=== PATIENT | male | born 1935 | race Caucasian/White ===

== ENCOUNTER 2016-06-02 14:50 | Inpatient (IN) | payer OTHER, MEDICARE ==
[~2016-06-02] VITALS: Ht 170.2 cm; Wt 94.2 kg
[~2016-06-02 14:50] MED LIST: FLM4 PO; LEVO125T4 PO; LPT/20 PO; LSN25 PO; LSX20 PO; SPIR25TA PO; WARF-246 PO
[2016-06-02] MEDS ORDERED: OPTIRAY 320 IV PRN (15:30)
[2016-06-02] MEDS ORDERED: TPRSR/25 PO (16:05)
[2016-06-02] MEDS ORDERED: LEVE500T PO (16:05)
[2016-06-02] MEDS ORDERED: TRAZ1TAB5 PO (16:05)
[2016-06-02] MEDS ORDERED: CLX/20 PO (16:05)
[2016-06-02] MEDS ORDERED: CHOL1000 PO (16:05)
[2016-06-02] MEDS ORDERED: NRN100 PO (16:05)
[2016-06-02 16:20] LABS: BUN/CREATININE RATIO 27.8 (10-20); CREATININE 1.1 mg/dl (0.60-1.40); POTASSIUM 4.3 mmol/L (3.5-5.1)
[2016-06-02 16:27] LABS: INR 2.4 (0.9-1.1); PARTIAL THROMBOPLASTIN RATIO 1.2; PROTHROMBIN TIME (PATIENT) 26.5 SECONDS (9.0-12.0)
[2016-06-02 16:41] LABS: BASO % 0.5 %; BASO ABS # 0.03 K/uL (0-0.2); COMPLETE YES; EOS % 2.1 %; HEMATOCRIT 45.6 % (42-52); IG% 0.2 %; LYMPH % 23.2 %; LYMPH ABS # 1.41 K/uL (1.2-3.4); MEAN CELL VOLUME 89.9 fL (80-100); MEAN CORPUSCULAR HEMOGLOBIN 29.6 pg (25-34); MEAN CORPUSCULAR HGB CONC 32.9 g/dl (32-36); MONO % 8.6 %; NEUT % 65.4 %; PLATELET COUNT 97 K/uL (130-400); PLT ESTIMATE DECREASED; RED BLOOD COUNT 5.07 M/uL (4.7-6.1); WHITE BLOOD COUNT 6.08 K/uL (4.8-10.8)
[2016-06-02 16:46] LABS: THYROID STIMULATING HORMONE 0.421 uIu/ml (0.300-4.500)
--- NOTE | 2016-06-02 17:17 | DIAGNOSTIC IMAGING REPORT ---
CT ANGIOGRAM OF THE CHEST CLINICAL HISTORY: Shortness of breath, dyspnea on exertion. COMPARISON STUDY: No previous studies for comparison. TECHNIQUE: Following the IV administration of 118 mL of Optiray-320, CT angiogram of the thorax was performed from the thoracic inlet to the lung bases utilizing the pulmonary embolus protocol. Images are reviewed in the axial, sagittal, and coronal planes. IV contrast was administered without complication. MIP imaging was performed. CT DOSE: 539.21 mGy.cm FINDINGS: No pathologically enlarged axillary mediastinal or hilar lymph nodes were visualized. There is mild dilatation of the ascending thoracic aorta which measures 44 mm. No intimal flap is visualized The heart is markedly enlarged. There is evidence of elevated right heart pressures with reflux of contrast into the IVC and hepatic veins. 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 There is a left subclavian dual-chamber central venous pacemaker present. The study is limited secondary to respiratory motion artifact. No central emboli are visualized. Serial lower extremity venous Doppler should be considered in follow-up. No pleural effusions are visualized. Limited evaluation due to respiratory motion artifact. No evidence of focal pulmonary consolidation. IMPRESSION: 1. Somewhat limited evaluation of the pulmonary arteries secondary to motion artifact. No central emboli identified. Serial leg ultrasonography should be considered in follow-up. 2. Mild dilatation of the ascending thoracic aorta which measures 44 mm. No dissection identified 3. Extensive chest wall collaterals, finding which suggests stenosis or obstruction left brachiocephalic vein 4. Marked cardiomegaly with evidence of elevated right heart pressures Electronically signed by: Javi Wang M.D. 06/02/2016 5:16 PM Dictated Date/Time: 06/02/2016 5:09 PM
[2016-06-02] MEDS ORDERED: ASPIRIN 324 MG CHEW PO STA (17:50)
--- NOTE | 2016-06-02 18:30 | EMERGENCY ROOM VISIT NOTE ---
History Report prepared by Lexy: Gabbi Lobo Under the Supervision of: Dr. Clarke Ribeiro M.D. First contact with patient: 15:02 Chief Complaint: SHORTNESS OF BREATH Stated Complaint: SHORTNESS OF BREATH Nursing Triage Summary: Pt has been SOB for 1 week. Today patient was shopping and became very SOB. Pt was sent to [facility] for evaluation and then here. Pt reports he gets SOB when he talks and walks. Pt reports history of Afib and pacemaker. History of Present Illness The patient is a 81 year old male who presents to the Emergency Room via EMS with complaints of persistent shortness of breath over the past week. Today, his shortness of breath worsened while he was shopping for a new iPhone. He notes that he feels an increase in his shortness of breath after walking 5-10 steps. He felt much better once he was put on oxygen in the ambulance. Denies chest pain or other complaints. He notes that he followed up with his control board operator within the last 2 weeks for a check up. He has a history of a-fib. Source of History: patient Onset: 1 week ago Position: other (global) Timing: other (persistent) Modifying Factors (Worsening): exertion Modifying Factors (Relieving): oxygen Associated Symptoms: No chest pain Review of Systems See HPI for pertinent positives & negatives. A total of 10 systems reviewed and were otherwise negative. Past Medical & Surgical Medical Problems: (1) Atrial fibrillation (2) Heart disease (3) Hypertension (4) Leaky heart valve Surgical Problems: (1) History of appendectomy (2) History of cholecystectomy Family History Cancer Diabetes mellitus Gallbladder disease Heart disease Hypertension Lung disease Social History Smoking Status: Never Smoker Alcohol Use: occasionally Housing Status: lives with family Occupation Status: retired Current/Historical Medications Scheduled Atorvastatin (Atorvastatin Calcium), 20 MG PO DAILY Cholecalciferol (Vitamin D3), 1 TAB PO DAILY Citalopram (Citalopram Hydrobromide), 20 MG PO DAILY Gabapentin (Gabapentin), 100 MG PO TID Levetiractam (Levetiracetam), 500 MG PO Q12 Levothyroxine Sodium (Levothyroxine Sodium), 125 MCG PO DAILY Metoprolol Succinate (Metoprolol Succinate ER), 12.5 MG PO DAILY Trazodone Hcl (Desyrel), 50 MG PO HS Warfarin Sodium (Warfarin Sodium), 5 MG PO UD Allergies Coded Allergies: No Known Allergies (Unverified , 06/02/16) Physical Exam Vital Signs Date Time Temp Pulse Resp B/P Pulse Ox O2 Delivery O2 Flow Rate FiO2 06/02/16 18:14 88 22 94/81 99 Nasal Cannula 2.0 06/02/16 16:36 92 20 117/72 93 Nasal Cannula 2.0 06/02/16 16:13 98 97/71 97 99/67 110 83/66 06/02/16 15:37 88 Room Air 06/02/16 15:09 97 06/02/16 14:56 95 Nasal Cannula 06/02/16 14:56 95 Nasal Cannula 2.0 06/02/16 14:56 36.3 91 20 100/74 88 Room Air Physical Exam CONSTITUTIONAL: Mild distress, on oxygen, normal pulse ox. HEENT: No icterus, moist mucous membranes NECK: No meningismus, trachea is midline. CARDIOVASCULAR: Regular rate, normal perfusion RESPIRATORY: Unlabored breathing. Clear to auscultation. GASTROINTESTINAL: Non-tender GENITOURINARY: No flank tenderness MUSCULOSKELETAL: Full range of motion NEUROLOGIC: No acute gross focal deficits. PSYCHIATRIC: Normal affect SKIN: Normal for ethnicity. Medical Decision & Procedures ER Provider Diagnostic Interpretation: Radiology results as stated below per my review and radiologist interpretation. CT ANGIOGRAM OF THE CHEST CLINICAL HISTORY: Shortness of breath, dyspnea on exertion. COMPARISON STUDY: No previous studies for comparison. TECHNIQUE: Following the IV administration of 118 mL of Optiray-320, CT angiogram of the thorax was performed from the thoracic inlet to the lung bases utilizing the pulmonary embolus protocol. Images are reviewed in the axial, sagittal, and coronal planes. IV contrast was administered without complication. MIP imaging was performed. CT DOSE: 539.21 mGy.cm FINDINGS: No pathologically enlarged axillary mediastinal or hilar lymph nodes were visualized. There is mild dilatation of the ascending thoracic aorta which measures 44 mm. No intimal flap is visualized The heart is markedly enlarged. There is evidence of elevated right heart pressures with reflux of contrast into the IVC and hepatic veins. 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 There is a left subclavian dual-chamber central venous pacemaker present. The study is limited secondary to respiratory motion artifact. No central emboli are visualized. Serial lower extremity venous Doppler should be considered in follow-up. No pleural effusions are visualized. Limited evaluation due to respiratory motion artifact. No evidence of focal pulmonary consolidation. IMPRESSION: 1. Somewhat limited evaluation of the pulmonary arteries secondary to motion artifact. No central emboli identified. Serial leg ultrasonography should be considered in follow-up. 2. Mild dilatation of the ascending thoracic aorta which measures 44 mm. No dissection identified 3. Extensive chest wall collaterals, finding which suggests stenosis or obstruction left brachiocephalic vein 4. Marked cardiomegaly with evidence of elevated right heart pressures Electronically signed by: Javi Wang M.D. 06/02/2016 5:16 PM Dictated Date/Time: 06/02/2016 5:09 PM Laboratory Results 06/02/16 14:30 Red Blood Count 5.07, Mean Corpuscular Volume 89.9, Mean Corpuscular Hemoglobin 29.6, Mean Corpuscular Hemoglobin Concent 32.9, Neutrophils (%) (Auto) 65.4, Lymphocytes (%) (Auto) 23.2, Monocytes (%) (Auto) 8.6, Eosinophils (%) (Auto) 2.1, Basophils (%) (Auto) 0.5, Neutrophils # (Auto) 3.98, Lymphocytes # (Auto) 1.41, Monocytes # (Auto) 0.52, Eosinophils # (Auto) 0.13, Basophils # (Auto) 0.03 06/02/16 14:30 Test 06/02/16 14:30 06/02/16 16:05 06/02/16 17:50 06/02/16 18:08 White Blood Count 6.08 K/uL (4.8-10.8) Red Blood Count 5.07 M/uL (4.7-6.1) Hemoglobin 15.0 g/dL (14.0-18.0) Hematocrit 45.6 % (42-52) Mean Corpuscular Volume 89.9 fL (80-100) Mean Corpuscular Hemoglobin 29.6 pg (25-34) Mean Corpuscular Hemoglobin Concent 32.9 g/dl (32-36) Platelet Count 97 K/uL (130-400) Neutrophils (%) (Auto) 65.4 % Lymphocytes (%) (Auto) 23.2 % Monocytes (%) (Auto) 8.6 % Eosinophils (%) (Auto) 2.1 % Basophils (%) (Auto) 0.5 % Neutrophils # (Auto) 3.98 K/uL (1.4-6.5) Lymphocytes # (Auto) 1.41 K/uL (1.2-3.4) Monocytes # (Auto) 0.52 K/uL (0.11-0.59) Eosinophils # (Auto) 0.13 K/uL (0-0.5) Basophils # (Auto) 0.03 K/uL (0-0.2) RDW Standard Deviation 50.1 fL (36.4-46.3) RDW Coefficient of Variation 15.3 % (11.5-14.5) Immature Granulocyte % (Auto) 0.2 % Immature Granulocyte # (Auto) 0.01 K/uL (0.00-0.02) Platelet Estimate DECREASED Red Blood Cell Morphology Unremarkable Anion Gap 9.0 mmol/L (3-11) Est Creatinine Clear Calc Drug Dose 59.7 ml/min Estimated GFR () 73.1 Estimated GFR (Non- 63.1 BUN/Creatinine Ratio 27.8 (10-20) Calcium Level 9.0 mg/dl (8.5-10.1) Pro-B-Type Natriuretic Peptide 8318 pg/ml (0-1800) Thyroid Stimulating Hormone (TSH) 0.421 uIu/ml (0.300-4.500) Chemistry Specimen Hemolysis Prothrombin Time 26.5 SECONDS (9.0-12.0) Prothromb Time International Ratio 2.4 (0.9-1.1) Activated Partial Thromboplast Time 31.9 SECONDS (21.0-31.0) Partial Thromboplastin Ratio 1.2 Labs reviewed by ED physician. Medications Administered Medications (Trade) Dose Ordered Sig/Linda Route Start Time Stop Time Status Last Admin Dose Admin Aspirin (Aspirin Chew) 324 mg NOW STAT PO 06/02/16 17:50 06/02/16 17:55 DC 06/02/16 18:13 324 MG ECG Indication: SOB/dyspnea Rate (beats per minute): 102 Rhythm: other (ventricularly paced) Findings: nonspecific-ST abn ED Course 151: Past medical records reviewed. The patient was evaluated in room C9. A complete history and physical examination was performed. 1750: Ordered Aspirin 324 mg PO. 1810: Upon reexamination the patient is resting comfortably. I discussed results and treatment plan with the patient. He verbalizes agreement and understanding. I spoke with RAMON Unger Hospitalist Service. The patient will be evaluated for further management. Medical Decision Differential includes but is not limited to Differential includes but is not limited to coronary artery disease, PE, congestive heart failure. 81-year-old presents into the emergency Department from home for exertional dyspnea better with nasal cannula oxygen provided by EMS services. He reports being in his otherwise normal state of health and is presently without complaint on my examination. Nurse reports she was unable to ambulate on her evaluation and was hypoxic 88% on room air. His pulse ox is normal on 2 L nasal cannula. He is noted to have a paced rhythm at a history of atrial fibrillation on Coumadin with therapeutic INR. CTA chest negative for PE and troponin noted to be abnormal. Patient admitted. He remained hemodynamically stable throughout emergency Department course. Consults Time Called: 1800 Consulting Physician: RAMON Unger Hospitalist Service Returned Call: [phone] The patient will be evaluated for further management. Impression Primary Impression: Cardiac chest pain Additional Impressions: Elevated troponin Hypoxia Scribe Attestation The scribe's documentation has been prepared under my direction and personally reviewed by me in its entirety. I confirm that the note above accurately reflects all work, treatment, procedures, and medical decision making performed by me. Departure Information Dispostion Being Evaluated By Hospitalist Referrals Julia Angeles M.D. (PCP) Patient Instructions My [facility] Problem Qualifiers
[2016-06-02] MEDS ORDERED: NITROGLYCERIN 0.4 MG SL PER TAB CHARGE SL PRN (19:00)
[2016-06-02] MEDS ORDERED: ACETAMINOPHEN 325 MG TAB PO PRN (19:00)
[2016-06-02] MEDS ORDERED: ONDANSETRON INJ 2 MG/ML 2 ML VIAL IV PRN (19:00)
--- NOTE | 2016-06-02 19:31 | History and Physical ---
History & Physical Date & Time of Service: Jun 02, 2016 at 19:09 Chief Complaint: Shortness Of Breath Primary Care Physician: Julia Angeles M.D. History of Present Illness Source: patient, family, clinic records, hospital records Patient seen and examined. 81 year old male with PMHx of Afib on coumadin, Severe CHF with EF less than 20% s/p ICD, H/O AVR, H/O MVR, hypothyroidism, h/o subdural hematoma with seizures, and other problems listed below presents to the ED complaining of SOB prior to arrival. Patient reports he has been low energy and dyspnea for over a month. Today he was getting a new iPhone when at the store he walked about 5 steps and became SOB. Bystanders were nervous and called 911. Patient reports he has been getting SOB with this minimal exertion for about a month. He states prior to that he had been active and going to the gym. He reports he has been seeing Dr. Barajas for and that his pacemaker hasn't been working the way it should. He has a followup scheduled for 06/04. He denies fevers, chills, URI symptoms, chest pain, nausea, vomiting, diarrhea, dysuria, calf pain and edema. He denies orthopnea, change in diet/salt intake. He was in [facility] this summer following a fall resulting in a Subdural Hematoma. At that time he had the ICD placed. He also had Aortic Valve and Mitral Valve replacements. 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 When EMS arrived patient was hypoxic on RA. He was placed on 2L NC and now feels much better. In the ED BPs were soft which is chronic in nature. He was saturating well on 2L, INR was 2.4 CTA was negative for PE, CHF, and consolidation. Troponin was 0.302. He received ASA and is resting comfortably. He will be admitted for further workup and treatment . Past Medical/Surgical History Medical Problems: (1) Atrial fibrillation Status: Chronic (2) Biventricular ICD (implantable cardioverter-defibrillator) in place Status: Chronic (3) BPH (benign prostatic hyperplasia) Status: Chronic (4) Colon cancer Status: Chronic (5) Current use of shelter anticoagulation Status: Chronic (6) Depression Status: Chronic (7) Hypothyroidism Status: Chronic (8) Seizure Status: Chronic (9) Subdural hematoma Status: Chronic (10) Systolic CHF Status: Chronic (11) Thrombocytopenia Status: Chronic Surgical Problems: (1) H/O colonoscopy Status: Chronic (2) History of appendectomy Status: Chronic (3) History of partial colectomy Status: Chronic (4) Hx of cholecystectomy Status: Chronic (5) Hx of total knee arthroplasty Status: Chronic (6) S/P AVR (aortic valve replacement) Status: Chronic (7) S/P MVR (mitral valve replacement) Status: Chronic Family History Cancer Diabetes mellitus Gallbladder disease Heart disease Hypertension Lung disease Social History Smoking Status: Former Smoker Alcohol Use: none Marital Status: Housing status: lives with family Occupational Status: retired Allergies Coded Allergies: No Known Allergies (Unverified , 06/02/16) Home Medications Scheduled Atorvastatin (Atorvastatin Calcium), 20 MG PO DAILY Cholecalciferol (Vitamin D3), 1 TAB PO DAILY Citalopram (Citalopram Hydrobromide), 20 MG PO DAILY Gabapentin (Gabapentin), 100 MG PO TID Levetiractam (Levetiracetam), 500 MG PO Q12 Levothyroxine Sodium (Levothyroxine Sodium), 125 MCG PO DAILY Metoprolol Succinate (Metoprolol Succinate ER), 12.5 MG PO DAILY Trazodone Hcl (Desyrel), 50 MG PO HS Warfarin Sod (Jantoven), 2.5 MG PO UD Warfarin Sodium (Warfarin Sodium), 5 MG PO UD Review of Systems See above for pertinent positives & negatives. A total of 10 systems reviewed and were otherwise negative. Physical Exam Vital Signs Date Time Temp Pulse Resp B/P Pulse Ox O2 Delivery O2 Flow Rate FiO2 06/02/16 18:14 88 22 94/81 99 Nasal Cannula 2.0 06/02/16 16:36 92 20 117/72 93 Nasal Cannula 2.0 06/02/16 16:13 98 97/71 97 99/67 110 83/66 06/02/16 15:37 88 Room Air 06/02/16 15:09 97 06/02/16 14:56 95 Nasal Cannula 06/02/16 14:56 95 Nasal Cannula 2.0 06/02/16 14:56 36.3 91 20 100/74 88 Room Air General Appearance: + pertinent finding (Pleasant WD/WN 81 year old male lying in bed in NAD with brother at bedside ) Head: normocephalic, atraumatic Eyes: PERRL, EOMI, sclerae normal ENT: hearing grossly normal, pharynx normal Neck: supple, no JVD Respiratory/Chest: chest non-tender, lungs clear, normal breath sounds, no respiratory distress, no accessory muscle use Cardiovascular: regular rate, rhythm, no edema, no gallop, no JVD, normal peripheral pulses, + systolic murmur Abdomen/GI: normal bowel sounds, non tender, soft Back: normal inspection, no muscle spasm Extremities/Musculoskelatal: no calf tenderness, normal capillary refill, no pedal edema Neurologic/Psych: alert, oriented x 3, + pertinent finding (no motor or sensory deficits noted on gross exam ) Skin: normal color, warm/dry, no rash Lymphatic: no adenopathy Diagnostics Laboratory Results Results Past 24 Hours Test 06/02/16 14:30 06/02/16 16:05 06/02/16 17:50 Range/Units White Blood Count 6.08 4.8-10.8 K/uL Red Blood Count 5.07 4.7-6.1 M/uL Hemoglobin 15.0 14.0-18.0 g/dL Hematocrit 45.6 42-52 % Mean Corpuscular Volume 89.9 80-100 fL Mean Corpuscular Hemoglobin 29.6 25-34 pg Mean Corpuscular Hemoglobin Concent 32.9 32-36 g/dl Platelet Count 97 130-400 K/uL Neutrophils (%) (Auto) 65.4 % Lymphocytes (%) (Auto) 23.2 % Monocytes (%) (Auto) 8.6 % Eosinophils (%) (Auto) 2.1 % Basophils (%) (Auto) 0.5 % Neutrophils # (Auto) 3.98 1.4-6.5 K/uL Lymphocytes # (Auto) 1.41 1.2-3.4 K/uL Monocytes # (Auto) 0.52 0.11-0.59 K/uL Eosinophils # (Auto) 0.13 0-0.5 K/uL Basophils # (Auto) 0.03 0-0.2 K/uL RDW Standard Deviation 50.1 36.4-46.3 fL RDW Coefficient of Variation 15.3 11.5-14.5 % Immature Granulocyte % (Auto) 0.2 % Immature Granulocyte # (Auto) 0.01 0.00-0.02 K/uL Platelet Estimate DECREASED Red Blood Cell Morphology Unremarkable Sodium Level 144 136-145 mmol/L Potassium Level 4.3 3.5-5.1 mmol/L Chloride Level 110 98-107 mmol/L Carbon Dioxide Level 25 21-32 mmol/L Anion Gap 9.0 3-11 mmol/L Blood Urea Nitrogen 31 7-18 mg/dl Creatinine 1.10 0.60-1.40 mg/dl Est Creatinine Clear Calc Drug Dose 59.7 ml/min Estimated GFR () 73.1 Estimated GFR (Non- 63.1 BUN/Creatinine Ratio 27.8 10-20 Random Glucose 75 70-99 mg/dl Calcium Level 9.0 8.5-10.1 mg/dl Troponin I 0.302 0-0.045 ng/ml Pro-B-Type Natriuretic Peptide 8318 0-1800 pg/ml Thyroid Stimulating Hormone (TSH) 0.421 0.300-4.500 uIu/ml Chemistry Specimen Hemolysis Prothrombin Time 26.5 9.0-12.0 SECONDS Prothromb Time International Ratio 2.4 0.9-1.1 Activated Partial Thromboplast Time 31.9 21.0-31.0 SECONDS Partial Thromboplastin Ratio 1.2 Diagnostic Radiology CTA CHEST Per radiologist read: IMPRESSION: 1. Somewhat limited evaluation of the pulmonary arteries secondary to motion artifact. No central emboli identified. Serial leg ultrasonography should be considered in follow-up. 2. Mild dilatation of the ascending thoracic aorta which measures 44 mm. No dissection identified 3. Extensive chest wall collaterals, finding which suggests stenosis or obstruction left brachiocephalic vein 4. Marked cardiomegaly with evidence of elevated right heart pressures EKG Ventricular PAced 102 BPM, QTc 609 Impression Assessment and Plan 81 year old male presents to the ED with SOB. He has had decreased energy, and SOB for the past month. Today was SOB in public place and bystanders called [phone] ACUTE HYPOXIA -Admit to tele -? cause, CTA without effusion, consolidation, PE. Denies history of Asthma, COPD. Lung exam benign, appears euvolemic -Saturating well on 2L NC -Continue oxygen supplementation prn -continue Pulse ox -R/O ACS as below -CBC, PRP, Mg in AM -cardiology consult placed for further recommendations -may need 2 step prior to discharge ELEVATED TROPONIN -? cause, denies chest pain -Troponin 0.302 -serial Erickson, EKGs -cardiology consult placed for further input -defer repeat echo to cardiology -Continue BB, Statin -Received Aspirin in the ED, continue daily for now SEVERE SYSTOLIC CHF -EF< 20% on Echo in 04/2016 -BNP 8K -appears euvolemic -is not on diuretics as outpatient -continue BB -Repeat BNP in AM -low sodium AHA diet -I&Os H/O BIVENTRICULAR PACEMAKER DEFIBRILLATOR -Interrogation ordered CHRONIC ATRIAL FIBRILLATION -INR 2.4 -continue Coumadin, continue BB -monitor in tele SEIZURES -continue Keppra HYPOTHYROIDISM -TSH normal -continue Synthroid HLD -continue Statin DEPRESSION -continue Celexa Trazodone CHRONIC THROMBOCYTOPENIA -98 today -monitor daily H/O AVR H/O MVR H/O SUBDURAL HEMATOMA H/O COLON CA -s/p partial colectomy DVT PROPHYLAXIS: Coumadin CODE STATUS: LEVEL 5 DNR per my discussion with the patient and his brother DISPO:In my clinical judgment this beneficiary meets acute admission criteria, established by [facility], that includes being hospitalized through two midnights. Patient seen in collaboration with Dr. Quintero ATTENDING ADDENDUM Record reviewed. Patient interviewed and examined. Care coordinated with Lakshmi Curtis PA-C. Please refer to her documentation for patient's history. I agree with the assessment and plan as stated with the following exceptions. Mr. Russell has recently seen Cardiology two weeks ago and was started on toprol XL 12.5 daily. The patient feels his fatigue and SOB have gotten worse since starting this medication. He denies fluid retention, weight gain, palpitations, orthopnea, PND or any swelling. He also denies any chest pain. He states that his baseline functional status 1-2 months ago included going to the gym, however, in the last two weeks he reports not even being able to walk 5 steps without being out of breath. During the last visit with Dr. Barajas an echocardiogram was performed to evaluate weakness, demonstrating worsening LV systolic function with an EF <20%. There was a question of progressive cardiomyoapthy in response to chronic atrial arrythmias at that point. As he has seemed to get worse on the Toprol, will hold that until Cardiology team can re-evaluate. ICD interrogation ordered and is pending. He is hemodynamically stable and afebrile on exam, oxygenating well on 2L oxygen via NC (not on this at home). Exam is unremarkable including normal heart and lung exam and no edema. Abdomen is protuberant from chronic hernias. The patient is clinically euvolemic. Cont plan as above including telemetry monitoring and hold Toprol pending Cardiology eval. Yolis Quintero, DO (Hospitalist) VTE Prophylaxis VTE Risk Assessment Done? Y/N: Yes Risk Level: Moderate
[2016-06-02 19:39] LABS: MAGNESIUM 2.4 mg/dl (1.8-2.4)
[2016-06-02] MEDS ORDERED: WARF2.5T8 PO (19:54)
[2016-06-02 20:00] VITALS: BP 107/84; PULSE 95; TEMP 36.6; O2SAT 98; Ht 170.2 cm; Wt 94.2 kg
[2016-06-02] MEDS ORDERED: WARFARIN SOD 5 MG TAB PO SCH (21:00)
[2016-06-02] MEDS: GABAPENTIN 100 MG CAP PO SCH (21:46)
[2016-06-02] MEDS: TRAZODONE HCL 50 MG TAB PO SCH (21:46)
[2016-06-02] MEDS: LEVETIRACETAM 500 MG TAB PO SCH (21:46)
[2016-06-02 23:37] VITALS: BP 84/68; PULSE 93; TEMP 36.3; O2SAT 95
[2016-06-03] VITALS (13 sets, daily range): BP systolic 86–122; BP diastolic 66–89; PULSE 73–120; TEMP 36.4–36.7; O2SAT 83–100
[2016-06-03 00:46] LABS: CKMB/CK RATIO 2.1 (0-3.0)
[2016-06-03] MEDS: LEVOTHYROXINE 125 MCG TAB PO SCH (06:10)
[2016-06-03 06:14] LABS: INR 2.6 (0.9-1.1); MEAN CORPUSCULAR HGB CONC 31.8 g/dl (32-36); PROTHROMBIN TIME (PATIENT) 28.8 SECONDS (9.0-12.0)
[2016-06-03 06:40] LABS: CALCIUM 8.1 mg/dl (8.5-10.1); CREATININE 0.92 mg/dl (0.60-1.40); MAGNESIUM 2.4 mg/dl (1.8-2.4); POTASSIUM 3.9 mmol/L (3.5-5.1)
[2016-06-03 06:44] LABS: HEMATOCRIT 44.6 % (42-52); WHITE BLOOD COUNT 6.08 K/uL (4.8-10.8)
[2016-06-03 06:48] LABS: CHOLESTEROL/HDL RATIO 3.1
[2016-06-03 06:51] LABS: PLATELET COUNT 86 K/uL (130-400); PLT ESTIMATE DECREASED
[2016-06-03] MEDS: CITALOPRAM 20 MG TAB PO SCH (08:35)
[2016-06-03] MEDS: LEVETIRACETAM 500 MG TAB PO SCH ×2 (08:36→20:33)
[2016-06-03] MEDS: ATORVASTATIN 20 MG TAB PO SCH (08:36)
[2016-06-03] MEDS: WARFARIN SOD 5 MG TAB PO SCH (08:36)
[2016-06-03] MEDS: ASPIRIN 81 MG ECTAB PO SCH (08:36)
[2016-06-03] MEDS: GABAPENTIN 100 MG CAP PO SCH ×3 (08:37→20:33)
[2016-06-03] MEDS: CHOLECALCIFEROL 1000 INTER.UNIT TAB PO SCH (08:37)
[2016-06-03] MEDS ORDERED: METOPROLOL SUCC 25MG EXT REL TAB PO SCH (09:00)
[2016-06-03] MEDS ORDERED: AMIODARONE IV BOLUS / DRIP IV STA (11:59)
--- NOTE | 2016-06-03 11:59 | Cardiology Consultation ---
Cardiology Consultation Date of Consultation: Jun 03, 2016 Requesting Physician: Kirsten Attending Community Development Planner: Tutu (Alberto Miller PA-C) History of Present Illness Patient is a 81 year old male who is being seen in cardiology consultation secondary to an elevated troponin and hypoxemia. Patient presents to the [facility] ER with a chief complaint of acute on chronic dyspnea. He is only comfortable at rest. Additional problems include generalized malaise, fatigue. No angina though notes left lower chest/left upper abdominal rhythmic discomfort post device implantation. No overt palpitations. No ICD discharges. Denies abdominal bloating, scrotal edema, orthopnea, PND, or lower extremity peripheral edema. No fevers or chills. CT negative for PE on presentation. The heart is noted to be markedly enlarged with a biventricular pacemaker defibrillator in place. Device interrogation today demonstrates persistent atrial flutter since September 2015, frequent PVC's in a pattern of bigeminy, biventricular pacing only 74% of the time. No ventricular events noted. Estimated remaining longevity is 8 years. INR's therapeutic over the last 5 months. (Alberto Miller PA-C) History Past Medical/Surgical History: severe aortic and mitral insufficiency in the setting of LV systolic dysfunction , status post March 2014 valvular intervention including AVR with a [address] [employer] Epic bioprosthesis and mitral valve replacement with a [address] [employer] Epic bioprosthesis Status post left atrial appendage ligation. Chronic atrial fibrillation with intrinsic conduction system disease. Large caliber coronary arteries without obstructive disease by cardiac catheterization in 2013. Severe LV dysfunction. Hospitalization in [place] in November 2015 following a syncope episode, resultant subdural hematoma. Status post biventricular pacer defibrillator implantation in November 2015 with a [employer] Inogen XR CRTD device. 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 Reformed smokeless tobacco use, quit in 1979. No significant alcohol use. No illegal drug use. . Three children. Resides with mother in [place]. Retired. Family History: Mother s/p AVR. Father with CAD s/p CABG. Daughter with pancreatic cancer. (Albreto Miller PA-C) Review Of Systems General: No fever or chills. HEENT: No current headache Cardiovascular: NYHA Class IV dyspnea. Pulmonary: No hemoptysis. Gastrointestinal: No abdominal pain. Skin: + Diaphoresis. No rash. Musculoskeletal: Arthritis. Neurological: Decreased memory. Complete review of systems is as stated above, negative, or noncontributory. (Alberto Miller PA-C) Allergies Coded Allergies: No Known Allergies (Unverified , 06/02/16) Medications Reported Home Medications Medications Dose Route/Sig Max Daily Dose Days Date Category Dose Instructions Jantoven (Warfarin Sodium) 2.5 Mg Tab 2.5 Mg PO UD 06/02/16 Reported 2x/week on Mon & Sat Vitamin D3 (Cholecalciferol) 1,000 Unit Tab 1 Tab PO DAILY 06/02/16 Reported Levetiracetam (Levetiractam) 500 Mg Tab 500 Mg PO Q12 06/02/16 Reported Gabapentin 100 Mg Cap 100 Mg PO TID 06/02/16 Reported Citalopram Hydrobromide (Citalopram) 20 Mg Tab 20 Mg PO DAILY 06/02/16 Reported Desyrel (Trazodone Hcl) 50 Mg Tab 50 Mg PO HS 06/02/16 Reported Metoprolol Succinate ER (Metoprolol Succinate) 25 Mg Tabcr 12.5 Mg PO DAILY 06/02/16 Reported Warfarin Sodium 5 Mg Tab 5 Mg PO UD 03/12/14 Reported 5 days/week on Tue, Tue, Tue, , Tue Atorvastatin Calcium (Atorvastatin) 20 Mg Tab 20 Mg PO DAILY 03/12/14 Reported Levothyroxine Sodium 125 Mcg Tab 125 Mcg PO DAILY 03/12/14 Reported (Alberto Miller PA-C) Physical Exam Vital Signs (Last 8hrs): Last 8 Hrs Date Time Temp Pulse Resp B/P Pulse Ox O2 Delivery O2 Flow Rate FiO2 06/03/16 08:59 109 90/69 89 103/73 06/03/16 08:00 Nasal Cannula 2.0 06/03/16 07:16 36.5 112 20 95/70 97 Nasal Cannula 2.0 104/76 06/03/16 04:02 Room Air 2.0 06/03/16 03:33 36.5 112 18 99/71 97 Nasal Cannula 2.0 General Appearance: Alert and Oriented x3. Acute ill. Chronically ill. Dyspneic and tachypneic with position changes in bed. SPO2 dropped to 83% with position change. Head: Normocephalic Atraumatic. Eyes: PER, EOMI, Conjunctiva and sclera clear Neck: Supple. Right carotid bruit. No JVD. + HJD. Respiratory: Diminished but clear. No abnormal breath sounds appreciated. Cardiovascular: Irregular ~120 bpm. Soft systolic ejection murmur. No diastolic murmur. PMI is displaced laterally. Abdomen: Diaphragmatic stimulation noted. +BS. Soft. Nontender. Extremities: No edema. No clubbing. No cyanosis. Distal pulses 1/4 bilaterally. Neuro: No focal deficits. Psychiatric: Flat affect. (Alberto Miller, RAMON) Data Last 24 Hours Test 06/02/16 14:30 06/02/16 16:05 06/02/16 19:07 06/02/16 23:54 White Blood Count 6.08 K/uL Red Blood Count 5.07 M/uL Hemoglobin 15.0 g/dL Hematocrit 45.6 % Mean Corpuscular Volume 89.9 fL Mean Corpuscular Hemoglobin 29.6 pg Mean Corpuscular Hemoglobin Concent 32.9 g/dl Platelet Count 97 K/uL Neutrophils (%) (Auto) 65.4 % Lymphocytes (%) (Auto) 23.2 % Monocytes (%) (Auto) 8.6 % Eosinophils (%) (Auto) 2.1 % Basophils (%) (Auto) 0.5 % Neutrophils # (Auto) 3.98 K/uL Lymphocytes # (Auto) 1.41 K/uL Monocytes # (Auto) 0.52 K/uL Eosinophils # (Auto) 0.13 K/uL Basophils # (Auto) 0.03 K/uL RDW Standard Deviation 50.1 fL RDW Coefficient of Variation 15.3 % Immature Granulocyte % (Auto) 0.2 % Immature Granulocyte # (Auto) 0.01 K/uL Platelet Estimate DECREASED Red Blood Cell Morphology Unremarkable Sodium Level 144 mmol/L Potassium Level 4.3 mmol/L Chloride Level 110 mmol/L Carbon Dioxide Level 25 mmol/L Anion Gap 9.0 mmol/L Blood Urea Nitrogen 31 mg/dl Creatinine 1.10 mg/dl Est Creatinine Clear Calc Drug Dose 59.7 ml/min Estimated GFR () 73.1 Estimated GFR (Non- 63.1 BUN/Creatinine Ratio 27.8 Random Glucose 75 mg/dl Calcium Level 9.0 mg/dl Troponin I 0.302 ng/ml 0.287 ng/ml 0.314 ng/ml Pro-B-Type Natriuretic Peptide 8318 pg/ml Thyroid Stimulating Hormone (TSH) 0.421 uIu/ml Chemistry Specimen Hemolysis Prothrombin Time 26.5 SECONDS Prothromb Time International Ratio 2.4 Activated Partial Thromboplast Time 31.9 SECONDS Partial Thromboplastin Ratio 1.2 Magnesium Level 2.4 mg/dl Total Creatine Kinase 61 U/L Creatine Kinase MB 1.3 ng/ml Creatine Kinase MB Ratio 2.1 Test 06/03/16 05:53 White Blood Count 6.08 K/uL Red Blood Count 4.90 M/uL Hemoglobin 14.2 g/dL Hematocrit 44.6 % Mean Corpuscular Volume 91.0 fL Mean Corpuscular Hemoglobin 29.0 pg Mean Corpuscular Hemoglobin Concent 31.8 g/dl RDW Standard Deviation 51.1 fL RDW Coefficient of Variation 15.4 % Platelet Count 86 K/uL Platelet Estimate DECREASED Prothrombin Time 28.8 SECONDS Prothromb Time International Ratio 2.6 Sodium Level 145 mmol/L Potassium Level 3.9 mmol/L Chloride Level 111 mmol/L Carbon Dioxide Level 26 mmol/L Anion Gap 8.0 mmol/L Blood Urea Nitrogen 28 mg/dl Creatinine 0.92 mg/dl Est Creatinine Clear Calc Drug Dose 69.9 ml/min Estimated GFR () 90.7 Estimated GFR (Non- 78.3 BUN/Creatinine Ratio 30.0 Random Glucose 99 mg/dl Calcium Level 8.1 mg/dl Magnesium Level 2.4 mg/dl Total Creatine Kinase 55 U/L Creatine Kinase MB 1.1 ng/ml Creatine Kinase MB Ratio 2.0 Troponin I 0.289 ng/ml Pro-B-Type Natriuretic Peptide 6004 pg/ml Triglycerides Level 132 mg/dl Cholesterol Level 87 mg/dl HDL Cholesterol 28 mg/dl LDL Cholesterol, Calculated 33 mg/dl VLDL Cholesterol, Calculated 26 mg/dl Cholesterol/HDL Ratio 3.1 May 19, 2016 TTE Interpretation Summary (Dr. Whit Montero): The septal motion is abnormal consistent with the postoperative state. The remaining left ventricular wall segments are severely hypokinetic. The left atrium is severely enlarged (>39 ml/m^2, area length). There is an aortic valve bioprosthetic present. The aortic valve prosthesis systolic gradients are normal for this type prosthesis. There is a mitral valve bioprosthesis present. The mitral valve prosthesis systolic gradients are normal for this type prosthesis. Mild tricuspid regurgitation is present. There is no evidence of pulmonary hypertension. The proximal ascending thoracic aorta is mildly enlarged. The qualitative LV ejection fraction is <20% (severely reduced). Chest CT and EKG's reviewed. Telemetry reviewed: Atrial fibrillation/flutter 90-130 bpm. Ventricular paced. ? Fusion beats. (Alberto Miller PA-C) Assessment & Plan Complex 81 year old male admitted with acute on chronic dyspnea. Patient with severely reduced systolic function, qualitative LV ejection fraction <20% [place] [employer] Association Functional Class is IV. No improvement in LV systolic function post valvular intervention. Catheterization in 2013 without obstructive coronary artery disease. Device interrogation today reveals atrial flutter and frequent PVC's in a pattern of bigeminy INR's have been therapeutic for at least the last 5 months. LFT's and TFT's were OK on 05/21/2016. He appears "cold and dry." Hypotension (down to 83/66) has limited use of appropriate therapies for the advanced heart failure thus far. RECOMMENDATIONS/PLAN: Add IV amiodarone Keep INR therapeutic for future cardioversion. Maintain electrolytes Pending response to the above, may need additional device reprogramming ([employer]) given diaphragmatic stimulation Attempt to add evidence based heart failure medications if/when able. Further recommendations pending the above, evaluation by Dr. Cam, and his ongoing hospitalization. (Alberto Miller PA-C) Pt seen and examined, resting comfortably in bed eating lunch, agree with findings and assessment as per Alberto Miller PA-C. Pt states that he's been feeling sob ever since pacer placed. Device interrogated by rep today, pt has been in aflutter since pacer placed. Frequent ventricular which is reducing BiV pacing. Did not tolerate low dose beta viviana started by Dr. Barajas. INR has been therapeutic for several months. Will add amiodarone bolus and load now for PVC suppression to increasing pacing frequency, lower heart rate and possible cardioversion (again therapeutic INR's, no need to [facility]). Cont coumadin. Will follow. (Denver Cam, Melissa.O.)
--- NOTE | 2016-06-03 12:25 | Progress Note ---
Internal Med Progress Note Date of Service: Jun 03, 2016. Provider Documentation: SUBJECTIVE: Patient denies any complaint But tele/Pacemaker interrogation shows A flutter with RVR/PVCs Currently HR in 100-120s No chest pain, cough, leg swelling, fever, chills, nausea, vomiting. OBJECTIVE: Vital Signs-as noted below Exam: General Appearance: Alert and Oriented x3. Acute ill. Chronically ill. Neck: Supple. No JVD. Respiratory: Diminished but clear. No abnormal breath sounds appreciated. Cardiovascular: Irregular ~120 bpm. systolic murmur. No diastolic murmur. Abdomen: Diaphragmatic stimulation noted. +BS. Soft. Nontender. Extremities: No edema. Lab data as noted below. Diagnostic Radiology CTA CHEST Per radiologist read: IMPRESSION: 1. Somewhat limited evaluation of the pulmonary arteries secondary to motion artifact. No central emboli identified. Serial leg ultrasonography should be considered in follow-up. 2. Mild dilatation of the ascending thoracic aorta which measures 44 mm. No dissection identified 3. Extensive chest wall collaterals, finding which suggests stenosis or obstruction left brachiocephalic vein 4. Marked cardiomegaly with evidence of elevated right heart pressures EKG Ventricular PAced 102 BPM, QTc 609 ASSESSMENT & PLAN: Assessment and Plan : 81 year old male presents to the ED with SOB. He has had decreased energy, and SOB for the past month. Was SOB in public place and bystanders called 911 ATRIAL FLUTTER WITH RVR Pacemaker interrogation/Tele monitor reveals A flutter with RVR, PVCs with bigeminy pattern -Amiodarone bolus followed by drip per cardiology. Toprol XL on hold as BP is low. -Anticoagulation: INR therapeutic on coumadin -Cardiology on board HYPOXIA -Possibly multifactorial: A flutter with RVR in setting of chronic conditions- CHF with severe systolic dysfunction, Hx of Aortic/Mitral Valve replacement, ICD -No acute respiratory issues noted -CT scan- No PE, Effusion, consolidation noted, no prior hx of asthma, copd. -Will need re evaluation prior to discharge, probably 2 step ELEVATED TROPONIN -Troponin 0.289. 0.314 -Likely secondary Atrial Flutter with RVR -Continue with ASA, Atorvastatin -Monitor trend -Cardiology on board. CHRONIC SEVERE SYSTOLIC CHF -EF< 20% on Echo in 04/2016 -BNP 8K --> 6K -Clinically appears euvolemic -Not on diuretics as outpatient likely secondary to low BP and not able to tolerate it. -Metoprolol on hold. Eventually would want to start him on it if BP allows -Cardiology on board. H/O BIVENTRICULAR PACEMAKER DEFIBRILLATOR -Interrogation ordered - A flutter with PVCs as above SEIZURES -continue Keppra HYPOTHYROIDISM -TSH normal -continue Synthroid HLD -continue Statin DEPRESSION -continue Celexa Trazodone CHRONIC THROMBOCYTOPENIA- Stable -monitor daily while on coumadin H/O AVR H/O MVR H/O SUBDURAL HEMATOMA H/O COLON CA -s/p partial colectomy DVT PROPHYLAXIS: Coumadin CODE STATUS: LEVEL 5 DNR per admitting physician discussion with the patient and his brother DISPOSITION To be determined Discussed with library clerk talking books, Dr Cam Vital Signs: Date Time Temp Pulse Resp B/P Pulse Ox O2 Delivery O2 Flow Rate FiO2 06/03/16 11:42 83 Nasal Cannula 2.0 06/03/16 11:30 120 98 06/03/16 08:59 109 90/69 89 103/73 06/03/16 08:00 Nasal Cannula 2.0 06/03/16 07:16 36.5 112 20 95/70 97 Nasal Cannula 2.0 104/76 06/03/16 04:02 Room Air 2.0 06/03/16 03:33 36.5 112 18 99/71 97 Nasal Cannula 2.0 06/03/16 00:02 Room Air 2.0 06/02/16 23:37 36.3 93 20 84/68 95 Nasal Cannula 2.0 06/02/16 20:04 Room Air 2.0 06/02/16 20:00 36.6 95 20 107/84 98 Room Air 2.0 06/02/16 19:50 95 16 112/76 97 Nasal Cannula 2.0 06/02/16 19:09 96 06/02/16 18:14 88 22 94/81 99 Nasal Cannula 2.0 06/02/16 16:36 92 20 117/72 93 Nasal Cannula 2.0 06/02/16 16:13 98 97/71 97 99/67 110 83/66 06/02/16 15:37 88 Room Air 06/02/16 15:09 97 06/02/16 14:56 95 Nasal Cannula 06/02/16 14:56 95 Nasal Cannula 2.0 06/02/16 14:56 36.3 91 20 100/74 88 Room Air Lab Results: Results Past 24 Hours Test 06/02/16 14:30 06/02/16 16:05 06/02/16 19:07 06/02/16 23:54 Range/Units White Blood Count 6.08 4.8-10.8 K/uL Red Blood Count 5.07 4.7-6.1 M/uL Hemoglobin 15.0 14.0-18.0 g/dL Hematocrit 45.6 42-52 % Mean Corpuscular Volume 89.9 80-100 fL Mean Corpuscular Hemoglobin 29.6 25-34 pg Mean Corpuscular Hemoglobin Concent 32.9 32-36 g/dl Platelet Count 97 130-400 K/uL Neutrophils (%) (Auto) 65.4 % Lymphocytes (%) (Auto) 23.2 % Monocytes (%) (Auto) 8.6 % Eosinophils (%) (Auto) 2.1 % Basophils (%) (Auto) 0.5 % Neutrophils # (Auto) 3.98 1.4-6.5 K/uL Lymphocytes # (Auto) 1.41 1.2-3.4 K/uL Monocytes # (Auto) 0.52 0.11-0.59 K/uL Eosinophils # (Auto) 0.13 0-0.5 K/uL Basophils # (Auto) 0.03 0-0.2 K/uL RDW Standard Deviation 50.1 36.4-46.3 fL RDW Coefficient of Variation 15.3 11.5-14.5 % Immature Granulocyte % (Auto) 0.2 % Immature Granulocyte # (Auto) 0.01 0.00-0.02 K/uL Platelet Estimate DECREASED Red Blood Cell Morphology Unremarkable Sodium Level 144 136-145 mmol/L Potassium Level 4.3 3.5-5.1 mmol/L Chloride Level 110 98-107 mmol/L Carbon Dioxide Level 25 21-32 mmol/L Anion Gap 9.0 3-11 mmol/L Blood Urea Nitrogen 31 7-18 mg/dl Creatinine 1.10 0.60-1.40 mg/dl Est Creatinine Clear Calc Drug Dose 59.7 ml/min Estimated GFR () 73.1 Estimated GFR (Non- 63.1 BUN/Creatinine Ratio 27.8 10-20 Random Glucose 75 70-99 mg/dl Calcium Level 9.0 8.5-10.1 mg/dl Troponin I 0.302 0.287 0.314 0-0.045 ng/ml Pro-B-Type Natriuretic Peptide 8318 0-1800 pg/ml Thyroid Stimulating Hormone (TSH) 0.421 0.300-4.500 uIu/ml Chemistry Specimen Hemolysis Prothrombin Time 26.5 9.0-12.0 SECONDS Prothromb Time International Ratio 2.4 0.9-1.1 Activated Partial Thromboplast Time 31.9 21.0-31.0 SECONDS Partial Thromboplastin Ratio 1.2 Magnesium Level 2.4 1.8-2.4 mg/dl Total Creatine Kinase 61 39-308 U/L Creatine Kinase MB 1.3 0.5-3.6 ng/ml Creatine Kinase MB Ratio 2.1 0-3.0 Test 06/03/16 05:53 Range/Units White Blood Count 6.08 4.8-10.8 K/uL Red Blood Count 4.90 4.7-6.1 M/uL Hemoglobin 14.2 14.0-18.0 g/dL Hematocrit 44.6 42-52 % Mean Corpuscular Volume 91.0 80-100 fL Mean Corpuscular Hemoglobin 29.0 25-34 pg Mean Corpuscular Hemoglobin Concent 31.8 32-36 g/dl RDW Standard Deviation 51.1 36.4-46.3 fL RDW Coefficient of Variation 15.4 11.5-14.5 % Platelet Count 86 130-400 K/uL Platelet Estimate DECREASED Prothrombin Time 28.8 9.0-12.0 SECONDS Prothromb Time International Ratio 2.6 0.9-1.1 Sodium Level 145 136-145 mmol/L Potassium Level 3.9 3.5-5.1 mmol/L Chloride Level 111 98-107 mmol/L Carbon Dioxide Level 26 21-32 mmol/L Anion Gap 8.0 3-11 mmol/L Blood Urea Nitrogen 28 7-18 mg/dl Creatinine 0.92 0.60-1.40 mg/dl Est Creatinine Clear Calc Drug Dose 69.9 ml/min Estimated GFR () 90.7 Estimated GFR (Non- 78.3 BUN/Creatinine Ratio 30.0 10-20 Random Glucose 99 70-99 mg/dl Calcium Level 8.1 8.5-10.1 mg/dl Magnesium Level 2.4 1.8-2.4 mg/dl Total Creatine Kinase 55 39-308 U/L Creatine Kinase MB 1.1 0.5-3.6 ng/ml Creatine Kinase MB Ratio 2.0 0-3.0 Troponin I 0.289 0-0.045 ng/ml Pro-B-Type Natriuretic Peptide 6004 0-1800 pg/ml Triglycerides Level 132 0-150 mg/dl Cholesterol Level 87 0-200 mg/dl HDL Cholesterol 28 mg/dl LDL Cholesterol, Calculated 33 mg/dl VLDL Cholesterol, Calculated 26 mg/dl Cholesterol/HDL Ratio 3.1
[2016-06-03] MEDS ORDERED: AMIODARONE / D5W 200 ML IV ONE (12:30)
[2016-06-03] MEDS ORDERED: AMIODARONE / D5W 100 ML IV ONE (12:30)
--- NOTE | 2016-06-03 15:48 | DIAGNOSTIC IMAGING REPORT ---
CT SCAN OF THE ABDOMEN AND PELVIS WITHOUT CONTRAST CLINICAL HISTORY: Abdominal pain. Possible abdominal aortic aneurysm. COMPARISON STUDY: No previous studies for comparison. TECHNIQUE: CT scan of the abdomen and pelvis was performed from the lung bases to the proximal femurs. Images are reviewed in the axial, sagittal, and coronal planes. IV contrast was not administered for this examination. CT DOSE: 1286.55 mGycm FINDINGS: Lower chest: The heart is enlarged. There is mild basilar interstitial thickening. There are postsurgical changes of midline sternotomy. Liver: There is a 15 mm left lobe hepatic cyst. Gallbladder: Not visualized and presumed surgically absent Spleen: Normal in size and attenuation. Pancreas: Unremarkable. Adrenal glands: Unremarkable. Kidneys: There is contrast within the renal collecting systems, likely secondary to a CT scan performed the previous evening. There are bilateral renal hypodensities measuring up to 12 mm in diameter. These likely represent cysts. Bowel: There is a lower abdominal wall ventral hernia containing multiple loops of small bowel as well as a portion of the sigmoid colon. There are several fat-containing ventral hernias. There is a right-sided spegelian hernia containing a knuckle of bowel. There is no current evidence of bowel obstruction. Peritoneum: There is no intraperitoneal free air or abdominal ascites. Vasculature: The abdominal aorta is normal in course and caliber. Adenopathy: None. Pelvic viscera: The prostate is enlarged. There is mild bladder wall thickening. Skeletal structures: There is partial ankylosis of the SI joints. There is a 15 mm lytic focus within the L4 vertebra, possibly representing a hemangioma. There is discogenic endplate irregularity the L3-4 level. IMPRESSION: 1. No evidence of abdominal aortic aneurysm 2. Multiple abdominal wall hernias including a [place] lower ventral hernia containing both small bowel and sigmoid colon. In addition there is a narrow neck right-sided spegelian hernia containing a single knuckle of small bowel. There is no current evidence of obstruction 3. No evidence of free intraperitoneal air 4. Prostamegaly. Mild bladder wall thickening. 5. Cardiomegaly Electronically signed by: Javi Wang M.D. 06/03/2016 3:47 PM Dictated Date/Time: 06/03/2016 3:40 PM
[2016-06-03] MEDS: AMIODARONE / D5W 200 ML IV SCH (18:24)
[2016-06-03] MEDS: TRAZODONE HCL 50 MG TAB PO SCH (20:33)
[2016-06-04] VITALS (7 sets, daily range): BP systolic 94–113; BP diastolic 65–84; PULSE 70–80; TEMP 36.4–36.8; O2SAT 91–97
[2016-06-04] MEDS: LEVOTHYROXINE 125 MCG TAB PO SCH (05:50)
[2016-06-04] MEDS: AMIODARONE / D5W 200 ML IV SCH (05:54)
[2016-06-04] MEDS: ASPIRIN 81 MG ECTAB PO SCH (07:27)
[2016-06-04] MEDS: GABAPENTIN 100 MG CAP PO SCH ×3 (07:27→20:51)
[2016-06-04] MEDS: CITALOPRAM 20 MG TAB PO SCH (07:27)
[2016-06-04] MEDS: ATORVASTATIN 20 MG TAB PO SCH (07:27)
[2016-06-04] MEDS: LEVETIRACETAM 500 MG TAB PO SCH ×2 (07:27→20:50)
[2016-06-04] MEDS: CHOLECALCIFEROL 1000 INTER.UNIT TAB PO SCH (07:27)
[2016-06-04] MEDS: WARFARIN SOD 5 MG TAB PO SCH (07:34)
[2016-06-04 08:09] LABS: HEMATOCRIT 46.3 % (42-52); MEAN CORPUSCULAR HEMOGLOBIN 28.8 pg (25-34); MEAN CORPUSCULAR HGB CONC 32.4 g/dl (32-36); WHITE BLOOD COUNT 8.27 K/uL (4.8-10.8)
[2016-06-04 08:20] LABS: CALCIUM 8.3 mg/dl (8.5-10.1); POTASSIUM 4.1 mmol/L (3.5-5.1)
[2016-06-04 08:51] LABS: PLATELET COUNT 82 K/uL (130-400); PLT ESTIMATE DECREASED
--- NOTE | 2016-06-04 09:50 | Cardiology Follow-Up ---
Subjective General Date of Service: Jun 04, 2016. Chief Complaint: Dyspnea Pt evaluation today including: conversation w/ patient, physical exam, chart review, lab review, review of studies, review of inpatient medication list History of Present Illness Patient seen and examined. Dyspneic with any movement. + Mild orthopnea without PND. Diaphragmatic stimulation resolved post device reprogramming Heart rates under much better control, currently atrial flutter - ventricular paced at 70 bpm. PVC's are now occasional, down significantly (bigeminy yesterday). Vague abdominal discomfort. Last BM was normal yesterday afternoon. CT yesterday with multiple abdominal wall hernias without evidence of obstruction or free air. Allergies Coded Allergies: No Known Allergies (Unverified , 06/02/16) Social History Smoking Status: Never Smoker Hx Tobacco Use In Past Year?: No Hx Alcohol Use - Type And Amou: Yes (OCCASSIONAL) Hx Substance Use - Type And Am: No Problem List Medical Problems: (1) Elevated troponin Status: Acute (2) Hypoxia Status: Acute Physical Exam Vital Signs Last Vital Signs Documentation Date Time Temp Pulse Resp B/P Pulse Ox O2 Delivery O2 Flow Rate FiO2 06/04/16 08:00 Room Air 06/04/16 07:20 36.6 80 24 106/77 97 2.0 Physical Exam Constitutional: Level of Distress: mild distress, acutely ill, chronically ill Psychiatric: Mental Status: abnormal affect, lethargic Orientation: to place, to person Memory: recent memory normal, remote memory normal Head: normocephalic, atraumatic Eyes: Pupils: PERRLA Neck: pertinent finding (3-5 cm of JVD. + HJR) Lungs: Auscultation: no wheezing, no rhonchi, deminished air movement, decreased breath sounds, rales/crackles on the right Cardiovascular: Heart Auscultation: no rubs, II/ DANIEL, irregular rate rhythm Abdomen: Bowel Sounds: normal Inspection & Palpation: soft, no tenderness, guarding & rebound Extremities: no cyanosis, no edema, no clubbing Neurologic: Cranial Nerves: grossly intact Assessment and Plan Assessment and Plan Complex 81 year old male admitted with acute on chronic dyspnea. Patient with severely reduced systolic function, qualitative LV ejection fraction <20% [place] Heart Association Functional Class IV. No improvement in LV systolic function post valvular intervention. Catheterization in 2013 without obstructive coronary artery disease. Device interrogation on 06/03/2016 demonstrated atrial flutter and frequent PVC's in a pattern of bigeminy Device reprogrammed x 2 on 06/03/2016 initially decreasing the lower rate to 70 bpm and then reprogramming to cease the significant diaphragmatic stimulation. INR's have been therapeutic for at least the last 5 months. LFT's and TFT's were OK on 05/21/2016. Examination this morning reveals mild hypervolemia. Blood pressures improved, previously limiting appropriate therapies for the advanced heart failure RECOMMENDATIONS/PLAN: Discontinue IV amiodarone Add oral amiodarone 400 mg by mouth three times per day Retry Toprol XL 12.5 mg/day If unable to tolerate Toprol XL would consider low dose digoxin. Keep INR therapeutic for possible future cardioversion. Add low dose spironolactone Monitor and maintain electrolytes Maintain telemetry. Cardiology attending: Pt seen and examined, agree with findings and assessment as per Alberto Hopper. Symptoms improved but still with sob. Will change amio to oral. Restart toprol. Add spironolactone. Strict I/O's. Laboratory Results Last 24 Hours Test 06/04/16 07:21 White Blood Count 8.27 K/uL Red Blood Count 5.20 M/uL Hemoglobin 15.0 g/dL Hematocrit 46.3 % Mean Corpuscular Volume 89.0 fL Mean Corpuscular Hemoglobin 28.8 pg Mean Corpuscular Hemoglobin Concent 32.4 g/dl RDW Standard Deviation 49.2 fL RDW Coefficient of Variation 15.2 % Platelet Count 82 K/uL Platelet Estimate DECREASED Sodium Level 141 mmol/L Potassium Level 4.1 mmol/L Chloride Level 108 mmol/L Carbon Dioxide Level 24 mmol/L Anion Gap 9.0 mmol/L Blood Urea Nitrogen 30 mg/dl Creatinine 1.00 mg/dl Est Creatinine Clear Calc Drug Dose 64.4 ml/min Estimated GFR () 82.0 Estimated GFR (Non- 70.8 BUN/Creatinine Ratio 30.0 Random Glucose 101 mg/dl Calcium Level 8.3 mg/dl
--- NOTE | 2016-06-04 10:28 | Progress Note ---
Internal Med Progress Note Date of Service: Jun 04, 2016. Provider Documentation: SUBJECTIVE: Patient denies any complaint But tele/Pacemaker interrogation shows A flutter with RVR/PVCs Currently HR in 100-120s No chest pain, cough, leg swelling, fever, chills, nausea, vomiting. OBJECTIVE: Vital Signs-as noted below Exam: General Appearance: Alert and Oriented x3. Acute ill. Chronically ill. Neck: Supple. No JVD. Respiratory: Diminished but clear. No abnormal breath sounds appreciated. Cardiovascular: Irregular ~120 bpm. systolic murmur. No diastolic murmur. Abdomen: Diaphragmatic stimulation noted. +BS. Soft. Nontender. Extremities: No edema. Lab data as noted below. Diagnostic Radiology CTA CHEST Per radiologist read: IMPRESSION: 1. Somewhat limited evaluation of the pulmonary arteries secondary to motion artifact. No central emboli identified. Serial leg ultrasonography should be considered in follow-up. 2. Mild dilatation of the ascending thoracic aorta which measures 44 mm. No dissection identified 3. Extensive chest wall collaterals, finding which suggests stenosis or obstruction left brachiocephalic vein 4. Marked cardiomegaly with evidence of elevated right heart pressures EKG Ventricular PAced 102 BPM, QTc 609 ASSESSMENT & PLAN: Assessment and Plan : 81 year old male presents to the ED with SOB. He has had decreased energy, and SOB for the past month. Was SOB in public place and bystanders called 911 ATRIAL FLUTTER WITH RVR Pacemaker interrogation/Tele monitor revealed A flutter with RVR, PVCs with bigeminy pattern on 06/03/16 -S/P Amiodarone bolus/drip ---> Change to PO amiodarone per cardiology -Anticoagulation: INR therapeutic on coumadin -Cardiology on board. Discussed with them- may cardiovert him. Appreciate inputs HYPOXIA -Possibly multifactorial: A flutter with RVR in setting of chronic conditions- CHF with severe systolic dysfunction, Hx of Aortic/Mitral Valve replacement, ICD -No acute respiratory issues noted -CT scan- No PE, Effusion, consolidation noted, no prior hx of asthma, copd. -Will need re evaluation prior to discharge, probably 2 step ELEVATED TROPONIN -Troponin 0.289. 0.314- trending down -Likely secondary Atrial Flutter with RVR -Continue with ASA, Atorvastatin -Cardiology on board. 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 -Not on diuretics as outpatient likely secondary to low BP and not able to tolerate it. -Restarted on Toprol XL 12.5 mg today, Spironolactone per cardiology. Due to Low BP may not be able to tolerate lasix. Will have to monitor BP closely while on these meds. -Cardiology on board. H/O BIVENTRICULAR PACEMAKER DEFIBRILLATOR -Interrogation done on 06/03/16 - A flutter with PVCs as above -Device reprogrammed x 2 on 06/03/2016 initially decreasing the lower rate to 70 bpm and then reprogramming to cease the significant diaphragmatic stimulation. No more diaphragmatic stimulation since reprogramming the device. SEIZURES -continue Keppra HYPOTHYROIDISM -TSH normal -continue Synthroid HLD -continue Statin DEPRESSION -continue Celexa Trazodone CHRONIC THROMBOCYTOPENIA- Stable -monitor while on coumadin H/O AVR H/O MVR H/O SUBDURAL HEMATOMA H/O COLON CA -s/p partial colectomy DVT PROPHYLAXIS: Coumadin CODE STATUS: LEVEL 5 DNR per admitting physician discussion with the patient and his brother DISPOSITION To be determined Discussed with draw operator, Dr Cam Vital Signs: Date Time Temp Pulse Resp B/P Pulse Ox O2 Delivery O2 Flow Rate FiO2 06/04/16 08:00 Room Air 06/04/16 07:20 36.6 80 24 106/77 97 Nasal Cannula 2.0 06/04/16 04:02 Room Air 2.0 06/04/16 03:30 36.5 78 20 105/71 94 Nasal Cannula 2.0 06/04/16 00:02 Room Air 2.0 06/03/16 23:35 36.7 73 21 119/89 95 Nasal Cannula 2.0 06/03/16 20:04 Room Air 2.0 06/03/16 19:22 36.6 84 16 122/80 98 Room Air 06/03/16 17:30 94 101/72 06/03/16 16:00 Nasal Cannula 2.0 06/03/16 15:18 86/71 06/03/16 14:31 101 22 100 Nasal Cannula 2.0 06/03/16 13:48 36.4 117 20 98/73 98 2.0 06/03/16 13:00 90 24 96/66 98 Nasal Cannula 2.0 06/03/16 12:46 Nasal Cannula 2.0 06/03/16 12:39 93 95/69 06/03/16 11:42 83 Nasal Cannula 2.0 06/03/16 11:30 120 98 Lab Results: Results Past 24 Hours Test 06/04/16 07:21 Range/Units White Blood Count 8.27 4.8-10.8 K/uL Red Blood Count 5.20 4.7-6.1 M/uL Hemoglobin 15.0 14.0-18.0 g/dL Hematocrit 46.3 42-52 % Mean Corpuscular Volume 89.0 80-100 fL Mean Corpuscular Hemoglobin 28.8 25-34 pg Mean Corpuscular Hemoglobin Concent 32.4 32-36 g/dl RDW Standard Deviation 49.2 36.4-46.3 fL RDW Coefficient of Variation 15.2 11.5-14.5 % Platelet Count 82 130-400 K/uL Platelet Estimate DECREASED Sodium Level 141 136-145 mmol/L Potassium Level 4.1 3.5-5.1 mmol/L Chloride Level 108 98-107 mmol/L Carbon Dioxide Level 24 21-32 mmol/L Anion Gap 9.0 3-11 mmol/L Blood Urea Nitrogen 30 7-18 mg/dl Creatinine 1.00 0.60-1.40 mg/dl Est Creatinine Clear Calc Drug Dose 64.4 ml/min Estimated GFR () 82.0 Estimated GFR (Non- 70.8 BUN/Creatinine Ratio 30.0 10-20 Random Glucose 101 70-99 mg/dl Calcium Level 8.3 8.5-10.1 mg/dl
[2016-06-04] MEDS: SPIRONOLACTONE 25 MG TAB PO SCH (10:30)
[2016-06-04] MEDS: AMIODARONE 200 MG TAB PO SCH ×3 (10:31→20:50)
[2016-06-04] MEDS: TRAZODONE HCL 50 MG TAB PO SCH (20:50)
[2016-06-04] MEDS: METOPROLOL SUCC 25MG EXT REL TAB PO SCH (20:51)
[2016-06-05 03:29] VITALS: BP 86/52; PULSE 71; TEMP 36.4; O2SAT 92
[2016-06-05] MEDS: LEVOTHYROXINE 125 MCG TAB PO SCH (05:41)
[2016-06-05 07:14] LABS: HEMATOCRIT 45.1 % (42-52); MEAN CELL VOLUME 88.3 fL (80-100); MEAN CORPUSCULAR HEMOGLOBIN 29.2 pg (25-34); RED BLOOD COUNT 5.11 M/uL (4.7-6.1); WHITE BLOOD COUNT 9.23 K/uL (4.8-10.8)
[2016-06-05 07:41] LABS: PLATELET COUNT 79 K/uL (130-400)
[2016-06-05 07:42] LABS: PLT ESTIMATE DECREASED
[2016-06-05 07:43] LABS: BUN/CREATININE RATIO 24.6 (10-20); CALCIUM 8.7 mg/dl (8.5-10.1); CREATININE 1.1 mg/dl (0.60-1.40); POTASSIUM 4.4 mmol/L (3.5-5.1)
[2016-06-05 07:56] VITALS: BP 114/82; PULSE 70; TEMP 36.4; O2SAT 96
[2016-06-05] MEDS: GABAPENTIN 100 MG CAP PO SCH ×3 (08:29→20:46)
[2016-06-05] MEDS: ASPIRIN 81 MG ECTAB PO SCH (08:29)
[2016-06-05] MEDS: LEVETIRACETAM 500 MG TAB PO SCH ×2 (08:29→20:46)
[2016-06-05] MEDS: CITALOPRAM 20 MG TAB PO SCH (08:29)
[2016-06-05] MEDS: CHOLECALCIFEROL 1000 INTER.UNIT TAB PO SCH (08:30)
[2016-06-05] MEDS: AMIODARONE 200 MG TAB PO SCH ×3 (08:31→20:46)
[2016-06-05] MEDS: SPIRONOLACTONE 25 MG TAB PO SCH (08:32)
[2016-06-05] MEDS: ATORVASTATIN 20 MG TAB PO SCH (08:32)
[2016-06-05] MEDS ORDERED: WARFARIN SOD 2.5 MG TAB PO SCH ×2 (09:00→16:00)
--- NOTE | 2016-06-05 11:28 | Progress Note ---
Internal Med Progress Note Date of Service: Jun 05, 2016. Provider Documentation: SUBJECTIVE: Patient says he feels a bit better, but continues to have discomfort with position changes- pacemaker -> diaphragmatic stimulation causing increased abdominal muscle activity with some SOB. No chest pain, cough, leg swelling, fever, chills, nausea, vomiting. Not hypoxic, on RA OBJECTIVE: Vital Signs-as noted below Exam: General Appearance: Alert and Oriented x3. AChronically ill. Neck: Supple. No JVD. Respiratory: Diminished but clear. No abnormal breath sounds appreciated. Cardiovascular: Regular. systolic murmur. No diastolic murmur. Abdomen: Diaphragmatic stimulation noted with change in positions. +BS. Soft. Nontender. Extremities: No edema. Lab data as noted below. Diagnostic Radiology CTA CHEST Per radiologist read: IMPRESSION: 1. Somewhat limited evaluation of the pulmonary arteries secondary to motion artifact. No central emboli identified. Serial leg ultrasonography should be considered in follow-up. 2. Mild dilatation of the ascending thoracic aorta which measures 44 mm. No dissection identified 3. Extensive chest wall collaterals, finding which suggests stenosis or obstruction left brachiocephalic vein 4. Marked cardiomegaly with evidence of elevated right heart pressures EKG Ventricular PAced 102 BPM, QTc 609 ASSESSMENT & PLAN: Assessment and Plan : 81 year old male presents to the ED with SOB. He has had decreased energy, and SOB for the past month. Was SOB in public place and bystanders called 911 ATRIAL FLUTTER WITH RVR - Now NSR Pacemaker interrogation/Tele monitor on admission revealed Atrial flutter with RVR, PVCs with bigeminy pattern on 06/03/16 -S/P Amiodarone bolus/drip ---> Changed to PO amiodarone (400 mg PO TID) on 06/04 per cardiology -Anticoagulation: INR therapeutic on Coumadin -Cardiology on board. May need cardioversion. Appreciate inputs ACUTE ON CHRONIC SEVERE SYSTOLIC CHF (NYHA IV) -EF< 20% on Echo in 04/2016 -BNP 8K --> 6K -Not on diuretics as outpatient likely secondary to low BP and not able to tolerate it. -Restarted on Toprol XL 12.5 mg 06/04/16, Spironolactone on 06/04/16 per cardiology. Due to Low BP may not be able to tolerate lasix. Will have to monitor BP closely while on these meds. -Cardiology on board. HYPOXIA- Resolved. -Possibly multifactorial: A flutter with RVR in setting of chronic conditions- CHF with severe systolic dysfunction, Hx of Aortic/Mitral Valve replacement, ICD -No acute respiratory issues noted -CT scan- No PE, Effusion, consolidation noted, no prior hx of asthma, copd. ELEVATED TROPONIN -Troponin 0.289. 0.314- trending down -Likely secondary Atrial Flutter with RVR -Continue with ASA, Atorvastatin -Cardiology on board. H/O BIVENTRICULAR PACEMAKER DEFIBRILLATOR -Interrogation done on 06/03/16 - A flutter with PVCs as above -Device reprogrammed x 2 on 06/03/2016 initially decreasing the lower rate to 70 bpm and then reprogramming to cease the significant diaphragmatic stimulation. No more diaphragmatic stimulation since reprogramming the device. -Continues to have some diaphragmatic stimulation with change in positions--> may need evaluation by EP on tuesday per discussion with cardiology SEIZURES -continue Keppra q 12 hours HYPOTHYROIDISM -TSH normal -continue Synthroid HLD -continue Statin DEPRESSION -continue Celexa Trazodone CHRONIC THROMBOCYTOPENIA- Stable -monitor while on coumadin H/O AVR H/O MVR H/O SUBDURAL HEMATOMA H/O COLON CA -s/p partial colectomy DVT PROPHYLAXIS: Coumadin CODE STATUS: LEVEL 5 DNR per admitting physician discussion with the patient and his brother DISPOSITION To be determined INR to be followed up today Discussed with pharmacy specialist, Dr Sherman Vital Signs: Date Time Temp Pulse Resp B/P Pulse Ox O2 Delivery O2 Flow Rate FiO2 06/05/16 08:00 Room Air 06/05/16 07:56 36.4 70 18 114/82 96 Room Air 06/05/16 04:02 Room Air 06/05/16 03:29 36.4 71 22 86/52 92 Room Air 06/05/16 00:02 Room Air 06/04/16 23:04 36.7 70 22 94/65 97 Room Air 06/04/16 20:45 77 113/71 06/04/16 20:04 Room Air 06/04/16 19:30 36.8 79 18 110/78 92 Room Air 06/04/16 16:00 Room Air 06/04/16 15:24 36.6 79 20 113/84 91 Room Air 06/04/16 12:00 Room Air 06/04/16 11:57 36.4 71 16 109/78 97 Room Air Lab Results: Results Past 24 Hours Test 06/05/16 06:45 Range/Units White Blood Count 9.23 4.8-10.8 K/uL Red Blood Count 5.11 4.7-6.1 M/uL Hemoglobin 14.9 14.0-18.0 g/dL Hematocrit 45.1 42-52 % Mean Corpuscular Volume 88.3 80-100 fL Mean Corpuscular Hemoglobin 29.2 25-34 pg Mean Corpuscular Hemoglobin Concent 33.0 32-36 g/dl RDW Standard Deviation 48.7 36.4-46.3 fL RDW Coefficient of Variation 15.3 11.5-14.5 % Platelet Count 79 130-400 K/uL Platelet Estimate DECREASED Sodium Level 140 136-145 mmol/L Potassium Level 4.4 3.5-5.1 mmol/L Chloride Level 108 98-107 mmol/L Carbon Dioxide Level 23 21-32 mmol/L Anion Gap 9.0 3-11 mmol/L Blood Urea Nitrogen 27 7-18 mg/dl Creatinine 1.10 0.60-1.40 mg/dl Est Creatinine Clear Calc Drug Dose 58.6 ml/min Estimated GFR () 73.1 Estimated GFR (Non- 63.1 BUN/Creatinine Ratio 24.6 10-20 Random Glucose 105 70-99 mg/dl Calcium Level 8.7 8.5-10.1 mg/dl
[2016-06-05 11:44] VITALS: BP 133/91; PULSE 74; TEMP 36.4; O2SAT 95
--- NOTE | 2016-06-05 11:45 | PROGRESS NOTE ---
DATE: 06/05/2016 FOLLOWUP VISIT SUBJECTIVE: The patient is an 81-year-old male patient with a complex past cardiac history which has been described previously. He was admitted with progressive dyspnea and is most likely [place] Heart Association class 4. He has severe LV dysfunction with an estimated left ventricular ejection fraction below 20%. He also is status post aortic and mitral valve replacement and most recently had a biventricular pacemaker implanted in [place] after he sustained a fall with a subdural hematoma. Earlier this admission that device was causing a great deal of diaphragmatic pacing and it was adjusted late last week by the [employer] rep. The patient still remains in at least class 3-4 heart failure despite those maneuvers. He speaks of a brother who comes to visit him but they do not believe he has much family contact. They also believe that he is unaware of the severity of his illness. He continues to talk about his abdominal hernias which are related to previous cancer surgery. He is short of breath just moving around in the room. OBJECTIVE: VITAL SIGNS: Blood pressure is 114/82, pulse is regular at 70. GENERAL: He is afebrile. HEENT: He is normocephalic. Pupils are equal and reactive to light. Extraocular muscles are intact bilaterally. Mucous membranes are moist. NECK: The neck veins are distended. Carotids have good upstrokes bilaterally without bruits. Thyroid is nonpalpable. RESPIRATORY: Breath sounds are equal bilaterally and clear to auscultation. CARDIOVASCULAR: Heart has a regular rhythm. There are no cardiac rubs or murmurs. GASTROINTESTINAL: The patient has a midline abdominal scar with what I can palpate or ventral or incisional hernias. EXTREMITIES: Free of edema. NEUROLOGIC: Grossly intact. SKIN: Warm to touch. LYMPH NODES: Negative to palpation. LABORATORY DATA: Hemoglobin is 14.9, potassium is 4.4, creatinine is 1.1. IMPRESSION: 1. Heart failure. 2. [place] Heart Association class 3-4. 3. Nonischemic cardiomyopathy. 4. Status post aortic valve replacement and mitral valve replacement. 5. Biventricular pacemaker. 6. Severe left ventricular dysfunction with an estimated left ventricular ejection fraction of less than 20%. 7. History of subdural hematoma. 8. Previous history of colon cancer. RECOMMENDATIONS: The patient is going to require a great deal of medical management, both in the hospital and after discharge. This should be kept in mind while doing his discharge planning as he may not be able to care for himself at home. I also feel that we should have the EP physicians evaluate his device with the [employer] rep to be sure that we have good synchronization of the biventricular pacemaker prior to discharge. I think that this is something that will have to wait until Tuesday before we can proceed.
[2016-06-05 12:43] LABS: PROTHROMBIN TIME (PATIENT) 42.2 SECONDS (9.0-12.0)
[2016-06-05 12:50] LABS: INR 3.7 (0.9-1.1)
[2016-06-05 15:24] VITALS: BP 113/83; PULSE 78; TEMP 36.9; O2SAT 98
[2016-06-05 19:43] VITALS: BP 105/73; PULSE 70; TEMP 36.8; O2SAT 95
[2016-06-05] MEDS: METOPROLOL SUCC 25MG EXT REL TAB PO SCH (20:45)
[2016-06-05] MEDS: TRAZODONE HCL 50 MG TAB PO SCH (20:46)
[2016-06-06] VITALS (7 sets, daily range): BP systolic 101–134; BP diastolic 68–81; PULSE 70–73; TEMP 36.6–37; O2SAT 90–99
[2016-06-06] MEDS: LEVOTHYROXINE 125 MCG TAB PO SCH (05:36)
[2016-06-06 07:19] LABS: PROTHROMBIN TIME (PATIENT) 50.3 SECONDS (9.0-12.0)
[2016-06-06 08:20] LABS: INR 4.4 (0.9-1.1)
[2016-06-06] MEDS: CITALOPRAM 20 MG TAB PO SCH (09:28)
[2016-06-06] MEDS: ATORVASTATIN 20 MG TAB PO SCH (09:28)
[2016-06-06] MEDS: GABAPENTIN 100 MG CAP PO SCH ×3 (09:28→21:49)
[2016-06-06] MEDS: ASPIRIN 81 MG ECTAB PO SCH (09:28)
[2016-06-06] MEDS: CHOLECALCIFEROL 1000 INTER.UNIT TAB PO SCH (09:29)
[2016-06-06] MEDS: SPIRONOLACTONE 25 MG TAB PO SCH (09:29)
[2016-06-06] MEDS: LEVETIRACETAM 500 MG TAB PO SCH ×2 (09:29→21:48)
[2016-06-06] MEDS: AMIODARONE 200 MG TAB PO SCH ×3 (09:30→21:48)
--- NOTE | 2016-06-06 11:00 | Progress Note ---
Internal Med Progress Note Date of Service: Jun 06, 2016. Provider Documentation: SUBJECTIVE: Patient says he feels a bit better, but continues to have discomfort with position changes- pacemaker -> diaphragmatic stimulation causing increased abdominal muscle activity with some SOB. No chest pain, cough, leg swelling, fever, chills, nausea, vomiting. Not hypoxic, on RA Tele- Atrial Flutter, rate controlled OBJECTIVE: Vital Signs-as noted below Exam: General Appearance: Alert and Oriented x3. AChronically ill. Neck: Supple. No JVD. Respiratory: Diminished but clear. No abnormal breath sounds appreciated. Cardiovascular: Regular. systolic murmur. No diastolic murmur. Abdomen: Diaphragmatic stimulation noted with change in positions. +BS. Soft. Nontender. Extremities: No edema. Lab data as noted below. Diagnostic Radiology CTA CHEST Per radiologist read: IMPRESSION: 1. Somewhat limited evaluation of the pulmonary arteries secondary to motion artifact. No central emboli identified. Serial leg ultrasonography should be considered in follow-up. 2. Mild dilatation of the ascending thoracic aorta which measures 44 mm. No dissection identified 3. Extensive chest wall collaterals, finding which suggests stenosis or obstruction left brachiocephalic vein 4. Marked cardiomegaly with evidence of elevated right heart pressures EKG Ventricular PAced 102 BPM, QTc 609 ASSESSMENT & PLAN: Assessment and Plan : 81 year old male presents to the ED with SOB. He has had decreased energy, and SOB for the past month. Was SOB in public place and bystanders called 911 ATRIAL FLUTTER WITH RVR - Pacemaker interrogation/Tele monitor on admission revealed Atrial flutter with RVR, PVCs with bigeminy pattern on 06/03/16 -S/P Amiodarone bolus/drip ---> Changed to PO amiodarone (400 mg PO TID) on 06/04 per cardiology -Anticoagulation: INR 4.4- Continue to hold off Coumadin -Cardiology on board. May need cardioversion. Appreciate inputs ACUTE ON CHRONIC SEVERE SYSTOLIC CHF (NYHA IV) -EF< 20% on Echo in 04/2016 -BNP 8K --> 6K -Not on diuretics as outpatient likely secondary to low BP and not able to tolerate it. -Restarted on Toprol XL 12.5 mg on 06/04/16, Spironolactone 12.5 on 06/04/16 per cardiology. Due to Low BP may not be able to tolerate lasix. BP has been stable while on these medications. -Cardiology on board. HYPOXIA - Resolved. -Possibly multifactorial: A flutter with RVR in setting of chronic conditions- CHF with severe systolic dysfunction, Hx of Aortic/Mitral Valve replacement, ICD -No acute respiratory issues noted -CT scan - No PE, Effusion, consolidation noted, no prior hx of Asthma, COPD. ELEVATED TROPONIN -Troponin 0.289. 0.314 - Trending down. -Likely secondary Atrial Flutter with RVR -Continue with ASA, Atorvastatin -Cardiology on board. H/O BIVENTRICULAR PACEMAKER DEFIBRILLATOR -Interrogation done on 06/03/16 - A flutter with PVCs as above -Device reprogrammed x 2 on 06/03/2016 initially decreasing the lower rate to 70 bpm and then reprogramming to cease the significant diaphragmatic stimulation. No more diaphragmatic stimulation since reprogramming the device. -Continues to have some diaphragmatic stimulation with change in positions--> may need evaluation by EP on tuesday per discussion with cardiology SEIZURES -continue Keppra q 12 hours HYPOTHYROIDISM -TSH normal -continue Synthroid HLD -continue Statin DEPRESSION -continue Celexa Trazodone CHRONIC THROMBOCYTOPENIA- Stable -monitor while on coumadin H/O AVR H/O MVR H/O SUBDURAL HEMATOMA H/O COLON CA -s/p partial colectomy DVT PROPHYLAXIS: Coumadin CODE STATUS: LEVEL 5 DNR per admitting physician discussion with the patient and his brother DISPOSITION To be determined Discussed with gas pipe layer, Dr Sherman Vital Signs: Date Time Temp Pulse Resp B/P Pulse Ox O2 Delivery O2 Flow Rate FiO2 06/06/16 08:00 Room Air 06/06/16 07:14 36.9 72 18 111/78 94 Room Air 06/06/16 04:00 36.7 72 20 110/79 97 Room Air 06/06/16 04:00 Room Air 06/06/16 00:02 Room Air 06/06/16 00:02 36.8 70 22 134/78 97 Room Air 06/05/16 20:00 Room Air 06/05/16 19:43 36.8 70 20 105/73 95 Room Air 06/05/16 16:00 Room Air 06/05/16 15:24 36.9 78 22 113/83 98 Room Air 06/05/16 12:14 Room Air 06/05/16 11:44 36.4 74 16 133/91 95 Room Air Lab Results: Results Past 24 Hours Test 06/05/16 12:20 06/06/16 06:46 Range/Units Prothrombin Time 42.2 50.3 9.0-12.0 SECONDS Prothromb Time International Ratio 3.7 4.4 0.9-1.1
--- NOTE | 2016-06-06 11:58 | PROGRESS NOTE ---
DATE: 06/06/2016 FOLLOWUP VISIT SUBJECTIVE: The patient is an 81-year-old male patient with a complex past cardiac history. He presented with increased dyspnea due to heart failure. He is currently in [place] Heart Association Class 3-4. He was noted earlier on interrogation of his biventricular pacemaker that he is in atrial flutter. This may have caused him to have worsening of his symptoms. He was also diaphragmatic pacing with this device. The plan is to continue to load him with amiodarone. Tomorrow we will have the EP physicians see him for an evaluation regarding atrial flutter and appropriate functioning of his biventricular pacemaker. OBJECTIVE: VITAL SIGNS: Blood pressure is 110/70, pulse is regular at 70 beats per minute. He is afebrile. HEENT: He is normocephalic. Pupils are equal and reactive to light. Extraocular muscles are intact bilaterally. NECK: The neck veins are flat. Carotids have good upstrokes bilaterally without bruits. Thyroid is nonpalpable. RESPIRATORY: Breath sounds equal bilaterally and clear to auscultation. There are no rales or rhonchi. CARDIOVASCULAR: Heart has a regular rhythm. Normal S1, S2. No S3, S4. No cardiac rubs or murmurs. GASTROINTESTINAL: Abdomen is soft, nontender without organomegaly. EXTREMITIES: Free of edema, digit clubbing, or cyanosis. NEUROLOGIC: Grossly intact. SKIN: Warm to touch. LYMPH NODES: Negative to palpation. LABORATORY DATA: INR is 4.4 and his warfarin has been held. Creatinine is 1.1, potassium is 4.4, hemoglobin is 14.9. IMPRESSION: 1. Acute on chronic systolic heart failure. 2. [place] [employer] Class 3-4. 3. Nonischemic cardiomyopathy. 4. Status post aortic valve replacement and mitral valve replacement. 5. Biventricular pacemaker. 6. Atrial flutter. 7. An estimated left ventricular ejection fraction of 20%. 8. History of subdural hematoma after a fall. 9. History of colon cancer. RECOMMENDATIONS: As outlined above, we will continue with the amiodarone load. His warfarin is currently on hold due to an elevated INR. We will have the EP doctors evaluate him tomorrow.
[2016-06-06] MEDS: METOPROLOL SUCC 25MG EXT REL TAB PO SCH (21:48)
[2016-06-06] MEDS: TRAZODONE HCL 50 MG TAB PO SCH (21:48)
[2016-06-07] VITALS (8 sets, daily range): BP systolic 95–124; BP diastolic 66–82; PULSE 70–73; TEMP 36.4–37; O2SAT 91–100
[2016-06-07] MEDS: LEVOTHYROXINE 125 MCG TAB PO SCH (06:16)
[2016-06-07 07:00] LABS: HEMATOCRIT 44.6 % (42-52); PROTHROMBIN TIME (PATIENT) 52.9 SECONDS (9.0-12.0); RED BLOOD COUNT 5.07 M/uL (4.7-6.1)
[2016-06-07 07:14] LABS: CALCIUM 8.7 mg/dl (8.5-10.1); CREATININE 1.2 mg/dl (0.60-1.40); POTASSIUM 4.5 mmol/L (3.5-5.1)
[2016-06-07 07:20] LABS: PLATELET COUNT 96 K/uL (130-400)
[2016-06-07 08:03] LABS: INR 4.6 (0.9-1.1)
[2016-06-07] MEDS: ATORVASTATIN 20 MG TAB PO SCH (08:49)
[2016-06-07] MEDS: CITALOPRAM 20 MG TAB PO SCH (08:49)
[2016-06-07] MEDS: ASPIRIN 81 MG ECTAB PO SCH (08:49)
[2016-06-07] MEDS: SPIRONOLACTONE 25 MG TAB PO SCH (08:50)
[2016-06-07] MEDS: GABAPENTIN 100 MG CAP PO SCH ×3 (08:50→20:31)
[2016-06-07] MEDS: CHOLECALCIFEROL 1000 INTER.UNIT TAB PO SCH (08:51)
[2016-06-07] MEDS: AMIODARONE 200 MG TAB PO SCH ×2 (08:51→16:21)
[2016-06-07] MEDS: LEVETIRACETAM 500 MG TAB PO SCH ×2 (08:51→20:30)
--- NOTE | 2016-06-07 09:48 | PROGRESS NOTE ---
DATE: 06/07/2016 FOLLOWUP VISIT SUBJECTIVE: The patient is an 81-year-old complex patient. He remains dyspneic with minimal activity. The plan today will be to have EP service to see and evaluate him for his biventricular device as well as atrial flutter. His status is unchanged from yesterday. OBJECTIVE: VITAL SIGNS: Blood pressure is 114/80, pulse is regular at 73 beats per minute. He is afebrile. I\T\O is even. GENERAL: He is alert and oriented. HEENT: Normocephalic. Pupils are equal and reactive to light. Extraocular muscles are intact bilaterally. NECK: The neck veins are not distended. Carotids have good upstrokes bilaterally without bruits. Thyroid is nonpalpable. RESPIRATORY: Breath sounds equal bilaterally and clear to auscultation. CARDIOVASCULAR: Heart has regular rhythm. There are no cardiac rubs or murmurs. GASTROINTESTINAL: There are incisional hernias in the mid and lower part of the abdomen. EXTREMITIES: Free of edema. NEUROLOGIC: Grossly intact. SKIN: Warm to touch. LYMPH NODES: Negative to palpation. LABORATORY DATA: Hemoglobin is 14.7. Potassium is 4.5, creatinine is 1.2. IMPRESSION: 1. Acute on chronic systolic heart failure. 2. [place] [employer] Association class 3-4. 3. Nonischemic cardiomyopathy. 4. Status post aortic valve replacement and mitral valve replacement. 5. Biventricular pacemaker. 6. Atrial flutter. 7. Estimated left ventricular ejection fraction of 20%. 8. History of subdural hematoma after a fall. 9. History of colon cancer. RECOMMENDATIONS: I have outlined above the EP service will evaluate him today. I plan on decreasing his amiodarone as he has been on t.i.d. dosing for several days. MTDD
--- NOTE | 2016-06-07 10:20 | Cardiology Consultation ---
Cardiology Consultation Date of Consultation: Jun 07, 2016. Requesting Physician: Dr. Sherman Reason for Consultation: Biventricular ICD, atrial fibrillation Pt evaluation today including: conversation w/ patient, physical exam, lab review, review of studies, conversation w/ safety consultant, review of inpatient medication list History of Present Illness This is a very pleasant 81-year-old gentleman who is not from this area and he is not a very good historian, perhaps in part from having a subdural hematoma following a fall. He has a history of atrial fibrillation, possibly permanent although that is not clear, as well as a history of coronary artery disease which I understand was nonocclusive in 2013. In 2013 he had an aortic valve replacement with a bioprosthetic valve as well as a mitral valve, also valve prosthetic. He has had severe left ventricular dysfunction, he seems to have an underlying left bundle branch block pattern based on intrinsic conduction on his electrocardiogram with a QRS duration of about 120 ms. He had a biventricular ICD implanted on 10/20/2015 ([employer]) which included an atrial lead. He presented here 06/02/2016 with shortness of breath. Evaluation here included ICD evaluation for what sounded like diaphragmatic pacing and the device was reprogrammed, he was also observed to have atrial fibrillation which may or may not be a chronic or permanent condition. He has been anticoagulated with warfarin, his INR on arrival was 2.5 and has been elevated since. He does not have evidence of myocardial infarction but does have severe left ventricular dysfunction with ejection fraction in the 20% range. Past Medical/Surgical History Medical Problems: (1) Atrial fibrillation Status: Chronic (2) Biventricular ICD (implantable cardioverter-defibrillator) in place Status: Chronic (3) BPH (benign prostatic hyperplasia) Status: Chronic (4) Colon cancer Status: Chronic (5) Current use of fpc anticoagulation Status: Chronic (6) Depression Status: Chronic (7) Hypothyroidism Status: Chronic (8) Seizure Status: Chronic (9) Subdural hematoma Status: Chronic (10) Systolic CHF Status: Chronic (11) Thrombocytopenia Status: Chronic Surgical Problems: (1) H/O colonoscopy Status: Chronic (2) History of appendectomy Status: Chronic (3) History of partial colectomy Status: Chronic (4) Hx of cholecystectomy Status: Chronic (5) Hx of total knee arthroplasty Status: Chronic (6) S/P AVR (aortic valve replacement) Status: Chronic (7) S/P MVR (mitral valve replacement) Status: Chronic Family History Cancer Diabetes mellitus Gallbladder disease Heart disease Hypertension Lung disease Social History Smoking Status: Never Smoker History of Alcohol Use: Yes (OCCASSIONAL) Review of Systems Constitutional: No fever, No weakness, No weight loss Respiratory: + see HPI, + shortness of breath, No cough, No dyspnea on exertion , No wheezing Cardiac: No PND, No chest pain, No edema, No orthopnea, No palpitations Abdomen: No GI bleeding, No diarrhea, No nausea, No pain, No vomiting Male : No nocturia more than once/night, No sexual dysfunction, No slowing stream, No urinary frequency Neurologic: No balance problems, No numbness/tingling, No paralysis, No weakness Heme: No abnormal bleeding/bruising, No clotting problems Endo: No fatigue Skin: No problem reported All Other Systems: Reviewed and Negative Allergies Coded Allergies: No Known Allergies (Unverified , 06/02/16) Medications Current Inpatient Medications Medications (Trade) Dose Ordered Sig/Linda Route Start Time Stop Time Status Last Admin Dose Admin Acetaminophen (Tylenol Tab) 650 mg Q4H PRN PO 06/02/16 19:00 07/02/16 18:59 Ondansetron HCl (Zofran Inj) 4 mg Q6H PRN IV 06/02/16 19:00 07/02/16 18:59 Nitroglycerin (Nitrostat Tab) 0.4 mg UD PRN SL 06/02/16 19:00 07/02/16 18:59 Atorvastatin Calcium (Lipitor Tab) 20 mg DAILY PO 06/03/16 09:00 07/03/16 08:59 06/07/16 08:49 20 MG Cholecalciferol (Vitamin D Tab) 1,000 inter.unit DAILY PO 06/03/16 09:00 07/03/16 08:59 06/07/16 08:51 1,000 INTER.UNIT Citalopram Hydrobromide (celeXA TAB) 20 mg DAILY PO 06/03/16 09:00 07/03/16 08:59 06/07/16 08:49 20 MG Gabapentin (Neurontin Cap) 100 mg TID PO 06/02/16 21:00 07/02/16 20:59 06/07/16 08:50 100 MG Levetiracetam (Keppra Tab) 500 mg Q12 PO 06/02/16 21:00 07/02/16 20:59 06/07/16 08:51 500 MG Levothyroxine Sodium (Synthroid Tab) 125 mcg DAILYBB PO 06/03/16 06:00 07/03/16 06:59 06/07/16 06:16 125 MCG Trazodone HCl (Desyrel Tab) 50 mg HS PO 06/02/16 21:00 07/02/16 20:59 06/06/16 21:48 50 MG Aspirin (Ecotrin Tab) 81 mg QAM PO 06/03/16 09:00 07/03/16 08:59 06/07/16 08:49 81 MG Warfarin Sodium (Coumadin Tab) 5 mg SuTuWeThFr@0900 PO 06/03/16 09:00 07/03/16 08:59 Future Hold 06/04/16 07:34 5 MG Warfarin Sodium (Coumadin Tab) 2.5 mg MoSa@0900 PO 06/05/16 09:00 07/05/16 08:59 Future Hold 06/05/16 08:30 2.5 MG Spironolactone (Aldactone Tab) 12.5 mg QAM PO 06/04/16 10:00 07/04/16 09:59 06/07/16 08:50 12.5 MG Metoprolol Succinate (Toprol Xl Tab) 12.5 mg QPM PO 06/04/16 21:00 07/04/16 20:59 06/06/16 21:48 12.5 MG Amiodarone HCl (Cordarone Tab) 400 mg BIDM PO 06/07/16 16:45 07/07/16 16:44 Physical Exam Vital Signs Past 12 Hours Date Time Temp Pulse Resp B/P Pulse Ox O2 Delivery O2 Flow Rate FiO2 06/07/16 07:53 36.6 73 16 114/80 100 Nasal Cannula 4.0 06/07/16 04:17 Nasal Cannula 3.0 06/07/16 03:41 37.0 73 20 115/82 98 Nasal Cannula 4.0 06/07/16 00:02 Nasal Cannula 4.0 06/06/16 23:59 37.0 72 20 101/68 96 Nasal Cannula 4.0 Constitutional: General Apperance: heathly-appearing Level of Distress: mild distress, acutely ill, chronically ill Psychiatric: Mental Status: active & alert Orientation: to place, to person Memory: recent memory normal, remote memory normal Head: normocephalic Eyes: Pupils: PERRLA EOM: EOMI ENMT: normal ENT inspection, hearing grossly normal Neck: supple, no masses Lungs: Respiratory effort: no dyspnea, good air movement Auscultation: no wheezing, no rhonchi, deminished air movement, decreased breath sounds, rales/crackles on the right Cardiovascular: Heart Auscultation: no rubs, II/ DANIEL, irregular rate rhythm, pertinent finding (good bioprosthetic valve sounds) Peripheral Pulses: Bruits: none appreciated Abdomen: Bowel Sounds: normal Inspection & Palpation: soft, no tenderness, guarding & rebound Musculoskeletal: normal strength (5/5 throughout) Extremities: no cyanosis, no edema, no clubbing Neurologic: Cranial Nerves: grossly intact Sensation: grossly intact Data Laboratory Results: Last 24 Hours Test 06/07/16 06:32 White Blood Count 9.70 K/uL Red Blood Count 5.07 M/uL Hemoglobin 14.7 g/dL Hematocrit 44.6 % Mean Corpuscular Volume 88.0 fL Mean Corpuscular Hemoglobin 29.0 pg Mean Corpuscular Hemoglobin Concent 33.0 g/dl RDW Standard Deviation 49.7 fL RDW Coefficient of Variation 15.6 % Platelet Count 96 K/uL Prothrombin Time 52.9 SECONDS Prothromb Time International Ratio 4.6 Sodium Level 144 mmol/L Potassium Level 4.5 mmol/L Chloride Level 108 mmol/L Carbon Dioxide Level 24 mmol/L Anion Gap 12.0 mmol/L Blood Urea Nitrogen 36 mg/dl Creatinine 1.20 mg/dl Est Creatinine Clear Calc Drug Dose 53.6 ml/min Estimated GFR () 65.8 Estimated GFR (Non- 56.8 BUN/Creatinine Ratio 30.0 Random Glucose 87 mg/dl Calcium Level 8.7 mg/dl Imaging: He does not appear to have had a formal PA and lateral chest x-ray, from his CAT scan I can see that his left ventricular lead appears to be in good position in the high posterior lateral left ventricle. EKG: Several electrocardiograms show atrial fibrillation with a somewhat rapid heart rate resulting in intrinsic conduction, fusion and some biventricular pacing. Biventricular paced complexes appear to be appropriate when they're truly biventricular paced. Telemetry reviewed: Atrial fibrillation with a somewhat rapid heart rate, periods of biventricular pacing, intrinsic conduction and fusion. ICD evaluation: His ICD was evaluated on 06/03/2016. Interrogation at that time showed that he has been in atrial fibrillation since implant on 10/20/2015. The device was reprogrammed to eliminate diaphragmatic pacing. His overall heart rate is somewhat elevated resulting in limited biventricular pacing, only 74% true biventricular pacing since last reset 02/04/2016. Battery voltage remains excellent. Pacing and sensing characteristics in both ventricular leads are acceptable. No tachyarrhythmias were identified other than atrial fibrillation. Assessment & Plan #1. Biventricular ICD: The device is functioning well, given that his atrial fibrillation has been present since implant and the AV conduction is somewhat rapid. The device was reprogrammed to avoid diaphragmatic pacing, the lead location looks good at this pacing configuration anatomically is good. The electrical complex also looks appropriately biventricular paced although does little hard to tell due to the frequent fusion an intrinsic conduction. Battery voltage is excellent. The device therefore appears to be functioning well at this time. #2. Atrial fibrillation with rapid ventricular response: He is probably not getting full benefit from his biventricular device due to the atrial fibrillation. His atrial fibrillation is causing irregular rhythm which is hemodynamically not well-tolerated with a cardiomyopathy, additionally it is interfering with true biventricular pacing. I don't know if he is in permanent atrial fibrillation, the device was implanted with an atrial lead suggesting that he either was not always in atrial fibrillation or plans were to convert the rhythm although that seemingly was not done. He has been anticoagulated with warfarin. I think we should try to convert his rhythm. We can generally do that with his device, but I would be prepared to deliver an external shock. I discussed the indications, procedure, risks and alternatives with him and he understands and agrees to proceed. Consent obtained. We will plan on doing this tomorrow morning with anesthesia. If we cannot maintain sinus rhythm (he has been on amiodarone since admission and that may help) then in the long run we may have to consider AV theron ablation. #3. Nonischemic cardiomyopathy: He appears to have a nonischemic cardiomyopathy based on his history, he has a left bundle branch block pattern on intrinsically conducted complex which may be in part the edilma of his cardiomyopathy. His ejection fraction is only about 20% and he has heart failure symptoms. I would like to give him the best option of improving his ventricular function by allowing appropriate biventricular pacing. We could try to increase his AV theron blocking medications (beta-blockade or addition of digoxin) however his blood pressure is borderline and we may not be able to get good control. Over the long run it would be beneficial if his medications can be gradually increased. #4. Valvular heart disease: Part of his cardiomyopathy may be too to his valvular heart disease, currently his valves are functioning well. Thank you for allowing me to participate in his care.
--- NOTE | 2016-06-07 11:48 | Progress Note ---
Internal Med Progress Note Date of Service: Jun 07, 2016. Provider Documentation: SUBJECTIVE: Patient is feeling better today. SOB at baseline. No chest pain, cough, leg swelling, fever, chills, nausea, vomiting. No more diaphragmatic stimulation from pacer Mental status: Slow since brain surgery in past OBJECTIVE: Vital Signs-as noted below Exam: General Appearance: Alert and Oriented x 3. Chronically ill. Neck: Supple. No JVD. Respiratory: Diminished but clear. No abnormal breath sounds appreciated. Cardiovascular: Regular. systolic murmur. No diastolic murmur. Abdomen: No more Diaphragmatic stimulation noted with change in positions. +BS. Soft. Nontender. Extremities: No edema. Lab data as noted below. Diagnostic Radiology CTA CHEST Per radiologist read: IMPRESSION: 1. Somewhat limited evaluation of the pulmonary arteries secondary to motion artifact. No central emboli identified. Serial leg ultrasonography should be considered in follow-up. 2. Mild dilatation of the ascending thoracic aorta which measures 44 mm. No dissection identified 3. Extensive chest wall collaterals, finding which suggests stenosis or obstruction left brachiocephalic vein 4. Marked cardiomegaly with evidence of elevated right heart pressures EKG Ventricular PAced 102 BPM, QTc 609 ASSESSMENT & PLAN: Assessment and Plan : 81 year old male presents to the ED with SOB. He has had decreased energy, and SOB for the past month. Was SOB in public place and bystanders called 911 ATRIAL FLUTTER WITH RVR - Pacemaker Interrogation / Tele monitor on admission revealed Atrial flutter with RVR, PVCs with bigeminy pattern on 06/03/16 -S/P Amiodarone bolus/drip ---> Changed to PO amiodarone (400 mg PO TID) on 02/08 --> 400 mg PO BID today per cardiology -Anticoagulation: INR 4.6 - Continue to hold off Coumadin. Has been therapeutic x 5 months per cardio note. -Cardiology on board. -Discussed with EP, Dr Alcantara- Plan is for Cardioversion in AM and can be discharged post procedure. Per him, pacer device is functioning well, but as has Atrial Flutter with RVR, not able to get full benefit of Biventricular pacing device. Plan will be eventually to increase beta viviana- Metoprolol or add digoxin in future if BP tolerates it. ACUTE ON CHRONIC SEVERE SYSTOLIC CHF (NYHA IV) - Stable now -EF< 20% on Echo in 04/2016 -BNP 8K --> 6K -Not on diuretics as outpatient likely secondary to low BP and not able to tolerate it. -Restarted on Toprol XL 12.5 mg on 06/04/16, Spironolactone 12.5 on 06/04/16 per cardiology. Due to Low BP may not be able to tolerate lasix. BP has been stable while on these medications. Eventually would want to increase metoprolol or add digoxin as mentioned above -Cardiology on board. HYPOXIA - -Possibly multifactorial: A flutter with RVR in setting of chronic conditions- CHF with severe systolic dysfunction, Hx of Aortic/Mitral Valve replacement, ICD -No acute respiratory issues noted -CT scan - No PE, Effusion, consolidation noted, no prior hx of Asthma, COPD. -Need to re evaluate prior to discharge as on and off has been on it. ELEVATED TROPONIN -Troponin 0.289. 0.314 - Trending down. -Likely secondary Atrial Flutter with RVR -Continue with ASA, Atorvastatin -Cardiology on board. H/O BIVENTRICULAR PACEMAKER DEFIBRILLATOR -Interrogation done on 06/03/16 - A flutter with PVCs as above -Device reprogrammed x 2 on 06/03/2016 initially decreasing the lower rate to 70 bpm and then reprogramming to cease the significant diaphragmatic stimulation. No more diaphragmatic stimulation since reprogramming the device. -No more diaphragmatic stimulation noted SEIZURES -Continue Keppra q 12 hours HYPOTHYROIDISM -TSH normal -Continue Synthroid HLD -Continue Statin DEPRESSION -Continue Celexa Trazodone CHRONIC THROMBOCYTOPENIA- Stable -Monitor while on coumadin H/O AVR H/O MVR H/O SUBDURAL HEMATOMA H/O COLON CA -S/P partial colectomy DVT PROPHYLAXIS: Coumadin CODE STATUS: LEVEL 5 DNR per admitting physician discussion with the patient and his brother DISPOSITION PT/OT recommends = Home with home health Okay to discharge home with [facility] after cardioversion in AM per Dr Alcantara. POA- Daughter, Dr Alcantara plans to update her about the plan. Vital Signs: Date Time Temp Pulse Resp B/P Pulse Ox O2 Delivery O2 Flow Rate FiO2 06/07/16 08:00 95 Nasal Cannula 2.0 06/07/16 07:53 36.6 73 16 114/80 100 Nasal Cannula 4.0 06/07/16 04:17 Nasal Cannula 3.0 06/07/16 03:41 37.0 73 20 115/82 98 Nasal Cannula 4.0 06/07/16 00:02 Nasal Cannula 4.0 06/06/16 23:59 37.0 72 20 101/68 96 Nasal Cannula 4.0 06/06/16 20:00 Nasal Cannula 4.0 06/06/16 19:18 36.8 71 20 103/73 99 Nasal Cannula 4.0 06/06/16 16:00 Nasal Cannula 4.0 06/06/16 15:22 36.6 73 20 109/72 98 Nasal Cannula 4.0 06/06/16 12:00 Room Air Lab Results: Results Past 24 Hours Test 06/07/16 06:32 Range/Units White Blood Count 9.70 4.8-10.8 K/uL Red Blood Count 5.07 4.7-6.1 M/uL Hemoglobin 14.7 14.0-18.0 g/dL Hematocrit 44.6 42-52 % Mean Corpuscular Volume 88.0 80-100 fL Mean Corpuscular Hemoglobin 29.0 25-34 pg Mean Corpuscular Hemoglobin Concent 33.0 32-36 g/dl RDW Standard Deviation 49.7 36.4-46.3 fL RDW Coefficient of Variation 15.6 11.5-14.5 % Platelet Count 96 130-400 K/uL Prothrombin Time 52.9 9.0-12.0 SECONDS Prothromb Time International Ratio 4.6 0.9-1.1 Sodium Level 144 136-145 mmol/L Potassium Level 4.5 3.5-5.1 mmol/L Chloride Level 108 98-107 mmol/L Carbon Dioxide Level 24 21-32 mmol/L Anion Gap 12.0 3-11 mmol/L Blood Urea Nitrogen 36 7-18 mg/dl Creatinine 1.20 0.60-1.40 mg/dl Est Creatinine Clear Calc Drug Dose 53.6 ml/min Estimated GFR () 65.8 Estimated GFR (Non- 56.8 BUN/Creatinine Ratio 30.0 10-20 Random Glucose 87 70-99 mg/dl Calcium Level 8.7 8.5-10.1 mg/dl
--- NOTE | 2016-06-07 12:00 | Anesthesiology Progress Note ---
Anesthesia Progress Note Date of Service Jun 07, 2016. Progress Notes This is an 81 y/o w male w/ afib/aflutter for cardioversion by Dr Alcantara. PMHx is sig for Cardiomyopathy(EF<20%),NYHA ClassIV,Focal and partial seizures,s /p fall w/SDH,s/p evacuation at [place], minimal CAD,HTN,Hyperlipidemia ,CHF,s/p BiV AICD,s/p AVR,MVR and GUNNAR ligation,hypothyroidism,and s/p colon resection for colon cancer.Discussed anesthesia w/ pt risks vs benefits,all questions answered.Informed consent obtained.
[2016-06-07] MEDS: METOPROLOL SUCC 25MG EXT REL TAB PO SCH (20:30)
[2016-06-07] MEDS: TRAZODONE HCL 50 MG TAB PO SCH (20:31)
[2016-06-08] VITALS (13 sets, daily range): BP systolic 94–119; BP diastolic 63–79; PULSE 58–77; TEMP 36.4–37; O2SAT 93–98
[2016-06-08] MEDS ORDERED: LIDOCAINE HCL 2% 2 ML VIAL (20MG/ML) ONE (07:12)
[2016-06-08] MEDS ORDERED: PROPOFOL IV EMULSION 10 MG/ML 20 ML VIAL IV ONE (07:12)
[2016-06-08 07:20] LABS: PROTHROMBIN TIME (PATIENT) 43.2 SECONDS (9.0-12.0)
[2016-06-08 07:23] LABS: INR 3.8 (0.9-1.1)
[2016-06-08 07:34] LABS: CALCIUM 8.5 mg/dl (8.5-10.1); POTASSIUM 4.3 mmol/L (3.5-5.1)
[2016-06-08 07:40] LABS: HEMATOCRIT 44.2 % (42-52); MEAN CELL VOLUME 90.8 fL (80-100); MEAN CORPUSCULAR HEMOGLOBIN 29.8 pg (25-34); MEAN CORPUSCULAR HGB CONC 32.8 g/dl (32-36); PLATELET COUNT 96 K/uL (130-400); PLT ESTIMATE DECREASED; RED BLOOD COUNT 4.87 M/uL (4.7-6.1); WHITE BLOOD COUNT 6.39 K/uL (4.8-10.8)
[2016-06-08 07:45] LABS: BUN/CREATININE RATIO 32.6 (10-20); CREATININE 1.2 mg/dl (0.60-1.40)
--- NOTE | 2016-06-08 08:36 | Cardiology Follow-Up ---
Subjective Date of Service: Jun 08, 2016. Pt evaluation today including: conversation w/ patient, physical exam, lab review, review of studies, review of inpatient medication list History of Present Illness This is a very pleasant 81-year-old gentleman who is not from this area and he is not a very good historian, perhaps in part from having a subdural hematoma following a fall. He has a history of atrial fibrillation, possibly permanent although that is not clear, as well as a history of coronary artery disease which I understand was nonocclusive in 2013. In 2013 he had an aortic valve replacement with a bioprosthetic valve as well as a mitral valve, also valve prosthetic. He has had severe left ventricular dysfunction, he seems to have an underlying left bundle branch block pattern based on intrinsic conduction on his electrocardiogram with a QRS duration of about 120 ms. He had a biventricular ICD implanted on 10/20/2015 ([employer]) which included an atrial lead. He presented here 06/02/2016 with shortness of breath. Evaluation here included ICD evaluation for what sounded like diaphragmatic pacing and the device was reprogrammed, he was also observed to have atrial fibrillation which may or may not be a chronic or permanent condition. He has been anticoagulated with warfarin, his INR on arrival was 2.5 and has been elevated since. He does not have evidence of myocardial infarction but does have severe left ventricular dysfunction with ejection fraction in the 20% range. He was started on oral amiodarone has been on that for a number of days. He remained in atrial fibrillation/flutter so we arrange cardioversion for this morning. His rhythm appears to be atrial flutter. Social History Smoking Status: Never Smoker History of Alcohol Use: Yes (OCCASSIONAL) Review of Systems Respiratory: + see HPI, + shortness of breath, No cough, No dyspnea on exertion , No wheezing Cardiac: No PND, No chest pain, No edema, No orthopnea, No palpitations Medications Cardiovascular: Item Value Date Time Amiodarone HCl 400 mg 06/07/16 1645 (Cordarone Tab) BIDM/PO 06/07/16 1621 Metoprolol 12.5 mg 06/04/16 2100 Succinate QPM/PO 06/07/16 2030 (Toprol Xl Tab) Spironolactone 12.5 mg 06/04/16 1000 (Aldactone Tab) QAM/PO 06/07/16 0850 Atorvastatin 20 mg 06/03/16 0900 Calcium DAILY/PO 06/07/16 0849 (Lipitor Tab) Aspirin 81 mg 06/03/16 0900 (Ecotrin Tab) QAM/PO 06/07/16 0849 Objective Vital Signs Past 12 Hours Date Time Temp Pulse Resp B/P Pulse Ox O2 Delivery O2 Flow Rate FiO2 06/08/16 07:41 37.0 71 20 94/68 98 Nasal Cannula 2.0 06/08/16 04:00 97 Nasal Cannula 2.0 06/08/16 04:00 36.5 71 18 95/63 97 Nasal Cannula 2.0 06/08/16 01:58 2.0 06/08/16 00:00 36.5 73 24 104/73 98 Nasal Cannula 2.0 06/08/16 00:00 Nasal Cannula 2.0 Last Recorded Weight-Kilograms: 94.100 Intake & Output 8-Hour Column 06/07/16 06/08/16 06/08/16 16:00 00:00 08:00 Intake Total 890 ml 300 ml Output Total 0 ml Balance 890 ml 300 ml 24-Hour Column 06/08/16 08:00 Intake Total 1190 ml Output Total 0 ml Balance 1190 ml Physical Exam Constitutional: General Apperance: heathly-appearing Level of Distress: mild distress, acutely ill, chronically ill Lungs: Respiratory effort: no dyspnea, good air movement Auscultation: no wheezing, no rhonchi, deminished air movement, decreased breath sounds, rales/crackles on the right Cardiovascular: Heart Auscultation: RRR, no rubs, II/ DANIEL, pertinent finding (good bioprosthetic valve sounds) Peripheral Pulses: Bruits: none appreciated Extremities: no cyanosis, no clubbing Data Laboratory Results: Last 24 Hours Test 06/08/16 06:49 White Blood Count 6.39 K/uL Red Blood Count 4.87 M/uL Hemoglobin 14.5 g/dL Hematocrit 44.2 % Mean Corpuscular Volume 90.8 fL Mean Corpuscular Hemoglobin 29.8 pg Mean Corpuscular Hemoglobin Concent 32.8 g/dl RDW Standard Deviation 50.9 fL RDW Coefficient of Variation 15.5 % Platelet Count 96 K/uL Mean Platelet Volume 13.0 fL Platelet Estimate DECREASED Prothrombin Time 43.2 SECONDS Prothromb Time International Ratio 3.8 Sodium Level 143 mmol/L Potassium Level 4.3 mmol/L Chloride Level 107 mmol/L Carbon Dioxide Level 27 mmol/L Anion Gap 9.0 mmol/L Blood Urea Nitrogen 39 mg/dl Creatinine 1.20 mg/dl Est Creatinine Clear Calc Drug Dose 53.7 ml/min Estimated GFR () 65.8 Estimated GFR (Non- 56.8 BUN/Creatinine Ratio 32.6 Random Glucose 72 mg/dl Calcium Level 8.5 mg/dl EKG: Postconversion he is AV sequentially pacing with proper biventricular pacing Telemetry reviewed: Atrial fibrillation or flutter with ventricular pacing and fusion appropriately prior to cardioversion Pacemaker evaluation: On pacemaker evaluation this morning he appears to be in a stable atrial flutter therefore antitachycardia pacing was attempted. This was successful in converting his rhythm to an atrial paced rhythm. Atrial threshold testing was performed and the atrial threshold is excellent. Oddly he did have what appeared to be diaphragmatic pacing with atrial pacing. Assessment and Plan #1. Biventricular ICD: The device is functioning well, given that his atrial fibrillation has been present since implant and the AV conduction has been somewhat rapid. The device was reprogrammed to avoid diaphragmatic pacing shortly after admission this time, the lead location looks good at this pacing configuration anatomically is good. Oddly he appeared to have diaphragmatic pacing when I paced terminated his atrial arrhythmia today. We may need to investigate this. The electrical complex also looks appropriately biventricular paced. Battery voltage is excellent. The device therefore appears to be functioning well at this time. #2. Atrial fibrillation with rapid ventricular response: He is probably was not getting full benefit from his biventricular device due to the atrial fibrillation. His atrial fibrillation was causing irregular rhythm which is probably hemodynamically not well-tolerated with a cardiomyopathy, additionally it was interfering with true biventricular pacing. I don't know how long he has been in atrial fibrillation, the device was implanted with an atrial lead suggesting that he either was not always in atrial fibrillation or plans were to convert the rhythm although that seemingly was not done. He has been anticoagulated with warfarin. I was able to fairly easily convert his now organized atrial arrhythmia to sinus bradycardia using atrial burst pacing, this device has that available as an automatic algorithm which I will make sure is programmed on. I believe it was but perhaps without amiodarone the device was unable to convert the rhythm but may be able to in the future automatically. #3. Nonischemic cardiomyopathy: He appears to have a nonischemic cardiomyopathy based on his history, he has a left bundle branch block pattern on intrinsically conducted complex which may be in part the edilma of his cardiomyopathy. His ejection fraction is only about 20% and he has heart failure symptoms. I would like to give him the best option of improving his ventricular function by allowing appropriate biventricular pacing. Now out of atrial fibrillation and flutter he is appropriately biventricular pacing. Over the long run it would be beneficial if his medications can be gradually increased. #4. Valvular heart disease: Part of his cardiomyopathy may be too to his valvular heart disease, currently his valves are functioning well. Thank you for allowing me to participate in his care.
--- NOTE | 2016-06-08 10:01 | Cardiology Follow-Up ---
Subjective General Date of Service: Jun 08, 2016. Chief Complaint: Dyspnea Pt evaluation today including: conversation w/ patient, physical exam, chart review, lab review, review of studies, review of inpatient medication list History of Present Illness Patient feeling better this AM. SOB at baseline. Has not been out of bed much to determine dyspnea. No chest pain. No dizziness, syncope or near syncope. Successfully converted with atrial burst pacing and now appropriately AV pacing on monitor. No orthopnea, PND or edema. Allergies Coded Allergies: No Known Allergies (Unverified , 06/02/16) Social History Smoking Status: Never Smoker Hx Tobacco Use In Past Year?: No Hx Alcohol Use - Type And Amou: Yes (OCCASSIONAL) Hx Substance Use - Type And Am: No Problem List Medical Problems: (1) Elevated troponin Status: Acute (2) Hypoxia Status: Acute Review of Systems Respiratory: No cough, No dyspnea at rest, No dyspnea on exertion, No hemoptysis, No shortness of breath, No sputum, No wheezing Cardiac: No PND, No chest pain, No edema, No orthopnea, No palpitations Physical Exam Vital Signs Last Vital Signs Documentation Date Time Temp Pulse Resp B/P Pulse Ox O2 Delivery O2 Flow Rate FiO2 06/08/16 09:31 61 20 106/74 95 Room Air 06/08/16 08:45 2.0 06/08/16 07:41 37.0 Physical Exam Constitutional: General Apperance: heathly-appearing Level of Distress: chronically ill Psychiatric: Mental Status: active & alert Orientation: to time, to place, to person Head: normocephalic Eyes: Pupils: PERRLA Neck: supple, no masses Lungs: Respiratory effort: no dyspnea Auscultation: deminished air movement, decreased breath sounds Cardiovascular: Heart Auscultation: RRR, no rubs, II/ DANIEL Peripheral Pulses: Bruits: none appreciated Abdomen: Bowel Sounds: normal Inspection & Palpation: soft, no tenderness, guarding & rebound Musculoskeletal: normal strength (5/5 throughout) Extremities: no cyanosis, no edema, no clubbing Neurologic: Cranial Nerves: grossly intact Sensation: grossly intact Assessment and Plan Assessment and Plan IMPRESSION: 1. Acute on chronic systolic heart failure. 2. [place] Heart Association class 3-4. 3. Nonischemic cardiomyopathy. 4. Status post aortic valve replacement and mitral valve replacement. 5. Biventricular pacemaker. 6. Atrial flutter, now appropriately AV pacing 7. Estimated left ventricular ejection fraction of 20%. 8. History of subdural hematoma after a fall. 9. History of colon cancer. RECOMMENDATIONS: Recommend continuing amiodarone 400 mg BID for 1-2 weeks, then likely will reduce to 400 mg daily as outpatient. Continue toprol 12.5 mg daily and spironolactone on discharge. Will schedule approx 1-2 week hospital f/u at [facility]. Case to be discussed with Dr. Sherman. Will follow. CARDIOLOGY ATTENDING ADDENDUM: The patient was seen and personally examined. Agree with Criselda Nicholas PA-C's findings and plans as documented above. I think we have to be careful with this patient post D/C. We need to consider his home situation and he will need close/early follow-up. Laboratory Results Last 24 Hours Test 06/08/16 06:49 White Blood Count 6.39 K/uL Red Blood Count 4.87 M/uL Hemoglobin 14.5 g/dL Hematocrit 44.2 % Mean Corpuscular Volume 90.8 fL Mean Corpuscular Hemoglobin 29.8 pg Mean Corpuscular Hemoglobin Concent 32.8 g/dl RDW Standard Deviation 50.9 fL RDW Coefficient of Variation 15.5 % Platelet Count 96 K/uL Mean Platelet Volume 13.0 fL Platelet Estimate DECREASED Prothrombin Time 43.2 SECONDS Prothromb Time International Ratio 3.8 Sodium Level 143 mmol/L Potassium Level 4.3 mmol/L Chloride Level 107 mmol/L Carbon Dioxide Level 27 mmol/L Anion Gap 9.0 mmol/L Blood Urea Nitrogen 39 mg/dl Creatinine 1.20 mg/dl Est Creatinine Clear Calc Drug Dose 53.7 ml/min Estimated GFR () 65.8 Estimated GFR (Non- 56.8 BUN/Creatinine Ratio 32.6 Random Glucose 72 mg/dl Calcium Level 8.5 mg/dl
--- NOTE | 2016-06-08 10:12 | Progress Note ---
Internal Med Progress Note Date of Service: Jun 08, 2016. Provider Documentation: SUBJECTIVE: Patient is seen and examined at bedside. Had cardioversion this morning. Reports feeling very tired today. Denies any chest pain, SOB, dizziness. Slow to respond-his baseline OBJECTIVE: Vital Signs-as noted below Physical Exam: General Appearance:Moderately built and nourished, no apparent distress, Chronically ill appearing Head: normocephalic, Atraumatic Eyes: normal inspection, EOMI, PERRLA Neck: supple, no JVD, Trachea midline Respiratory/Chest: Decreased breath sounds, minimal creps at bases, No accessory muscle use Cardiovascular: S1, S2, + Systolic murmur Abdomen/GI:Soft, Non tender, Bowel sounds present Extremities/Musculoskelatal:normal inspection, no edema Neurologic/Psych:AAOX3, grossly no focal neurological deficits Skin: normal color, warm Lab data as noted below. ASSESSMENT & PLAN: Patient is an 81 yr old male who presented to ED with SOB, decreased energy since past month. ATRIAL FLUTTER WITH RVR: S/P Cardioversion on 06/08/16 Pacemaker Interrogation: on admission revealed Atrial flutter with RVR, PVCs with bigeminy pattern on 06/03/16 S/P Amiodarone bolus >>>> Changed to PO amiodarone 400 mg BID Anticoagulation on warfarin at home: INR 3.8 today. Continue to hold Coumadin Cardiology following Pacer device functioning well (Not getting full benefit of pacer secondary to atrial fibrillation/flutter) Plan will be eventually to increase beta viviana- Metoprolol or add digoxin in future if BP tolerates it ACUTE ON CHRONIC SEVERE SYSTOLIC CHF (NYHA IV) - Stable now EF< 20% on Echo in Apr 2016 BNP 8K >>>> 6K Not on diuretics likely secondary to low BP and inability to tolerate it Restarted on Toprol XL 12.5 mg and Spironolactone 12.5 on 06/04/16 per cardiology Eventually plan to increase metoprolol or add digoxin Cardiology on board. HYPOXIA: Likely secondary to A flutter with RVR, CHF with severe systolic dysfunction and Hx of Aortic/Mitral Valve replacement Currently saturating 95% on RA Taper off oxygen as able No acute respiratory issues noted CT scan: No PE, Effusion, consolidation noted No history of COPD, Asthma May need 2 step prior to DC ELEVATED TROPONIN Troponin 0.289. 0.314 Likely secondary Atrial Flutter with RVR Continue with ASA, Atorvastatin Cardiology on following H/O BIVENTRICULAR PACEMAKER DEFIBRILLATOR Interrogation done on 06/03/16 - A flutter with PVCs Device reprogrammed x 2 on 06/03/2016 initially decreasing the lower rate to 70 bpm and then reprogramming to cease the significant diaphragmatic stimulation. SEIZURES Continue Keppra BID HYPOTHYROIDISM TSH normal Continue Synthroid HLD Continue Statin DEPRESSION Continue Celexa, Trazodone CHRONIC THROMBOCYTOPENIA Stable Continue to monitor Patient also on coumadin H/O AVR and MVR Stable H/O SUBDURAL HEMATOMA Stable H/O COLON CA S/P partial colectomy DVT PROPHYLAXIS: Coumadin CODE STATUS: LEVEL 5 DNR per admitting physician discussion with the patient and his brother DISPOSITION PT/OT recommends = Rehab. Family discussing about it. May benefit from Home with home health and home PT if patient refuses rehab placement Plan to DC tomorrow if stable Needs FU with PCP and Cardiology Vital Signs: Date Time Temp Pulse Resp B/P Pulse Ox O2 Delivery O2 Flow Rate FiO2 06/08/16 09:31 61 20 106/74 95 Room Air 06/08/16 09:15 Room Air 06/08/16 09:01 64 98/71 97 Room Air 06/08/16 08:45 59 20 101/71 93 Nasal Cannula 2.0 06/08/16 07:41 37.0 71 20 94/68 98 Nasal Cannula 2.0 06/08/16 04:00 97 Nasal Cannula 2.0 06/08/16 04:00 36.5 71 18 95/63 97 Nasal Cannula 2.0 06/08/16 01:58 2.0 06/08/16 00:00 36.5 73 24 104/73 98 Nasal Cannula 2.0 06/08/16 00:00 Nasal Cannula 2.0 06/07/16 20:00 Nasal Cannula 2.0 06/07/16 19:37 36.4 70 20 112/81 99 Nasal Cannula 2.0 06/07/16 16:00 95 Nasal Cannula 2.0 06/07/16 15:33 36.7 72 22 95/66 91 Nasal Cannula 4.0 06/07/16 12:11 36.6 72 16 124/79 99 Nasal Cannula 4.0 06/07/16 12:00 96 Nasal Cannula 2.0 Lab Results: Results Past 24 Hours Test 06/08/16 06:49 Range/Units White Blood Count 6.39 4.8-10.8 K/uL Red Blood Count 4.87 4.7-6.1 M/uL Hemoglobin 14.5 14.0-18.0 g/dL Hematocrit 44.2 42-52 % Mean Corpuscular Volume 90.8 80-100 fL Mean Corpuscular Hemoglobin 29.8 25-34 pg Mean Corpuscular Hemoglobin Concent 32.8 32-36 g/dl RDW Standard Deviation 50.9 36.4-46.3 fL RDW Coefficient of Variation 15.5 11.5-14.5 % Platelet Count 96 130-400 K/uL Mean Platelet Volume 13.0 7.4-10.4 fL Platelet Estimate DECREASED Prothrombin Time 43.2 9.0-12.0 SECONDS Prothromb Time International Ratio 3.8 0.9-1.1 Sodium Level 143 136-145 mmol/L Potassium Level 4.3 3.5-5.1 mmol/L Chloride Level 107 98-107 mmol/L Carbon Dioxide Level 27 21-32 mmol/L Anion Gap 9.0 3-11 mmol/L Blood Urea Nitrogen 39 7-18 mg/dl Creatinine 1.20 0.60-1.40 mg/dl Est Creatinine Clear Calc Drug Dose 53.7 ml/min Estimated GFR () 65.8 Estimated GFR (Non- 56.8 BUN/Creatinine Ratio 32.6 10-20 Random Glucose 72 70-99 mg/dl Calcium Level 8.5 8.5-10.1 mg/dl
[2016-06-08] MEDS: LEVOTHYROXINE 125 MCG TAB PO SCH (10:22)
[2016-06-08] MEDS: ASPIRIN 81 MG ECTAB PO SCH (10:22)
[2016-06-08] MEDS: ATORVASTATIN 20 MG TAB PO SCH (10:22)
[2016-06-08] MEDS: CITALOPRAM 20 MG TAB PO SCH (10:23)
[2016-06-08] MEDS: SPIRONOLACTONE 25 MG TAB PO SCH (10:23)
[2016-06-08] MEDS: GABAPENTIN 100 MG CAP PO SCH ×3 (10:24→20:25)
[2016-06-08] MEDS: CHOLECALCIFEROL 1000 INTER.UNIT TAB PO SCH (10:25)
[2016-06-08] MEDS: LEVETIRACETAM 500 MG TAB PO SCH ×2 (10:26→20:25)
[2016-06-08] MEDS: AMIODARONE 200 MG TAB PO SCH ×2 (10:27→16:41)
[2016-06-08] MEDS ORDERED: LORAZEPAM 0.5 MG TAB PO ONE (16:00)
[2016-06-08] MEDS ORDERED: LORAZEPAM 0.5 MG TAB ONE (16:35)
[2016-06-08] MEDS: METOPROLOL SUCC 25MG EXT REL TAB PO SCH (20:24)
[2016-06-08] MEDS: TRAZODONE HCL 50 MG TAB PO SCH (20:25)
[2016-06-08] MEDS ORDERED: ALBUT/IPRATROP 3MG/0.5MG NEB 3 ML VIAL INH STA (22:41)
--- NOTE | 2016-06-08 22:52 | DIAGNOSTIC IMAGING REPORT ---
CHEST ONE VIEW PORTABLE HISTORY: wheeze COMPARISON: Chest 03/16/2014. FINDINGS: Left-sided pacemaker/defibrillator. There are poststernotomy changes. The heart remains enlarged. No pneumothorax. No evidence for pulmonary edema. No pleural effusions. No focal lung consolidations to suggest pneumonia. IMPRESSION: Stable cardiomegaly. Electronically signed by: Drew Owens M.D. 06/08/2016 10:51 PM Dictated Date/Time: 06/08/2016 10:49 PM
[2016-06-09] VITALS (11 sets, daily range): BP systolic 81–107; BP diastolic 55–73; PULSE 60–92; TEMP 36.5–36.9; O2SAT 91–99
[2016-06-09] MEDS: LEVOTHYROXINE 125 MCG TAB PO SCH (05:45)
[2016-06-09] MEDS: ASPIRIN 81 MG ECTAB PO SCH (07:38)
[2016-06-09] MEDS: ATORVASTATIN 20 MG TAB PO SCH (07:38)
[2016-06-09] MEDS: CITALOPRAM 20 MG TAB PO SCH (07:39)
[2016-06-09] MEDS: CHOLECALCIFEROL 1000 INTER.UNIT TAB PO SCH (07:39)
[2016-06-09] MEDS: SPIRONOLACTONE 25 MG TAB PO SCH (07:40)
[2016-06-09] MEDS: LEVETIRACETAM 500 MG TAB PO SCH ×2 (07:40→21:37)
[2016-06-09] MEDS: GABAPENTIN 100 MG CAP PO SCH ×3 (07:40→21:37)
[2016-06-09] MEDS: AMIODARONE 200 MG TAB PO SCH ×2 (07:40→16:59)
[2016-06-09 07:59] LABS: HEMATOCRIT 42.1 % (42-52); MEAN CELL VOLUME 90.5 fL (80-100); MEAN CORPUSCULAR HEMOGLOBIN 30.3 pg (25-34); MEAN CORPUSCULAR HGB CONC 33.5 g/dl (32-36); RED BLOOD COUNT 4.65 M/uL (4.7-6.1); WHITE BLOOD COUNT 5.73 K/uL (4.8-10.8)
[2016-06-09 08:12] LABS: BASO % 0.5 %; BASO ABS # 0.03 K/uL (0-0.2); BUN/CREATININE RATIO 30.8 (10-20); CALCIUM 8.3 mg/dl (8.5-10.1); COMPLETE YES; CREATININE 1.4 mg/dl (0.60-1.40); EOS % 0.2 %; IG% 0.2 %; LARGE PLATELETS 1+; LYMPH % 16.4 %; LYMPH ABS # 0.94 K/uL (1.2-3.4); MEAN PLATELET VOLUME 13.4 fL (7.4-10.4); MONO % 13.3 %; NEUT % 69.4 %; PLATELET COUNT 110 K/uL (130-400); PLT ESTIMATE DECREASED; POTASSIUM 4.7 mmol/L (3.5-5.1)
[2016-06-09 09:50] LABS: PROTHROMBIN TIME (PATIENT) 40.4 SECONDS (9.0-12.0)
[2016-06-09 10:02] LABS: INR 3.6 (0.9-1.1)
--- NOTE | 2016-06-09 10:13 | Progress Note ---
Internal Med Progress Note Date of Service: Jun 09, 2016. Provider Documentation: SUBJECTIVE: Patient is seen and examined at bedside. States tiredness is slowly improving. Denies any chest pain, SOB, dizziness. Slow to respond-his baseline OBJECTIVE: Vital Signs-as noted below Physical Exam: General Appearance:Moderately built and nourished, no apparent distress, Chronically ill appearing Head: normocephalic, Atraumatic Eyes: normal inspection, EOMI, PERRLA Neck: supple, no JVD, Trachea midline Respiratory/Chest: Decreased breath sounds, minimal creps at bases, No accessory muscle use Cardiovascular: S1, S2, + Systolic murmur Abdomen/GI:Soft, Non tender, Bowel sounds present Extremities/Musculoskelatal:normal inspection, no edema Neurologic/Psych:AAOX3, grossly no focal neurological deficits Skin: normal color, warm Lab data as noted below. ASSESSMENT & PLAN: Patient is an 81 yr old male who presented to ED with SOB, decreased energy since past month. ATRIAL FLUTTER WITH RVR: S/P Cardioversion on 06/08/16 Pacemaker Interrogation: on admission revealed Atrial flutter with RVR, PVCs with bigeminy pattern on 06/03/16 S/P Amiodarone bolus >>>> Changed to PO amiodarone 400 mg BID (continue amiodarone 400 mg BID for 2 weeks, then likely reduce to 400 mg daily as outpatient) Anticoagulation on warfarin at home: INR 3.6 today. Continue to hold Coumadin Cardiology following Pacer device functioning well (Not getting full benefit of pacer secondary to atrial fibrillation/flutter) Plan will be eventually to increase beta viviana- Metoprolol or add digoxin in future if BP tolerates it ACUTE ON CHRONIC SEVERE SYSTOLIC CHF (NYHA IV) - Stable now EF< 20% on Echo in Apr 2016 BNP 8K >>>> 6K Not on diuretics likely secondary to low BP and inability to tolerate it Restarted on Toprol XL 12.5 mg and Spironolactone 12.5 on 06/04/16 per cardiology Eventually plan to increase metoprolol or add digoxin Cardiology on board. SUPRA THERAPEUTIC INR: Likely secondary to amiodarone INR:3.6 today Continue to hold Coumadin for now May need decreased dose when resumed Needs INR checked at rehab HYPOXIA: Likely secondary to A flutter with RVR, CHF with severe systolic dysfunction and Hx of Aortic/Mitral Valve replacement Currently saturating 99% on 2l NC Taper off oxygen as able No acute respiratory issues noted CT scan: No PE, Effusion, consolidation noted No history of COPD, Asthma May need 2 step prior to DC if can not wean off oxygen ELEVATED TROPONIN Troponin 0.289. 0.314 Likely secondary Atrial Flutter with RVR Continue with ASA, Atorvastatin Cardiology on following H/O BIVENTRICULAR PACEMAKER DEFIBRILLATOR Interrogation done on 06/03/16 - A flutter with PVCs Device reprogrammed x 2 on 06/03/2016 initially decreasing the lower rate to 70 bpm and then reprogramming to cease the significant diaphragmatic stimulation. SEIZURES Continue Keppra BID HYPOTHYROIDISM TSH normal Continue Synthroid HLD Continue Statin DEPRESSION Continue Celexa, Trazodone CHRONIC THROMBOCYTOPENIA Stable Continue to monitor Patient also on coumadin H/O AVR and MVR Stable H/O SUBDURAL HEMATOMA Stable H/O COLON CA S/P partial colectomy DVT PROPHYLAXIS: Coumadin CODE STATUS: LEVEL 5 DNR per admitting physician discussion with the patient and his brother DISPOSITION PT/OT recommends = Rehab. Plan to DC to Rehab once bed available Needs FU with PCP on Jun 14 2016 at 10:10AM and Cardiology: Vital Signs: Date Time Temp Pulse Resp B/P Pulse Ox O2 Delivery O2 Flow Rate FiO2 06/09/16 08:00 Nasal Cannula 2.0 06/09/16 07:20 36.7 60 20 107/72 99 Nasal Cannula 2.5 06/09/16 04:00 97 Room Air 06/09/16 03:53 36.5 60 16 100/71 97 Nasal Cannula 2.0 06/09/16 00:01 97 Room Air 06/08/16 22:50 36.8 61 20 111/73 97 Room Air 06/08/16 21:39 60 16 104/73 95 3.0 06/08/16 20:00 Nasal Cannula 2.0 06/08/16 19:29 36.6 77 16 119/76 95 Room Air 06/08/16 16:00 Nasal Cannula 2.0 06/08/16 15:50 98 Nasal Cannula 2.0 06/08/16 15:30 36.5 62 18 105/73 98 Nasal Cannula 2.0 Lab Results: Results Past 24 Hours Test 06/09/16 07:10 06/09/16 09:28 Range/Units White Blood Count 5.73 4.8-10.8 K/uL Red Blood Count 4.65 4.7-6.1 M/uL Hemoglobin 14.1 14.0-18.0 g/dL Hematocrit 42.1 42-52 % Mean Corpuscular Volume 90.5 80-100 fL Mean Corpuscular Hemoglobin 30.3 25-34 pg Mean Corpuscular Hemoglobin Concent 33.5 32-36 g/dl Platelet Count 110 130-400 K/uL Mean Platelet Volume 13.4 7.4-10.4 fL Neutrophils (%) (Auto) 69.4 % Lymphocytes (%) (Auto) 16.4 % Monocytes (%) (Auto) 13.3 % Eosinophils (%) (Auto) 0.2 % Basophils (%) (Auto) 0.5 % Neutrophils # (Auto) 3.98 1.4-6.5 K/uL Lymphocytes # (Auto) 0.94 1.2-3.4 K/uL Monocytes # (Auto) 0.76 0.11-0.59 K/uL Eosinophils # (Auto) 0.01 0-0.5 K/uL Basophils # (Auto) 0.03 0-0.2 K/uL RDW Standard Deviation 51.3 36.4-46.3 fL RDW Coefficient of Variation 15.7 11.5-14.5 % Immature Granulocyte % (Auto) 0.2 % Immature Granulocyte # (Auto) 0.01 0.00-0.02 K/uL Nucleated RBC Absolute Count (auto) 0.03 0-0 K/uL Nucleated Red Blood Cells % 0.5 % Platelet Estimate DECREASED Large Platelets 1+ Sodium Level 142 136-145 mmol/L Potassium Level 4.7 3.5-5.1 mmol/L Chloride Level 106 98-107 mmol/L Carbon Dioxide Level 26 21-32 mmol/L Anion Gap 10.0 3-11 mmol/L Blood Urea Nitrogen 43 7-18 mg/dl Creatinine 1.40 0.60-1.40 mg/dl Est Creatinine Clear Calc Drug Dose 46.0 ml/min Estimated GFR () 54.6 Estimated GFR (Non- 47.1 BUN/Creatinine Ratio 30.8 10-20 Random Glucose 80 70-99 mg/dl Calcium Level 8.3 8.5-10.1 mg/dl Prothrombin Time 40.4 9.0-12.0 SECONDS Prothromb Time International Ratio 3.6 0.9-1.1
--- NOTE | 2016-06-09 12:18 | Cardiology Follow-Up ---
Subjective General Date of Service: Jun 09, 2016. Chief Complaint: Dyspnea Pt evaluation today including: conversation w/ patient, physical exam, chart review, lab review, review of studies, review of inpatient medication list History of Present Illness Patient states he is feeling ok. Notes tiredness and weakness. SOB at baseline. Denies chest pain. No orthopnea, PND or LE edema AV pacing on telemetry. Allergies Coded Allergies: No Known Allergies (Unverified , 06/02/16) Social History Smoking Status: Never Smoker Hx Tobacco Use In Past Year?: No Hx Alcohol Use - Type And Amou: Yes (OCCASSIONAL) Hx Substance Use - Type And Am: No Problem List Medical Problems: (1) Elevated troponin Status: Acute (2) Hypoxia Status: Acute Review of Systems Respiratory: No cough, No dyspnea at rest, No hemoptysis, No shortness of breath, No sputum, No wheezing Cardiac: No PND, No chest pain, No edema, No orthopnea, No palpitations Physical Exam Vital Signs Last Vital Signs Documentation Date Time Temp Pulse Resp B/P Pulse Ox O2 Delivery O2 Flow Rate FiO2 06/09/16 08:00 Nasal Cannula 2.0 06/09/16 07:20 36.7 60 20 107/72 99 Physical Exam Constitutional: General Apperance: heathly-appearing Level of Distress: chronically ill Psychiatric: Mental Status: active & alert Orientation: to time, to place, to person Head: normocephalic Eyes: Pupils: PERRLA Neck: supple, no masses Lungs: Respiratory effort: no dyspnea Auscultation: deminished air movement, decreased breath sounds Cardiovascular: Heart Auscultation: RRR, no rubs, II/ DANIEL Peripheral Pulses: Bruits: none appreciated Abdomen: Bowel Sounds: normal Inspection & Palpation: soft, no tenderness, guarding & rebound Musculoskeletal: normal strength (5/5 throughout) Extremities: no cyanosis, no edema, no clubbing Neurologic: Cranial Nerves: grossly intact Sensation: grossly intact Assessment and Plan Assessment and Plan IMPRESSION: 1. Acute on chronic systolic heart failure. 2. [place] Heart Association class 3-4. 3. Nonischemic cardiomyopathy. 4. Status post aortic valve replacement and mitral valve replacement. 5. Biventricular pacemaker. 6. Atrial flutter, now appropriately AV pacing 7. Estimated left ventricular ejection fraction of 20%. 8. History of subdural hematoma after a fall. 9. History of colon cancer. RECOMMENDATIONS: Continuing amiodarone 400 mg BID for 1-2 weeks, then likely will reduce to 400 mg daily as outpatient. Continue toprol 12.5 mg daily and spironolactone on discharge. Will schedule approx 1-2 week hospital f/u at [facility]. CARDIOLOGY ATTENDING ADDENDUM: The patient was seen and personally examined. Agree with Criselda Nicholas PA-C's findings and plans as documented above. Doing well post cardioversion. Case to be discussed with Dr. Sherman Laboratory Results Last 24 Hours Test 06/09/16 07:10 06/09/16 09:28 White Blood Count 5.73 K/uL Red Blood Count 4.65 M/uL Hemoglobin 14.1 g/dL Hematocrit 42.1 % Mean Corpuscular Volume 90.5 fL Mean Corpuscular Hemoglobin 30.3 pg Mean Corpuscular Hemoglobin Concent 33.5 g/dl Platelet Count 110 K/uL Mean Platelet Volume 13.4 fL Neutrophils (%) (Auto) 69.4 % Lymphocytes (%) (Auto) 16.4 % Monocytes (%) (Auto) 13.3 % Eosinophils (%) (Auto) 0.2 % Basophils (%) (Auto) 0.5 % Neutrophils # (Auto) 3.98 K/uL Lymphocytes # (Auto) 0.94 K/uL Monocytes # (Auto) 0.76 K/uL Eosinophils # (Auto) 0.01 K/uL Basophils # (Auto) 0.03 K/uL RDW Standard Deviation 51.3 fL RDW Coefficient of Variation 15.7 % Immature Granulocyte % (Auto) 0.2 % Immature Granulocyte # (Auto) 0.01 K/uL Nucleated RBC Absolute Count (auto) 0.03 K/uL Nucleated Red Blood Cells % 0.5 % Platelet Estimate DECREASED Large Platelets 1+ Sodium Level 142 mmol/L Potassium Level 4.7 mmol/L Chloride Level 106 mmol/L Carbon Dioxide Level 26 mmol/L Anion Gap 10.0 mmol/L Blood Urea Nitrogen 43 mg/dl Creatinine 1.40 mg/dl Est Creatinine Clear Calc Drug Dose 46.0 ml/min Estimated GFR () 54.6 Estimated GFR (Non- 47.1 BUN/Creatinine Ratio 30.8 Random Glucose 80 mg/dl Calcium Level 8.3 mg/dl Prothrombin Time 40.4 SECONDS Prothromb Time International Ratio 3.6
[2016-06-09] MEDS: METOPROLOL SUCC 25MG EXT REL TAB PO SCH (21:35)
[2016-06-09] MEDS: TRAZODONE HCL 50 MG TAB PO SCH (21:37)
[2016-06-10] VITALS (13 sets, daily range): BP systolic 90–119; BP diastolic 59–85; PULSE 4–98; TEMP 36.4–36.8; O2SAT 91–98
[2016-06-10] MEDS: LEVOTHYROXINE 125 MCG TAB PO SCH (05:34)
[2016-06-10] MEDS: CITALOPRAM 20 MG TAB PO SCH (07:37)
[2016-06-10] MEDS: ASPIRIN 81 MG ECTAB PO SCH (07:37)
[2016-06-10] MEDS: ATORVASTATIN 20 MG TAB PO SCH (07:37)
[2016-06-10] MEDS: SPIRONOLACTONE 25 MG TAB PO SCH (07:38)
[2016-06-10] MEDS: CHOLECALCIFEROL 1000 INTER.UNIT TAB PO SCH (07:39)
[2016-06-10] MEDS: LEVETIRACETAM 500 MG TAB PO SCH ×2 (07:39→20:56)
[2016-06-10] MEDS: GABAPENTIN 100 MG CAP PO SCH ×3 (07:39→20:57)
[2016-06-10] MEDS: AMIODARONE 200 MG TAB PO SCH ×2 (07:40→16:50)
[2016-06-10 07:53] LABS: INR 3.4 (0.9-1.1); PROTHROMBIN TIME (PATIENT) 38.1 SECONDS (9.0-12.0)
[2016-06-10 08:38] LABS: BUN/CREATININE RATIO 28.8 (10-20); CALCIUM 8.5 mg/dl (8.5-10.1); CREATININE 1.2 mg/dl (0.60-1.40); POTASSIUM 4.3 mmol/L (3.5-5.1)
--- NOTE | 2016-06-10 09:31 | Progress Note ---
Internal Med Progress Note Date of Service: Jun 10, 2016. Provider Documentation: SUBJECTIVE: Patient is seen and examined at bedside. Offers no complaints. Denies any chest pain, SOB, dizziness. Slow to respond-his baseline OBJECTIVE: Vital Signs-as noted below Physical Exam: General Appearance:Moderately built and nourished, no apparent distress, Chronically ill appearing Head: normocephalic, Atraumatic Eyes: normal inspection, EOMI, PERRLA Neck: supple, no JVD, Trachea midline Respiratory/Chest: Decreased breath sounds, minimal creps at bases, No accessory muscle use Cardiovascular: S1, S2, + Systolic murmur Abdomen/GI:Soft, Non tender, Bowel sounds present Extremities/Musculoskelatal:normal inspection, no edema Neurologic/Psych:AAOX3, grossly no focal neurological deficits Skin: normal color, warm Lab data as noted below. ASSESSMENT & PLAN: Patient is an 81 yr old male who presented to ED with SOB, decreased energy since past month. ATRIAL FLUTTER WITH RVR: S/P Cardioversion on 06/08/16 Pacemaker Interrogation: on admission revealed Atrial flutter with RVR, PVCs with bigeminy pattern on 06/03/16 S/P Amiodarone bolus >>>> Changed to PO amiodarone 400 mg BID (continue amiodarone 400 mg BID for 2 weeks, then likely reduce to 400 mg daily as outpatient) Anticoagulation on warfarin at home: INR 3.4 today. Continue to hold Coumadin Appreciate Cardiology Pacer device functioning well (Not getting full benefit of pacer secondary to atrial fibrillation/flutter) Plan will be eventually to increase beta viviana- Metoprolol or add digoxin in future if BP tolerates it: Currently SBP in low 100s Needs INR checked at [facility] to resume coumadin if INR subtherapeutic ACUTE ON CHRONIC SEVERE SYSTOLIC CHF (NYHA IV) - Stable now EF< 20% on Echo in Apr 2016 BNP 8K >>>> 6K Not on diuretics likely secondary to low BP and inability to tolerate it Restarted on Toprol XL 12.5 mg and Spironolactone 12.5 on 06/04/16 per cardiology Eventually plan to increase metoprolol or add digoxin Cardiology on board. SUPRA THERAPEUTIC INR: Likely secondary to amiodarone INR:3.4 today Continue to hold Coumadin for now May need decreased dose when resumed Needs INR checked at [facility] to resume coumadin if INR subtherapeutic HYPOXIA: Resolved Likely secondary to A flutter with RVR, CHF with severe systolic dysfunction and Hx of Aortic/Mitral Valve replacement Currently saturating 96-97% on RA No acute respiratory issues noted CT scan: No PE, Effusion, consolidation noted No history of COPD, Asthma ELEVATED TROPONIN Troponin 0.289. 0.314 Likely secondary Atrial Flutter with RVR Continue with ASA, Atorvastatin Cardiology on board H/O BIVENTRICULAR PACEMAKER DEFIBRILLATOR Interrogation done on 06/03/16 - A flutter with PVCs Device reprogrammed x 2 on 06/03/2016 initially decreasing the lower rate to 70 bpm and then reprogramming to cease the significant diaphragmatic stimulation. SEIZURES Continue Keppra BID HYPOTHYROIDISM TSH normal Continue Synthroid HLD Continue Statin DEPRESSION Continue Celexa, Trazodone CHRONIC THROMBOCYTOPENIA Stable Continue to monitor Patient also on coumadin H/O AVR and MVR Stable H/O SUBDURAL HEMATOMA Stable H/O COLON CA S/P partial colectomy DVT PROPHYLAXIS: Coumadin CODE STATUS: LEVEL 5 DNR per admitting physician discussion with the patient and his brother DISPOSITION Plan to DC to [facility] today Needs FU with PCP on Jun 14 2016 at 10:10AM and Cardiology: Needs INR checked at [facility] to resume coumadin if INR subtherapeutic Vital Signs: Date Time Temp Pulse Resp B/P Pulse Ox O2 Delivery O2 Flow Rate FiO2 06/10/16 07:58 36.5 60 18 104/72 96 Room Air 06/10/16 04:07 36.4 60 22 90/59 94 Room Air 06/10/16 04:00 97 Room Air 06/10/16 00:01 97 Room Air 06/09/16 23:45 36.9 61 20 81/55 91 Room Air 06/09/16 21:36 60 102/57 06/09/16 20:00 94 Room Air 06/09/16 19:34 36.5 92 20 95/65 91 Room Air 06/09/16 16:59 60 16 105/73 98 Room Air 06/09/16 16:00 98 Room Air 06/09/16 12:00 93 Room Air Lab Results: Results Past 24 Hours Test 06/10/16 07:26 Range/Units Prothrombin Time 38.1 9.0-12.0 SECONDS Prothromb Time International Ratio 3.4 0.9-1.1 Sodium Level 141 136-145 mmol/L Potassium Level 4.3 3.5-5.1 mmol/L Chloride Level 105 98-107 mmol/L Carbon Dioxide Level 25 21-32 mmol/L Anion Gap 11.0 3-11 mmol/L Blood Urea Nitrogen 35 7-18 mg/dl Creatinine 1.20 0.60-1.40 mg/dl Est Creatinine Clear Calc Drug Dose 53.7 ml/min Estimated GFR () 65.8 Estimated GFR (Non- 56.8 BUN/Creatinine Ratio 28.8 10-20 Random Glucose 74 70-99 mg/dl Calcium Level 8.5 8.5-10.1 mg/dl
[2016-06-10] MEDS ORDERED: SPR25 PO (09:39)
[2016-06-10] MEDS ORDERED: ASPEC81 PO (09:39)
[2016-06-10] MEDS ORDERED: CRD200 PO (09:39)
--- NOTE | 2016-06-10 09:49 | Discharge Summary ---
Discharge Summary Admission Date: Jun 02, 2016 at 18:47 Discharge Date: Jun 12, 2016 [facility] Principal Diagnosis: Aflutter with RVR S/P Cardioversion Procedures: CXR: Stable cardiomegaly CT abd: 1. No evidence of abdominal aortic aneurysm 2. Multiple abdominal wall hernias including a [place] lower ventral hernia containing both small bowel and sigmoid colon. In addition there is a narrow neck right-sided spegelian hernia containing a single knuckle of small bowel. There is no current evidence of obstruction 3. No evidence of free intraperitoneal air 4. Prostamegaly. Mild bladder wall thickening. 5. Cardiomegaly CTA: 1. Somewhat limited evaluation of the pulmonary arteries secondary to motion artifact. No central emboli identified. Serial leg ultrasonography should be considered in follow-up. 2. Mild dilatation of the ascending thoracic aorta which measures 44 mm. No dissection identified 3. Extensive chest wall collaterals, finding which suggests stenosis or obstruction left brachiocephalic vein 4. Marked cardiomegaly with evidence of elevated right heart pressures Cardioversion and Pacemaker Interrogation Consultations: Cardiology, EP Pending Studies/Follow-Up: Follow up with your PCP on Jun 14 2016 at 10:10AM Follow up with your Cardiology: in 2 weeks GET INR CHECKED AT [facility] AND GET COUMADIN dose adjusted per INR TARGET INR: BETWEEN 2.0 TO 3.0 Needs daily INR checked at [facility] Medication Reconciliation New Medications: Amiodarone HCl (Amiodarone HCl) 200 Mg Tab 400 MG PO BIDM for 14 Days, #60 TAB Start taking 400mg twice a day for 2 weeks and then follow up with your aircraft magneto mechanic for dosage Aspirin (Aspirin EC Low Dose) 81 Mg Ectab 81 MG PO QAM for 30 Days, #30 Spironolactone (Spironolactone) 25 Mg Tab 12.5 MG PO QAM for 30 Days, #15 TAB Changed Medications: Warfarin Sod (Jantoven) 2.5 Mg Tab 2.5 MG PO UD for 30 Days, #30 TAB (Changed from: 2x/week on Mon & Sat) daily Get INR checked at [facility] for further coumadin dosage Continued Medications: Atorvastatin (Atorvastatin Calcium) 20 Mg Tab 20 MG PO DAILY Cholecalciferol (Vitamin D3) 1,000 Unit Tab 1 TAB PO DAILY, TAB 3 Refills Citalopram (Citalopram Hydrobromide) 20 Mg Tab 20 MG PO DAILY, #90 Gabapentin (Gabapentin) 100 Mg Cap 100 MG PO TID, #270 Levetiractam (Levetiracetam) 500 Mg Tab 500 MG PO Q12, #180 Levothyroxine Sodium (Levothyroxine Sodium) 125 Mcg Tab 125 MCG PO DAILY Metoprolol Succinate (Metoprolol Succinate ER) 25 Mg Tabcr 12.5 MG PO DAILY, #16 Trazodone Hcl (Desyrel) 50 Mg Tab 50 MG PO HS, #90 Discontinued Medications: Warfarin Sodium (Warfarin Sodium) 5 Mg Tab 5 MG PO UD 5 days/week on Tue, Tue, Tue, , Fri Admission Information HPI (per Admitting provider): Patient seen and examined. 81 year old male with PMHx of Afib on coumadin, Severe CHF with EF less than 20% s/p ICD, H/O AVR, H/O MVR, hypothyroidism, h/o subdural hematoma with seizures, and other problems listed below presents to the ED complaining of SOB prior to arrival. Patient reports he has been low energy and dyspnea for over a month. Today he was getting a new iPhone when at the store he walked about 5 steps and became SOB. Bystanders were nervous and called 911. Patient reports he has been getting SOB with this minimal exertion for about a month. He states prior to that he had been active and going to the gym. He reports he has been seeing Dr. Karl barboza and that his pacemaker hasn't been working the way it should. He has a followup scheduled for 06/04. He denies fevers, chills, URI symptoms, chest pain, nausea, vomiting, diarrhea, dysuria, calf pain and edema. He denies orthopnea, change in diet/salt intake. He was in [facility] this summer following a fall resulting in a Subdural Hematoma. At that time he had the ICD placed. He also had Aortic Valve and Mitral Valve replacements. 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 When EMS arrived patient was hypoxic on RA. He was placed on 2L NC and now feels much better. In the ED BPs were soft which is chronic in nature. He was saturating well on 2L, INR was 2.4 CTA was negative for PE, CHF, and consolidation. Troponin was 0.302. He received ASA and is resting comfortably. He will be admitted for further workup and treatment . Physical Exam (per Admitting): General Appearance: + pertinent finding (Pleasant WD/WN 81 year old male lying in bed in NAD with brother at bedside ) Head: normocephalic, atraumatic Eyes: PERRL, EOMI, sclerae normal ENT: hearing grossly normal, pharynx normal Neck: supple, no JVD Respiratory/Chest: chest non-tender, lungs clear, normal breath sounds, no respiratory distress, no accessory muscle use Cardiovascular: regular rate, rhythm, no edema, no gallop, no JVD, normal peripheral pulses, + systolic murmur Abdomen/GI: normal bowel sounds, non tender, soft Back: normal inspection, no muscle spasm Extremities/Musculoskelatal: no calf tenderness, normal capillary refill, no pedal edema Neurologic/Psych: alert, oriented x 3, + pertinent finding (no motor or sensory deficits noted on gross exam ) Skin: normal color, warm/dry, no rash Lymphatic: no adenopathy Hospital Course Patient is an 81 yr old male who presented to ED with SOB, decreased energy since past month. ATRIAL FLUTTER WITH RVR: S/P Cardioversion on 06/08/16 Pacemaker Interrogation: on admission revealed Atrial flutter with RVR, PVCs with bigeminy pattern on 06/03/16 S/P Amiodarone bolus >>>> Changed to PO amiodarone 400 mg BID (continue amiodarone 400 mg BID for 2 weeks, then likely reduce to 400 mg daily as outpatient) Anticoagulation on warfarin at home: INR 3.4 today. Continue to hold Coumadin Appreciate Cardiology Pacer device functioning well (Not getting full benefit of pacer secondary to atrial fibrillation/flutter) Plan will be eventually to increase beta viviana- Metoprolol or add digoxin in future if BP tolerates it: Currently SBP in low 100s Needs INR checked at [facility] to resume coumadin if INR subtherapeutic ACUTE ON CHRONIC SEVERE SYSTOLIC CHF (NYHA IV) - Stable now EF< 20% on Echo in Apr 2016 BNP 8K >>>> 6K Not on diuretics likely secondary to low BP and inability to tolerate it Restarted on Toprol XL 12.5 mg and Spironolactone 12.5 on 06/04/16 per cardiology Eventually plan to increase metoprolol or add digoxin Cardiology on board. SUPRA THERAPEUTIC INR: Likely secondary to amiodarone INR:3.4 today Continue to hold Coumadin for now May need decreased dose when resumed Needs INR checked at [facility] to resume coumadin if INR subtherapeutic HYPOXIA: Resolved Likely secondary to A flutter with RVR, CHF with severe systolic dysfunction and Hx of Aortic/Mitral Valve replacement Currently saturating 96-97% on RA No acute respiratory issues noted CT scan: No PE, Effusion, consolidation noted No history of COPD, Asthma ELEVATED TROPONIN Troponin 0.289. 0.314 Likely secondary Atrial Flutter with RVR Continue with ASA, Atorvastatin Cardiology on board H/O BIVENTRICULAR PACEMAKER DEFIBRILLATOR Interrogation done on 06/03/16 - A flutter with PVCs Device reprogrammed x 2 on 06/03/2016 initially decreasing the lower rate to 70 bpm and then reprogramming to cease the significant diaphragmatic stimulation. SEIZURES Continue Keppra BID HYPOTHYROIDISM TSH normal Continue Synthroid HLD Continue Statin DEPRESSION Continue Celexa, Trazodone CHRONIC THROMBOCYTOPENIA Stable Continue to monitor Patient also on coumadin H/O AVR and MVR Stable H/O SUBDURAL HEMATOMA Stable H/O COLON CA S/P partial colectomy DVT PROPHYLAXIS: Coumadin CODE STATUS: LEVEL 5 DNR per admitting physician discussion with the patient and his brother DISPOSITION Plan to DC to [facility] today Needs FU with PCP on Jun 14 2016 at 10:10AM and Cardiology: Needs INR checked at [facility] to resume coumadin if INR subtherapeutic Total time spent on discharge = 40 MINUTES This includes examination of the patient, discharge planning, medication reconciliation, and communication with other providers. Discharge Instructions Discharge Instructions Admission Reason for Admission: Elevated Troponin, Hypoxia Discharge Discharge Diagnosis / Problem: Atrial Flutter with RVR S/P Cardioversion Discharge Goals Goal(s): Decrease discomfort, Improve function Activity Recommendations Activity Limitations: resume your previous activity Exercise/Sports Limitations: as tolerated . Instructions / Follow-Up Instructions / Follow-Up Follow up with your PCP on Jun 14 2016 at 10:10AM Follow up with your Cardiology: in 2 weeks GET INR CHECKED AT [facility] AND GET COUMADIN dose adjusted per INR TARGET INR: BETWEEN 2.0 TO 3.0 Needs daily INR checked at [facility] Diet Patient's current hospital diet: AHA Diet (Heart Healthy), Low Sodium Diet (2gm Na) Discharge Diet Recommended Diet: AHA Diet (Heart Healthy), Low Sodium Diet (2gm Na) Pending Studies Studies pending at discharge: no Laboratory Results Lipid Panel Test 06/03/16 05:53 Range/Units Triglycerides Level 132 0-150 mg/dl Cholesterol Level 87 0-200 mg/dl HDL Cholesterol 28 mg/dl Cholesterol/HDL Ratio 3.1 LDL Cholesterol, Calculated 33 mg/dl Medical Emergencies . Who to Call and When: Medical Emergencies: If at any time you feel your situation is an emergency, please call 911 immediately. . Non-Emergent Contact Non-Emergency issues call your: Primary Care Provider, Head Rose Grower Call Non-Emergent contact if: you have a fever, your pain is not controlled, you have any medication questions Any other concerns including SOB, chest pain, palpitations . . "Provider Documentation" section prepared by Jose Shanks. VTE Core Measure Inpt VTE Proph given/why not?: Warfarin (Coumadin)
--- NOTE | 2016-06-10 11:06 | Cardiology Follow-Up ---
Subjective General Date of Service: Jun 10, 2016. Chief Complaint: Dyspnea History of Present Illness Patient feeling better today. Energy levels improving. Denies acute complaints. Anticipates discharge to [facility] today. Allergies Coded Allergies: No Known Allergies (Unverified , 06/02/16) Social History Smoking Status: Never Smoker Hx Tobacco Use In Past Year?: No Hx Alcohol Use - Type And Amou: Yes (OCCASSIONAL) Hx Substance Use - Type And Am: No Problem List Medical Problems: (1) Elevated troponin Status: Acute (2) Hypoxia Status: Acute Review of Systems Respiratory: No cough, No dyspnea at rest, No dyspnea on exertion, No hemoptysis, No shortness of breath, No sputum, No wheezing Cardiac: No PND, No chest pain, No edema, No orthopnea, No palpitations Physical Exam Vital Signs Last Vital Signs Documentation Date Time Temp Pulse Resp B/P Pulse Ox O2 Delivery O2 Flow Rate FiO2 06/10/16 08:00 97 Room Air 06/10/16 07:58 36.5 60 18 104/72 06/09/16 08:00 2.0 Physical Exam Constitutional: General Apperance: heathly-appearing Level of Distress: chronically ill Psychiatric: Mental Status: active & alert Orientation: to time, to place, to person Head: normocephalic Eyes: Pupils: PERRLA Neck: supple, no masses Lungs: Respiratory effort: no dyspnea Auscultation: deminished air movement, decreased breath sounds Cardiovascular: Heart Auscultation: RRR, no rubs, II/ DANIEL Peripheral Pulses: Bruits: none appreciated Abdomen: Bowel Sounds: normal Inspection & Palpation: soft, no tenderness, guarding & rebound Musculoskeletal: normal strength (5/5 throughout) Extremities: no cyanosis, no edema, no clubbing Neurologic: Cranial Nerves: grossly intact Sensation: grossly intact Assessment and Plan Assessment and Plan IMPRESSION: 1. Acute on chronic systolic heart failure. 2. [place] Heart Association class 3-4. 3. Nonischemic cardiomyopathy. 4. Status post aortic valve replacement and mitral valve replacement. 5. Biventricular pacemaker. 6. Atrial flutter, now appropriately AV pacing 7. Estimated left ventricular ejection fraction of 20%. 8. History of subdural hematoma after a fall. 9. History of colon cancer. RECOMMENDATIONS: Continuing amiodarone 400 mg BID for 1-2 weeks, then likely will reduce to 400 mg daily as outpatient. Continue toprol 12.5 mg daily and spironolactone on discharge. Will schedule approx 1-2 week hospital f/u at [facility]. Case to be discussed with Dr. Sherman Laboratory Results Last 24 Hours Test 06/10/16 07:26 Prothrombin Time 38.1 SECONDS Prothromb Time International Ratio 3.4 Sodium Level 141 mmol/L Potassium Level 4.3 mmol/L Chloride Level 105 mmol/L Carbon Dioxide Level 25 mmol/L Anion Gap 11.0 mmol/L Blood Urea Nitrogen 35 mg/dl Creatinine 1.20 mg/dl Est Creatinine Clear Calc Drug Dose 53.7 ml/min Estimated GFR () 65.8 Estimated GFR (Non- 56.8 BUN/Creatinine Ratio 28.8 Random Glucose 74 mg/dl Calcium Level 8.5 mg/dl
[2016-06-10] MEDS ORDERED: POLYETHYLENE (MIRALAX) 17 GM PACK ONE (12:24)
[2016-06-10] MEDS: ALBUT/IPRATROP 3MG/0.5MG NEB 3 ML VIAL INH PRN ×3 (13:18→20:47)
[2016-06-10] MEDS: METOPROLOL SUCC 25MG EXT REL TAB PO SCH (20:55)
[2016-06-10] MEDS: TRAZODONE HCL 50 MG TAB PO SCH (20:57)
[2016-06-11] MEDS: LEVOTHYROXINE 125 MCG TAB PO SCH (06:14)
[2016-06-11 07:23] LABS: INR 3.1 (0.9-1.1); PROTHROMBIN TIME (PATIENT) 35.2 SECONDS (9.0-12.0)
[2016-06-11] MEDS: SPIRONOLACTONE 25 MG TAB PO SCH (08:00)
[2016-06-11] MEDS: ASPIRIN 81 MG ECTAB PO SCH (08:01)
[2016-06-11] MEDS: CHOLECALCIFEROL 1000 INTER.UNIT TAB PO SCH (08:01)
[2016-06-11] MEDS: GABAPENTIN 100 MG CAP PO SCH ×3 (08:01→20:30)
[2016-06-11] MEDS: AMIODARONE 200 MG TAB PO SCH ×2 (08:01→17:03)
[2016-06-11] MEDS: LEVETIRACETAM 500 MG TAB PO SCH ×2 (08:01→20:30)
[2016-06-11] MEDS: ATORVASTATIN 20 MG TAB PO SCH (08:01)
[2016-06-11] MEDS: CITALOPRAM 20 MG TAB PO SCH (08:01)
[2016-06-11 08:26] VITALS: BP 94/70; PULSE 64; TEMP 36.3; O2SAT 84; O2SAT 96
--- NOTE | 2016-06-11 12:03 | Progress Note ---
Internal Med Progress Note Date of Service: Jun 11, 2016. Provider Documentation: SUBJECTIVE: Patient is seen and examined at bedside. States having intermittent dry cough which is improving. Denies any chest pain, SOB, dizziness. OBJECTIVE: Vital Signs-as noted below Physical Exam: General Appearance:Moderately built and nourished, no apparent distress, Chronically ill appearing Head: normocephalic, Atraumatic Eyes: normal inspection, EOMI, PERRLA Neck: supple, no JVD, Trachea midline Respiratory/Chest: Decreased breath sounds, minimal creps at bases, No accessory muscle use Cardiovascular: S1, S2, + Systolic murmur Abdomen/GI:Soft, Non tender, Bowel sounds present Extremities/Musculoskelatal:normal inspection, no edema Neurologic/Psych:AAOX3, grossly no focal neurological deficits Skin: normal color, warm Lab data as noted below. ASSESSMENT & PLAN: Patient is an 81 yr old male who presented to ED with SOB, decreased energy since past month. ATRIAL FLUTTER WITH RVR: S/P Cardioversion on 06/08/16 Pacemaker Interrogation: on admission revealed Atrial flutter with RVR, PVCs with bigeminy pattern on 06/03/16 S/P Amiodarone bolus >>>> Changed to PO amiodarone 400 mg BID (continue amiodarone 400 mg BID for 2 weeks, then likely reduce to 400 mg daily as outpatient) Anticoagulation on warfarin at home: INR 3.1 today. Continue to hold Coumadin Appreciate Cardiology help Pacer device functioning well (Not getting full benefit of pacer secondary to atrial fibrillation/flutter) Plan will be eventually to increase beta viviana- Metoprolol or add digoxin in future if BP tolerates it [facility] if INR subtherapeutic ACUTE ON CHRONIC SEVERE SYSTOLIC CHF (NYHA IV) - Stable now EF< 20% on Echo in Apr 2016 BNP 8K >>>> 6K Not on diuretics likely secondary to low BP and inability to tolerate it Restarted on Toprol XL 12.5 mg and Spironolactone 12.5 on 06/04/16 per cardiology Eventually plan to increase metoprolol or add digoxin Cardiology on board. SUPRA THERAPEUTIC INR: Likely secondary to amiodarone INR:3.1 today Monitor INR Continue to hold Coumadin for now May need decreased dose when resumed [facility] to resume coumadin if INR subtherapeutic HYPOXIA: Resolved Likely secondary to A flutter with RVR, CHF with severe systolic dysfunction and Hx of Aortic/Mitral Valve replacement Currently saturating 96-97% on RA No acute respiratory issues noted CT scan: No PE, Effusion, consolidation noted No history of COPD, Asthma ELEVATED TROPONIN Troponin 0.289. 0.314 Likely secondary Atrial Flutter with RVR Continue with ASA, Atorvastatin Cardiology on board H/O BIVENTRICULAR PACEMAKER DEFIBRILLATOR Interrogation done on 06/03/16 - A flutter with PVCs Device reprogrammed x 2 on 06/03/2016 initially decreasing the lower rate to 70 bpm and then reprogramming to cease the significant diaphragmatic stimulation. SEIZURES Continue Keppra BID HYPOTHYROIDISM TSH normal Continue Synthroid HLD Continue Statin DEPRESSION Continue Celexa, Trazodone CHRONIC THROMBOCYTOPENIA Stable Continue to monitor Patient also on coumadin H/O AVR and MVR Stable H/O SUBDURAL HEMATOMA Stable H/O COLON CA S/P partial colectomy DVT PROPHYLAXIS: Coumadin CODE STATUS: LEVEL 5 DNR per admitting physician discussion with the patient and his brother DISPOSITION [facility] Needs FU with PCP on Jun 14 2016 at 10:10AM and Cardiology: [facility] resume cou[facility]in if INR subtherapeutic Vital Signs: Date Time Temp Pulse Resp B/P Pulse Ox O2 Delivery O2 Flow Rate FiO2 06/11/16 10:43 Room Air 06/11/16 08:26 36.3 64 24 94/70 96 Room Air 06/11/16 00:00 Room Air 06/10/16 23:25 36.8 61 20 104/70 95 Room Air 06/10/16 20:54 59 117/76 06/10/16 20:47 94 22 91 Room Air 06/10/16 20:00 Room Air 06/10/16 17:18 94 18 95 Room Air 06/10/16 16:00 36.5 60 18 119/85 98 Room Air 06/10/16 16:00 Room Air 06/10/16 13:21 98 12 97 Room Air 06/10/16 12:00 97 Room Air Lab Results: Results Past 24 Hours Test 06/11/16 06:46 Range/Units Prothrombin Time 35.2 9.0-12.0 SECONDS Prothromb Time International Ratio 3.1 0.9-1.1
[2016-06-11 12:08] VITALS: BP 102/70; PULSE 60; TEMP 36.8; O2SAT 96
[2016-06-11 14:06] VITALS: PULSE 88; O2SAT 95
[2016-06-11] MEDS: ALBUT/IPRATROP 3MG/0.5MG NEB 3 ML VIAL INH PRN (14:06)
[2016-06-11 14:59] VITALS: BP 95/63; PULSE 61; TEMP 36.6; O2SAT 94
[2016-06-11] MEDS: TRAZODONE HCL 50 MG TAB PO SCH (20:30)
[2016-06-11 20:31] VITALS: BP 110/79; PULSE 64
[2016-06-11] MEDS: METOPROLOL SUCC 25MG EXT REL TAB PO SCH (20:32)
[2016-06-12 00:22] VITALS: BP 110/75; PULSE 62; TEMP 37; O2SAT 93
[2016-06-12 00:58] VITALS: PULSE 86; O2SAT 95
[2016-06-12] MEDS: LEVOTHYROXINE 125 MCG TAB PO SCH (06:01)
[2016-06-12 06:36] LABS: INR 2.1 (0.9-1.1); PROTHROMBIN TIME (PATIENT) 23.4 SECONDS (9.0-12.0)
[2016-06-12 07:02] VITALS: BP 107/71; PULSE 61; TEMP 36.8; O2SAT 92
[2016-06-12] MEDS: AMIODARONE 200 MG TAB PO SCH (08:00)
[2016-06-12] MEDS: CITALOPRAM 20 MG TAB PO SCH (08:00)
[2016-06-12] MEDS: ATORVASTATIN 20 MG TAB PO SCH (08:00)
[2016-06-12] MEDS: ASPIRIN 81 MG ECTAB PO SCH (08:00)
[2016-06-12] MEDS: SPIRONOLACTONE 25 MG TAB PO SCH (08:00)
[2016-06-12] MEDS: LEVETIRACETAM 500 MG TAB PO SCH (08:01)
[2016-06-12] MEDS: CHOLECALCIFEROL 1000 INTER.UNIT TAB PO SCH (08:01)
[2016-06-12] MEDS: GABAPENTIN 100 MG CAP PO SCH (08:01)
--- NOTE | 2016-06-12 09:25 | Progress Note ---
Internal Med Progress Note Date of Service: Jun 12, 2016. Provider Documentation: SUBJECTIVE: Patient is seen and examined at bedside. Feels better today. Denies any chest pain, SOB, cough, dizziness. Offers no complaints. OBJECTIVE: Vital Signs-as noted below Physical Exam: General Appearance:Moderately built and nourished, no apparent distress, Chronically ill appearing Head: normocephalic, Atraumatic Eyes: normal inspection, EOMI, PERRLA Neck: supple, no JVD, Trachea midline Respiratory/Chest: Normal breath sounds, scattered creps at bases, No accessory muscle use Cardiovascular: S1, S2, + Systolic murmur Abdomen/GI:Soft, Non tender, Bowel sounds present Extremities/Musculoskelatal:normal inspection, no edema Neurologic/Psych:AAOX3, grossly no focal neurological deficits Skin: normal color, warm Lab data as noted below. ASSESSMENT & PLAN: Patient is an 81 yr old male who presented to ED with SOB, decreased energy since past month. ATRIAL FLUTTER WITH RVR: S/P Cardioversion on 06/08/16 Pacemaker Interrogation: on admission revealed Atrial flutter with RVR, PVCs with bigeminy pattern on 06/03/16 S/P Amiodarone bolus >>>> Changed to PO amiodarone 400 mg BID (continue amiodarone 400 mg BID for 2 weeks, then likely reduce to 400 mg daily as outpatient) Anticoagulation on warfarin at home: INR 2.1 today. Will resume Continue today Appreciate Cardiology help Pacer device functioning well (Not getting full benefit of pacer secondary to atrial fibrillation/flutter) Plan will be eventually to increase beta viviana- Metoprolol or add digoxin in future if BP tolerates it Needs INR checked at [facility] to adjust Coumadin dosing ACUTE ON CHRONIC SEVERE SYSTOLIC CHF (NYHA IV) - Stable now EF< 20% on Echo in Apr 2016 BNP 8K >>>> 6K Not on diuretics likely secondary to low BP and inability to tolerate it Continue Toprol XL 12.5 mg and Spironolactone 12.5 on 06/04/16 per cardiology recommendations Eventually plan to increase metoprolol or add digoxin if BP tolerates SUPRA THERAPEUTIC INR: Likely secondary to amiodarone Resolved INR:2.1 today Monitor INR Will resume Coumadin today Needs INR checked at [facility] to adjust coumadin dose HYPOXIA: Resolved Likely secondary to A flutter with RVR, CHF with severe systolic dysfunction and Hx of Aortic/Mitral Valve replacement Currently saturating 95% on RA No acute respiratory issues noted CT scan: No PE, Effusion, consolidation noted No history of COPD, Asthma ELEVATED TROPONIN Troponin 0.289. 0.314 Likely secondary Atrial Flutter with RVR Continue with ASA, Atorvastatin Cardiology on board H/O BIVENTRICULAR PACEMAKER DEFIBRILLATOR Interrogation done on 06/03/16 - A flutter with PVCs Device reprogrammed x 2 on 06/03/2016 initially decreasing the lower rate to 70 bpm and then reprogramming to cease the significant diaphragmatic stimulation. SEIZURES Continue Keppra BID HYPOTHYROIDISM TSH normal Continue Synthroid HLD Continue Statin DEPRESSION Continue Celexa, Trazodone CHRONIC THROMBOCYTOPENIA Stable Continue to monitor Patient also on coumadin H/O AVR and MVR Stable H/O SUBDURAL HEMATOMA Stable H/O COLON CA S/P partial colectomy DVT PROPHYLAXIS: Coumadin CODE STATUS: LEVEL 5 DNR per admitting physician discussion with the patient and his brother DISPOSITION Plan to DC to [facility] when bed available Needs FU with PCP on Jun 14 2016 at 10:10AM and Cardiology: Needs INR checked at [facility] to adjust coumadin dosing Vital Signs: Date Time Temp Pulse Resp B/P Pulse Ox O2 Delivery O2 Flow Rate FiO2 06/12/16 07:02 36.8 61 18 107/71 92 Room Air 06/12/16 00:58 86 20 95 Room Air 06/12/16 00:22 37.0 62 18 110/75 93 Room Air 06/12/16 00:00 Room Air 06/11/16 20:31 64 110/79 06/11/16 16:20 Room Air 06/11/16 14:59 36.6 61 18 95/63 94 Room Air 06/11/16 14:06 88 22 95 Room Air 06/11/16 12:08 36.8 60 24 102/70 96 Room Air 06/11/16 10:43 Room Air Lab Results: Results Past 24 Hours Test 06/12/16 05:50 Range/Units Prothrombin Time 23.4 9.0-12.0 SECONDS Prothromb Time International Ratio 2.1 0.9-1.1
[2016-06-12] MEDS ORDERED: WARF2.5T8 PO (09:42)
[2016-06-12 10:34] VITALS: BP 107/71; PULSE 61; TEMP 36.8; O2SAT 92
== END 2016-06-12 11:59 | DRG 308 ==
LOC: ENRESERVTM → ENRESERVDT → EDBD 14:50 → C.EDC 14:51 → C.2T 18:47 → C.4E 06-10 15:45
PROVIDERS: ADMIT Hospitalist; ATTEND Internal Medicine
PROC: 5A2204Z Restoration of Cardiac Rhythm, Single (ICD-10-PCS; principal; 2016-06-08)
DX: I48.92 Unspecified atrial flutter (principal); I50.21 Acute systolic (congestive) heart failure; I50.22 Chronic systolic (congestive) heart failure; Z66 Do not resuscitate; R79.1 Abnormal coagulation profile; T46.2X5A Adverse effect of other antidysrhythmic drugs, initial encounter; R09.02 Hypoxemia; R78.89 Finding of other specified substances, not normally found in blood; I49.3 Ventricular premature depolarization; I48.2 Chronic atrial fibrillation; I11.0 Hypertensive heart disease with heart failure; E03.9 Hypothyroidism, unspecified; D69.6 Thrombocytopenia, unspecified; F32.9 Major depressive disorder, single episode, unspecified; I42.9 Cardiomyopathy, unspecified; R56.9 Unspecified convulsions; Z51.81 Encounter for therapeutic drug level monitoring; Z79.899 Other long term (current) drug therapy; Z79.01 Long term (current) use of anticoagulants; Z95.810 Presence of automatic (implantable) cardiac defibrillator; Z95.2 Presence of prosthetic heart valve; Z87.820 Personal history of traumatic brain injury; Z85.038 Personal history of other malignant neoplasm of large intestine; Z87.891 Personal history of nicotine dependence; Z83.3 Family history of diabetes mellitus; Z82.49 Family history of ischemic heart disease and other diseases of the circulatory system; Z80.0 Family history of malignant neoplasm of digestive organs

== ENCOUNTER 2017-05-23 12:21 | Inpatient (IN) | payer OTHER, MEDICARE ==
[~2017-05-23] VITALS: Ht 177.8 cm; Wt 87.5 kg
[~2017-05-23 12:21] MED LIST changes: +ASPEC81 PO; +CHOL1000 PO; +CLX/20 PO; +CRD200 PO; -FLM4 PO; +LEVE500T PO; -LEVO125T4 PO; +LEVO125T5 PO; -LPT/20 PO; +LPT20 PO; -LSN25 PO; -LSX20 PO; +NRN100 PO; -SPIR25TA PO; +SPR25 PO; +TPRSR/25 PO; +TRAZ-120 PO; -WARF-246 PO; +WARF2.5T8 PO
[2017-05-23] MEDS ORDERED: SODIUM CHLORIDE 0.9% 500ML 500 ML IV STA (13:18)
[2017-05-23] MEDS ORDERED: OPTIRAY 320 IV PRN (13:30)
--- NOTE | 2017-05-23 14:12 | DIAGNOSTIC IMAGING REPORT ---
CHEST ONE VIEW PORTABLE HISTORY: Right-sided CHEST PAIN COMPARISON: Chest 06/08/2016. FINDINGS: No pneumothorax. No pleural effusions. The heart remains moderately enlarged. Left-sided pacemaker/defibrillator. Poststernotomy changes. Hazy appearance the left lung base. Question nondisplaced right lateral ninth rib fracture. IMPRESSION: 1. Question nondisplaced right lateral ninth rib fracture. This can be assessed on the same day chest CT. 2. Stable cardiomegaly. 3. Hazy appearance the left lung base. This may represent a developing opacity. 4. No pneumothorax. Electronically signed by: Drew Owens M.D. 05/23/2017 2:11 PM Dictated Date/Time: 05/23/2017 1:53 PM
[2017-05-23 14:19] LABS: ISTAT CREATININE 1.1 mg/dl (0.6-1.3); ISTAT IONIZED CALCIUM 1.14 mmol/l (1.12-1.32); ISTAT POTASSIUM 3.8 mEq/L (3.3-5.0)
[2017-05-23 14:19] LABS: INR 2.2 (0.9-1.1)
[2017-05-23 14:22] LABS: ALBUMIN 3.2 gm/dl (3.4-5.0); CALCIUM 8.2 mg/dl (8.5-10.1); CREATININE 1.15 mg/dl (0.60-1.40); POTASSIUM 3.7 mmol/L (3.5-5.1)
[2017-05-23 14:27] LABS: BASO % 0.3 %; BASO ABS # 0.02 K/uL (0-0.2); EOS % 0.1 %; EOS ABS # 0.01 K/uL (0-0.5); HEMATOCRIT 39.4 % (42-52); HEMOGLOBIN 12.8 g/dL (14.0-18.0); IG# 0.01 K/uL (0.00-0.02); LYMPH % 9.5 %; LYMPH ABS # 0.76 K/uL (1.2-3.4); MEAN CELL VOLUME 93.1 fL (80-100); MEAN CORPUSCULAR HEMOGLOBIN 30.3 pg (25-34); MEAN CORPUSCULAR HGB CONC 32.5 g/dl (32-36); MEAN PLATELET VOLUME 12.1 fL (7.4-10.4); MONO % 5.6 %; MONO ABS # 0.45 K/uL (0.11-0.59); NEUT % 84.4 %; NEUT ABS # 6.73 K/uL (1.4-6.5); PLATELET COUNT 85 K/uL (130-400); RED CELL DISTRIBUTION WIDTH CV 13.8 % (11.5-14.5); RED CELL DISTRIBUTION WIDTH SD 47.2 fL (36.4-46.3); WHITE BLOOD COUNT 7.98 K/uL (4.8-10.8)
[2017-05-23 14:29] LABS: TOTAL PROTEIN 6.7 gm/dl (6.4-8.2)
--- NOTE | 2017-05-23 14:51 | DIAGNOSTIC IMAGING REPORT ---
CT OF THE HEAD WITHOUT CONTRAST CLINICAL HISTORY: Fall. Headache. Anticoagulation. COMPARISON STUDY: No previous studies for comparison. TECHNIQUE: Helical axial images of the head were obtained without IV contrast. Automated exposure control was utilized for the study. A dose lowering technique was utilized adhering to the principles of ALARA. FINDINGS: No acute intracranial hemorrhage, midline shift or mass effect is present. Ventricular system is normal for age. Basilar cisterns are patent. There are no extra axial collections. Mild atrophy is noted. There are no calvarial fractures. IMPRESSION: 1. No acute intracranial findings. 2. No calvarial fracture. Electronically signed by: Thor Ding M.D. 05/23/2017 2:49 PM Dictated Date/Time: 05/23/2017 2:47 PM
--- NOTE | 2017-05-23 14:52 | DIAGNOSTIC IMAGING REPORT ---
CT SCAN OF THE CERVICAL SPINE CLINICAL HISTORY: Trauma. Fall. COMPARISON STUDY: No priors. TECHNIQUE: CT scan of the cervical spine is performed from the skull base to the upper thoracic spine. Images are reviewed in the axial, sagittal, and coronal planes. IV contrast was not administered for this examination. A dose lowering technique was utilized adhering to the principles of ALARA. FINDINGS: Skeletal structures: The skeletal structures are osteopenic. There is no evidence of fracture or subluxation involving the cervical spine. Vertebral body height and alignment are maintained. Anterior osteophytes are seen throughout. The odontoid process and lateral masses are intact. The atlantoaxial articulation is preserved noting productive degenerative change. The spinous processes appear intact. There is moderate to advanced multilevel cervical spondylosis. Uncovertebral and facet arthropathy contribute to neural foraminal stenosis at most levels. Intervertebral discs: There is moderate disc space narrowing at C3-C4, C5-C6, and C6-C7. Mild disc space narrowing is seen at the remaining cervical levels. Central canal: Posterior disc osteophyte complexes at C5-C6 and C6-C7 likely contribute to mild acquired compromise of the central canal. Soft tissues: The prevertebral and paraspinous soft tissues are within normal limits. Pacemaker leads are noted in the left axilla. There is atherosclerotic calcification of the carotid bulbs. The thyroid gland is atrophic versus surgically absent. A lipoma is incidentally noted in the soft tissues of the left posterior neck. Calvarium: The visualized calvarium at the skull base appears intact. Brain parenchyma: Partially visualized brain parenchyma the skull base is within normal limits noting age-related involutional change. Sinuses and mastoids: The visualized paranasal sinuses are clear. The mastoid air cells are well pneumatized. Lung apices: A calcified granuloma is noted at the left apex. Apical lung parenchyma is otherwise clear As visualized. IMPRESSION: 1. There is no evidence of fracture or subluxation involving the cervical spine. 2. Osteopenia and spondylotic change as above. Electronically signed by: Hayden Obrien M.D. 05/23/2017 2:51 PM Dictated Date/Time: 05/23/2017 2:47 PM
--- NOTE | 2017-05-23 14:59 | DIAGNOSTIC IMAGING REPORT ---
ABDOMEN AND PELVIS CT WITH IV CONTRAST CT DOSE: 2502.12 mGy.cm HISTORY: Right-sided abdominal pain. Fall. TECHNIQUE: Multiaxial CT images of the abdomen and pelvis were performed following the use of intravenous contrast. A dose lowering technique was utilized adhering to the principles of ALARA. COMPARISON STUDY: Abdomen and pelvis CT 06/03/2016. FINDINGS: Bilateral lower lobe densities consistent with subsegmental atelectasis. Pacemaker wires are noted. The heart is mildly enlarged. There are poststernotomy changes. No pneumoperitoneum. No pneumatosis. No acute fractures within the visualized osseous structures. Multiple small lucent lesions seen within the bilateral ribs. Lucent lesion within the L4 vertebral body likely represents a hemangioma. 2 cm hypodense lesion within the liver likely represents a cyst. The gallbladder surgically absent. The spleen, adrenal glands, and pancreas are unremarkable. A few bilateral renal hypodense lesions which likely represent cysts. Left extrarenal pelvis. No hydronephrosis. Normal bladder. No retroperitoneal lymphadenopathy. Moderate calcified plaque within the normal caliber abdominal aorta. No bowel wall thickening or obstruction. Colonic diverticulosis. Prior right hemicolectomy. Large ventral hernia containing both large and small bowel. This is similar to the prior study. IMPRESSION: 1. No acute traumatic process identified within the abdomen or pelvis. 2. Large ventral hernia containing both large and small bowel. This is not significantly change. No bowel wall thickening or obstruction. 3. Multiple small lucent lesions seen within the ribs. This is nonspecific and could be due to osteoporosis. However, multiple myeloma could also have a similar appearance. However, there are no definite lucent lesions within the spine. Therefore, this is considered less likely. 4. Prior right hemicolectomy. Electronically signed by: Drew Owens M.D. 05/23/2017 2:58 PM Dictated Date/Time: 05/23/2017 2:46 PM
--- NOTE | 2017-05-23 14:59 | DIAGNOSTIC IMAGING REPORT ---
CT OF THE THORACIC SPINE CLINICAL HISTORY: Pain following fall. COMPARISON STUDY: Chest CT May 2016. TECHNIQUE: Axial images of the thoracic spine were obtained. Sagittal and coronal reconstructions were viewed. FINDINGS: Alignment of the thoracic spine is anatomic. There is no acute fracture. There is extensive anterior osteophytosis of the thoracic spine. Paravertebral soft tissues are unremarkable. Central canal is suboptimally assessed by CT but no significant abnormality is identified on this exam. IMPRESSION: 1. No acute thoracic spine fracture or subluxation. 2. Extensive anterior osteophytosis of the thoracic spine. Electronically signed by: Thor Ding M.D. 05/23/2017 2:58 PM Dictated Date/Time: 05/23/2017 2:50 PM
--- NOTE | 2017-05-23 15:04 | DIAGNOSTIC IMAGING REPORT ---
LUMBAR SPINE CT CLINICAL HISTORY: Pain following fall. COMPARISON STUDY: No previous studies for comparison. TECHNIQUE: Axial images of the lumbar spine were obtained. Sagittal and coronal reconstructions were viewed. FINDINGS: The CT of the abdomen and pelvis will be reported separately. Alignment of the lumbar spine is anatomic. No acute lumbar spine fracture is identified. A 2.4 cm lucent lesion with sclerotic margin within the L4 vertebral body is unchanged since CT of June 03, 2016. This is likely benign. Sacroiliac joints are intact with partial ankylosis. There is severe disc space narrowing with vacuum disc phenomenon at L5-S1. There is moderate to severe disc space narrowing at L3-L4 and L4-L5. There is moderate multilevel facet arthrosis. IMPRESSION: 1. No acute lumbar spine fracture or subluxation. 2. Moderate to severe multilevel disc space narrowing and facet arthrosis of the lumbar spine. 3. Partial ankylosis of the sacroiliac joints. Electronically signed by: Thor Ding M.D. 05/23/2017 3:03 PM Dictated Date/Time: 05/23/2017 2:58 PM
--- NOTE | 2017-05-23 15:05 | DIAGNOSTIC IMAGING REPORT ---
CT SCAN OF THE CHEST WITH IV CONTRAST CLINICAL HISTORY: Trauma. Fall. COMPARISON STUDY: Chest x-ray dated 05/23/2017. Chest CT dated 06/02/2016. TECHNIQUE: Following the IV administration of 93 cc of Optiray 320, CT scan of the thorax was performed from the thoracic inlet to the upper abdomen. Images are reviewed in the axial, sagittal, and coronal planes. IV contrast was administered without complication. A dose lowering technique was utilized adhering to the principles of ALARA. The examination is degraded by motion artifact as well as by streak artifact from the arms which could not be elevated above the chest. FINDINGS: Thyroid: Atrophic versus surgically absent. Thoracic aorta: There is atherosclerotic calcification of the thoracic aorta. There is ectasia of the ascending thoracic aorta which measures up to 4.5 cm. The remainder of the thoracic aorta is normal in caliber. The arch demonstrates standard 3-vessel anatomy. No dissection is seen. Pulmonary vasculature: The pulmonary trunk is normal in caliber. There are no filling defects identified in the central pulmonary vessels to indicate pulmonary embolus. Note that this examination was not protocoled for evaluation of the pulmonary arteries. Heart: The patient is status post midline sternotomy. The heart is enlarged and without pericardial effusion. The coronary arteries and aortic valve leaflets are densely calcified. A cardiac pacemaker is present in the left chest wall. Lungs and pleural spaces: Evaluation of the lung parenchyma is degraded by motion artifact. Patchy consolidative changes seen in the right lower lobe. No pleural effusion or pneumothorax is seen. There is dependent atelectasis. The trachea and central airways are clear. A 7 mm pulmonary nodule is seen in the right upper lobe on image #107. This is unchanged from 06/02/2016. A tiny calcified granuloma seen at the left apex. Mediastinum: There is no mediastinal hematoma or lymphadenopathy. Skylar: Clear. Axillae: There is no axillary lymphadenopathy. Upper abdomen: A 1.7 cm cyst is noted in the left hepatic lobe. The partially visualized kidneys demonstrate cortical atrophy. Skeletal structures: The skeletal structures are heterogeneously osteopenic. The bony thorax is grossly intact. Numerous tiny osteolytic foci are suggested throughout both lower ribs. An osteolytic focus is suggested in the right scapula on image #88. Degenerative change and hyperkyphosis are noted in the thoracic spine. Arthritic change is also seen in the shoulders. IMPRESSION: 1. There is patchy airspace consolidation identified in the right lower lobe. This could represent atelectasis versus pneumonia/aspiration pneumonitis. Clinical correlation will be required. 2. There is no pleural effusion or pneumothorax. 3. No fracture is seen. 4. Cardiomegaly. 5. A pathologically indeterminant 7 mm right upper lobe pulmonary nodule is unchanged from 06/02/2016. This can be followed as per the Fleischner criteria if clinically warranted. 6. The skeletal structures are heterogeneously osteopenic. Tiny osteolytic foci are questioned throughout both ribs. This is nonspecific and raises concern for an entity such as multiple myeloma. Clinical and laboratory correlation will be essential. 7. Mild ectasia of the ascending thoracic aorta is unchanged. This measures up to 4.5 cm. 8. Additional findings as above. Please refer to below summary of Fleischner criteria recommendations for follow-up of incidental CT nodules (Braden Mackey, Guidelines for management of small pulmonary nodules detected on CT scans: A statement from the Fleischner Society, Radiology 237: [phone].) SOLID NODULES Solitary nodule size: <6 mm * low risk patients: no follow-up needed * high risk patients: optional CT at 12 months Solitary nodule size: 6-8 mm * low risk patients: follow-up at 6-12 months, then consider further follow-up at 18-24 months * high risk patients: initial follow-up CT at 6-12 months and then at 18-24 months if no change Solitary nodule size: >8 mm * either low or high risk patients - consider follow-up CT at 3 months, and/or CT-PET, and/or biopsy Multiple nodules size: <6 mm * low risk patients: no routine follow-up * high risk patients: optional CT at 12 months Multiple nodules size: 6-8 mm * low risk patients: follow-up at 3-6 months, then consider further follow-up at 18-24 months * high risk patients: follow-up at 3-6 months, then at 18-24 months if no change Multiple nodules size: >8 mm * low risk patients: follow-up at 3-6 months, then consider further follow-up at 18-24 months * high risk patients: follow-up at 3-6 months, then at 18-24 months if no change Note: newly detected indeterminate nodule in persons 35 years of age or older. * low risk patients: minimal or absent history of smoking and/or other known risk factors * high risk patients: history of smoking or of other known risk factors (e.g. first degree relative with lung cancer, or exposure to asbestos, radon, uranium) * if a nodule up to 8 mm is partly solid or is ground glass further follow-up is required after 24 months to exclude possible slow growing adenocarcinoma (JUWAN) SUBSOLID NODULES Solitary pure ground-glass nodule * nodule size <6 mm - no CT follow-up required * nodule size >=6 mm - follow-up CT at 6-12 months, then every 2 years until 5 years Solitary part-solid nodule * nodule size <6 mm - no CT follow-up required * nodule size >=6 mm - follow-up CT at 3-6 months. If unchanged, and solid component remains <6 mm, then annual follow-up for 5 years Multiple subsolid nodules * nodule size <6 mm - follow-up CT at 3-6 months, consider further follow-up at 2 and 4 years if stable * nodule size >=6 mm - follow-up CT at 3-6 months, subsequent management based on the most suspicious nodule(s) Electronically signed by: Hayden Obrien M.D. 05/23/2017 3:03 PM Dictated Date/Time: 05/23/2017 2:51 PM
[2017-05-23 15:24] LABS: INFLUENZA B ANTIGEN Neg for Influ B (NEG)
[2017-05-23] MEDS ORDERED: CEFTRIAXONE SOD INJ 1 GM ADDVIAL IV STA (15:31)
[2017-05-23] MEDS ORDERED: AZITHROMYCIN IV 500 MG in DEXTROSE 5% 250ML 250 ML IV ONE (15:45)
--- NOTE | 2017-05-23 16:10 | EMERGENCY ROOM VISIT NOTE ---
History Report prepared by Lexy: Frankie Choe Under the Supervision of: Dr. Kody Saravia M.D. First contact with patient: 13:05 Chief Complaint: FALL Stated Complaint: FALL History of Present Illness The patient is a 82 year old male who presents to the Emergency Room by EMS s/p fall occurring just prior to arrival. The patient also complains of back pain. He states that he was walking up the stairs when he suddenly became very tired on the final step. He states that he fell backwards down 11 steps. He was down for about two hours before EMS could be called. The patient states that he states that his knees gave out, but he did not feel lightheaded. He denies abdominal pain, jaw pain, chest pain, shortness of breath, nausea, vomiting, diarrhea, chills, or cough. He notes that he fell a few days ago and has right sided rib pain from this. The patient is on Coumadin for A-fib. He has no history of blood clots. He has two cardiac stents in place. The patient states that he has some mild confusion at baseline, and is unsure if his confusion is increased. Source of History: patient Onset: Just prior to arrival Quality: other (fall) Timing: other (episode) Associated Symptoms: + back pain, No chills, No cough, No chest pain, No SOB , No nausea, No vomiting, No diarrhea Note: Additional symptoms: rib pain. He denies jaw pain. Review of Systems See HPI for pertinent positives and negatives. A total of ten systems were reviewed and were otherwise negative. Past Medical & Surgical Medical Problems: (1) Atrial fibrillation (2) Biventricular ICD (implantable cardioverter-defibrillator) in place (3) BPH (benign prostatic hyperplasia) (4) Colon cancer (5) Current use of exterminator termite anticoagulation (6) Depression (7) Hypothyroidism (8) Seizure (9) Subdural hematoma (10) Systolic CHF (11) Thrombocytopenia Surgical Problems: (1) H/O colonoscopy (2) History of appendectomy (3) History of partial colectomy (4) Hx of cholecystectomy (5) Hx of total knee arthroplasty (6) S/P AVR (aortic valve replacement) (7) S/P MVR (mitral valve replacement) Family History Cancer Diabetes mellitus Gallbladder disease Heart disease Hypertension Lung disease Social History Smoking Status: Former Smoker Alcohol Use: occasionally Marital Status: Housing Status: lives with family Occupation Status: retired Current/Historical Medications Scheduled Amiodarone HCl (Amiodarone HCl), 200 MG PO DAILY Aspirin (Aspirin EC Low Dose), 81 MG PO QAM Atorvastatin (Lipitor), 20 MG PO DAILY Cholecalciferol (Vitamin D3), 1 TAB PO DAILY Citalopram (Citalopram Hydrobromide), 20 MG PO DAILY Gabapentin (Gabapentin), 100 MG PO TID Levetiractam (Levetiracetam), 500 MG PO Q12 Levothyroxine Sodium (Levothyroxine Sodium), 125 MCG PO DAILY Metoprolol Succinate (Metoprolol Succinate ER), 12.5 MG PO DAILY Spironolactone (Spironolactone), 12.5 MG PO QAM Trazodone Hcl (Desyrel), 50 MG PO HS Warfarin Sod (Jantoven), 3 MG PO DAILY Allergies Coded Allergies: No Known Allergies (Unverified , 06/02/16) Physical Exam Vital Signs Date Time Temp Pulse Resp B/P (MAP) Pulse Ox O2 Delivery O2 Flow Rate FiO2 05/23/17 15:30 60 18 107/65 100 Nasal Cannula 2.0 05/23/17 14:46 60 18 111/66 98 Nasal Cannula 2.0 05/23/17 14:06 96 Nasal Cannula 2.0 05/23/17 14:06 96 Nasal Cannula 2.0 05/23/17 13:00 60 16 84/57 96 Nasal Cannula 2.0 05/23/17 12:44 36.6 60 18 96/56 92 Room Air 05/23/17 12:42 60 Physical Exam GENERAL: Drowsy, fatigued-appearing, in no distress. HENT: Normocephalic. Ecchymosis to the left frontal scalp and forehead. No hematomas. No hemotympanum. Oropharynx unremarkable. EYES: Normal conjunctiva. Sclera non-icteric. NECK: Supple. No nuchal rigidity. FROM. No JVD. RESPIRATORY: Clear to auscultation. CARDIAC: Regular rate, normal rhythm. Extremities warm and well perfused. Pulses equal. ABDOMEN: Soft, non-distended. No tenderness to palpation. No rebound or guarding. No masses. RECTAL: Deferred. MUSCULOSKELETAL: Mild tenderness to the right anterior and anterolateral chest wall. The back is symmetrical on inspection without obvious abnormality. There is no CVA tenderness to palpation. No joint edema. LOWER EXTREMITIES: Calves are equal size bilaterally and non-tender. No edema. No discoloration. NEURO: Normal sensorium. No sensory or motor deficits noted. SKIN: No rash or jaundice noted. Medical Decision & Procedures ER Provider Diagnostic Interpretation: Radiology results as stated below per my review and radiologist interpretation: CT OF THE THORACIC SPINE FINDINGS: Alignment of the thoracic spine is anatomic. There is no acute fracture. There is extensive anterior osteophytosis of the thoracic spine. Paravertebral soft tissues are unremarkable. Central canal is suboptimally assessed by CT but no significant abnormality is identified on this exam. IMPRESSION: 1. No acute thoracic spine fracture or subluxation. 2. Extensive anterior osteophytosis of the thoracic spine. Electronically signed by: Thor Ding M.D. 05/23/2017 2:[address] FINDINGS: The CT of the abdomen and pelvis will be reported separately. Alignment of the lumbar spine is anatomic. No acute lumbar spine fracture is identified. A 2.4 cm lucent lesion with sclerotic margin within the L4 vertebral body is unchanged since CT of June 03, 2016. This is likely benign. Sacroiliac joints are intact with partial ankylosis. There is severe disc space narrowing with vacuum disc phenomenon at L5-S1. There is moderate to severe disc space narrowing at L3-L4 and L4-L5. There is moderate multilevel facet arthrosis. IMPRESSION: 1. No acute lumbar spine fracture or subluxation. 2. Moderate to severe multilevel disc space narrowing and facet arthrosis of the lumbar spine. 3. Partial ankylosis of the sacroiliac joints. Electronically signed by: Thor Ding M.D. 05/23/2017 3:[address] OF THE HEAD WITHOUT CONTRAST FINDINGS: No acute intracranial hemorrhage, midline shift or mass effect is present. Ventricular system is normal for age. Basilar cisterns are patent. There are no extra axial collections. Mild atrophy is noted. There are no calvarial fractures. IMPRESSION: 1. No acute intracranial findings. 2. No calvarial fracture. Electronically signed by: Thor Ding M.D. 05/23/2017 2:[address] SCAN OF THE CHEST WITH IV CONTRAST FINDINGS: Thyroid: Atrophic versus surgically absent. Thoracic aorta: There is atherosclerotic calcification of the thoracic aorta. There is ectasia of the ascending thoracic aorta which measures up to 4.5 cm. The remainder of the thoracic aorta is normal in caliber. The arch demonstrates standard 3-vessel anatomy. No dissection is seen. Pulmonary vasculature: The pulmonary trunk is normal in caliber. There are no filling defects identified in the central pulmonary vessels to indicate pulmonary embolus. Note that this examination was not protocoled for evaluation of the pulmonary arteries. Heart: The patient is status post midline sternotomy. The heart is enlarged and without pericardial effusion. The coronary arteries and aortic valve leaflets are densely calcified. A cardiac pacemaker is present in the left chest wall. Lungs and pleural spaces: Evaluation of the lung parenchyma is degraded by motion artifact. Patchy consolidative changes seen in the right lower lobe. No pleural effusion or pneumothorax is seen. There is dependent atelectasis. The trachea and central airways are clear. A 7 mm pulmonary nodule is seen in the right upper lobe on image #107. This is unchanged from 06/02/2016. A tiny calcified granuloma seen at the left apex. Mediastinum: There is no mediastinal hematoma or lymphadenopathy. Skylar: Clear. Axillae: There is no axillary lymphadenopathy. Upper abdomen: A 1.7 cm cyst is noted in the left hepatic lobe. The partially visualized kidneys demonstrate cortical atrophy. Skeletal structures: The skeletal structures are heterogeneously osteopenic. The bony thorax is grossly intact. Numerous tiny osteolytic foci are suggested throughout both lower ribs. An osteolytic focus is suggested in the right scapula on image #88. Degenerative change and hyperkyphosis are noted in the thoracic spine. Arthritic change is also seen in the shoulders. IMPRESSION: 1. There is patchy airspace consolidation identified in the right lower lobe. This could represent atelectasis versus pneumonia/aspiration pneumonitis. Clinical correlation will be required. 2. There is no pleural effusion or pneumothorax. 3. No fracture is seen. 4. Cardiomegaly. 5. A pathologically indeterminant 7 mm right upper lobe pulmonary nodule is unchanged from 06/02/2016. This can be followed as per the Fleischner criteria if clinically warranted. 6. The skeletal structures are heterogeneously osteopenic. Tiny osteolytic foci are questioned throughout both ribs. This is nonspecific and raises concern for an entity such as multiple myeloma. Clinical and laboratory correlation will be essential. 7. Mild ectasia of the ascending thoracic aorta is unchanged. This measures up to 4.5 cm. 8. Additional findings as above. Please refer to below summary of Fleischner criteria recommendations for follow-up of incidental CT nodules (Braden Mackey, Guidelines for management of small pulmonary nodules detected on CT scans: A statement from the Fleischner Society, Radiology 237: [phone].) SOLID NODULES Solitary nodule size: <6 mm * low risk patients: no follow-up needed * high risk patients: optional CT at 12 months Solitary nodule size: 6-8 mm * low risk patients: follow-up at 6-12 months, then consider further follow-up at 18-24 months * high risk patients: initial follow-up CT at 6-12 months and then at 18-24 months if no change Solitary nodule size: >8 mm * either low or high risk patients - consider follow-up CT at 3 months, and/or CT-PET, and/or biopsy Multiple nodules size: <6 mm * low risk patients: no routine follow-up * high risk patients: optional CT at 12 months Multiple nodules size: 6-8 mm * low risk patients: follow-up at 3-6 months, then consider further follow-up at 18-24 months * high risk patients: follow-up at 3-6 months, then at 18-24 months if no change Multiple nodules size: >8 mm * low risk patients: follow-up at 3-6 months, then consider further follow-up at 18-24 months * high risk patients: follow-up at 3-6 months, then at 18-24 months if no change Note: newly detected indeterminate nodule in persons 35 years of age or older. * low risk patients: minimal or absent history of smoking and/or other known risk factors * high risk patients: history of smoking or of other known risk factors (e.g. first degree relative with lung cancer, or exposure to asbestos, radon, uranium) * if a nodule up to 8 mm is partly solid or is ground glass further follow-up is required after 24 months to exclude possible slow growing adenocarcinoma (JUWAN) SUBSOLID NODULES Solitary pure ground-glass nodule * nodule size <6 mm - no CT follow-up required * nodule size >=6 mm - follow-up CT at 6-12 months, then every 2 years until 5 years Solitary part-solid nodule * nodule size <6 mm - no CT follow-up required * nodule size >=6 mm - follow-up CT at 3-6 months. If unchanged, and solid component remains <6 mm, then annual follow-up for 5 years Multiple subsolid nodules * nodule size <6 mm - follow-up CT at 3-6 months, consider further follow-up at 2 and 4 years if stable * nodule size >=6 mm - follow-up CT at 3-6 months, subsequent management based on the most suspicious nodule(s) Electronically signed by: Hayden Obrien M.D. 05/23/2017 3:[address] SCAN OF THE CERVICAL SPINE FINDINGS: Skeletal structures: The skeletal structures are osteopenic. There is no evidence of fracture or subluxation involving the cervical spine. Vertebral body height and alignment are maintained. Anterior osteophytes are seen throughout. The odontoid process and lateral masses are intact. The atlantoaxial articulation is preserved noting productive degenerative change. The spinous processes appear intact. There is moderate to advanced multilevel cervical spondylosis. Uncovertebral and facet arthropathy contribute to neural foraminal stenosis at most levels. Intervertebral discs: There is moderate disc space narrowing at C3-C4, C5-C6, and C6-C7. Mild disc space narrowing is seen at the remaining cervical levels. Central canal: Posterior disc osteophyte complexes at C5-C6 and C6-C7 likely contribute to mild acquired compromise of the central canal. Soft tissues: The prevertebral and paraspinous soft tissues are within normal limits. Pacemaker leads are noted in the left axilla. There is atherosclerotic calcification of the carotid bulbs. The thyroid gland is atrophic versus surgically absent. A lipoma is incidentally noted in the soft tissues of the left posterior neck. Calvarium: The visualized calvarium at the skull base appears intact. Brain parenchyma: Partially visualized brain parenchyma the skull base is within normal limits noting age-related involutional change. Sinuses and mastoids: The visualized paranasal sinuses are clear. The mastoid air cells are well pneumatized. Lung apices: A calcified granuloma is noted at the left apex. Apical lung parenchyma is otherwise clear As visualized. IMPRESSION: 1. There is no evidence of fracture or subluxation involving the cervical spine. 2. Osteopenia and spondylotic change as above. Electronically signed by: Hayden Obrien M.D. 05/23/2017 2:51 [address] AND PELVIS CT WITH IV CONTRAST FINDINGS: Bilateral lower lobe densities consistent with subsegmental atelectasis. Pacemaker wires are noted. The heart is mildly enlarged. There are poststernotomy changes. No pneumoperitoneum. No pneumatosis. No acute fractures within the visualized osseous structures. Multiple small lucent lesions seen within the bilateral ribs. Lucent lesion within the L4 vertebral body likely represents a hemangioma. 2 cm hypodense lesion within the liver likely represents a cyst. The gallbladder surgically absent. The spleen, adrenal glands, and pancreas are unremarkable. A few bilateral renal hypodense lesions which likely represent cysts. Left extrarenal pelvis. No hydronephrosis. Normal bladder. No retroperitoneal lymphadenopathy. Moderate calcified plaque within the normal caliber abdominal aorta. No bowel wall thickening or obstruction. Colonic diverticulosis. Prior right hemicolectomy. Large ventral hernia containing both large and small bowel. This is similar to the prior study. IMPRESSION: 1. No acute traumatic process identified within the abdomen or pelvis. 2. Large ventral hernia containing both large and small bowel. This is not significantly change. No bowel wall thickening or obstruction. 3. Multiple small lucent lesions seen within the ribs. This is nonspecific and could be due to osteoporosis. However, multiple myeloma could also have a similar appearance. However, there are no definite lucent lesions within the spine. Therefore, this is considered less likely. 4. Prior right hemicolectomy. Electronically signed by: Drew Owens M.D. 05/23/2017 2:58 PM CHEST ONE VIEW PORTABLE FINDINGS: No pneumothorax. No pleural effusions. The heart remains moderately enlarged. Left-sided pacemaker/defibrillator. Poststernotomy changes. Hazy appearance the left lung base. Question nondisplaced right lateral ninth rib fracture. IMPRESSION: 1. Question nondisplaced right lateral ninth rib fracture. This can be assessed on the same day chest CT. 2. Stable cardiomegaly. 3. Hazy appearance the left lung base. This may represent a developing opacity. 4. No pneumothorax. Electronically signed by: Drew Owens M.D. 05/23/2017 2:11 PM Laboratory Results Test 05/23/17 13:54 05/23/17 14:06 05/23/17 14:45 Immature Granulocyte % (Auto) 0.1 % White Blood Count 7.98 K/uL (4.8-10.8) Red Blood Count 4.23 M/uL (4.7-6.1) Hemoglobin 12.8 g/dL (14.0-18.0) Hematocrit 39.4 % (42-52) Mean Corpuscular Volume 93.1 fL (80-100) Mean Corpuscular Hemoglobin 30.3 pg (25-34) Mean Corpuscular Hemoglobin Concent 32.5 g/dl (32-36) Platelet Count 85 K/uL (130-400) Mean Platelet Volume 12.1 fL (7.4-10.4) Neutrophils (%) (Auto) 84.4 % Lymphocytes (%) (Auto) 9.5 % Monocytes (%) (Auto) 5.6 % Eosinophils (%) (Auto) 0.1 % Basophils (%) (Auto) 0.3 % Neutrophils # (Auto) 6.73 K/uL (1.4-6.5) Lymphocytes # (Auto) 0.76 K/uL (1.2-3.4) Monocytes # (Auto) 0.45 K/uL (0.11-0.59) Eosinophils # (Auto) 0.01 K/uL (0-0.5) Basophils # (Auto) 0.02 K/uL (0-0.2) Immature Granulocyte # (Auto) 0.01 K/uL (0.00-0.02) Platelet Estimate DECREASED Total Bilirubin 0.9 mg/dl (0.2-1) Direct Bilirubin 0.3 mg/dl (0-0.2) Aspartate Amino Transf (AST/SGOT) 17 U/L (15-37) Alanine Aminotransferase (ALT/SGPT) 25 U/L (12-78) Alkaline Phosphatase 57 U/L (45-117) Total Creatine Kinase 105 U/L (39-308) Pro-B-Type Natriuretic Peptide 3911 pg/ml (0-1800) Total Protein 6.7 gm/dl (6.4-8.2) Albumin 3.2 gm/dl (3.4-5.0) Lipase 72 U/L (73-393) Bedside Hemoglobin 13.3 g/dl (14.0-18.0) Bedside Hematocrit 39 % (42-52) Bedside Sodium 144 mEq/L (135-144) Bedside Potassium 3.8 mEq/L (3.3-5.0) Bedside Chloride 103 mEq/L (101-112) Bedside Total CO2 26 mEq/l (24-31) Bedside Blood Urea Nitrogen 23 mg/dl (7-18) Bedside Creatinine 1.1 mg/dl (0.6-1.3) Bedside Glucose (other) 99 mg/dl (70-99) Bedside Ionized Calcium (Tiff) 1.14 mmol/l (1.12-1.32) Influenza Type A Antigen Neg for Influ A (NEG) Influenza Type B Antigen Neg for Influ B (NEG) Laboratory results reviewed by me Medications Administered Medications (Trade) Dose Ordered Sig/Linda Route Start Time Stop Time Status Last Admin Dose Admin Sodium Chloride 500 ml @ 999 mls/hr Q31M STAT IV 05/23/17 13:18 05/23/17 13:48 DC 05/23/17 13:10 999 MLS/HR Ceftriaxone Sodium (Rocephin Inj) 1 gm NOW STAT IV 05/23/17 15:31 05/23/17 15:32 DC 05/23/17 15:48 1 GM Azithromycin 500 mg/Dextrose 255 ml @ 125 mls/hr ONE ONCE IV 05/23/17 15:45 05/23/17 17:47 DC 05/23/17 16:55 125 MLS/HR ECG Indication: other (fall) Rate (beats per minute): 60 Rhythm: other (AV Dual paced) Findings: no acute ischemic change, other (Normal axis. ) ED Course 1310: The patient was evaluated in room B11B. A complete history and physical exam was performed. 1535: Upon reexamination, the patient was resting. I discussed the test results and treatment plan with him. The patient will be evaluated for further management. Medical Decision I reviewed the patient's past medical history, medications, and the nursing notes as described above. The patient's presentation and history were concerning for vasovagal event, infection, hypoglycemia, electrolyte abnormalities, cardiac sources, intracerebral event, toxicologic, neurologic, fracture, dislocation, intra- abdominal, pneumothorax, intrathoracic, as well as other traumatic pathologies were entertained. The patient is an 82-year-old gentleman with a past medical history of A. fib on Coumadin who presents emergency department after having a fall down 10 stairs per history of present illness. On arrival the patient is fatigued appearing, drowsy but in no acute distress, afebrile with stable vital signs. CT of the head, chest, abdomen and pelvis, CTL spine negative for traumatic findings. ?evidence of multiple myeloma. Otherwise CT with findings consistent with right basilar pneumonia. Given the patient's mild hypoxia lung findings most likely infectious. Thus we'll treat the patient for cap with azithromycin and ceftriaxone. Labs otherwise notable for marginally elevated troponin to 0.1 in the setting of chronic elevations. EKG without gross ischemia. BNP 3900 but improved from prior. No evidence of overload on imaging. Rather, patient appearing clinically dry. SBP improved from 80s to 110s after 500cc IVF bolus. Case d/w Kylah Phillips who will admit the patient for further management. Medication Reconcilliation Current Medication List: was personally reviewed by me Blood Pressure Screening Patient's blood pressure: Normal blood pressure Blood pressure disposition: Did not require urgent referral Consults Time Called: 1535 Consulting Physician: Riddhi Montero Hospitalist Returned Call: [phone] I discussed the patient with Riddhi Montero will evaluate the patient for further treatment. Impression Primary Impression: Pneumonia Additional Impression: Elevated troponin Scribe Attestation The scribe's documentation has been prepared under my direction and personally reviewed by me in its entirety. I confirm that the note above accurately reflects all work, treatment, procedures, and medical decision making performed by me. Departure Information Dispostion Being Evaluated By Hospitalist Prescriptions Amiodarone HCl (Amiodarone HCl) 200 Mg Tab 200 MG PO DAILY for 14 Days, #60 TAB Prov: Riddhi Graves .GAY 05/23/17 Referrals Julia Angeles M.D. (PCP) Patient Instructions My [facility] Problem Qualifiers
[2017-05-23] MEDS ORDERED: ACETAMINOPHEN 325 MG TAB PO PRN (16:30)
[2017-05-23 16:42] VITALS: O2SAT 100; Ht 177.8 cm; Wt 87.5 kg
[2017-05-23] MEDS ORDERED: WARF3TAB6 PO (16:54)
[2017-05-23] MEDS ORDERED: CRD200 PO (16:54)
[2017-05-23] MEDS ORDERED: AMIODARONE 200 MG TAB PO ONE (17:15)
[2017-05-23 18:50] VITALS: BP 100/62; PULSE 60; TEMP 36.7; O2SAT 97
--- NOTE | 2017-05-23 18:52 | History and Physical ---
History & Physical Date & Time of Service: May 23, 2017 ~ 16:00 Chief Complaint: Fall Primary Care Physician: Julia Angeles M.D. History of Present Illness 82 year old male who presents after suffering a fall today. Patient reports he was going up the stairs when his legs felt weak and gave out on him. He then fell down 11 stairs. He was on the floor for 2 hours before EMS could be called. He denies any preceding lightheadedness or dizziness. He did strike his head but he denies loss of consciousness. Patient lives at home with his 96 year old mother whose youth career specialist could not come today so he was going upstairs to check on her. He also reports a fall yesterday however reports it was due to not having his shoes on. He was able to get up on his own yesterday. Patient reports he has been feeling well recently. No fevers or chills. He denies chest pain and shortness of breath. No abdominal pain, nausea, vomiting, or diarrhea. He reports urinary hesitancy, no dysuria or hematuria. In the ED, patient had extensive imaging done and was found to have a possible 9th right rib fracture and RLL pneumonia. Labs show a mildly elevated troponin (patient has chronic mild elevation). He is hemodynamically stable. Patient was given IVF, IV azithromycin and Rocephin in the ED. Past Medical/Surgical History Medical Problems: (1) Atrial fibrillation Status: Chronic (2) Biventricular ICD (implantable cardioverter-defibrillator) in place Status: Chronic (3) BPH (benign prostatic hyperplasia) Status: Chronic (4) Colon cancer Status: Chronic (5) Current use of long-term anticoagulation Status: Chronic (6) Depression Status: Chronic (7) Hypothyroidism Status: Chronic (8) Seizure Status: Chronic (9) Subdural hematoma Status: Chronic (10) Systolic CHF Status: Chronic (11) Thrombocytopenia Status: Chronic Surgical Problems: (1) H/O colonoscopy Status: Chronic (2) History of appendectomy Status: Chronic (3) History of partial colectomy Status: Chronic (4) Hx of cholecystectomy Status: Chronic (5) Hx of total knee arthroplasty Status: Chronic (6) S/P AVR (aortic valve replacement) Status: Chronic (7) S/P MVR (mitral valve replacement) Status: Chronic Family History non contributory due to patient's advanced age Social History Smoking Status: Former Smoker Alcohol Use: none Immunizations History of Influenza Vaccine: Yes Influenza Vaccine Date: Jan 03, 2017 History of Pneumococcal: Yes Pneumococcal Date: Feb 19, 2015 Allergies Coded Allergies: No Known Allergies (Unverified , 06/02/16) Home Medications Scheduled Amiodarone HCl (Amiodarone HCl), 200 MG PO DAILY Aspirin (Aspirin EC Low Dose), 81 MG PO QAM Atorvastatin (Lipitor), 20 MG PO DAILY Cholecalciferol (Vitamin D3), 1 TAB PO DAILY Citalopram (Citalopram Hydrobromide), 20 MG PO DAILY Gabapentin (Gabapentin), 100 MG PO TID Levetiractam (Levetiracetam), 500 MG PO Q12 Levothyroxine Sodium (Levothyroxine Sodium), 125 MCG PO DAILY Metoprolol Succinate (Metoprolol Succinate ER), 12.5 MG PO DAILY Spironolactone (Spironolactone), 12.5 MG PO QAM Trazodone Hcl (Desyrel), 50 MG PO HS Warfarin Sod (Jantoven), 3 MG PO DAILY Review of Systems ROS per HPI, all other systems reviewed and negative Physical Exam Vital Signs Date Time Temp Pulse Resp B/P (MAP) Pulse Ox O2 Delivery O2 Flow Rate FiO2 05/23/17 18:00 60 18 100/61 96 Room Air 05/23/17 16:45 60 05/23/17 16:42 100 Nasal Cannula 2.0 05/23/17 15:30 60 18 107/65 100 Nasal Cannula 2.0 05/23/17 14:46 60 18 111/66 98 Nasal Cannula 2.0 05/23/17 14:06 96 Nasal Cannula 2.0 05/23/17 14:06 96 Nasal Cannula 2.0 05/23/17 13:00 60 16 84/57 96 Nasal Cannula 2.0 05/23/17 12:44 36.6 60 18 96/56 92 Room Air 05/23/17 12:42 60 General Appearance: WD/WN, no apparent distress Head: normocephalic, atraumatic Eyes: normal inspection, EOMI, sclerae normal ENT: hearing grossly normal, + pertinent finding (mucous membranes dry) Neck: supple, no JVD, trachea midline Respiratory/Chest: normal breath sounds, no respiratory distress, + decreased breath sounds (BL bases) Cardiovascular: regular rate, rhythm, no edema, normal peripheral pulses Abdomen/GI: normal bowel sounds, non tender, soft, no organomegaly Extremities/Musculoskelatal: normal inspection, no calf tenderness, normal capillary refill Neurologic/Psych: no motor/sensory deficits, alert, normal mood/affect, oriented x 3 (mild forgetfulness) Skin: normal color, warm/dry Diagnostics Laboratory Results Results Past 24 Hours Test 05/23/17 13:54 05/23/17 14:06 05/23/17 14:45 Range/Units White Blood Count 7.98 4.8-10.8 K/uL Red Blood Count 4.23 4.7-6.1 M/uL Hemoglobin 12.8 14.0-18.0 g/dL Hematocrit 39.4 42-52 % Mean Corpuscular Volume 93.1 80-100 fL Mean Corpuscular Hemoglobin 30.3 25-34 pg Mean Corpuscular Hemoglobin Concent 32.5 32-36 g/dl Platelet Count 85 130-400 K/uL Mean Platelet Volume 12.1 7.4-10.4 fL Neutrophils (%) (Auto) 84.4 % Lymphocytes (%) (Auto) 9.5 % Monocytes (%) (Auto) 5.6 % Eosinophils (%) (Auto) 0.1 % Basophils (%) (Auto) 0.3 % Neutrophils # (Auto) 6.73 1.4-6.5 K/uL Lymphocytes # (Auto) 0.76 1.2-3.4 K/uL Monocytes # (Auto) 0.45 0.11-0.59 K/uL Eosinophils # (Auto) 0.01 0-0.5 K/uL Basophils # (Auto) 0.02 0-0.2 K/uL RDW Standard Deviation 47.2 36.4-46.3 fL RDW Coefficient of Variation 13.8 11.5-14.5 % Immature Granulocyte % (Auto) 0.1 % Immature Granulocyte # (Auto) 0.01 0.00-0.02 K/uL Platelet Estimate DECREASED Prothrombin Time 22.5 9.0-12.0 SECONDS Prothromb Time International Ratio 2.2 0.9-1.1 Sodium Level 141 136-145 mmol/L Potassium Level 3.7 3.5-5.1 mmol/L Chloride Level 108 98-107 mmol/L Carbon Dioxide Level 29 21-32 mmol/L Anion Gap 4.0 19.0 16-25 mmol/L Blood Urea Nitrogen 22 7-18 mg/dl Creatinine 1.15 0.60-1.40 mg/dl Est Creatinine Clear Calc Drug Dose 56.7 ml/min Estimated GFR () 68.8 Estimated GFR (Non- 59.4 BUN/Creatinine Ratio 19.1 10-20 Random Glucose 97 70-99 mg/dl Calcium Level 8.2 8.5-10.1 mg/dl Total Bilirubin 0.9 0.2-1 mg/dl Direct Bilirubin 0.3 0-0.2 mg/dl Aspartate Amino Transf (AST/SGOT) 17 15-37 U/L Alanine Aminotransferase (ALT/SGPT) 25 12-78 U/L Alkaline Phosphatase 57 45-117 U/L Total Creatine Kinase 105 39-308 U/L Troponin I 0.121 0-0.045 ng/ml Pro-B-Type Natriuretic Peptide 3911 0-1800 pg/ml Total Protein 6.7 6.4-8.2 gm/dl Albumin 3.2 3.4-5.0 gm/dl Lipase 72 73-393 U/L Bedside Hemoglobin 13.3 14.0-18.0 g/dl Bedside Hematocrit 39 42-52 % Bedside Sodium 144 135-144 mEq/L Bedside Potassium 3.8 3.3-5.0 mEq/L Bedside Chloride 103 101-112 mEq/L Bedside Total CO2 26 24-31 mEq/l Bedside Blood Urea Nitrogen 23 7-18 mg/dl Bedside Creatinine 1.1 0.6-1.3 mg/dl Bedside Glucose (other) 99 70-99 mg/dl Bedside Ionized Calcium (Tiff) 1.14 1.12-1.32 mmol/l Influenza Type A Antigen Neg for Influ A NEG Influenza Type B Antigen Neg for Influ B NEG Diagnostic Radiology THORACIC SPINE CT IMPRESSION: 1. No acute thoracic spine fracture or subluxation. 2. Extensive anterior osteophytosis of the thoracic spine. LUMBAR SPINE CT IMPRESSION: 1. No acute lumbar spine fracture or subluxation. 2. Moderate to severe multilevel disc space narrowing and facet arthrosis of the lumbar spine. 3. Partial ankylosis of the sacroiliac joints. HEAD CT IMPRESSION: 1. No acute intracranial findings. 2. No calvarial fracture. CXR IMPRESSION: 1. Question nondisplaced right lateral ninth rib fracture. This can be assessed on the same day chest CT. 2. Stable cardiomegaly. 3. Hazy appearance the left lung base. This may represent a developing opacity. 4. No pneumothorax. CHEST CT IMPRESSION: 1. There is patchy airspace consolidation identified in the right lower lobe. This could represent atelectasis versus pneumonia/aspiration pneumonitis. Clinical correlation will be required. 2. There is no pleural effusion or pneumothorax. 3. No fracture is seen. 4. Cardiomegaly. 5. A pathologically indeterminant 7 mm right upper lobe pulmonary nodule is unchanged from 06/02/2016. This can be followed as per the Fleischner criteria if clinically warranted. 6. The skeletal structures are heterogeneously osteopenic. Tiny osteolytic foci are questioned throughout both ribs. This is nonspecific and raises concern for an entity such as multiple myeloma. Clinical and laboratory correlation will be essential. 7. Mild ectasia of the ascending thoracic aorta is unchanged. This measures up to 4.5 cm. 8. Additional findings as above. C SPINE CT IMPRESSION: 1. There is no evidence of fracture or subluxation involving the cervical spine. 2. Osteopenia and spondylotic change as above. CT ABD/PELVIS IMPRESSION: 1. No acute traumatic process identified within the abdomen or pelvis. 2. Large ventral hernia containing both large and small bowel. This is not significantly change. No bowel wall thickening or obstruction. 3. Multiple small lucent lesions seen within the ribs. This is nonspecific and could be due to osteoporosis. However, multiple myeloma could also have a similar appearance. However, there are no definite lucent lesions within the spine. Therefore, this is considered less likely. 4. Prior right hemicolectomy. Impression Assessment and Plan FALL - admit to tele - patient presenting from home after he fell down 11 stairs; in the ED, found to have RLL pneumonia and questionable 9th right rib fracture - head CT negative - will have pacer interrogated, check orthostatic BPs, check U/A - PT/OT, likely will need placement for rehab PNEUMONIA, POSSIBLE ASPIRATION - CT chest shows RLL consolidation; ? aspiration from fall - s/p Rocephin and Azithromycin in the ED; due to prolonged QT, will go forward with Unasyn - speech eval - saturating well on room air, no signs of sepsis ELEVATED TROPONIN - has chronically elevated troponin - continue to cycle, if significant rise will work up further - EKG shows paced rhythm ATRIAL FIBRILLATION - rate controlled on metoprolol, rhythm controlled on amiodarone - continue both - on Coumadin, INR 2.2 - holding for now due to falls - risk may be starting to outweigh benefit given history of falls NONISCHEMIC CARDIOMYOPATHY, S/P AICD/PACEMAKER - appears euvolemic - EF < 20% - monitor volume status closely - continue beta viviana SEIZURE DISORDER - continue Keppra HYPOTHYROIDISM - continue levothyroxine DVT PROPHYLAXIS - on Coumadin, INR 2.2 - SCDs when INR < 2.0 CODE STATUS - Patient is a DNR as per my discussion with him. DISPO - In my clinical judgment this beneficiary meets acute admission criteria, established by [facility], that includes being hospitalized through two midnights. - PT/OT, case management consults, may need short term placement at discharge Attending Physician Dr. Graham addendum I have seen and examined the patient with FISH TECHNOLOGIST Riddhi Graves and agree with the assessment and plan as above and would like to comment that this a patient s/p mechanical fall with rib injury. Major issues is his significant cardiac history on anticoagulation for which anticoagulation should be held for now while re-evaluating rib injury and fall risks. Also will continue antibiotics for right lower lobe pneumonia Advanced Directives Existing Living Will: Yes Existing Power of Hospice Clinical Supervisor: Yes VTE Prophylaxis VTE Risk Assessment Done? Y/N: Yes Risk Level: Moderate
[2017-05-23 20:00] VITALS: O2SAT 100
[2017-05-23] MEDS: AMPICILLIN/SULBACTAM SOD INJ 1,500 MG in SODIUM CHLORIDE 0.9% 100ML 100 ML IV SCH (20:00)
[2017-05-23] MEDS: LEVETIRACETAM 500 MG TAB PO SCH (20:00)
[2017-05-23] MEDS: GABAPENTIN 100 MG CAP PO SCH (20:00)
[2017-05-23 20:16] VITALS: BP 84/56; PULSE 60; TEMP 36.5; O2SAT 100
[2017-05-23 20:33] VITALS: BP 94/59; PULSE 60; O2SAT 100
[2017-05-23 22:42] VITALS: BP 89/55; PULSE 60; TEMP 37.1; O2SAT 97
[2017-05-24] VITALS (11 sets, daily range): BP systolic 72–110; BP diastolic 47–68; PULSE 59–62; TEMP 36.6–37.6; O2SAT 92–98
[2017-05-24] MEDS: AMPICILLIN/SULBACTAM SOD INJ 1,500 MG in SODIUM CHLORIDE 0.9% 100ML 100 ML IV SCH ×2 (01:00→07:25)
[2017-05-24] MEDS: LEVOTHYROXINE 125 MCG TAB PO SCH (05:24)
[2017-05-24 07:13] LABS: INR 2.1 (0.9-1.1)
[2017-05-24 07:37] LABS: CALCIUM 8.2 mg/dl (8.5-10.1); CREATININE 0.91 mg/dl (0.60-1.40); POTASSIUM 3.7 mmol/L (3.5-5.1)
[2017-05-24] MEDS: LEVETIRACETAM 500 MG TAB PO SCH ×2 (07:43→20:06)
[2017-05-24] MEDS: CHOLECALCIFEROL 1000 INTER.UNIT TAB PO SCH (07:44)
[2017-05-24] MEDS: GABAPENTIN 100 MG CAP PO SCH ×3 (07:44→20:06)
[2017-05-24] MEDS: ATORVASTATIN 20 MG TAB PO SCH (07:44)
[2017-05-24] MEDS: CITALOPRAM 20 MG TAB PO SCH (07:44)
[2017-05-24] MEDS: ASPIRIN 81 MG ECTAB PO SCH (07:45)
[2017-05-24 07:50] LABS: HEMATOCRIT 37.8 % (42-52); HEMOGLOBIN 12.2 g/dL (14.0-18.0); MEAN CELL VOLUME 92.9 fL (80-100); MEAN CORPUSCULAR HGB CONC 32.3 g/dl (32-36); MEAN PLATELET VOLUME 13.1 fL (7.4-10.4); PLATELET COUNT 94 K/uL (130-400); RED CELL DISTRIBUTION WIDTH CV 14.1 % (11.5-14.5); RED CELL DISTRIBUTION WIDTH SD 47.8 fL (36.4-46.3); WHITE BLOOD COUNT 6.65 K/uL (4.8-10.8)
[2017-05-24] MEDS: AMIODARONE 200 MG TAB PO SCH (08:19)
[2017-05-24] MEDS ORDERED: AZITHROMYCIN 250 MG TAB PO SCH (09:00)
[2017-05-24] MEDS: METOPROLOL SUCC 25MG EXT REL TAB PO SCH (09:00)
[2017-05-24] MEDS ORDERED: POLYETHYLENE (MIRALAX) 17 GM PACK PO PRN (09:15)
[2017-05-24] MEDS ORDERED: POLYETHYLENE (MIRALAX) 17 GM PACK PO ONE (09:15)
[2017-05-24] MEDS ORDERED: DOXYCYCLINE IV 100 MG in DEXTROSE 5% 100ML 100 ML IV SCH (10:00)
[2017-05-24] MEDS ORDERED: SODIUM CHLORIDE 0.9% 1000ML 1,000 ML IV SCH (10:00)
[2017-05-24] MEDS ORDERED: LEVOFLOXACIN / D5W 750 MG in PREMIXED IN D5W 150 ML IV SCH (11:30)
[2017-05-24] MEDS ORDERED: PIPERACILL/TAZOBAC CONSULT ACTIVE PRN (11:30)
[2017-05-24] MEDS ORDERED: PIPERACILL/TAZOBAC IV 4.5 GM in DEXTROSE 5% 100ML 100 ML IV SCH (11:30)
[2017-05-24] MEDS ORDERED: LEVOFLOXACIN CONSULT ACTIVE PRN (12:00)
[2017-05-24] MEDS ORDERED: PIPERACILL/TAZOBAC IV 4.5 GM in DEXTROSE 5% 100ML IV ONE (12:15)
[2017-05-24] MEDS: SODIUM CHLORIDE 0.9% 1000ML 1,000 ML IV SCH (14:20)
[2017-05-24] MEDS ORDERED: CEFTRIAXONE SOD INJ 1 GM in DEXTROSE 5% ADD-VANTAGE 50ML 50 ML IV SCH (16:45)
--- NOTE | 2017-05-24 17:28 | DIAGNOSTIC IMAGING REPORT ---
LEFT KNEE 3 VIEWS CLINICAL HISTORY: Left knee pain. FINDINGS: AP, crosstable lateral, and sunrise views of the left knee are obtained. No prior studies are available for comparison at the time of dictation. The skeletal structures are osteopenic. No fracture is seen. A left knee arthroplasty is in near-anatomic alignment. No periprosthetic lucency is identified. There has been undersurface remodeling of the patella. A joint effusion is identified. Soft tissue edema is present around the knee. An osteochondroma versus bony overgrowth is seen along the posterior aspect of the distal femoral shaft. There is atherosclerotic calcification of the popliteal artery. IMPRESSION: 1. Soft tissue swelling and joint effusion. No acute bony abnormality is identified in the left knee. 2. Osteopenia and left knee arthroplasty as above. Electronically signed by: Hayden Obrien M.D. 05/24/2017 5:27 PM Dictated Date/Time: 05/24/2017 5:26 PM
--- NOTE | 2017-05-24 17:30 | DIAGNOSTIC IMAGING REPORT ---
R KNEE 3 VIEWS CLINICAL HISTORY: rt knee pain COMPARISON: None. DISCUSSION: There are postsurgical changes of a total right knee arthroplasty and patellar resurfacing. There is a 13 mm corticated bony fragment adjacent to the inferior patellar pole. This is likely old. No acute fractures are visualized. IMPRESSION: 1. Postsurgical changes of a total right knee arthroplasty 2. No acute fractures 3. 13 mm corticated bony fragment adjacent the inferior patellar pole, likely old Electronically signed by: Javi Wang M.D. 05/24/2017 5:29 PM Dictated Date/Time: 05/24/2017 5:25 PM
--- NOTE | 2017-05-24 17:31 | DIAGNOSTIC IMAGING REPORT ---
SINGLE VIEW PELVIS; 2 VIEWS RIGHT HIP; 2 VIEWS LEFT HIP CLINICAL HISTORY: Fall. Hip pain. FINDINGS: An AP view of the pelvis with AP and frog-leg views of the right hip as well as AP and frog-leg views of the left hip are correlated with pelvic CT dated 05/23/2017. The skeletal structures are osteopenic. There is no radiographic evidence of fracture involving the hips or bony pelvis. Moderate arthritic change and joint space narrowing is seen in both hips. There is sclerotic change and partial fusion of the sacroiliac joints. Advanced lumbosacral spondylosis is partially imaged. Large enthesophytes arise from the anterior superior iliac spine bilaterally. The overlying soft tissues are normal in appearance. Atherosclerotic calcification is observed in the femoral arteries. There is no evidence of bowel obstruction. Phleboliths are present in the pelvis and scrotum. IMPRESSION: 1. There is no radiographic evidence of fracture involving the hips or bony pelvis. 2. Osteopenia and arthritic change as above. Electronically signed by: Hayden Obrien M.D. 05/24/2017 5:30 PM Dictated Date/Time: 05/24/2017 5:28 PM
--- NOTE | 2017-05-24 17:58 | Progress Note ---
Internal Med Progress Note Date of Service: May 24, 2017. Provider Documentation: SUBJECTIVE: sitting on the chair comfortably says his BP always run low in 80's denies chest pain or sob has cough afebrile no nausea or abdominal pain OBJECTIVE: Vital Signs-as noted below Exam: General-alert and oriented. Not in distress ENT-Normal hearing Neck-no neck masses Lungs-cta b/l no wheezing or crackles Heart-S1 and S2 heard regular rate and rhythm, no murmurs Abdomen-soft bowel sounds present no tenderness no distension Extremities-no edema no erythema Neuro-alert and awake moves extremities Lab data as noted below. ASSESSMENT & PLAN: FALL monitor in tele patient presenting from home after he fell down 11 stairs; in the ED, found to have RLL pneumonia and questionable 9th right rib fracture head CT negative pacer interrogation, will check orthostatic BPs, check U/A PT/OT, likely will need placement for rehab PNEUMONIA, POSSIBLE ASPIRATION Sepsis? BP low and lactic acid 2.5 CT chest shows RLL consolidation; ? aspiration from fall currently on v Zosyn and doxycycline speech evaluation received fluids repeat lactic acid 1.1 close monitor Hypotension sepsis? says chronically low toprol xl held ALDACTONE HELD currently on gentle fluids will monitor f/u echo ELEVATED TROPONIN has chronically elevated troponin EKG shows paced rhythm asymptomatic f/u echo. ATRIAL FIBRILLATION on amiodarone Toprol xl hel;d for hypotension on Coumadin, INR 2.2 - holding for now due to falls will monitor NONISCHEMIC CARDIOMYOPATHY, S/P AICD/PACEMAKER appears euvolemic EF < 20% on gentle fluids and diuretics on hold will monitor closely for volume overload consulted cardiology for hypotension QT prolongation on amiodarone avoid qt prolonging drugs f/u ekg SEIZURE DISORDER on Keppra HYPOTHYROIDISM on levothyroxine Urinary retention Larsen Flomax f/u with urology DVT PROPHYLAXIS on Coumadin, INR 2.1 CODE STATUS Patient is a DNR as per H and P DISPO close monitor in tele pt/ot when stable social service for d/c planning Vital Signs: Date Time Temp Pulse Resp B/P (MAP) Pulse Ox O2 Delivery O2 Flow Rate FiO2 05/24/17 16:00 Room Air 05/24/17 15:33 37.2 59 16 87/56 (66) 95 Room Air 90/55 (67) 72/59 (63) 05/24/17 15:14 105/63 (77) 05/24/17 14:48 94/56 (69) 05/24/17 14:26 60 84/47 (59) 05/24/17 12:20 37.4 60 16 110/66 (81) 98 Room Air 05/24/17 12:00 Room Air 05/24/17 08:00 Room Air 05/24/17 07:54 36.8 60 20 89/54 (66) 92 Room Air 05/24/17 04:00 Room Air 05/24/17 03:52 37.5 60 17 88/55 (66) 92 Room Air 05/24/17 00:38 60 98/52 (67) 05/24/17 00:34 62 94/58 (70) 05/24/17 00:34 60 90/68 (75) 05/23/17 23:59 Room Air 05/23/17 22:42 37.1 60 18 89/55 (66) 97 Room Air 05/23/17 20:33 60 94/59 (71) 100 Nasal Cannula 2.0 05/23/17 20:16 36.5 60 21 84/56 (65) 100 Nasal Cannula 2.0 05/23/17 20:00 100 Room Air 05/23/17 18:50 36.7 60 22 100/62 (75) 97 Nasal Cannula 2.0 05/23/17 18:00 60 18 100/61 96 Room Air Lab Results: Results Past 24 Hours Test 05/23/17 19:27 05/24/17 00:54 05/24/17 01:20 05/24/17 06:37 Range/Units Troponin I 0.117 0.151 0-0.045 ng/ml Urine Color DK YELLOW Urine Appearance CLEAR CLEAR Urine pH 5.0 4.5-7.5 Urine Specific [place] 1.042 1.000-1.030 Urine Protein NEG NEG Urine Glucose (UA) NEG NEG Urine Ketones NEG NEG Urine Occult Blood TRACE NEG Urine Nitrite NEG NEG Urine Bilirubin NEG NEG Urine Urobilinogen NEG NEG Urine Leukocyte Esterase NEG NEG Urine WBC (Auto) 1-5 0-5 /hpf Urine RBC (Auto) 5-10 0-4 /hpf Urine Hyaline Casts (Auto) 0 0-5 /lpf Urine Epithelial Cells (Auto) 0-5 0-5 /lpf Urine Bacteria (Auto) NEG NEG Urine Yeast (Auto) . NONE PRSENT White Blood Count 6.65 4.8-10.8 K/uL Red Blood Count 4.07 4.7-6.1 M/uL Hemoglobin 12.2 14.0-18.0 g/dL Hematocrit 37.8 42-52 % Mean Corpuscular Volume 92.9 80-100 fL Mean Corpuscular Hemoglobin 30.0 25-34 pg Mean Corpuscular Hemoglobin Concent 32.3 32-36 g/dl RDW Standard Deviation 47.8 36.4-46.3 fL RDW Coefficient of Variation 14.1 11.5-14.5 % Platelet Count 94 130-400 K/uL Mean Platelet Volume 13.1 7.4-10.4 fL Prothrombin Time 21.5 9.0-12.0 SECONDS Prothromb Time International Ratio 2.1 0.9-1.1 Sodium Level 139 136-145 mmol/L Potassium Level 3.7 3.5-5.1 mmol/L Chloride Level 106 98-107 mmol/L Carbon Dioxide Level 26 21-32 mmol/L Anion Gap 7.0 3-11 mmol/L Blood Urea Nitrogen 20 7-18 mg/dl Creatinine 0.91 0.60-1.40 mg/dl Est Creatinine Clear Calc Drug Dose 65.7 ml/min Estimated GFR () 91.3 Estimated GFR (Non- 78.8 BUN/Creatinine Ratio 22.2 10-20 Random Glucose 83 70-99 mg/dl Calcium Level 8.2 8.5-10.1 mg/dl Test 05/24/17 10:23 05/24/17 16:03 Range/Units Lactic Acid Level 2.5 1.1 0.4-2.0 mmol/L Microbiology Results 05/24/17 Blood Culture, Received Pending 05/24/17 Blood Culture, Received Pending 05/24/17 MRSA DNA Surveillance Screen - Final, Complete Specimen Negative for MRSA by DNA Probe 05/24/17 Urine Culture, Received Pending
[2017-05-24] MEDS: PIPERACILL/TAZOBAC IV 3.375 GM in DEXTROSE 5% 100ML IV SCH (18:18)
[2017-05-24] MEDS: TAMSULOSIN HCL 0.4 MG CAP PO SCH (20:06)
[2017-05-24] MEDS: DOXYCYCLINE IV 100 MG in DEXTROSE 5% 100ML 100 ML IV SCH (20:07)
[2017-05-25] MEDS: SODIUM CHLORIDE 0.9% 1000ML 1,000 ML IV SCH (01:23)
[2017-05-25] MEDS: PIPERACILL/TAZOBAC IV 3.375 GM in DEXTROSE 5% 100ML IV SCH ×4 (01:23→20:59)
[2017-05-25 01:30] VITALS: TEMP 37.3
[2017-05-25 03:45] VITALS: BP 103/56; PULSE 31; PULSE 61; TEMP 37.1; O2SAT 92
[2017-05-25] MEDS: LEVOTHYROXINE 125 MCG TAB PO SCH (05:28)
[2017-05-25 07:34] VITALS: BP 112/62; PULSE 60; TEMP 36.6; O2SAT 94
[2017-05-25 09:17] LABS: HEMOGLOBIN 11.6 g/dL (14.0-18.0); MEAN CELL VOLUME 93.3 fL (80-100); MEAN CORPUSCULAR HEMOGLOBIN 30.1 pg (25-34); MEAN CORPUSCULAR HGB CONC 32.2 g/dl (32-36); MEAN PLATELET VOLUME 12.6 fL (7.4-10.4); PLATELET COUNT 83 K/uL (130-400); RED CELL DISTRIBUTION WIDTH CV 14.1 % (11.5-14.5); RED CELL DISTRIBUTION WIDTH SD 47.8 fL (36.4-46.3); WHITE BLOOD COUNT 4.98 K/uL (4.8-10.8)
[2017-05-25] MEDS: ATORVASTATIN 20 MG TAB PO SCH (09:24)
[2017-05-25] MEDS: CHOLECALCIFEROL 1000 INTER.UNIT TAB PO SCH (09:24)
[2017-05-25] MEDS: AMIODARONE 200 MG TAB PO SCH (09:24)
[2017-05-25] MEDS: CITALOPRAM 20 MG TAB PO SCH (09:24)
[2017-05-25] MEDS: ASPIRIN 81 MG ECTAB PO SCH (09:24)
[2017-05-25] MEDS: METOPROLOL SUCC 25MG EXT REL TAB PO SCH (09:25)
[2017-05-25] MEDS: GABAPENTIN 100 MG CAP PO SCH ×3 (09:25→20:35)
[2017-05-25] MEDS: LEVETIRACETAM 500 MG TAB PO SCH ×2 (09:25→20:36)
[2017-05-25 09:27] LABS: BASO % 0.4 %; BASO ABS # 0.02 K/uL (0-0.2); EOS % 1.2 %; EOS ABS # 0.06 K/uL (0-0.5); IG# 0.01 K/uL (0.00-0.02); LYMPH % 19.7 %; LYMPH ABS # 0.98 K/uL (1.2-3.4); MONO % 6.2 %; MONO ABS # 0.31 K/uL (0.11-0.59); NEUT % 72.3 %
[2017-05-25 09:29] LABS: CALCIUM 8.1 mg/dl (8.5-10.1); CREATININE 1.14 mg/dl (0.60-1.40); POTASSIUM 3.6 mmol/L (3.5-5.1)
[2017-05-25] MEDS: DOXYCYCLINE IV 100 MG in DEXTROSE 5% 100ML 100 ML IV SCH ×2 (09:32→20:34)
[2017-05-25 11:21] VITALS: BP 97/61; PULSE 60; TEMP 36.8; O2SAT 96
--- NOTE | 2017-05-25 12:36 | Clinical Documentation Query ---
SUSHIL Schuster : Please Document Present on Admission Status for - Possible Sepsis due to aspiration pneumonia. Patient admitted for evaluation of ?aspiration pneumonia in the setting of a fall. Hospital day #2, lactic acid drawn and noted to be elevated. BP noted to be low. Question of sepsis arose. As appropriate, please provide clinical opinion as to whether or not sepsis was POA. Thank you. ( ) Possible Sepsis due to aspiration pneumonia, POA ( ) Possible Sepsis due to aspiration pneumonia, not POA Thank You, Dov San, SHIRAZ [phone]
--- NOTE | 2017-05-25 15:26 | Cardiology Consultation ---
Cardiology Consultation Date of Service May 25, 2017. Cardiology Consultation History: This is an 82-year-old male patient who follows with Dr. Barajas and Criselda Nicholas through the [facility] cardiology clinic. He has a complex past medical history including previous AVR and MVR. He lives with his mom who is in her mid 90s. They have a supervisor salvage who was not able to calm the day of admission. The patient went up stairs to check on his mom. When he reached the top of the stairs he fell backwards and rolled down. He sustained multiple abrasions and contusions. But fortunately had no major trauma. He has no current cardiac complaints. Allergies: No known medical allergies Reported Home Medications Medications Dose Route/Sig Max Daily Dose Days Date Category ven (Warfarin Sodium) 3 Mg Tab 3 Mg PO DAILY 05/23/17 Reported Amiodarone HCl 200 Mg Tab 200 Mg PO DAILY 14 05/23/17 Rx Aspirin EC Low Dose (Aspirin) 81 Mg Ectab 81 Mg PO QAM 30 06/10/16 Rx Spironolactone 25 Mg Tab 12.5 Mg PO QAM 30 06/10/16 Rx Vitamin D3 (Cholecalciferol) 1,000 Unit Tab 1 Tab PO DAILY 06/02/16 Reported Levetiracetam (Levetiractam) 500 Mg Tab 500 Mg PO Q12 06/02/16 Reported Gabapentin 100 Mg Cap 100 Mg PO TID 06/02/16 Reported Citalopram Hydrobromide (Citalopram) 20 Mg Tab 20 Mg PO DAILY 06/02/16 Reported Desyrel (Trazodone Hcl) 50 Mg Tab 50 Mg PO HS 06/02/16 Reported Metoprolol Succinate ER (Metoprolol Succinate) 25 Mg Tabcr 12.5 Mg PO DAILY 06/02/16 Reported Lipitor (Atorvastatin Calcium) 20 Mg Tab 20 Mg PO DAILY 03/12/14 Reported Levothyroxine Sodium 125 Mcg Tab 125 Mcg PO DAILY 03/12/14 Reported Past medical history: As outlined in the history of chief complaint the patient has a history of valvular heart disease and has undergone aortic valve as well as mitral valve replacement in 2013. He received bioprosthetic valves in both positions. He has a history of atrial fibrillation with previous cardioversions. It is noted that he did sustain a fall in November 2015 at which time he had a subdural hematoma. He is status post biventricular pacemaker/ICD which was placed in 2016 and is a Affectv. Prior to his valvular surgery he did undergo cardiac catheterization that showed widely patent coronary anatomy. He does have a nonischemic cardiomyopathy with severe LV dysfunction. Social history: The patient lives independently with his mother. He is currently a nonsmoker. Family medical history: Noncontributory General: The patient denies weight change, night sweats, fever, chills. Head: The patient denies headache. Cardiovascular: The patient denies chest pain or chest discomfort, dyspnea on exertion, palpitations, PND, orthopnea, edema, spontaneous shortness of breath, syncope and near syncope. Pulmonary: The patient denies cough, wheeze, pleurisy, hemoptysis, sputum, and excessive snoring. Gastrointestinal: The patient denies nausea, vomiting, diarrhea, constipation, bloating, hematemesis, hematochezia, and abdominal pain. Skin: The patient denies diaphoresis and rash. Musculoskeletal: The patient denies joint pain, joint swelling, myalgia, back pain, neck pain and prior injuries. Neurological: The patient denies prior stroke and seizures Vital Signs Past 12 Hours Date Time Temp Pulse Resp B/P (MAP) Pulse Ox O2 Delivery O2 Flow Rate FiO2 05/25/17 12:02 Room Air 05/25/17 11:21 36.8 60 18 97/61 (73) 96 Room Air 05/25/17 08:00 Room Air 05/25/17 07:34 36.6 60 18 112/62 (79) 94 Room Air 05/25/17 04:00 Room Air 05/25/17 03:45 37.1 61 18 103/56 (72) 92 Room Air General Appearance: Alert and Oriented x3. NAD. Head: Normocephalic abrasions across the forehead. Eyes: PERRLA, EOMI, conjunctiva and sclera clear Neck: Supple. No carotid bruits noted. No JVD. No HJD. Respiratory: Breath sounds clear to auscultation bilaterally. No w/r/r. Cardiovascular: Irregular rate and rhythm. S1 and S2 noted. No murmurs, rubs, gallops. PMI non displace. Abdomen: Normal bowel sounds, soft nontender. no abdominal bruits. Extremities: No edema, no clubbing or cyanosis. distal pulses 2/4 bilaterally. Abrasions bilateral knees Neuro: No focal deficits. Psychiatric: Normal affect. Last 24 Hours Test 05/24/17 16:03 05/25/17 08:46 Lactic Acid Level 1.1 mmol/L White Blood Count 4.98 K/uL Red Blood Count 3.86 M/uL Hemoglobin 11.6 g/dL Hematocrit 36.0 % Mean Corpuscular Volume 93.3 fL Mean Corpuscular Hemoglobin 30.1 pg Mean Corpuscular Hemoglobin Concent 32.2 g/dl Platelet Count 83 K/uL Mean Platelet Volume 12.6 fL Neutrophils (%) (Auto) 72.3 % Lymphocytes (%) (Auto) 19.7 % Monocytes (%) (Auto) 6.2 % Eosinophils (%) (Auto) 1.2 % Basophils (%) (Auto) 0.4 % Neutrophils # (Auto) 3.60 K/uL Lymphocytes # (Auto) 0.98 K/uL Monocytes # (Auto) 0.31 K/uL Eosinophils # (Auto) 0.06 K/uL Basophils # (Auto) 0.02 K/uL RDW Standard Deviation 47.8 fL RDW Coefficient of Variation 14.1 % Immature Granulocyte % (Auto) 0.2 % Immature Granulocyte # (Auto) 0.01 K/uL Giant Platelets 1+ Sodium Level 139 mmol/L Potassium Level 3.6 mmol/L Chloride Level 105 mmol/L Carbon Dioxide Level 27 mmol/L Anion Gap 6.0 mmol/L Blood Urea Nitrogen 15 mg/dl Creatinine 1.14 mg/dl Est Creatinine Clear Calc Drug Dose 52.5 ml/min Estimated GFR () 69.5 Estimated GFR (Non- 60.0 BUN/Creatinine Ratio 13.3 Random Glucose 135 mg/dl Calcium Level 8.1 mg/dl Magnesium Level 1.9 mg/dl Impression: 1. Mechanical fall down a flight of stairs 2. Multiple abrasions and contusions 3. Previous AVR and MVR with bioprosthesis 4. Previous fall with subdural hemorrhage 5. Atrial fibrillation 6. Biventricular pacemaker ICD 7. Nonischemic cardiomyopathy Recommendations: The patient is at risk for bleeding due to history of multiple falls however, he is also at higher risk due to history of atrial fibrillation and previous mitral valve replacement. He did have a left atrial appendage ligation at the time of his surgery which reduces his risk. In the past the family and the patient has wanted to continue the Coumadin despite the bleeding risk in order to prevent a stroke. Currently he is not taking the Coumadin. If there is no plan for any surgeries or procedures then I would restart his Coumadin at his usual dose. His current INR is 2.1 today.
--- NOTE | 2017-05-25 15:28 | CONSULTATION REPORT ---
DATE OF CONSULTATION: 05/25/2017 HISTORY OF PRESENT ILLNESS: The patient is an 82-year-old white male who had fallen down some steps. He currently has a pacemaker and had multiple abrasions was admitted to the hospital for syncopal episode. He had a left total knee arthroplasty performed 20 years ago in [place], [facility] he had been doing well with his total knee until having a fall and that had swelling in his knees. Clinical examination reveals an abrasion approximately 2 x 2 cm over the anterior aspect of his knee and clinically he does have medial and lateral ligament laxity which appears to be consistent with poly wear from a 20-year-old total knee arthroplasty. X-rays revealed there to be no evidence of loosened tibial or femoral implant, the patellar component appears to be intact. No evidence of fracture or evulsion is noted. 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 I would recommend mobilizing with mcl hinge brace able to tolerate I do not see anything acute in nature and I would not aspirate this at this time. ASSESSMENT AND PLAN: Posttraumatic hemarthrosis, left knee, mild to moderate hemarthrosis MCL hinge brace, ambulate as tolerated. We will follow with you. SILVANA
[2017-05-25 16:33] VITALS: BP 103/60; PULSE 60; TEMP 36.9; O2SAT 96
--- NOTE | 2017-05-25 17:49 | Progress Note ---
Internal Med Progress Note Date of Service: May 25, 2017. Provider Documentation: SUBJECTIVE: resting comfortably BP better today feeling better but still weak coughing lot no sob or chest pain OBJECTIVE: Vital Signs-as noted below Exam: General-alert and oriented. Not in distress ENT-Normal hearing Neck-no neck masses Lungs-cta b/l no wheezing or crackles Heart-S1 and S2 heard regular rate and rhythm, no murmurs Abdomen-soft bowel sounds present no tenderness no distension Extremities-no edema no erythema Neuro-alert and awake moves extremities Lab data as noted below. ASSESSMENT & PLAN: FALL monitor in tele patient presenting from home after he fell down 11 stairs; in the ED, found to have RLL pneumonia and questionable 9th right rib fracture head CT negative pacer interrogation, will check orthostatic BPs, check U/A PT/OT, likely will need placement for rehab Daughter wants patient to go to rehab PNEUMONIA, POSSIBLE ASPIRATION Sepsis? BP low and lactic acid 2.5 CT chest shows RLL consolidation; ? aspiration from fall currently on v Zosyn and doxycycline speech evaluation received fluids repeat lactic acid 1.1 BP improved. will stop fluids will monitor Hypotension sepsis? says chronically low toprol xl held ALDACTONE HELD currently on gentle fluids improved will stop fluids ELEVATED TROPONIN has chronically elevated troponin EKG shows paced rhythm asymptomatic f/u echo. ATRIAL FIBRILLATION on amiodarone Toprol xl hel;d for hypotension on Coumadin, INR 2.2 - holding for now due to falls cardiology ok to restart Coumadin NONISCHEMIC CARDIOMYOPATHY, S/P AICD/PACEMAKER appears euvolemic EF < 20% on gentle fluids and diuretics on hold will monitor closely for volume overload consulted cardiology appreciate inputs QT prolongation on amiodarone avoid qt prolonging drugs f/u ekg SEIZURE DISORDER on Keppra HYPOTHYROIDISM on levothyroxine Urinary retention Larsen Flomax f/u with urology DVT PROPHYLAXIS on Coumadin, INR 2.1 CODE STATUS Patient is a DNR as per H and P DISPO close monitor in tele pt/ot when stable social service for d/c planning Vital Signs: Date Time Temp Pulse Resp B/P (MAP) Pulse Ox O2 Delivery O2 Flow Rate FiO2 05/25/17 16:33 36.9 60 16 103/60 (74) 96 Room Air 05/25/17 16:00 Room Air 05/25/17 12:02 Room Air 05/25/17 11:21 36.8 60 18 97/61 (73) 96 Room Air 05/25/17 08:00 Room Air 05/25/17 07:34 36.6 60 18 112/62 (79) 94 Room Air 05/25/17 04:00 Room Air 05/25/17 03:45 37.1 61 18 103/56 (72) 92 Room Air 05/25/17 01:30 37.3 05/25/17 00:18 Room Air 05/24/17 23:50 37.6 60 19 97/64 (75) 93 Room Air 60 99/60 (73) 61 87/52 (64) 05/24/17 20:17 36.6 59 18 92/49 (63) 98 Room Air 05/24/17 20:00 Room Air Lab Results: Results Past 24 Hours Test 05/25/17 08:46 Range/Units White Blood Count 4.98 4.8-10.8 K/uL Red Blood Count 3.86 4.7-6.1 M/uL Hemoglobin 11.6 14.0-18.0 g/dL Hematocrit 36.0 42-52 % Mean Corpuscular Volume 93.3 80-100 fL Mean Corpuscular Hemoglobin 30.1 25-34 pg Mean Corpuscular Hemoglobin Concent 32.2 32-36 g/dl Platelet Count 83 130-400 K/uL Mean Platelet Volume 12.6 7.4-10.4 fL Neutrophils (%) (Auto) 72.3 % Lymphocytes (%) (Auto) 19.7 % Monocytes (%) (Auto) 6.2 % Eosinophils (%) (Auto) 1.2 % Basophils (%) (Auto) 0.4 % Neutrophils # (Auto) 3.60 1.4-6.5 K/uL Lymphocytes # (Auto) 0.98 1.2-3.4 K/uL Monocytes # (Auto) 0.31 0.11-0.59 K/uL Eosinophils # (Auto) 0.06 0-0.5 K/uL Basophils # (Auto) 0.02 0-0.2 K/uL RDW Standard Deviation 47.8 36.4-46.3 fL RDW Coefficient of Variation 14.1 11.5-14.5 % Immature Granulocyte % (Auto) 0.2 % Immature Granulocyte # (Auto) 0.01 0.00-0.02 K/uL Giant Platelets 1+ Sodium Level 139 136-145 mmol/L Potassium Level 3.6 3.5-5.1 mmol/L Chloride Level 105 98-107 mmol/L Carbon Dioxide Level 27 21-32 mmol/L Anion Gap 6.0 3-11 mmol/L Blood Urea Nitrogen 15 7-18 mg/dl Creatinine 1.14 0.60-1.40 mg/dl Est Creatinine Clear Calc Drug Dose 52.5 ml/min Estimated GFR () 69.5 Estimated GFR (Non- 60.0 BUN/Creatinine Ratio 13.3 10-20 Random Glucose 135 70-99 mg/dl Calcium Level 8.1 8.5-10.1 mg/dl Magnesium Level 1.9 1.8-2.4 mg/dl
[2017-05-25] MEDS ORDERED: WARFARIN SOD 3 MG TAB PO ONE (18:00)
--- NOTE | 2017-05-25 18:51 | ECHOCARDIOGRAM REPORT ---
*NOTICE TO RECEIVING DEMOCRAT AGENCY This information is strictly Confidential and protected under [place] law. [place] law prohibits you from making any further disclosure of this information unless further disclosure is expressly permitted by the written consent of the person to whom it pertains or is authorized by law. A general authorization for the release of medical or other information is not sufficient for this purpose. Hospital accepts no responsibility if the information is made available to any other person, INCLUDING THE PATIENT. Interpretation Summary * Name: KRISHNA CHOWDHURY Study Date: 05/25/2017 06:33 AM BP: 103/56 mmHg * Patient Location: C.2E\S\E211\S\1 HR: 60 * : 1935 (M/d/yyyy) Gender: Male Height: 70 in * Age: 82 yrs Ethnicity: CA Weight: 192 lb * Ordering Physician: Isma Rodgers * Referring Physician: Self, Referred * Performed By: Nenita Melgar RCS * * Reason For Study: CHF / ELEVATED TROPONIN / HYPOTENSION * BSA: 2.1 m2 * -- Conclusions -- * There is a bioprosthetic aortic valve. * There is a bioprosthetic mitral valve. * The left ventricle is moderately dilated. * Left ventricular systolic function is severely reduced. * Ejection Fraction = 20-25%. * The right ventricular systolic function is normal. * The left atrium is mildly dilated. Procedure Details * A complete two-dimensional transthoracic echocardiogram was performed (2D, M-mode, Doppler and color flow Doppler). Left Ventricle * The left ventricle is moderately dilated. * There is global thinning of the left ventricular tian. * Ejection Fraction = 20-25%. * Left ventricular systolic function is severely reduced. Right Ventricle * There is a pacemaker lead in the right ventricle. * The right ventricle is normal size. * The right ventricular systolic function is normal. Atria * The left atrium is mildly dilated. * Right atrial size is normal. * The interatrial septum is intact with no evidence for an atrial septal defect. Mitral Valve * No significant mitral valve stenosis. * Significant mitral regurgitation is absent. * There is a bioprosthetic mitral valve. * Bioprosthesis leaflets are not well visualized. Aortic Valve * No hemodynamically significant valvular aortic stenosis. * There is no significant aortic regurgitation. * Bioprosthetic leaflets are not well visualized. * There is a bioprosthetic aortic valve. Pulmonic Valve * The pulmonic valve is not well visualized. * Mild pulmonic valvular regurgitation. Great Vessels * The aortic root and proximal ascending aorta are normal sized. Pericardium/Pleural * There is no pericardial effusion. MMode 2D Measurements and Calculations IVSd 1.6 cm IVSs 1.8 cm LVIDd 5.2 cm LVIDs 4.8 cm LVPWd 1.6 cm LVPWs 1.7 cm IVS/LVPW 1.0 FS 8.9 % EDV(Teich) 131.7 ml ESV(Teich) 106.1 ml EF(Teich) 19.4 % EDV(cubed) 143.6 ml ESV(cubed) 108.8 ml EF(cubed) 24.3 % % IVS thick 13.3 % % LVPW thick 8.8 % LV mass(C)d 366.9 grams LV mass(C)dI 178.8 grams/m\S\2 LV mass(C)s 375.7 grams LV mass(C)sI 183.1 grams/m\S\2 SV(Teich) 25.5 ml SI(Teich) 12.4 ml/m\S\2 SV(cubed) 34.9 ml SI(cubed) 17.0 ml/m\S\2 Ao root diam 3.9 cm Ao root area 12.2 cm\S\2 ACS 1.8 cm LA dimension 4.3 cm LA/Ao 1.1 LVOT diam 2.2 cm LVOT area 3.9 cm\S\2 LVAd ap4 50.8 cm\S\2 LVLd ap4 9.9 cm EDV(MOD-sp4) 217.8 ml EDV(sp4-el) 220.8 ml LVAs ap4 42.5 cm\S\2 LVLs ap4 9.0 cm ESV(MOD-sp4) 163.4 ml ESV(sp4-el) 170.4 ml EF(MOD-sp4) 25.0 % EF(sp4-el) 22.8 % LVAd ap2 47.8 cm\S\2 LVLd ap2 9.1 cm EDV(MOD-sp2) 204.2 ml EDV(sp2-el) 213.7 ml LVAs ap2 36.6 cm\S\2 LVLs ap2 8.3 cm ESV(MOD-sp2) 131.4 ml ESV(sp2-el) 136.6 ml EF(MOD-sp2) 35.7 % EF(sp2-el) 36.1 % LVLd %diff -90 % EDV(MOD-bp) 210.0 ml LVLs %diff -7.94 % ESV(MOD-bp) 153.0 ml EF(MOD-bp) 27.2 % SV(MOD-sp4) 54.4 ml SI(MOD-sp4) 26.5 ml/m\S\2 SV(MOD-sp2) 72.9 ml SI(MOD-sp2) 35.5 ml/m\S\2 SV(MOD-bp) 57.0 ml SI(MOD-bp) 27.8 ml/m\S\2 SV(sp4-el) 50.4 ml SI(sp4-el) 24.6 ml/m\S\2 SV(sp2-el) 77.1 ml SI(sp2-el) 37.6 ml/m\S\2 Doppler Measurements and Calculations MV E max patricia 116.3 cm/sec MV P1/2t max patricia 171.8 cm/sec MV P1/2t 120.2 msec MVA(P1/2t) 1.8 cm\S\2 MV dec slope 418.9 cm/sec\S\2 MV dec time 0.50 sec Ao V2 max 237.6 cm/sec Ao max PG 22.9 mmHg Ao max PG (full) 21.2 mmHg MOODY(V,A) 1.1 cm\S\2 MOODY(V,D) 1.1 cm\S\2 LV V1 max PG 1.7 mmHg LV V1 max 64.3 cm/sec PA V2 max 98.9 cm/sec PA max PG 3.9 mmHg PI max patricia 221.3 cm/sec PI max PG 19.6 mmHg PI dec slope 223.3 cm/sec\S\2 PI P1/2t 290.3 msec TR max patricia 234.4 cm/sec
[2017-05-25] MEDS: TAMSULOSIN HCL 0.4 MG CAP PO SCH (20:34)
[2017-05-25 20:55] VITALS: BP 111/62; PULSE 60; TEMP 37.7; O2SAT 96
[2017-05-26] VITALS (14 sets, daily range): BP systolic 73–112; BP diastolic 52–70; PULSE 60–73; TEMP 36.3–38.1; O2SAT 91–100
[2017-05-26 06:08] LABS: HEMATOCRIT 36.2 % (42-52); HEMOGLOBIN 11.8 g/dL (14.0-18.0); MEAN CELL VOLUME 92.1 fL (80-100); MEAN CORPUSCULAR HGB CONC 32.6 g/dl (32-36); MEAN PLATELET VOLUME 12.3 fL (7.4-10.4); PLATELET COUNT 91 K/uL (130-400); RED CELL DISTRIBUTION WIDTH SD 47.3 fL (36.4-46.3); WHITE BLOOD COUNT 4.54 K/uL (4.8-10.8)
[2017-05-26 06:09] LABS: BASO % 0.2 %; BASO ABS # 0.01 K/uL (0-0.2); EOS % 1.5 %; EOS ABS # 0.07 K/uL (0-0.5); IG# 0.01 K/uL (0.00-0.02); LYMPH % 27.8 %; LYMPH ABS # 1.26 K/uL (1.2-3.4); MONO % 7.9 %; MONO ABS # 0.36 K/uL (0.11-0.59); NEUT % 62.4 %; NEUT ABS # 2.83 K/uL (1.4-6.5)
[2017-05-26] MEDS: LEVOTHYROXINE 125 MCG TAB PO SCH (06:33)
[2017-05-26 06:34] LABS: CREATININE 1.07 mg/dl (0.60-1.40); POTASSIUM 3.6 mmol/L (3.5-5.1)
[2017-05-26 06:40] LABS: INR 1.4 (0.9-1.1)
[2017-05-26] MEDS: METOPROLOL SUCC 25MG EXT REL TAB PO SCH (08:38)
[2017-05-26] MEDS: AMIODARONE 200 MG TAB PO SCH ×2 (08:38→10:04)
[2017-05-26] MEDS: ATORVASTATIN 20 MG TAB PO SCH (08:39)
[2017-05-26] MEDS: ASPIRIN 81 MG ECTAB PO SCH (08:39)
[2017-05-26] MEDS: DOXYCYCLINE IV 100 MG in DEXTROSE 5% 100ML 100 ML IV SCH ×2 (08:39→20:50)
[2017-05-26] MEDS: CITALOPRAM 20 MG TAB PO SCH (08:39)
[2017-05-26] MEDS: LEVETIRACETAM 500 MG TAB PO SCH ×2 (08:40→20:50)
[2017-05-26] MEDS: GABAPENTIN 100 MG CAP PO SCH ×3 (08:40→20:51)
[2017-05-26] MEDS: CHOLECALCIFEROL 1000 INTER.UNIT TAB PO SCH (08:40)
[2017-05-26 08:52] LABS: INFLUENZA A PCR Neg for Influ A (NEG); INFLUENZA B PCR Neg for Influ B (NEG)
[2017-05-26] MEDS: OSELTAMIVIR PHOSPHATE 75 MG CAP PO SCH ×2 (09:00→09:18)
[2017-05-26] MEDS: PIPERACILL/TAZOBAC IV 3.375 GM in DEXTROSE 5% 100ML IV SCH ×2 (11:23→18:32)
--- NOTE | 2017-05-26 13:57 | Progress Note ---
Subjective Date of Service: May 26, 2017. Subjective The patient is an 82-year-old male patient with a severe cardiomyopathy, aVR, MVR who fell down a flight of stairs. He had abrasions and contusions without major trauma. He has no new complaints today. His blood pressure is low and some of his medications have been held. He does run a low blood pressure at home and I think he needs to remain on his cardiac meds. I will discontinue the Flomax which is contributing to his low blood pressure and could possibly cause orthostatic blood pressure changes in this elderly man. Problem List Medical Problems: (1) Elevated troponin Status: Acute (2) Hypoxia Status: Acute (3) Pneumonia Status: Acute Review of Systems All Other Systems: Reviewed and Negative Medications Current Inpatient Medications Medications (Trade) Dose Ordered Sig/Linda Route Start Time Stop Time Status Last Admin Dose Admin Ioversol (Optiray 320) 125 ml UD PRN IV 05/23/17 13:30 05/27/17 13:29 Acetaminophen (Tylenol Tab) 650 mg Q4H PRN PO 05/23/17 16:30 06/22/17 16:29 05/26/17 00:33 650 MG Amiodarone HCl (Cordarone Tab) 200 mg DAILY PO 05/24/17 09:00 06/23/17 08:59 05/26/17 10:04 200 MG Aspirin (Ecotrin Tab) 81 mg QAM PO 05/24/17 09:00 06/23/17 08:59 05/26/17 08:39 81 MG Atorvastatin Calcium (Lipitor Tab) 20 mg DAILY PO 05/24/17 09:00 06/23/17 08:59 05/26/17 08:39 20 MG Cholecalciferol (Vitamin D Tab) 1,000 inter.unit DAILY PO 05/24/17 09:00 06/23/17 08:59 05/26/17 08:40 1,000 INTER.UNIT Citalopram Hydrobromide (celeXA TAB) 20 mg DAILY PO 05/24/17 09:00 06/23/17 08:59 05/26/17 08:39 20 MG Gabapentin (Neurontin Cap) 100 mg TID PO 05/23/17 21:00 06/22/17 20:59 05/26/17 08:40 100 MG Levetiracetam (Keppra Tab) 500 mg Q12 PO 05/23/17 21:00 06/22/17 20:59 05/26/17 08:40 500 MG Levothyroxine Sodium (Synthroid Tab) 125 mcg DAILYBB PO 05/24/17 06:00 06/23/17 06:59 05/26/17 06:33 125 MCG Metoprolol Succinate (Toprol Xl Tab) 12.5 mg DAILY PO 05/24/17 09:00 06/23/17 08:59 05/25/17 09:25 12.5 MG Polyethylene (Miralax Powder Packet) 17 gm DAILY PRN PO 05/24/17 09:15 06/23/17 09:14 Miscellaneous Information (Consult) 1 ea UD PRN N/A 05/24/17 11:30 06/23/17 11:29 Doxycycline Hyclate 100 mg/ Dextrose 110 ml @ 50 mls/hr BID IV 05/24/17 21:00 05/31/17 08:59 05/26/17 08:39 50 MLS/HR Piperacillin Sod/ Tazobactam Sod 3.375 gm/Dextrose 115 ml @ 28.75 mls/ hr Q8H IV 05/24/17 18:00 05/31/17 17:59 05/26/17 11:23 28.75 MLS/HR Warfarin Sodium (Coumadin Tab) 3 mg DAILY PO 05/26/17 16:00 06/25/17 15:59 Heparin Sodium (Porcine) (Heparin Sq 5000 Unit/0.5ml) 5,000 unit Q8H SQ 05/26/17 14:00 06/25/17 13:59 Objective Vital Signs Date Time Temp Pulse Resp B/P (MAP) Pulse Ox O2 Delivery O2 Flow Rate FiO2 05/26/17 12:00 Room Air 05/26/17 11:41 36.3 60 20 106/67 (80) 97 05/26/17 08:38 60 95/60 (72) 05/26/17 08:00 Room Air 05/26/17 07:44 36.8 66 88/56 (67) 94 85/54 (64) 73/52 (59) 05/26/17 07:30 37.1 73 16 94/56 (69) 100 Room Air 05/26/17 06:38 36.5 60 18 104/65 (78) 91 Room Air 05/26/17 06:36 36.7 60 18 92 2.0 05/26/17 04:44 103/64 (77) 05/26/17 04:29 36.7 60 18 88/56 (67) 92 Room Air 86/60 (69) 75/52 (60) 05/26/17 04:00 Room Air 05/26/17 00:34 38.1 60 19 112/64 (80) 93 Room Air 05/26/17 00:01 Room Air 05/25/17 20:55 37.7 60 18 111/62 (78) 96 Room Air 05/25/17 19:28 Room Air 05/25/17 16:33 36.9 60 16 103/60 (74) 96 Room Air 05/25/17 16:00 Room Air Physical Exam General Appearance: WD/WN, no apparent distress Eyes: normal inspection, PERRL, EOMI ENT: normal ENT inspection, hearing grossly normal, pharynx normal Neck: supple, no adenopathy, no JVD Respiratory/Chest: chest non-tender, lungs clear, normal breath sounds Cardiovascular: regular rate, rhythm, no edema, no gallop, no JVD Abdomen: normal bowel sounds, non tender, soft, no organomegaly Extremities: non-tender, normal inspection, no pedal edema Neurologic/Psychiatric: terra cotta setter II-XII nml as tested, no motor/sensory deficits, alert Skin: normal color, warm/dry, no rash Lymphatic: no adenopathy Laboratory Results Last 24 Hours Test 05/26/17 05:46 05/26/17 07:57 White Blood Count 4.54 K/uL Red Blood Count 3.93 M/uL Hemoglobin 11.8 g/dL Hematocrit 36.2 % Mean Corpuscular Volume 92.1 fL Mean Corpuscular Hemoglobin 30.0 pg Mean Corpuscular Hemoglobin Concent 32.6 g/dl Platelet Count 91 K/uL Mean Platelet Volume 12.3 fL Neutrophils (%) (Auto) 62.4 % Lymphocytes (%) (Auto) 27.8 % Monocytes (%) (Auto) 7.9 % Eosinophils (%) (Auto) 1.5 % Basophils (%) (Auto) 0.2 % Neutrophils # (Auto) 2.83 K/uL Lymphocytes # (Auto) 1.26 K/uL Monocytes # (Auto) 0.36 K/uL Eosinophils # (Auto) 0.07 K/uL Basophils # (Auto) 0.01 K/uL RDW Standard Deviation 47.3 fL RDW Coefficient of Variation 14.0 % Immature Granulocyte % (Auto) 0.2 % Immature Granulocyte # (Auto) 0.01 K/uL Prothrombin Time 14.9 SECONDS Prothromb Time International Ratio 1.4 Sodium Level 139 mmol/L Potassium Level 3.6 mmol/L Chloride Level 107 mmol/L Carbon Dioxide Level 28 mmol/L Anion Gap 4.0 mmol/L Blood Urea Nitrogen 17 mg/dl Creatinine 1.07 mg/dl Est Creatinine Clear Calc Drug Dose 55.9 ml/min Estimated GFR () 75.1 Estimated GFR (Non- 64.8 BUN/Creatinine Ratio 15.8 Random Glucose 84 mg/dl Calcium Level 8.0 mg/dl Magnesium Level 1.8 mg/dl Influenza Type A (RT-PCR) Neg for Influ A Influenza Type B (RT-PCR) Neg for Influ B Assessment and Plan Impression: 1. Mechanical fall down a flight of stairs 2. Multiple abrasions and contusions 3. Previous AVR and MVR with bioprosthesis 4. Previous fall with subdural hemorrhage 5. Atrial fibrillation 6. Biventricular pacemaker ICD 7. Nonischemic cardiomyopathy Recommendations: As outlined above the patient does run a low blood pressure home on a think he should be restarted on his metoprolol. I would however, discontinue the Flomax. His Coumadin has been restarted. I did review his echocardiogram and he does have spontaneous contrast in his cardiac chambers which is of concern due to clot formation.
[2017-05-26] MEDS: HEPARIN SOD 5000 UNIT/0.5 ML CARP SQ SCH ×2 (14:05→20:50)
[2017-05-26] MEDS: WARFARIN SOD 3 MG TAB PO SCH (15:51)
[2017-05-26] MEDS ORDERED: WARFARIN SOD 3 MG TAB PO SCH (16:00)
--- NOTE | 2017-05-26 17:59 | Progress Note ---
Internal Med Progress Note Date of Service: May 26, 2017. Provider Documentation: SUBJECTIVE: resting comfortably on the chair BP borderline coughing lot but no sob or chest pain no dizziness had a temp spike last night OBJECTIVE: Vital Signs-as noted below Exam: General-alert and oriented. Not in distress ENT-Normal hearing Neck-no neck masses Lungs-cta b/l no wheezing or crackles Heart-S1 and S2 heard regular rate and rhythm, no murmurs Abdomen-soft bowel sounds present no tenderness no distension Extremities-no edema no erythema Neuro-alert and awake moves extremities Lab data as noted below. ASSESSMENT & PLAN: FALL monitor in tele patient presenting from home after he fell down 11 stairs; in the ED, found to have RLL pneumonia and questionable 9th right rib fracture head CT negative pacer interrogation, will check orthostatic BPs, check U/A PT/OT, likely will need placement for rehab Daughter wants patient to go to rehab PNEUMONIA, POSSIBLE ASPIRATION Sepsis? BP low and lactic acid 2.5 CT chest shows RLL consolidation; ? aspiration from fall currently on v Zosyn and doxycycline speech evaluation received fluids repeat lactic acid 1.1 BP improved. will stop fluids continue abx Hypotension sepsis? says chronically low toprol xl held ALDACTONE HELD received gentle fluids appreciate cardiology inputs ELEVATED TROPONIN has chronically elevated troponin EKG shows paced rhythm asymptomatic f/u echo. ATRIAL FIBRILLATION on amiodarone Toprol xl hel;d for hypotension on Coumadin, cardiology ok to give toprol xl f/u inr NONISCHEMIC CARDIOMYOPATHY, S/P AICD/PACEMAKER appears euvolemic EF < 20% on gentle fluids and diuretics on hold will monitor closely for volume overload consulted cardiology appreciate inputs QT prolongation on amiodarone avoid qt prolonging drugs f/u ekg SEIZURE DISORDER on Keppra HYPOTHYROIDISM on levothyroxine Urinary retention Larsen started on Flomax but stopped secondary to orthostatic hypotension consulted urology DVT PROPHYLAXIS on Coumadin, INR 1.4 today hep sub q while inr <2 CODE STATUS Patient is a DNR as per H and P DISPO close monitor in tele pt/ot plan for rehab social service for d/c planning Vital Signs: Date Time Temp Pulse Resp B/P (MAP) Pulse Ox O2 Delivery O2 Flow Rate FiO2 05/26/17 15:32 37.1 60 16 106/64 (78) 96 Room Air 05/26/17 12:00 Room Air 05/26/17 11:41 36.3 60 20 106/67 (80) 97 05/26/17 08:38 60 95/60 (72) 05/26/17 08:00 Room Air 05/26/17 07:44 36.8 66 88/56 (67) 94 85/54 (64) 73/52 (59) 05/26/17 07:30 37.1 73 16 94/56 (69) 100 Room Air 05/26/17 06:38 36.5 60 18 104/65 (78) 91 Room Air 05/26/17 06:36 36.7 60 18 92 2.0 05/26/17 04:44 103/64 (77) 05/26/17 04:29 36.7 60 18 88/56 (67) 92 Room Air 86/60 (69) 75/52 (60) 05/26/17 04:00 Room Air 05/26/17 00:34 38.1 60 19 112/64 (80) 93 Room Air 05/26/17 00:01 Room Air 05/25/17 20:55 37.7 60 18 111/62 (78) 96 Room Air 05/25/17 19:28 Room Air Lab Results: Results Past 24 Hours Test 05/26/17 05:46 05/26/17 07:57 Range/Units White Blood Count 4.54 4.8-10.8 K/uL Red Blood Count 3.93 4.7-6.1 M/uL Hemoglobin 11.8 14.0-18.0 g/dL Hematocrit 36.2 42-52 % Mean Corpuscular Volume 92.1 80-100 fL Mean Corpuscular Hemoglobin 30.0 25-34 pg Mean Corpuscular Hemoglobin Concent 32.6 32-36 g/dl Platelet Count 91 130-400 K/uL Mean Platelet Volume 12.3 7.4-10.4 fL Neutrophils (%) (Auto) 62.4 % Lymphocytes (%) (Auto) 27.8 % Monocytes (%) (Auto) 7.9 % Eosinophils (%) (Auto) 1.5 % Basophils (%) (Auto) 0.2 % Neutrophils # (Auto) 2.83 1.4-6.5 K/uL Lymphocytes # (Auto) 1.26 1.2-3.4 K/uL Monocytes # (Auto) 0.36 0.11-0.59 K/uL Eosinophils # (Auto) 0.07 0-0.5 K/uL Basophils # (Auto) 0.01 0-0.2 K/uL RDW Standard Deviation 47.3 36.4-46.3 fL RDW Coefficient of Variation 14.0 11.5-14.5 % Immature Granulocyte % (Auto) 0.2 % Immature Granulocyte # (Auto) 0.01 0.00-0.02 K/uL Prothrombin Time 14.9 9.0-12.0 SECONDS Prothromb Time International Ratio 1.4 0.9-1.1 Sodium Level 139 136-145 mmol/L Potassium Level 3.6 3.5-5.1 mmol/L Chloride Level 107 98-107 mmol/L Carbon Dioxide Level 28 21-32 mmol/L Anion Gap 4.0 3-11 mmol/L Blood Urea Nitrogen 17 7-18 mg/dl Creatinine 1.07 0.60-1.40 mg/dl Est Creatinine Clear Calc Drug Dose 55.9 ml/min Estimated GFR () 75.1 Estimated GFR (Non- 64.8 BUN/Creatinine Ratio 15.8 10-20 Random Glucose 84 70-99 mg/dl Calcium Level 8.0 8.5-10.1 mg/dl Magnesium Level 1.8 1.8-2.4 mg/dl Influenza Type A (RT-PCR) Neg for Influ A NEG Influenza Type B (RT-PCR) Neg for Influ B NEG
[2017-05-26] MEDS ORDERED: HEPARIN SOD 5000 UNIT/0.5 ML CARP SQ SCH (21:00)
--- NOTE | 2017-05-26 21:59 | Urology Consultation ---
History General Date of Service: May 26, 2017. Chief Complaint: urinary retention Primary Care Physician: Julia Angeles M.D. Pt seen a urologist before?: No History of Present Illness I am asked by Dr Rodgers to evaluate and treat patient for urinary retention. He came in via ER after a fall down a flight of stairs. He was down for a while. He had straight cath for a day with some high volumes. He feels full at about 800mL. The ct shows a thin walled distended bladder and a round large prostate. He now has a gale and is tolerating it ok. He is not happy about it but is not trying to pull it out either. He reports he has been struggling to void at home for many months. He has nocturia only once. Imaging Imaging: CT Laboratory Results Past 24 Hours Test 05/26/17 05:46 05/26/17 07:57 Range/Units White Blood Count 4.54 4.8-10.8 K/uL Red Blood Count 3.93 4.7-6.1 M/uL Hemoglobin 11.8 14.0-18.0 g/dL Hematocrit 36.2 42-52 % Mean Corpuscular Volume 92.1 80-100 fL Mean Corpuscular Hemoglobin 30.0 25-34 pg Mean Corpuscular Hemoglobin Concent 32.6 32-36 g/dl Platelet Count 91 130-400 K/uL Mean Platelet Volume 12.3 7.4-10.4 fL Neutrophils (%) (Auto) 62.4 % Lymphocytes (%) (Auto) 27.8 % Monocytes (%) (Auto) 7.9 % Eosinophils (%) (Auto) 1.5 % Basophils (%) (Auto) 0.2 % Neutrophils # (Auto) 2.83 1.4-6.5 K/uL Lymphocytes # (Auto) 1.26 1.2-3.4 K/uL Monocytes # (Auto) 0.36 0.11-0.59 K/uL Eosinophils # (Auto) 0.07 0-0.5 K/uL Basophils # (Auto) 0.01 0-0.2 K/uL RDW Standard Deviation 47.3 36.4-46.3 fL RDW Coefficient of Variation 14.0 11.5-14.5 % Immature Granulocyte % (Auto) 0.2 % Immature Granulocyte # (Auto) 0.01 0.00-0.02 K/uL Prothrombin Time 14.9 9.0-12.0 SECONDS Prothromb Time International Ratio 1.4 0.9-1.1 Sodium Level 139 136-145 mmol/L Potassium Level 3.6 3.5-5.1 mmol/L Chloride Level 107 98-107 mmol/L Carbon Dioxide Level 28 21-32 mmol/L Anion Gap 4.0 3-11 mmol/L Blood Urea Nitrogen 17 7-18 mg/dl Creatinine 1.07 0.60-1.40 mg/dl Est Creatinine Clear Calc Drug Dose 55.9 ml/min Estimated GFR () 75.1 Estimated GFR (Non- 64.8 BUN/Creatinine Ratio 15.8 10-20 Random Glucose 84 70-99 mg/dl Calcium Level 8.0 8.5-10.1 mg/dl Magnesium Level 1.8 1.8-2.4 mg/dl Influenza Type A (RT-PCR) Neg for Influ A NEG Influenza Type B (RT-PCR) Neg for Influ B NEG Labs were reviewed and are within normal limits unless listed below. Labs are available in the chart and at [facility] Problem List Medical Problems: (1) Elevated troponin Status: Acute (2) Hypoxia Status: Acute (3) Pneumonia Status: Acute Past History A Fib, BPH, cancer - colon, congestive heart failure, coronary artery disease, depression, heart disease, high cholesterol, hypertension, myocardial infarction Past Surgical History: bowel resection, colectomy, defibrillator Family History Cancer Diabetes mellitus Gallbladder disease Heart disease Hypertension Lung disease Social History Hx Tobacco Use In Past Year?: No Smoking: quit greater than 1 year Alcohol: never Drug use: none Marital status: Housing status: lives with family Occupation status: retired Immunizations History of Influenza Vaccine: Yes Influenza Vaccine Date: Jan 03, 2017 History of Pneumococcal: Yes Pneumococcal Date: Feb 19, 2015 Allergies Coded Allergies: No Known Allergies (Unverified , 06/02/16) Medications Home Medications: Home Meds and Scripts Medications Dose Route/Sig Max Daily Dose Days Date Category Jantoven (Warfarin Sodium) 3 Mg Tab 3 Mg PO DAILY 05/23/17 Reported Amiodarone HCl 200 Mg Tab 200 Mg PO DAILY 14 05/23/17 Rx Aspirin EC Low Dose (Aspirin) 81 Mg Ectab 81 Mg PO QAM 30 06/10/16 Rx Spironolactone 25 Mg Tab 12.5 Mg PO QAM 30 06/10/16 Rx Vitamin D3 (Cholecalciferol) 1,000 Unit Tab 1 Tab PO DAILY 06/02/16 Reported Levetiracetam (Levetiractam) 500 Mg Tab 500 Mg PO Q12 06/02/16 Reported Gabapentin 100 Mg Cap 100 Mg PO TID 06/02/16 Reported Citalopram Hydrobromide (Citalopram) 20 Mg Tab 20 Mg PO DAILY 06/02/16 Reported Desyrel (Trazodone Hcl) 50 Mg Tab 50 Mg PO HS 06/02/16 Reported Metoprolol Succinate ER (Metoprolol Succinate) 25 Mg Tabcr 12.5 Mg PO DAILY 06/02/16 Reported Lipitor (Atorvastatin Calcium) 20 Mg Tab 20 Mg PO DAILY 03/12/14 Reported Levothyroxine Sodium 125 Mcg Tab 125 Mcg PO DAILY 03/12/14 Reported Inpatient Medications: Current Inpatient Medications Medications (Trade) Dose Ordered Sig/Linda Route Start Time Stop Time Status Last Admin Dose Admin Ioversol (Optiray 320) 125 ml UD PRN IV 05/23/17 13:30 05/27/17 13:29 Acetaminophen (Tylenol Tab) 650 mg Q4H PRN PO 05/23/17 16:30 06/22/17 16:29 05/26/17 00:33 650 MG Amiodarone HCl (Cordarone Tab) 200 mg DAILY PO 05/24/17 09:00 06/23/17 08:59 05/26/17 10:04 200 MG Aspirin (Ecotrin Tab) 81 mg QAM PO 05/24/17 09:00 06/23/17 08:59 05/26/17 08:39 81 MG Atorvastatin Calcium (Lipitor Tab) 20 mg DAILY PO 05/24/17 09:00 06/23/17 08:59 05/26/17 08:39 20 MG Cholecalciferol (Vitamin D Tab) 1,000 inter.unit DAILY PO 05/24/17 09:00 06/23/17 08:59 05/26/17 08:40 1,000 INTER.UNIT Citalopram Hydrobromide (celeXA TAB) 20 mg DAILY PO 05/24/17 09:00 06/23/17 08:59 05/26/17 08:39 20 MG Gabapentin (Neurontin Cap) 100 mg TID PO 05/23/17 21:00 06/22/17 20:59 05/26/17 20:51 100 MG Levetiracetam (Keppra Tab) 500 mg Q12 PO 05/23/17 21:00 06/22/17 20:59 05/26/17 20:50 500 MG Levothyroxine Sodium (Synthroid Tab) 125 mcg DAILYBB PO 05/24/17 06:00 06/23/17 06:59 05/26/17 06:33 125 MCG Metoprolol Succinate (Toprol Xl Tab) 12.5 mg DAILY PO 05/24/17 09:00 06/23/17 08:59 05/25/17 09:25 12.5 MG Polyethylene (Miralax Powder Packet) 17 gm DAILY PRN PO 05/24/17 09:15 06/23/17 09:14 Miscellaneous Information (Consult) 1 ea UD PRN N/A 05/24/17 11:30 06/23/17 11:29 Doxycycline Hyclate 100 mg/ Dextrose 110 ml @ 50 mls/hr BID IV 05/24/17 21:00 05/31/17 08:59 05/26/17 20:50 50 MLS/HR Piperacillin Sod/ Tazobactam Sod 3.375 gm/Dextrose 115 ml @ 28.75 mls/ hr Q8H IV 05/24/17 18:00 05/31/17 17:59 05/26/17 18:32 28.75 MLS/HR Heparin Sodium (Porcine) (Heparin Sq 5000 Unit/0.5ml) 5,000 unit Q8H SQ 05/26/17 14:00 06/25/17 13:59 05/26/17 20:50 5,000 UNIT Warfarin Sodium (Coumadin Tab) 3 mg DAILY@1600 PO 05/26/17 16:00 06/25/17 15:59 05/26/17 15:51 3 MG Review of Systems Review of Systems Constitutional: No fever, No chills, No weight loss Neurological: + dizzy, + passing out Endocrine: + too cold, + tired/sluggish, No excessive thirst Gastrointestinal: + constipation, No abdominal pain, No indigestion, No nausea , No vomiting, No diarrhea Cardiovascular: + irregular heartbeat, + palpitations, + swelling ankles/feet, No chest pain Respiratory: + shortness of breath Musculoskeletal: + joint pain Male : + frequent urination, + urinary retention, + weak stream, + nocturia more than once/night Physical Exam Vital Signs: Vital Signs Past 12 Hours Date Time Temp Pulse Resp B/P (MAP) Pulse Ox O2 Delivery O2 Flow Rate FiO2 05/26/17 20:08 96 Room Air 05/26/17 16:03 96 Room Air 05/26/17 15:32 37.1 60 16 106/64 (78) 96 Room Air 05/26/17 12:00 Room Air 05/26/17 11:41 36.3 60 20 106/67 (80) 97 Physical Exam: General Appearance: WD/WN, no apparent distress, + obese Eyes: bilateral eyes normal inspection ENT: hearing grossly normal Neck: supple, no adenopathy, no JVD, trachea midline Respiratory/Chest: no respiratory distress, no accessory muscle use Gastrointestinal: Abdomen: normal abdomen Bladder: normal bladder Hernia: incisional (large hernia ventral with intestine) Liver: normal liver Spleen: normal spleen Genitourinary - Male: Penis: normal penis Urethral Meatus: normal urethral meatus Scrotum: normal scrotum Anus / Perineum: normal anus/perineum Sphincter Tone: normal sphincter tone Prostate: normal prostate, size (60 grams smooth) Extremities: non-tender, normal inspection, no pedal edema, no calf tenderness Neurologic/Psychiatric: alert, normal mood/affect, oriented x 3 Skin: + pertinent finding (abrasions from fall) Lymphatic: no adenopathy Assessment & Plan Assessment & Plan Imaging: CT urinary retention suspect long standing constipation better today start finasteride void trial in 1-2 weeks see him at [facility] go to [place] with gale for now. avoid alpha viviana due to dizziness
[2017-05-27] MEDS: PIPERACILL/TAZOBAC IV 3.375 GM in DEXTROSE 5% 100ML IV SCH ×3 (02:20→17:45)
[2017-05-27 04:38] VITALS: BP 108/68; PULSE 61; TEMP 37.2; O2SAT 92
[2017-05-27] MEDS: LEVOTHYROXINE 125 MCG TAB PO SCH (06:05)
[2017-05-27] MEDS: HEPARIN SOD 5000 UNIT/0.5 ML CARP SQ SCH ×3 (06:05→21:18)
[2017-05-27 06:21] LABS: HEMATOCRIT 35.3 % (42-52); HEMOGLOBIN 11.4 g/dL (14.0-18.0); INR 1.5 (0.9-1.1); MEAN CORPUSCULAR HEMOGLOBIN 29.4 pg (25-34); MEAN CORPUSCULAR HGB CONC 32.3 g/dl (32-36); MEAN PLATELET VOLUME 12.9 fL (7.4-10.4); PLATELET COUNT 108 K/uL (130-400); RED CELL DISTRIBUTION WIDTH CV 13.9 % (11.5-14.5)
[2017-05-27 06:42] LABS: BASO % 0.4 %; BASO ABS # 0.02 K/uL (0-0.2); EOS % 1.7 %; EOS ABS # 0.08 K/uL (0-0.5); IG# 0.01 K/uL (0.00-0.02); LYMPH % 24.9 %; LYMPH ABS # 1.17 K/uL (1.2-3.4); MONO % 7.4 %; MONO ABS # 0.35 K/uL (0.11-0.59); NEUT % 65.4 %; NEUT ABS # 3.07 K/uL (1.4-6.5)
[2017-05-27 06:52] LABS: CALCIUM 7.9 mg/dl (8.5-10.1); CREATININE 0.92 mg/dl (0.60-1.40); POTASSIUM 3.3 mmol/L (3.5-5.1)
[2017-05-27] MEDS ORDERED: POTASSIUM CHLORIDE 20 MEQ TABCR PO STA (07:27)
[2017-05-27 07:36] VITALS: BP 114/71; PULSE 60; TEMP 37.1; O2SAT 91
[2017-05-27] MEDS: DOXYCYCLINE IV 100 MG in DEXTROSE 5% 100ML 100 ML IV SCH (08:00)
[2017-05-27] MEDS: CITALOPRAM 20 MG TAB PO SCH (08:00)
[2017-05-27] MEDS: CHOLECALCIFEROL 1000 INTER.UNIT TAB PO SCH (08:00)
[2017-05-27] MEDS: GABAPENTIN 100 MG CAP PO SCH ×3 (08:01→21:19)
[2017-05-27] MEDS: FINASTERIDE 5 MG TAB PO SCH (08:01)
[2017-05-27] MEDS: AMIODARONE 200 MG TAB PO SCH (08:01)
[2017-05-27] MEDS: LEVETIRACETAM 500 MG TAB PO SCH ×2 (08:01→21:18)
[2017-05-27] MEDS: METOPROLOL SUCC 25MG EXT REL TAB PO SCH (08:01)
[2017-05-27] MEDS: ASPIRIN 81 MG ECTAB PO SCH (08:01)
[2017-05-27] MEDS: ATORVASTATIN 20 MG TAB PO SCH (08:01)
[2017-05-27] MEDS ORDERED: METOPROLOL SUCC 25MG EXT REL TAB PO SCH (09:00)
[2017-05-27 12:18] VITALS: BP 95/60; PULSE 59; TEMP 36.8; O2SAT 95
--- NOTE | 2017-05-27 14:08 | Progress Note ---
Subjective Date of Service: May 27, 2017. Subjective This is an 82-year-old male patient with a history of severe cardiomyopathy with systolic heart failure, status post AVR and MVR. The patient had fallen down a flight of stairs at home. He sustained abrasions and contusions without major trauma. After admission his blood pressure was noted to be low. He may been started on Flomax this admission however, he may have also been on it at home. In any case, the Flomax has been discontinued and his blood pressure seems to have improved. He has no current cardiac complaints. He is scheduled to go to [facility] soon. Problem List Medical Problems: (1) Elevated troponin Status: Acute (2) Hypoxia Status: Acute (3) Pneumonia Status: Acute Review of Systems All Other Systems: Reviewed and Negative Medications Current Inpatient Medications Medications (Trade) Dose Ordered Sig/Linda Route Start Time Stop Time Status Last Admin Dose Admin Acetaminophen (Tylenol Tab) 650 mg Q4H PRN PO 05/23/17 16:30 06/22/17 16:29 05/26/17 00:33 650 MG Amiodarone HCl (Cordarone Tab) 200 mg DAILY PO 05/24/17 09:00 06/23/17 08:59 05/27/17 08:01 200 MG Aspirin (Ecotrin Tab) 81 mg QAM PO 05/24/17 09:00 06/23/17 08:59 05/27/17 08:01 81 MG Atorvastatin Calcium (Lipitor Tab) 20 mg DAILY PO 05/24/17 09:00 06/23/17 08:59 05/27/17 08:01 20 MG Cholecalciferol (Vitamin D Tab) 1,000 inter.unit DAILY PO 05/24/17 09:00 06/23/17 08:59 05/27/17 08:00 1,000 INTER.UNIT Citalopram Hydrobromide (celeXA TAB) 20 mg DAILY PO 05/24/17 09:00 06/23/17 08:59 05/27/17 08:00 20 MG Gabapentin (Neurontin Cap) 100 mg TID PO 05/23/17 21:00 06/22/17 20:59 05/27/17 13:35 100 MG Levetiracetam (Keppra Tab) 500 mg Q12 PO 05/23/17 21:00 06/22/17 20:59 05/27/17 08:01 500 MG Levothyroxine Sodium (Synthroid Tab) 125 mcg DAILYBB PO 05/24/17 06:00 06/23/17 06:59 05/27/17 06:05 125 MCG Metoprolol Succinate (Toprol Xl Tab) 12.5 mg DAILY PO 05/24/17 09:00 06/23/17 08:59 05/27/17 08:01 12.5 MG Polyethylene (Miralax Powder Packet) 17 gm DAILY PRN PO 05/24/17 09:15 06/23/17 09:14 Miscellaneous Information (Consult) 1 ea UD PRN N/A 05/24/17 11:30 06/23/17 11:29 Piperacillin Sod/ Tazobactam Sod 3.375 gm/Dextrose 115 ml @ 28.75 mls/ hr Q8H IV 05/24/17 18:00 05/31/17 17:59 05/27/17 10:20 28.75 MLS/HR Heparin Sodium (Porcine) (Heparin Sq 5000 Unit/0.5ml) 5,000 unit Q8H SQ 05/26/17 14:00 06/25/17 13:59 05/27/17 13:37 5,000 UNIT Warfarin Sodium (Coumadin Tab) 3 mg DAILY@1600 PO 05/26/17 16:00 06/25/17 15:59 05/26/17 15:51 3 MG Finasteride (Proscar Tab) 5 mg QAM PO 05/27/17 09:00 06/26/17 08:59 05/27/17 08:01 5 MG Doxycycline Hyclate (Vibramycin Cap) 100 mg BID PO 05/27/17 21:00 05/31/17 20:59 Objective Vital Signs Date Time Temp Pulse Resp B/P (MAP) Pulse Ox O2 Delivery O2 Flow Rate FiO2 05/27/17 12:18 36.8 59 20 95/60 (72) 95 05/27/17 12:00 Room Air 05/27/17 08:00 Room Air 05/27/17 07:36 37.1 60 20 114/71 (85) 91 05/27/17 04:38 37.2 61 18 108/68 (81) 92 Room Air 05/27/17 04:00 Room Air 05/27/17 00:00 Room Air 05/26/17 23:40 37.3 60 16 104/68 (80) 95 Room Air 05/26/17 20:09 36.9 60 17 112/70 (84) 95 05/26/17 20:08 96 Room Air 05/26/17 16:03 96 Room Air 05/26/17 15:32 37.1 60 16 106/64 (78) 96 Room Air Physical Exam General Appearance: no apparent distress Eyes: PERRL, EOMI ENT: normal ENT inspection, hearing grossly normal, pharynx normal Neck: supple, no adenopathy, thyroid normal, no JVD Respiratory/Chest: chest non-tender, lungs clear, normal breath sounds Cardiovascular: regular rate, rhythm, no edema, no gallop, no JVD Abdomen: normal bowel sounds, non tender, soft Extremities: normal range of motion, non-tender, normal inspection 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, no motor/sensory deficits, alert Skin: normal color, warm/dry, no rash Lymphatic: no adenopathy Laboratory Results Last 24 Hours Test 05/27/17 05:39 White Blood Count 4.70 K/uL Red Blood Count 3.88 M/uL Hemoglobin 11.4 g/dL Hematocrit 35.3 % Mean Corpuscular Volume 91.0 fL Mean Corpuscular Hemoglobin 29.4 pg Mean Corpuscular Hemoglobin Concent 32.3 g/dl Platelet Count 108 K/uL Mean Platelet Volume 12.9 fL Neutrophils (%) (Auto) 65.4 % Lymphocytes (%) (Auto) 24.9 % Monocytes (%) (Auto) 7.4 % Eosinophils (%) (Auto) 1.7 % Basophils (%) (Auto) 0.4 % Neutrophils # (Auto) 3.07 K/uL Lymphocytes # (Auto) 1.17 K/uL Monocytes # (Auto) 0.35 K/uL Eosinophils # (Auto) 0.08 K/uL Basophils # (Auto) 0.02 K/uL RDW Standard Deviation 46.0 fL RDW Coefficient of Variation 13.9 % Immature Granulocyte % (Auto) 0.2 % Immature Granulocyte # (Auto) 0.01 K/uL Ovalocytes 1+ Prothrombin Time 15.8 SECONDS Prothromb Time International Ratio 1.5 Sodium Level 139 mmol/L Potassium Level 3.3 mmol/L Chloride Level 106 mmol/L Carbon Dioxide Level 26 mmol/L Anion Gap 7.0 mmol/L Blood Urea Nitrogen 14 mg/dl Creatinine 0.92 mg/dl Est Creatinine Clear Calc Drug Dose 65.0 ml/min Estimated GFR () 90.1 Estimated GFR (Non- 77.7 BUN/Creatinine Ratio 14.7 Random Glucose 85 mg/dl Calcium Level 7.9 mg/dl Magnesium Level 1.8 mg/dl Assessment and Plan Impression: 1. Mechanical fall down a flight of stairs 2. Multiple abrasions and contusions 3. Previous AVR and MVR with bioprosthesis 4. Previous fall with subdural hemorrhage 5. Atrial fibrillation 6. Biventricular pacemaker ICD 7. Nonischemic cardiomyopathy Recommendations: From a cardiac standpoint the patient is stable enough to be transferred to [facility] rehabilitation when a bed is available.
[2017-05-27 15:02] VITALS: BP 112/76; PULSE 67; TEMP 37.1; O2SAT 92
[2017-05-27] MEDS: WARFARIN SOD 3 MG TAB PO SCH (15:31)
--- NOTE | 2017-05-27 17:15 | Progress Note ---
Internal Med Progress Note Date of Service: May 27, 2017. Provider Documentation: SUBJECTIVE: resting comfortably BP improved afebrile cough improving no sob\ no nausea ok for rehab OBJECTIVE: Vital Signs-as noted below Exam: General-alert and oriented. Not in distress ENT-Normal hearing Neck-no neck masses Lungs-cta b/l no wheezing or crackles Heart-S1 and S2 heard regular rate and rhythm, no murmurs Abdomen-soft bowel sounds present no tenderness no distension Extremities-no edema no erythema Neuro-alert and awake moves extremities Lab data as noted below. ASSESSMENT & PLAN: FALL monitor in tele patient presenting from home after he fell down 11 stairs; in the ED, found to have RLL pneumonia and questionable 9th right rib fracture head CT negative pacer interrogation, will check orthostatic BPs, check U/A PT/OT, likely will need placement for rehab Daughter wants patient to go to rehab plan for rehab soon PNEUMONIA, POSSIBLE ASPIRATION Sepsis? BP low and lactic acid 2.5 CT chest shows RLL consolidation; ? aspiration from fall currently on v Zosyn and doxycycline speech evaluation received fluids repeat lactic acid 1.1 BP improved. will stop fluids continue abx will change to po abx in am Hypotension sepsis? says chronically low toprol xl held ALDACTONE HELD received gentle fluids appreciate cardiology inputs improved now ELEVATED TROPONIN has chronically elevated troponin EKG shows paced rhythm asymptomatic f/u echo. ATRIAL FIBRILLATION on amiodarone Toprol xl hel;d for hypotension on Coumadin, cardiology ok to give toprol xl f/u inr 1.5 today NONISCHEMIC CARDIOMYOPATHY, S/P AICD/PACEMAKER appears euvolemic EF < 20% on gentle fluids and diuretics on hold will monitor closely for volume overload consulted cardiology appreciate inputs QT prolongation on amiodarone avoid qt prolonging drugs f/u ekg SEIZURE DISORDER on Keppra HYPOTHYROIDISM on levothyroxine Urinary retention Larsen started on Flomax but stopped secondary to orthostatic hypotension consulted urology and appreciate inputs started on Proscar DVT PROPHYLAXIS on Coumadin, INR 1.5 today hep sub q while inr <2 CODE STATUS Patient is a DNR as per H and P DISPO close monitor in tele pt/ot plan for rehab possibly in am social service for d/c planning Vital Signs: Date Time Temp Pulse Resp B/P (MAP) Pulse Ox O2 Delivery O2 Flow Rate FiO2 05/27/17 16:00 Room Air 05/27/17 15:02 37.1 67 20 112/76 (88) 92 05/27/17 12:18 36.8 59 20 95/60 (72) 95 05/27/17 12:00 Room Air 05/27/17 08:00 Room Air 05/27/17 07:36 37.1 60 20 114/71 (85) 91 05/27/17 04:38 37.2 61 18 108/68 (81) 92 Room Air 05/27/17 04:00 Room Air 05/27/17 00:00 Room Air 05/26/17 23:40 37.3 60 16 104/68 (80) 95 Room Air 05/26/17 20:09 36.9 60 17 112/70 (84) 95 05/26/17 20:08 96 Room Air Lab Results: Results Past 24 Hours Test 05/27/17 05:39 Range/Units White Blood Count 4.70 4.8-10.8 K/uL Red Blood Count 3.88 4.7-6.1 M/uL Hemoglobin 11.4 14.0-18.0 g/dL Hematocrit 35.3 42-52 % Mean Corpuscular Volume 91.0 80-100 fL Mean Corpuscular Hemoglobin 29.4 25-34 pg Mean Corpuscular Hemoglobin Concent 32.3 32-36 g/dl Platelet Count 108 130-400 K/uL Mean Platelet Volume 12.9 7.4-10.4 fL Neutrophils (%) (Auto) 65.4 % Lymphocytes (%) (Auto) 24.9 % Monocytes (%) (Auto) 7.4 % Eosinophils (%) (Auto) 1.7 % Basophils (%) (Auto) 0.4 % Neutrophils # (Auto) 3.07 1.4-6.5 K/uL Lymphocytes # (Auto) 1.17 1.2-3.4 K/uL Monocytes # (Auto) 0.35 0.11-0.59 K/uL Eosinophils # (Auto) 0.08 0-0.5 K/uL Basophils # (Auto) 0.02 0-0.2 K/uL RDW Standard Deviation 46.0 36.4-46.3 fL RDW Coefficient of Variation 13.9 11.5-14.5 % Immature Granulocyte % (Auto) 0.2 % Immature Granulocyte # (Auto) 0.01 0.00-0.02 K/uL Ovalocytes 1+ Prothrombin Time 15.8 9.0-12.0 SECONDS Prothromb Time International Ratio 1.5 0.9-1.1 Sodium Level 139 136-145 mmol/L Potassium Level 3.3 3.5-5.1 mmol/L Chloride Level 106 98-107 mmol/L Carbon Dioxide Level 26 21-32 mmol/L Anion Gap 7.0 3-11 mmol/L Blood Urea Nitrogen 14 7-18 mg/dl Creatinine 0.92 0.60-1.40 mg/dl Est Creatinine Clear Calc Drug Dose 65.0 ml/min Estimated GFR () 90.1 Estimated GFR (Non- 77.7 BUN/Creatinine Ratio 14.7 10-20 Random Glucose 85 70-99 mg/dl Calcium Level 7.9 8.5-10.1 mg/dl Magnesium Level 1.8 1.8-2.4 mg/dl
[2017-05-27 19:36] VITALS: BP 103/67; PULSE 60; TEMP 36.9; O2SAT 94
[2017-05-27] MEDS: DOXYCYCLINE HYCLATE 100 MG CAP PO SCH (21:19)
[2017-05-27] MEDS: TRAZODONE HCL 50 MG TAB PO SCH (21:20)
[2017-05-27 22:59] VITALS: BP 102/64; PULSE 60; TEMP 37; O2SAT 92
[2017-05-28] VITALS (10 sets, daily range): BP systolic 92–128; BP diastolic 59–78; PULSE 60–77; TEMP 36.7–37.1; O2SAT 91–94
[2017-05-28] MEDS: PIPERACILL/TAZOBAC IV 3.375 GM in DEXTROSE 5% 100ML IV SCH (02:29)
[2017-05-28] MEDS: LEVOTHYROXINE 125 MCG TAB PO SCH (05:46)
[2017-05-28] MEDS: HEPARIN SOD 5000 UNIT/0.5 ML CARP SQ SCH ×3 (05:50→21:30)
[2017-05-28 07:49] LABS: INR 1.9 (0.9-1.1)
[2017-05-28 07:52] LABS: HEMATOCRIT 35.7 % (42-52); HEMOGLOBIN 11.6 g/dL (14.0-18.0); MEAN CELL VOLUME 91.3 fL (80-100); MEAN CORPUSCULAR HEMOGLOBIN 29.7 pg (25-34); MEAN CORPUSCULAR HGB CONC 32.5 g/dl (32-36); RED CELL DISTRIBUTION WIDTH CV 14.1 % (11.5-14.5); RED CELL DISTRIBUTION WIDTH SD 46.9 fL (36.4-46.3); WHITE BLOOD COUNT 4.92 K/uL (4.8-10.8)
[2017-05-28 08:13] LABS: CALCIUM 8.5 mg/dl (8.5-10.1); CREATININE 0.89 mg/dl (0.60-1.40); POTASSIUM 3.6 mmol/L (3.5-5.1)
[2017-05-28] MEDS: DOXYCYCLINE HYCLATE 100 MG CAP PO SCH ×2 (08:19→21:29)
[2017-05-28] MEDS: LEVETIRACETAM 500 MG TAB PO SCH ×2 (08:19→21:29)
[2017-05-28] MEDS: AMIODARONE 200 MG TAB PO SCH (08:19)
[2017-05-28] MEDS: ATORVASTATIN 20 MG TAB PO SCH (08:19)
[2017-05-28] MEDS: ASPIRIN 81 MG ECTAB PO SCH (08:19)
[2017-05-28] MEDS: AMOXICILLIN/CLAVULANATE TAB 875 MG TAB PO SCH ×2 (08:19→16:57)
[2017-05-28] MEDS: METOPROLOL SUCC 25MG EXT REL TAB PO SCH (08:19)
[2017-05-28] MEDS: GABAPENTIN 100 MG CAP PO SCH ×3 (08:20→21:29)
[2017-05-28] MEDS: CITALOPRAM 20 MG TAB PO SCH (08:20)
[2017-05-28] MEDS: SPIRONOLACTONE 25 MG TAB PO SCH (08:20)
[2017-05-28] MEDS: CHOLECALCIFEROL 1000 INTER.UNIT TAB PO SCH (08:20)
[2017-05-28] MEDS: FINASTERIDE 5 MG TAB PO SCH (08:20)
[2017-05-28 08:51] LABS: MEAN PLATELET VOLUME 12.4 fL (7.4-10.4); PLATELET COUNT 121 K/uL (130-400)
[2017-05-28 08:52] LABS: BASO % 0.4 %; BASO ABS # 0.02 K/uL (0-0.2); EOS % 2.4 %; EOS ABS # 0.12 K/uL (0-0.5); IG# 0.01 K/uL (0.00-0.02); LYMPH % 30.3 %; LYMPH ABS # 1.49 K/uL (1.2-3.4); MONO % 7.7 %; MONO ABS # 0.38 K/uL (0.11-0.59)
[2017-05-28] MEDS: WARFARIN SOD 3 MG TAB PO SCH (16:57)
--- NOTE | 2017-05-28 18:59 | Progress Note ---
Internal Med Progress Note Date of Service: May 28, 2017. Provider Documentation: SUBJECTIVE: resting comfortably last night had cough and sob but improved now afebrile eating ok no complaints OBJECTIVE: Vital Signs-as noted below Exam: General-alert and oriented. Not in distress ENT-Normal hearing Neck-no neck masses Lungs-cta b/l no wheezing or crackles Heart-S1 and S2 heard regular rate and rhythm, no murmurs Abdomen-soft bowel sounds present no tenderness no distension Extremities-no edema no erythema Neuro-alert and awake moves extremities Lab data as noted below. ASSESSMENT & PLAN: FALL monitor in tele patient presenting from home after he fell down 11 stairs; in the ED, found to have RLL pneumonia and questionable 9th right rib fracture head CT negative pacer interrogation, will check orthostatic BPs, check U/A PT/OT, likely will need placement for rehab Daughter wants patient to go to rehab plan for rehab when bed available PNEUMONIA, POSSIBLE ASPIRATION Sepsis? BP low and lactic acid 2.5 CT chest shows RLL consolidation; ? aspiration from fall currently on v Zosyn and doxycycline speech evaluation received fluids repeat lactic acid 1.1 BP improved. will stop fluids continue abx changed to po Augmentin and doxy Hypotension sepsis? says chronically low improved. received gentle fluids appreciate cardiology inputs improved now ELEVATED TROPONIN has chronically elevated troponin EKG shows paced rhythm asymptomatic f/u echo. ATRIAL FIBRILLATION on amiodarone Toprol xl hel;d for hypotension on Coumadin, cardiology ok to give toprol xl f/u inr 1.9 today NONISCHEMIC CARDIOMYOPATHY, S/P AICD/PACEMAKER appears euvolemic EF < 20% on gentle fluids and diuretics on hold will monitor closely for volume overload consulted cardiology appreciate inputs QT prolongation on amiodarone avoid qt prolonging drugs f/u ekg SEIZURE DISORDER on Keppra HYPOTHYROIDISM on levothyroxine Urinary retention Larsen started on Flomax but stopped secondary to orthostatic hypotension consulted urology and appreciate inputs started on Proscar DVT PROPHYLAXIS on Coumadin, INR 1.5 today hep sub q while inr <2 CODE STATUS Patient is a DNR as per H and P DISPO close monitor in tele pt/ot plan for rehab possibly on tuesday social service for d/c planning Vital Signs: Date Time Temp Pulse Resp B/P (MAP) Pulse Ox O2 Delivery O2 Flow Rate FiO2 05/28/17 14:53 36.7 60 18 117/77 (90) 94 Room Air 05/28/17 12:11 36.7 60 16 92/59 (70) 92 Room Air 05/28/17 12:00 93 Room Air 05/28/17 08:00 92 Room Air 05/28/17 07:24 37.1 60 16 120/77 (91) 91 Room Air 05/28/17 05:39 77 119/71 (87) 60 106/66 (79) 05/28/17 04:00 Room Air 05/28/17 03:56 37.0 60 18 128/78 (95) 94 Room Air 05/28/17 00:00 Room Air 05/27/17 22:59 37.0 60 18 102/64 (77) 92 Room Air 05/27/17 20:00 Room Air 05/27/17 19:36 36.9 60 18 103/67 (79) 94 Room Air Lab Results: Results Past 24 Hours Test 05/28/17 07:10 Range/Units White Blood Count 4.92 4.8-10.8 K/uL Red Blood Count 3.91 4.7-6.1 M/uL Hemoglobin 11.6 14.0-18.0 g/dL Hematocrit 35.7 42-52 % Mean Corpuscular Volume 91.3 80-100 fL Mean Corpuscular Hemoglobin 29.7 25-34 pg Mean Corpuscular Hemoglobin Concent 32.5 32-36 g/dl Platelet Count 121 130-400 K/uL Mean Platelet Volume 12.4 7.4-10.4 fL Neutrophils (%) (Auto) 59.0 % Lymphocytes (%) (Auto) 30.3 % Monocytes (%) (Auto) 7.7 % Eosinophils (%) (Auto) 2.4 % Basophils (%) (Auto) 0.4 % Neutrophils # (Auto) 2.90 1.4-6.5 K/uL Lymphocytes # (Auto) 1.49 1.2-3.4 K/uL Monocytes # (Auto) 0.38 0.11-0.59 K/uL Eosinophils # (Auto) 0.12 0-0.5 K/uL Basophils # (Auto) 0.02 0-0.2 K/uL RDW Standard Deviation 46.9 36.4-46.3 fL RDW Coefficient of Variation 14.1 11.5-14.5 % Immature Granulocyte % (Auto) 0.2 % Immature Granulocyte # (Auto) 0.01 0.00-0.02 K/uL Platelet Estimate DECREASED Giant Platelets 1+ Prothrombin Time 19.2 9.0-12.0 SECONDS Prothromb Time International Ratio 1.9 0.9-1.1 Sodium Level 141 136-145 mmol/L Potassium Level 3.6 3.5-5.1 mmol/L Chloride Level 108 98-107 mmol/L Carbon Dioxide Level 27 21-32 mmol/L Anion Gap 6.0 3-11 mmol/L Blood Urea Nitrogen 12 7-18 mg/dl Creatinine 0.89 0.60-1.40 mg/dl Est Creatinine Clear Calc Drug Dose 67.2 ml/min Estimated GFR () 92.9 Estimated GFR (Non- 80.2 BUN/Creatinine Ratio 13.6 10-20 Random Glucose 80 70-99 mg/dl Calcium Level 8.5 8.5-10.1 mg/dl Magnesium Level 1.9 1.8-2.4 mg/dl
[2017-05-28] MEDS: TRAZODONE HCL 50 MG TAB PO SCH (21:29)
[2017-05-29] VITALS (11 sets, daily range): BP systolic 96–121; BP diastolic 60–76; PULSE 56–82; TEMP 36.5–36.9; O2SAT 91–96
[2017-05-29] MEDS: HEPARIN SOD 5000 UNIT/0.5 ML CARP SQ SCH ×2 (05:35→13:26)
[2017-05-29] MEDS: LEVOTHYROXINE 125 MCG TAB PO SCH (05:38)
--- NOTE | 2017-05-29 07:59 | DIAGNOSTIC IMAGING REPORT ---
CHEST ONE VIEW PORTABLE CLINICAL HISTORY: 82 years-old Male presenting with congestion/infiltrate. TECHNIQUE: Portable upright AP view of the chest was obtained. COMPARISON: 05/23/2017. FINDINGS: Left subclavian implanted cardiac defibrillator with leads to the right atrium, coronary sinus, and right ventricular apex. Left atrial appendage occlusion device noted. Median sternotomy wires. Atherosclerosis of aortic arch. Cardiac silhouette moderately enlarged, unchanged. Decreased left basilar opacity. No increase in right lung opacity visualized on most recent but not radiographically apparent. A pneumothorax. Degenerative changes of the thoracic spine. Upper abdomen normal. IMPRESSION: 1. Left basilar atelectasis. 2. Cardiomegaly. No alice evidence of pulmonary vascular congestion or pulmonary edema. 3. The nodular infiltrate in the superior segment of the right lower lobe seen on CT from 05/23/2017 was not radiographically apparent and is again not seen. Infection or aspiration in this region cannot be excluded. Electronically signed by: Chidi Sin M.D. 05/29/2017 7:58 AM Dictated Date/Time: 05/29/2017 7:54 AM
[2017-05-29] MEDS: LEVETIRACETAM 500 MG TAB PO SCH ×2 (09:05→21:32)
[2017-05-29] MEDS: AMOXICILLIN/CLAVULANATE TAB 875 MG TAB PO SCH ×2 (09:05→16:30)
[2017-05-29] MEDS: SPIRONOLACTONE 25 MG TAB PO SCH (09:05)
[2017-05-29] MEDS: CITALOPRAM 20 MG TAB PO SCH (09:05)
[2017-05-29] MEDS: ASPIRIN 81 MG ECTAB PO SCH (09:05)
[2017-05-29] MEDS: FINASTERIDE 5 MG TAB PO SCH (09:05)
[2017-05-29] MEDS: ATORVASTATIN 20 MG TAB PO SCH (09:05)
[2017-05-29] MEDS: GABAPENTIN 100 MG CAP PO SCH ×3 (09:05→21:32)
[2017-05-29] MEDS: AMIODARONE 200 MG TAB PO SCH (09:05)
[2017-05-29] MEDS: CHOLECALCIFEROL 1000 INTER.UNIT TAB PO SCH (09:06)
[2017-05-29] MEDS: METOPROLOL SUCC 25MG EXT REL TAB PO SCH (09:06)
[2017-05-29] MEDS: DOXYCYCLINE HYCLATE 100 MG CAP PO SCH ×2 (09:06→21:32)
--- NOTE | 2017-05-29 16:19 | Progress Note ---
Internal Med Progress Note Date of Service: May 29, 2017. Provider Documentation: SUBJECTIVE: resting comfortably cough getting better no sob eating fine no complaints OBJECTIVE: Vital Signs-as noted below Exam: General-alert and oriented. Not in distress ENT-Normal hearing Neck-no neck masses Lungs-cta b/l no wheezing or crackles Heart-S1 and S2 heard regular rate and rhythm, no murmurs Abdomen-soft bowel sounds present no tenderness no distension Extremities-no edema no erythema Neuro-alert and awake moves extremities Lab data as noted below. ASSESSMENT & PLAN: FALL monitor in tele patient presenting from home after he fell down 11 stairs; in the ED, found to have RLL pneumonia and questionable 9th right rib fracture head CT negative pacer interrogation, will check orthostatic BPs, check U/A PT/OT, likely will need placement for rehab Daughter wants patient to go to rehab plan for rehab when bed available possibly in am PNEUMONIA, POSSIBLE ASPIRATION Sepsis? BP low and lactic acid 2.5 CT chest shows RLL consolidation; ? aspiration from fall currently on v Zosyn and doxycycline speech evaluation received fluids repeat lactic acid 1.1 BP improved. will stop fluids continue abx changed to po Augmentin and doxy f/u cxr unremarkable will complete 10day course Hypotension sepsis? says chronically low improved. received gentle fluids appreciate cardiology inputs improved now ELEVATED TROPONIN has chronically elevated troponin EKG shows paced rhythm asymptomatic f/u echo-unremarkable. ATRIAL FIBRILLATION on amiodarone Toprol xl hel;d for hypotension on Coumadin, cardiology ok to give toprol xl f/u inr 2.0 today NONISCHEMIC CARDIOMYOPATHY, S/P AICD/PACEMAKER appears euvolemic EF < 20% on gentle fluids and diuretics on hold will monitor closely for volume overload consulted cardiology appreciate inputs QT prolongation on amiodarone avoid qt prolonging drugs f/u ekg SEIZURE DISORDER on Keppra HYPOTHYROIDISM on levothyroxine Urinary retention Larsen started on Flomax but stopped secondary to orthostatic hypotension consulted urology and appreciate inputs started on Proscar DVT PROPHYLAXIS on Coumadin, INR 2.0 CODE STATUS Patient is a DNR as per H and P DISPO close monitor in tele pt/ot plan for rehab possibly on Tuesday social service for d/c planning Vital Signs: Date Time Temp Pulse Resp B/P (MAP) Pulse Ox O2 Delivery O2 Flow Rate FiO2 05/29/17 15:02 36.8 60 16 98/63 (75) 91 Room Air 05/29/17 12:07 91 Room Air 05/29/17 11:25 36.6 56 20 106/68 (81) 94 05/29/17 08:01 91 Room Air 05/29/17 07:10 36.9 60 16 110/71 (84) 91 Room Air 05/29/17 04:05 36.5 60 18 121/76 (91) 93 Room Air 05/29/17 04:00 Room Air 05/29/17 00:02 36.8 82 18 112/69 (83) 96 Room Air 05/29/17 00:00 Room Air 05/28/17 20:42 36.7 60 16 93/61 (72) 93 Room Air 05/28/17 20:00 94 Room Air Lab Results: Results Past 24 Hours Test 05/29/17 05:30 Range/Units Prothrombin Time 20.7 9.0-12.0 SECONDS Prothromb Time International Ratio 2.0 0.9-1.1
[2017-05-29] MEDS: WARFARIN SOD 3 MG TAB PO SCH (16:29)
[2017-05-29] MEDS: TRAZODONE HCL 50 MG TAB PO SCH (21:32)
[2017-05-30 03:15] VITALS: BP 117/77; PULSE 60; TEMP 36.6; O2SAT 91
[2017-05-30] MEDS: LEVOTHYROXINE 125 MCG TAB PO SCH (05:50)
[2017-05-30 07:09] LABS: INR 2.3 (0.9-1.1)
[2017-05-30 07:14] VITALS: BP 105/70; PULSE 61; TEMP 36.9; O2SAT 92
[2017-05-30 08:03] VITALS: BP 108/72; PULSE 60
[2017-05-30] MEDS: METOPROLOL SUCC 25MG EXT REL TAB PO SCH (08:04)
[2017-05-30] MEDS: DOXYCYCLINE HYCLATE 100 MG CAP PO SCH (08:04)
[2017-05-30] MEDS: FINASTERIDE 5 MG TAB PO SCH (08:05)
[2017-05-30] MEDS: CHOLECALCIFEROL 1000 INTER.UNIT TAB PO SCH (08:05)
[2017-05-30] MEDS: CITALOPRAM 20 MG TAB PO SCH (08:06)
[2017-05-30] MEDS: AMOXICILLIN/CLAVULANATE TAB 875 MG TAB PO SCH (08:06)
[2017-05-30] MEDS: AMIODARONE 200 MG TAB PO SCH (08:06)
[2017-05-30] MEDS: ASPIRIN 81 MG ECTAB PO SCH (08:06)
[2017-05-30] MEDS: ATORVASTATIN 20 MG TAB PO SCH (08:06)
[2017-05-30] MEDS: SPIRONOLACTONE 25 MG TAB PO SCH (08:07)
[2017-05-30] MEDS: LEVETIRACETAM 500 MG TAB PO SCH (08:08)
[2017-05-30] MEDS: GABAPENTIN 100 MG CAP PO SCH ×2 (08:08→13:10)
[2017-05-30 11:02] VITALS: BP 114/71; PULSE 57; TEMP 36.8; O2SAT 99
[2017-05-30 11:25] VITALS: BP 114/71; PULSE 57; TEMP 36.8; O2SAT 99
--- NOTE | 2017-05-30 11:47 | Progress Note ---
Internal Med Progress Note Date of Service: May 30, 2017. Provider Documentation: SUBJECTIVE: resting comfortably in bed cough much better denies sob no pain ok for [facility] today OBJECTIVE: Vital Signs-as noted below Exam: General-alert and oriented. Not in distress ENT-Normal hearing Neck-no neck masses Lungs-cta b/l no wheezing or crackles Heart-S1 and S2 heard regular rate and rhythm, no murmurs Abdomen-soft bowel sounds present no tenderness no distension Extremities-no edema no erythema Neuro-alert and awake moves extremities Lab data as noted below. ASSESSMENT & PLAN: FALL monitor in tele patient presenting from home after he fell down 11 stairs; in the ED, found to have RLL pneumonia and questionable 9th right rib fracture head CT negative pacer interrogation, will check orthostatic BPs, check U/A PT/OT, likely will need placement for rehab Daughter wants patient to go to rehab plan for rehab today PNEUMONIA, POSSIBLE ASPIRATION Sepsis? BP low and lactic acid 2.5 CT chest shows RLL consolidation; ? aspiration from fall was on v Zosyn and doxycycline s/p speech evaluation received fluids repeat lactic acid 1.1 BP improved.and stopped fluids continue abx changed to po Augmentin and doxy f/u cxr unremarkable will complete 10day course of abx. speech recommendations:1.Regular diet and thins. 2.Safe swallow strategies (small bites, small sips, slow rate) 3.Aspiration precautions- alert and upright for all intake, straws ok, intermittent supervision with intake if difficulty noted. Hypotension sepsis? says chronically low improved. received gentle fluids appreciate cardiology inputs improved now ELEVATED TROPONIN has chronically elevated troponin EKG shows paced rhythm asymptomatic f/u echo-unremarkable. ATRIAL FIBRILLATION on amiodarone Toprol xl hel;d for hypotension on Coumadin, cardiology ok to give toprol xl f/u inr 2.3 today NONISCHEMIC CARDIOMYOPATHY, S/P AICD/PACEMAKER appears euvolemic EF < 20% on gentle fluids and diuretics on hold will monitor closely for volume overload consulted cardiology appreciate inputs QT prolongation on amiodarone avoid qt prolonging drugs f/u ekg SEIZURE DISORDER on Keppra HYPOTHYROIDISM on levothyroxine Urinary retention Gale started on Flomax but stopped secondary to orthostatic hypotension consulted urology and appreciate inputs started on Proscar continue Gale for now- gale care followup with urology DVT PROPHYLAXIS on Coumadin, INR 2.3 CODE STATUS Patient is a DNR as per H and P DISPO discharge to [facility] 05/30/17 Vital Signs: Date Time Temp Pulse Resp B/P (MAP) Pulse Ox O2 Delivery O2 Flow Rate FiO2 05/30/17 11:25 36.8 57 18 99 Room Air 05/30/17 11:02 36.8 57 18 114/71 (85) 99 Room Air 05/30/17 08:03 60 108/72 (84) 05/30/17 08:00 Room Air 05/30/17 07:14 36.9 61 16 105/70 (82) 92 Room Air 05/30/17 04:00 Room Air 05/30/17 03:15 36.6 60 16 117/77 (90) 91 Room Air 05/30/17 00:00 Room Air 05/29/17 22:50 36.5 59 18 101/63 (76) 94 Room Air 05/29/17 20:00 91 Room Air 05/29/17 19:43 36.8 60 18 96/60 (72) 95 Room Air 05/29/17 16:00 91 Room Air 05/29/17 15:02 36.8 60 16 98/63 (75) 91 Room Air 05/29/17 12:07 91 Room Air Lab Results: Results Past 24 Hours Test 05/30/17 06:46 Range/Units Prothrombin Time 23.6 9.0-12.0 SECONDS Prothromb Time International Ratio 2.3 0.9-1.1
[2017-05-30] MEDS ORDERED: AMOX1TAB43 PO (11:49)
[2017-05-30] MEDS ORDERED: PRS5 PO (11:49)
[2017-05-30] MEDS ORDERED: DXY100 PO (11:49)
--- NOTE | 2017-05-30 11:53 | Discharge Instructions ---
Discharge Instructions Date of Service May 30, 2017. Admission Reason for Admission: FALL Discharge Discharge Diagnosis / Problem: FALL, PNEUMONIA, HYPOTENSION, URINARY RETENTION Discharge Goals Goal(s): Decrease discomfort, Improve function Activity Recommendations Activity Level: Up Ad Samantha, Assistance Required Therapies: Physical Therapy, Occupational Therapy . Additional Information Patient informed of condition: Yes Advance Directives: Yes DNR: Yes Level of Care: Acute Rehab Communicable Disease: No Prognosis: Stable Halwey Catheter: Yes ([facility]) Instructions / Follow-Up Instructions / Follow-Up FOLLOWUP WITH FAMILY DOCTOR IN ONE WEEK FOLLOWUP WITH UROLOGY IN 1-2 WEEKS. TO CONTINUE HAWLEY UNTIL SEEN BY UROLOGY. FOLLOWUP WITH CARDIOLOGY IN 2-3 WEEKS FOLLOWUP WITH FAMILY DOCTOR FOR ECTASIA OF THORACIC ASCENDING AORTA Current Hospital Diet Patient's current hospital diet: AHA Diet (Heart Healthy) Discharge Diet Recommended Diet: AHA Diet (Heart Healthy) Pending Studies Studies pending at discharge: no Physician Orders On Transfer Special Precautions: FALL AND ASPIRATION PRECAUTIONS Vital Signs: EVERY 8HRS Additional Orders: Call your Primary Care doctor if any of the following symptoms or problems start or get worse: * Shortness of breath or difficulty breathing * Wake up at night short of breath * Chest pain * Cough * Swelling of your hands, feet, or legs * More fatigued or tired with your normal activity * Palpitations - sudden fast heart beats WEIGHT * Weigh yourself every morning after using the bathroom. * Use the same scale. * Wear the same amount of clothing. * Write your weight down on a chart. * Call your Primary Care doctor if you gain more than 2-3 pounds in 1-2 days. MEDICATIONS * Use this discharge instruction sheet for medication instructions. * Take your medications at the time your doctor ordered. * Do not skip a dose of your medicines. * If you miss a dose of medicine, take it as soon as possible, but DO NOT DOUBLE A DOSE. * Read your medicine information when you get home. * Know all of the side effects of your medicine. If in doubt, ask your pharmacist * Call your Primary Care doctor's office if you have any side effects. * Be sure all of your doctors know what medicine and herbs you take (including cold, flu, and herbal medicine). Take the following with you to your follow-up doctor appointments: * Weight Chart * Medication List * List of questions Do not drink excessive alcohol, beer or wine. Medical Emergencies . Who to Call and When: Medical Emergencies: If at any time you feel your situation is an emergency, please call 911 immediately. . Non-Emergent Contact Non-Emergency issues call your: Primary Care Provider . . "Provider Documentation" section prepared by Isma Rodgers. . Core Measure Problem Core Measures: None
--- NOTE | 2017-05-30 12:04 | Discharge Summary ---
Discharge Summary Date of Service May 30, 2017. Discharge Summary Admission Date: May 23, 2017 at 16:20 Discharge Date: May 30, 2017 Discharge Disposition: Rehab Principal Diagnosis: FALL PNEUMONIA HYPOTENSION URINARY RETENTION Secondary Diagnoses/Problems: (1) Atrial fibrillation Status: Chronic (2) Biventricular ICD (implantable cardioverter-defibrillator) in place Status: Chronic (3) BPH (benign prostatic hyperplasia) Status: Chronic (4) Colon cancer Status: Chronic (5) Current use of mcc anticoagulation Status: Chronic (6) Depression Status: Chronic (7) Hypothyroidism Status: Chronic (8) Seizure Status: Chronic (9) Subdural hematoma Status: Chronic (10) Systolic CHF Status: Chronic (11) Thrombocytopenia Status: Chronic Procedures: THORACIC SPINE CT: 1. No acute thoracic spine fracture or subluxation. 2. Extensive anterior osteophytosis of the thoracic spine. LUMBAR SPINE CT: 1. No acute lumbar spine fracture or subluxation. 2. Moderate to severe multilevel disc space narrowing and facet arthrosis of the lumbar spine. 3. Partial ankylosis of the sacroiliac joints. CT HEAD: 1. No acute intracranial findings. 2. No calvarial fracture CT CHEST: 1. There is patchy airspace consolidation identified in the right lower lobe. This could represent atelectasis versus pneumonia/aspiration pneumonitis. Clinical correlation will be required. 2. There is no pleural effusion or pneumothorax. 3. No fracture is seen. 4. Cardiomegaly. 5. A pathologically indeterminant 7 mm right upper lobe pulmonary nodule is unchanged from 06/02/2016. This can be followed as per the Fleischner criteria if clinically warranted. 6. The skeletal structures are heterogeneously osteopenic. Tiny osteolytic foci are questioned throughout both ribs. This is nonspecific and raises concern for an entity such as multiple myeloma. Clinical and laboratory correlation will be essential. 7. Mild ectasia of the ascending thoracic aorta is unchanged. This measures up to 4.[address]: 1. There is no evidence of fracture or subluxation involving the cervical spine. 2. Osteopenia and spondylotic change as above. ABD/PELVIS CT: 1. No acute traumatic process identified within the abdomen or pelvis. 2. Large ventral hernia containing both large and small bowel. This is not significantly change. No bowel wall thickening or obstruction. 3. Multiple small lucent lesions seen within the ribs. This is nonspecific and could be due to osteoporosis. However, multiple myeloma could also have a similar appearance. However, there are no definite lucent lesions within the spine. Therefore, this is considered less likely. 4. Prior right hemicolectomy. RT KNEE XRAY: 1. Postsurgical changes of a total right knee arthroplasty 2. No acute fractures 3. 13 mm corticated bony fragment adjacent the inferior patellar pole, likely old LEFT KNEE XRAY: 1. Soft tissue swelling and joint effusion. No acute bony abnormality is identified in the left knee. 2. Osteopenia and left knee arthroplasty as above. HIP/PELVIS XRAY: 1. There is no radiographic evidence of fracture involving the hips or bony pelvis. 2. Osteopenia and arthritic change as above. CXR 05/29/17: 1. Left basilar atelectasis. 2. Cardiomegaly. No alice evidence of pulmonary vascular congestion or pulmonary edema. 3. The nodular infiltrate in the superior segment of the right lower lobe seen on CT from 05/23/2017 was not radiographically apparent and is again not seen. Infection or aspiration in this region cannot be excluded. ECHO: * There is a bioprosthetic aortic valve. * There is a bioprosthetic mitral valve. * The left ventricle is moderately dilated. * Left ventricular systolic function is severely reduced. * Ejection Fraction = 20-25%. * The right ventricular systolic function is normal. * The left atrium is mildly dilated. Consultations: CARDIOLOGY Medication Reconciliation New Medications: Amoxicillin & Pot Clavulanate (Amoxicillin/Clavulanate P) 1 Tab Tab 875 MG PO BIDM for 3 Days, TAB Doxycycline Hyclate (Doxycycline Hyclate) 100 Mg Cap 100 MG PO BID for 3 Days, #6 CAP Finasteride (Finasteride) 5 Mg Tab 5 MG PO QAM, #30 TAB 2 Refills Continued Medications: Amiodarone HCl (Amiodarone HCl) 200 Mg Tab 200 MG PO DAILY for 14 Days, #60 TAB Aspirin (Aspirin EC Low Dose) 81 Mg Ectab 81 MG PO QAM for 30 Days, #30 Atorvastatin (Lipitor) 20 Mg Tab 20 MG PO DAILY Cholecalciferol (Vitamin D3) 1,000 Unit Tab 1 TAB PO DAILY, TAB 3 Refills Citalopram (Citalopram Hydrobromide) 20 Mg Tab 20 MG PO DAILY, #90 Gabapentin (Gabapentin) 100 Mg Cap 100 MG PO TID, #270 Levetiractam (Levetiracetam) 500 Mg Tab 500 MG PO Q12, #180 Levothyroxine Sodium (Levothyroxine Sodium) 125 Mcg Tab 125 MCG PO DAILY Metoprolol Succinate (Metoprolol Succinate ER) 25 Mg Tabcr 12.5 MG PO DAILY, #16 Spironolactone (Spironolactone) 25 Mg Tab 12.5 MG PO QAM for 30 Days, #15 TAB Trazodone Hcl (Desyrel) 50 Mg Tab 50 MG PO HS, #90 Warfarin Sod (Jantoven) 3 Mg Tab 3 MG PO DAILY, TAB Admission Information HPI (per Admitting provider): 82 year old male who presents after suffering a fall today. Patient reports he was going up the stairs when his legs felt weak and gave out on him. He then fell down 11 stairs. He was on the floor for 2 hours before EMS could be called. He denies any preceding lightheadedness or dizziness. He did strike his head but he denies loss of consciousness. Patient lives at home with his 96 year old mother whose medicare insurance specialist could not come today so he was going upstairs to check on her. He also reports a fall yesterday however reports it was due to not having his shoes on. He was able to get up on his own yesterday. Patient reports he has been feeling well recently. No fevers or chills. He denies chest pain and shortness of breath. No abdominal pain, nausea, vomiting, or diarrhea. He reports urinary hesitancy, no dysuria or hematuria. In the ED, patient had extensive imaging done and was found to have a possible 9th right rib fracture and RLL pneumonia. Labs show a mildly elevated troponin (patient has chronic mild elevation). He is hemodynamically stable. Patient was given IVF, IV azithromycin and Rocephin in the ED. Physical Exam (per Admitting): General Appearance: WD/WN, no apparent distress Head: normocephalic, atraumatic Eyes: normal inspection, EOMI, sclerae normal ENT: hearing grossly normal, + pertinent finding (mucous membranes dry) Neck: supple, no JVD, trachea midline Respiratory/Chest: normal breath sounds, no respiratory distress, + decreased breath sounds (BL bases) Cardiovascular: regular rate, rhythm, no edema, normal peripheral pulses Abdomen/GI: normal bowel sounds, non tender, soft, no organomegaly Extremities/Musculoskelatal: normal inspection, no calf tenderness, normal capillary refill Neurologic/Psych: no motor/sensory deficits, alert, normal mood/affect, oriented x 3 (mild forgetfulness) Skin: normal color, warm/dry Hospital Course 82YM PRESENTS WITH FALL FALL monitor in tele patient presenting from home after he fell down 11 stairs; in the ED, found to have RLL pneumonia and questionable 9th right rib fracture head CT negative pacer interrogation, will check orthostatic BPs, check U/A PT/OT, likely will need placement for rehab Daughter wants patient to go to rehab plan for rehab today PNEUMONIA, POSSIBLE ASPIRATION Sepsis? BP low and lactic acid 2.5 CT chest shows RLL consolidation; ? aspiration from fall was on v Zosyn and doxycycline s/p speech evaluation received fluids repeat lactic acid 1.1 BP improved.and stopped fluids continue abx changed to po Augmentin and doxy f/u cxr unremarkable will complete 10day course of abx. speech recommendations:1.Regular diet and thins. 2.Safe swallow strategies (small bites, small sips, slow rate) 3.Aspiration precautions- alert and upright for all intake, straws ok, intermittent supervision with intake if difficulty noted. Hypotension sepsis? says chronically low improved. received gentle fluids appreciate cardiology inputs improved now ELEVATED TROPONIN has chronically elevated troponin EKG shows paced rhythm asymptomatic f/u echo-unremarkable. ATRIAL FIBRILLATION on amiodarone Toprol xl hel;d for hypotension on Coumadin, cardiology ok to give toprol xl f/u inr 2.3 today NONISCHEMIC CARDIOMYOPATHY, S/P AICD/PACEMAKER appears euvolemic EF < 20% on gentle fluids and diuretics on hold will monitor closely for volume overload consulted cardiology appreciate inputs RESTARTED ALDACTONE QT prolongation on amiodarone avoid qt prolonging drugs f/u ekg SEIZURE DISORDER on Keppra HYPOTHYROIDISM on levothyroxine Urinary retention Gale started on Flomax but stopped secondary to orthostatic hypotension consulted urology and appreciate inputs started on Proscar continue Gale for now- gale care followup with urology DVT PROPHYLAXIS on Coumadin, INR 2.3 CODE STATUS Patient is a DNR as per H and P DISPO discharge to [facility] [place] today 05/30/17 Total time spent on discharge = 40MINUTES This includes examination of the patient, discharge planning, medication reconciliation, and communication with other providers. Discharge Instructions Discharge Instructions Date of Service May 30, 2017. Admission Reason for Admission: FALL Discharge Discharge Diagnosis / Problem: FALL, PNEUMONIA, HYPOTENSION, URINARY RETENTION Discharge Goals Goal(s): Decrease discomfort, Improve function Activity Recommendations Activity Level: Up Ad Samantha, Assistance Required Therapies: Physical Therapy, Occupational Therapy . Additional Information Patient informed of condition: Yes Advance Directives: Yes DNR: Yes Level of Care: Acute Rehab Communicable Disease: No Prognosis: Stable Gale Catheter: Yes (GALE CARE) Instructions / Follow-Up Instructions / Follow-Up FOLLOWUP WITH FAMILY DOCTOR IN ONE WEEK FOLLOWUP WITH UROLOGY IN 1-2 WEEKS. TO CONTINUE GALE UNTIL SEEN BY UROLOGY. FOLLOWUP WITH CARDIOLOGY IN 2-3 WEEKS FOLLOWUP WITH FAMILY DOCTOR FOR ECTASIA OF THORACIC ASCENDING AORTA Current Hospital Diet Patient's current hospital diet: AHA Diet (Heart Healthy) Discharge Diet Recommended Diet: AHA Diet (Heart Healthy) Pending Studies Studies pending at discharge: no Physician Orders On Transfer Special Precautions: FALL AND ASPIRATION PRECAUTIONS Vital Signs: EVERY 8HRS Additional Orders: Call your Primary Care doctor if any of the following symptoms or problems start or get worse: * Shortness of breath or difficulty breathing * Wake up at night short of breath * Chest pain * Cough * Swelling of your hands, feet, or legs * More fatigued or tired with your normal activity * Palpitations - sudden fast heart beats WEIGHT * Weigh yourself every morning after using the bathroom. * Use the same scale. * Wear the same amount of clothing. * Write your weight down on a chart. * Call your Primary Care doctor if you gain more than 2-3 pounds in 1-2 days. MEDICATIONS * Use this discharge instruction sheet for medication instructions. * Take your medications at the time your doctor ordered. * Do not skip a dose of your medicines. * If you miss a dose of medicine, take it as soon as possible, but DO NOT DOUBLE A DOSE. * Read your medicine information when you get home. * Know all of the side effects of your medicine. If in doubt, ask your pharmacist * Call your Primary Care doctor's office if you have any side effects. * Be sure all of your doctors know what medicine and herbs you take (including cold, flu, and herbal medicine). Take the following with you to your follow-up doctor appointments: * Weight Chart * Medication List * List of questions Do not drink excessive alcohol, beer or wine. Medical Emergencies . Who to Call and When: Medical Emergencies: If at any time you feel your situation is an emergency, please call 911 immediately. . Non-Emergent Contact Non-Emergency issues call your: Primary Care Provider . .
== END 2017-05-30 16:12 | DRG 871 ==
LOC: EDBD 12:21 → C.EDB 12:23 → C.2E 16:20 → ENRESERV 17:15 → C.MED 05-26 05:57
PROVIDERS: ADMIT Hospitalist; ATTEND Internal Medicine
DX: A41.9 Sepsis, unspecified organism (principal); J69.0 Pneumonitis due to inhalation of food and vomit; I48.91 Unspecified atrial fibrillation; N40.0 Benign prostatic hyperplasia without lower urinary tract symptoms; F32.9 Major depressive disorder, single episode, unspecified; E03.9 Hypothyroidism, unspecified; G40.909 Epilepsy, unspecified, not intractable, without status epilepticus; S00.83XA Contusion of other part of head, initial encounter; S80.212A Abrasion, left knee, initial encounter; R33.9 Retention of urine, unspecified; Z66 Do not resuscitate; Z79.01 Long term (current) use of anticoagulants; Z79.82 Long term (current) use of aspirin; Z79.899 Other long term (current) drug therapy; Z87.891 Personal history of nicotine dependence; W10.9XXA Fall (on) (from) unspecified stairs and steps, initial encounter; Z91.81 History of falling; Z95.0 Presence of cardiac pacemaker; Z96.652 Presence of left artificial knee joint

== ENCOUNTER 2018-09-07 14:30 | Inpatient (IN) ==
--- NOTE | 2018-09-07 15:11 | XRay Report ---
XR chest 1V portable CLINICAL HISTORY: 83 years-old Male presenting with Chest Pain. TECHNIQUE: Portable upright AP view of the chest was obtained. COMPARISON: 05/29/2017. FINDINGS: Left subclavian implanted cardiac for bladder with leads to the right atrium, coronary sinus, and rig ht ventricular apex. A left atrial appendage occlusion device is noted. Median sternotomy wires intac t. Atherosclerosis of the aortic arch. Cardiac silhouette moderately enlarged. Pulmonary vasculature is normal appearing. Minimal left basilar opacity similar to prior. Trace left pleural effusion not e xcluded. No large pneumothorax Degenerative changes of the thoracic spine. IMPRESSION: 1. Persistent left basilar opacity, possibly atelectasis or scarring. Trace left pleural effusion is not excluded. 2. Cardiomegaly without evidence of volume overload or edema. Electronically signed by: Chidi Sin M.D. 09/07/2018 3:10 PM
[2018-09-07 15:21] LABS: INR 1.3 (0.9-1.1); Partial Thromboplastin Ratio 0.9; Partial Thromboplastin Time 25.1 Seconds (21.0-31.0); Prothrombin Time 13.5 Seconds (9.0-12.0)
[2018-09-07 15:22] LABS: BUN Creatinine Ratio 18.7 (10-20); Calcium 8.6 mg/dl (8.5-10.1); Creatinine Clr Calc Pharmacy 69.3 ml/min; Est GFR (African American) 88.3; Est GFR (Non-African American) 76.2; Potassium 4.3 mmol/L (3.5-5.1); Troponin I 0.145 ng/ml (0-0.045)
[2018-09-07 15:47] LABS: Hematocrit (blood only) 40.1 % (42-52); Hemoglobin 13.1 g/dL (14.0-18.0); Mean Corpuscular Hgb Conc 32.7 g/dL (32-36); Mean Corpuscular Volume 90.1 fL (80-100); RDW Coefficient of Variation 13.7 % (11.5-14.5); RDW Standard Deviation 45.4 fL (36.4-46.3); Red Blood Count 4.45 M/uL (4.7-6.1); White Blood Count 5.79 K/uL (4.8-10.8)
[2018-09-07 16:00] LABS: Mean Platelet Volume 13.3 fL (7.4-10.4); Platelet Count 112 K/uL (130-400)
[2018-09-07 16:01] LABS: ALC (manual) 1.21 K/uL (1.2-3.4); Basophils # (manual) 0.05 K/uL (0-0.2); Basophils % (manual) 0.9 %; Eosinophils # (manual) 0.05 K/uL (0-0.5); Eosinophils % (manual) 0.9 %; Lymphocytes % (manual) 5.2 %; Monocytes % (manual) 1.7 %; Neutrophils % (manual) 75.6 %; Ovalocytes 1+; Platelet Estimate Decreased (Normal); Reactive Lymphocytes # (manual) 0.91 K/uL
[2018-09-07] MEDS ORDERED: OPTIRAY 320 125ml IV PRN (16:44)
--- NOTE | 2018-09-07 17:06 | CT Scan Report ---
CT ANGIOGRAM OF THE CHEST CLINICAL HISTORY: Atypical chest pain COMPARISON STUDY: May 23, 2017 TECHNIQUE: Following the IV administration of 119 mL of Optiray-320, CT angiogram of the thorax was p erformed from the thoracic inlet to the lung bases utilizing the pulmonary embolus protocol. Images a re reviewed in the axial, sagittal, and coronal planes. IV contrast was administered without complica tion. MIP imaging was performed. A dose lowering technique was utilized adhering to the principles o f ALARA. CT DOSE: 543.38 mGycm FINDINGS: There is a stable 16 mm hypodensity within the left hepatic lobe, likely representing a cyst. The heart is enlarged with coronary artery calcifications. There is a left subclavian dual-chamber pa cemaker/defibrillator present. No pathologically enlarged axillary mediastinal or hilar lymph nodes were visualized. There is fusiform dilatation of the ascending thoracic aorta which measures 43 mm in diameter. There were no pulmonary artery filling defects to indicate acute pulmonary embolism. No pleural effusions are visualized. There are stable bilateral point nodules including a solid 7 mm nodule within the right upper lobe. IMPRESSION: 1. No evidence of acute pulmonary embolism 2. No evidence of acute parenchymal consolidation 3. Stable bilateral pulmonary nodules including a 7 mm solid nodule within the right upper lobe. The 7 mm nodule has remained stable for 2 years, and therefore is highly likely benign. 4. Fusiform dilatation of the ascending thoracic aorta which measures 43 mm. This remain stable Electronically signed by: Javi Wang M.D. 09/07/2018 5:04 PM
--- NOTE | 2018-09-07 20:12 | Emergency Department Note ---
Entered by Geremias Noriega acting as a scribe for History of Present Illness General Chief complaint: Chest Pain Time Seen by Provider: 09/07/18 14:57 Source: patient Mode of arrival: ambulatory History of Present Illness Provider complaint: Chest Pain Onset (ago): hour(s) 3 Location: chest Pain Consistency: + constant Maximum Pain Intensity: 3 Current Pain Intensity: 3 Quality: + other (Chest Pain) Patient is an 83 year old male who presents himself to the ER via EMS with complaint of chest pain beginning a few days ago. Nursing staff reports most of the history as patient has dementia. Patient had called his son complaining ab out pain in both hands. His son came to his house and got concerned that the patient told him he was experiencing chest pain for the past few days. The son got concerned and called EMS. The patients chest pain is predominantly on the left side. Patients HPI is limited secondary to dementia. Home Medications Home Medications Medication Instructions Recorded Confirmed Type acetaminophen [Tylenol Extra 500 mg PO Q4 PRN 09/07/18 09/07/18 History Strength] amoxicillin 2,000 mg PO UD 09/07/18 09/07/18 History aspirin [Aspir-81] 81 mg PO DAILY 09/07/18 09/07/18 History cholecalciferol (vitamin D3) 1,000 unit PO DAILY 09/07/18 09/07/18 History [Vitamin D3] citalopram [Celexa] 20 mg PO DAILY 09/07/18 09/07/18 History finasteride [Proscar] 5 mg PO DAILY 09/07/18 09/07/18 History gabapentin [Neurontin] 100 mg PO TID 09/07/18 09/07/18 History levetiracetam [Keppra] 500 mg PO BID 09/07/18 09/07/18 History levothyroxine 125 mcg PO DAILY 09/07/18 09/07/18 History metoprolol succinate [Toprol XL] 6.25 mg PO DAILY 09/07/18 09/07/18 History polyethylene glycol 3350 [Miralax] 17 g PO TID PRN 09/07/18 09/07/18 History spironolactone [Aldactone] 12.5 mg PO DAILY 09/07/18 09/07/18 History trazodone 50 mg PO HS 09/07/18 09/07/18 History warfarin [Coumadin] 3 mg PO UD 09/07/18 09/07/18 History Allergies Allergy/AdvReac Type Severity Reaction Status Date / Time No Known Allergies Allergy Unverified 06/02/16 16:09 Past Med/Surg History Medical History Dementia Depression Social History Preferred Language: Indonesian Communication Ability: Effective Live Hanger Required: No Beliefs That Will Affect Care: None Current Living Situation: Parent Current Living Situation Comment: lives with mother, Mallory, who is still living Other Information That Helps Us Care for You: No Feels Safe at Home: Yes Safety Concerns: Feels Safe At This Time Smoking Status: Former smoker Cigarettes Per Day: 20 Do You Dip or Chew Tobacco: No Smoking End Date: quit in his 40's Hx Alcohol Use: No Hx Substance Use: No Review of Systems Unobtainable due to cognitive status ROS limited secondary to dementia. Physical Exam Vital Signs Vital Signs - 24 hr 09/07/18 14:44 09/07/18 15:51 09/07/18 16:59 Temperature 36.5 C Temperature Source Oral Sepsis Recent Fever Within 48 Hours No Sepsis New/Unexplained Change in Mental Status No Sepsis Action Taken by Nursing No Action Required Pulse Rate 65 Pulse Rate [Finger] 65 64 63 Pulse Rhythm [Finger] Pulse Strength [Finger] Respiratory Rate 12 21 22 Respiratory Effort / Characteristics Respiratory Depth Blood Pressure 100/78 Blood Pressure [Right Arm] 100/78 100/78 127/80 Blood Pressure Mean 85 Blood Pressure Mean [Right Arm] 85 85 95 Pulse Oximetry 97 95 95 Oxygen Delivery Method Room Air Room Air Room Air 09/07/18 18:30 09/07/18 19:40 Temperature Temperature Source Sepsis Recent Fever Within 48 Hours Sepsis New/Unexplained Change in Mental Status Sepsis Action Taken by Nursing Pulse Rate Pulse Rate [Finger] 62 62 Pulse Rhythm [Finger] Regular Pulse Strength [Finger] Normal Respiratory Rate 18 20 Respiratory Effort / Characteristics Non-Labored Respiratory Depth Normal Blood Pressure Blood Pressure [Right Arm] 116/77 117/73 Blood Pressure Mean Blood Pressure Mean [Right Arm] 90 87 Pulse Oximetry 95 95 Oxygen Delivery Method Room Air Room Air Physical Exam HENT: Exam performed. - Head: Normocephalic and atraumatic. - Right Ear: External ear normal. No mastoid tenderness. - Left Ear: External ear normal. No mastoid tenderness. - Mouth/Throat: The oropharynx is clear and moist. No trismus in the jaw. No dental abscesses or uvula swelling. No oropharyngeal exudate or tonsillar abscesses. ____ EYES: Conjunctivae and EOM are normal. Pupils are equal, round, and reactive to light. Right eye exhibits no discharge. Left eye exhibits no discharge. No scleral icterus. ____ NECK: Normal range of motion. Neck supple. No JVD present. No spinous process tenderness present. No carotid bruit present. No rigidity. No tracheal deviation and normal range of motion present. No Brudzinski's sign and no Kernig's sign noted. ____ CV: Normal rate, regular rhythm, normal heart sounds and intact distal pulses. There is no peripheral edema. Palpable radial pulses bue. ____ PULM/CHEST: Effort normal and breath sounds normal. No respiratory distress. No stridor. He has no wheezes. He has no rales. - Chest Wall: He exhibits no tenderness. pacemaker in place. ____ ABD: The abdomen is soft. Bowel sounds are normal. He has no distension. No mass is present. There is no tenderness. There is no rebound, no guarding, no Rodriguez's sign and no tenderness at McBurney's point. Rovsig negative MUSC/SKEL: Normal range of motion. There is no peripheral edema, tenderness or deformity. Ecchymosis over bilateral lower extremity LYMPH: No cervical adenopathy. ____ NEURO: _Motor and neuro sensations grossly intact __ SKIN: Skin is warm and dry. He is not diaphoretic. ____ PSYCH: He has a normal mood and affect. His behavior is normal. Judgment and thought content normal. ____ Course 1457: Past medical records reviewed. The patient was evaluated in room A12. A complete history and physical examination was performed. 184: Vital signs stable. Labs showed a subtherapeutic INR of 1.3. Initial troponin 0 0.145. CTA of the chest negative. Patient has a chronically elevated troponin in April 2017 range from 0.117 to 0.151. Given the chronic elevation of troponin, delta troponin was conducted which showed a further increase in the troponin level, delta troponin returned back at 0.155. I spoke with Kylah Cintron cardiology who states he would like to see the patient for a cardiac evaluation. Kylah Wang will admit the patient under his care. The patient has verbalized agreement to the treatment plan. Consultations Consultation #1: LAURA Cintron Time: 18:41 Administered Medications Ioversol (Optiray 320 125ml) 119 ml IV ONCE PRN PRN Reason: Interaction Checking Stop: 09/11/18 16:43 Last Admin: 09/07/18 16:44 Dose: 119 ml Documented by: [id number] Medical Decision Making Medical Records Attestation: I reviewed the patient's medical records. Home Medications Current Medication List: was personally reviewed by me Laboratory Data Attestation: I reviewed the patient's lab results. Result diagrams: 09/07/18 14:42 09/07/18 14:42 Lab Results 09/07/18 09/07/18 09/07/18 Range/Units 14:42 14:42 14:42 WBC 5.79 (4.8-10.8) K/uL RBC 4.45 L (4.7-6.1) M/uL Hgb 13.1 L (14.0-18.0) g/dL Hct 40.1 L (42-52) % MCV 90.1 (80-100) fL MCH 29.4 (25-34) pg MCHC 32.7 (32-36) g/dL RDW Std Deviation 45.4 (36.4-46.3) fL RDW Coeff of Keesha 13.7 (11.5-14.5) % Plt Count 112 L (130-400) K/uL MPV 13.3 H (7.4-10.4) fL Neutrophils % (Manual) 75.6 % Lymphocytes % (Manual) 5.2 % Reactive Lymphs % (Man) 15.7 % Monocytes % (Manual) 1.7 % Eosinophils % (Manual) 0.9 % Basophils % (Manual) 0.9 % Neutrophils # (Manual) 4.38 (1.4-6.5) K/uL Total Absolute Neuts 4.38 (1.4-6.5) K/uL Lymphocytes # (Manual) 0.30 L (1.2-3.4) K/uL Reactive Lymphs # 0.91 K/uL Total Abs Lymphocytes 1.21 (1.2-3.4) K/uL Monocytes # (Manual) 0.10 L (0.11-0.59) K/uL Eosinophils # (Manual) 0.05 (0-0.5) K/uL Basophils # (Manual) 0.05 (0-0.2) K/uL Platelet Estimate Decreased L (Normal) Ovalocytes 1+ PT 13.5 H (9.0-12.0) Seconds INR 1.3 H (0.9-1.1) APTT 25.1 (21.0-31.0) Seconds PTT Ratio 0.9 Sodium 139 (136-145) mmol/L Potassium 4.3 (3.5-5.1) mmol/L Chloride 106 (98-107) mmol/L Carbon Dioxide 26 (21-32) mmol/L Anion Gap 7.0 (3-11) BUN 17 (7-18) mg/dl Creatinine 0.93 (0.6-1.4) mg/dl Est Cr Clr Drug Dosing 69.3 ml/min Est GFR ( Amer) 88.3 Est GFR (Non-Af Amer) 76.2 BUN/Creatinine Ratio 18.7 (10-20) Glucose 79 (70-99) mg/dl Calcium 8.6 (8.5-10.1) mg/dl Troponin I 0.145 H* (0-0.045) ng/ml Lipase 84 (73-393) U/L Specimen Hemolysis 09/07/18 Range/Units 17:31 WBC (4.8-10.8) K/uL RBC (4.7-6.1) M/uL Hgb (14.0-18.0) g/dL Hct (42-52) % MCV (80-100) fL MCH (25-34) pg MCHC (32-36) g/dL RDW Std Deviation (36.4-46.3) fL RDW Coeff of Keesha (11.5-14.5) % Plt Count (130-400) K/uL MPV (7.4-10.4) fL Neutrophils % (Manual) % Lymphocytes % (Manual) % Reactive Lymphs % (Man) % Monocytes % (Manual) % Eosinophils % (Manual) % Basophils % (Manual) % Neutrophils # (Manual) (1.4-6.5) K/uL Total Absolute Neuts (1.4-6.5) K/uL Lymphocytes # (Manual) (1.2-3.4) K/uL Reactive Lymphs # K/uL Total Abs Lymphocytes (1.2-3.4) K/uL Monocytes # (Manual) (0.11-0.59) K/uL Eosinophils # (Manual) (0-0.5) K/uL Basophils # (Manual) (0-0.2) K/uL Platelet Estimate (Normal) Ovalocytes PT (9.0-12.0) Seconds INR (0.9-1.1) APTT (21.0-31.0) Seconds PTT Ratio Sodium (136-145) mmol/L Potassium (3.5-5.1) mmol/L Chloride (98-107) mmol/L Carbon Dioxide (21-32) mmol/L Anion Gap (3-11) BUN (7-18) mg/dl Creatinine (0.6-1.4) mg/dl Est Cr Clr Drug Dosing ml/min Est GFR ( Amer) Est GFR (Non-Af Amer) BUN/Creatinine Ratio (10-20) Glucose (70-99) mg/dl Calcium (8.5-10.1) mg/dl Troponin I 0.155 H* (0-0.045) ng/ml Lipase (73-393) U/L Specimen Hemolysis Imaging Data Attestation: I personally reviewed and interpreted this imaging study as carlos manuel carroll: Radiologist's Impression: Radiology results as stated below per my review and the radiologist's interpretation: CT ANGIOGRAM OF THE CHEST CLINICAL HISTORY: Atypical chest pain COMPARISON STUDY: May 23, 2017 TECHNIQUE: Following the IV administration of 119 mL of Optiray-320, CT angiogram of the thorax was performed from the thoracic inlet to the lung bases utilizing the pulmonary embolus protocol. Images are reviewed in the axial, sagittal, and coronal planes. IV contrast was administered without complication. MIP imaging was performed. A dose lowering technique was utilized adhering to the principles of ALARA. CT DOSE: 543.38 mGycm FINDINGS: There is a stable 16 mm hypodensity within the left hepatic lobe, likely representing a cyst. The heart is enlarged with coronary artery calcifications. There is a left subclavian dual-chamber pacemaker/defibrillator present. No pathologically enlarged axillary mediastinal or hilar lymph nodes were visualized. There is fusiform dilatation of the ascending thoracic aorta which measures 43 mm in diameter. There were no pulmonary artery filling defects to indicate acute pulmonary embolism. No pleural effusions are visualized. There are stable bilateral point nodules including a solid 7 mm nodule within the right upper lobe. IMPRESSION: 1. No evidence of acute pulmonary embolism 2. No evidence of acute parenchymal consolidation 3. Stable bilateral pulmonary nodules including a 7 mm solid nodule within the right upper lobe. The 7 mm nodule has remained stable for 2 years, and therefore is highly likely benign. 4. Fusiform dilatation of the ascending thoracic aorta which measures 43 mm. This remain stable Electronically signed by: Javi Wang M.D. 09/07/2018 5:04 PM Dictated: 09/07/18 1655 Transcribed: 09/07/18 1655 XR chest 1V portable CLINICAL HISTORY: 83 years-old Male presenting with Chest Pain. TECHNIQUE: Portable upright AP view of the chest was obtained. COMPARISON: 05/29/2017. FINDINGS: Left subclavian implanted cardiac for bladder with leads to the right atrium, coronary sinus, and right ventricular apex. A left atrial appendage occlusion device is noted. Median sternotomy wires intact. Atherosclerosis of the aortic arch. Cardiac silhouette moderately enlarged. Pulmonary vasculature is normal appearing. Minimal left basilar opacity similar to prior. Trace left pleural effusion not excluded. No large pneumothorax Degenerative changes of the thoracic spine. IMPRESSION: 1. Persistent left basilar opacity, possibly atelectasis or scarring. Trace left pleural effusion is not excluded. 2. Cardiomegaly without evidence of volume overload or edema. Electronically signed by: Chidi Sin M.D. 09/07/2018 3:10 PM Dictated: 09/07/18 1508 Transcribed: 09/07/18 1508 ECG Data Attestation: I personally reviewed and interpreted this ECG as follows: Indication: chest pain Rate (beats per minute): 63 Rhythm: other (Paced Rhythm ) Findings: + other (NH INTERVAL 116 Qrs 198 Qtc 544); no ectopy Blood Pressure Blood Pressure Findings: Normal blood pressure MDM Narrative Vital signs stable. Labs showed a subtherapeutic INR of 1.3. Initial troponin 0 0.145. CTA of the chest negative. Patient has a chronically elevated troponin in April 2017 range from 0.117 to 0.151. Given the chronic elevation of troponin, delta troponin was conducted which showed a further increase in the troponin level, delta troponin returned back at 0.155. I spoke with Kylah Cintron cardiology who states he would like to see the patient for a cardiac evaluation. Kylah Wang will admit the patient under his care. The patient has verbalized agreement to the treatment plan. Impression & Plan Chest pain Discharge Plan Visit Data Chief Complaint: Chest Pain Other Complaint: Hand Injury/Pain ED Provider: Maxime Rubin Discharge Problem: Chest pain Patient Disposition: Being Evaluated by Hospitalist Forms Stand Alone Forms: [facility] Prescriptions Prescriptions: No Action amoxicillin 500 mg Capsule 2,000 mg PO UD RF: 0 trazodone 50 mg tablet 50 mg PO HS RF: 0 levetiracetam [Keppra] 500 mg tablet 500 mg PO BID RF: 0 acetaminophen [Tylenol Extra Strength] 500 mg Tablet 500 mg PO Q4 PRN (Reason: Pain) RF: 0 spironolactone [Aldactone] 25 mg tablet 12.5 mg PO DAILY RF: 0 warfarin [Coumadin] 3 mg tablet 3 mg PO UD RF: 0 citalopram [Celexa] 20 mg tablet 20 mg PO DAILY RF: 0 levothyroxine 125 mcg tablet 125 mcg PO DAILY RF: 0 gabapentin [Neurontin] 100 mg capsule 100 mg PO TID RF: 0 metoprolol succinate [Toprol XL] 25 mg tablet extended release 24 hr 6.25 mg PO DAILY RF: 0 finasteride [Proscar] 5 mg tablet 5 mg PO DAILY RF: 0 cholecalciferol (vitamin D3) [Vitamin D3] 1,000 unit Tablet 1,000 unit PO DAILY RF: 0 aspirin [Aspir-81] 81 mg Tablet,Delayed Release (Dr/Ec) 81 mg PO DAILY RF: 0 polyethylene glycol 3350 [Miralax] 17 gram/dose Powder 17 g PO TID PRN (Reason: Constipation) RF: 0 Referrals Referrals: Malena Lang DO [Primary Care Provider] - Discharge Problem: Chest pain Qualifiers: Chest pain type: unspecified Qualified Code(s): R07.9 - Chest pain, unspecified The scribe's documentation has been prepared under my direction and personally reviewed by me in its entirety. I confirm that the note above accurately reflects all work, treatment, procedures, and medical decision making performed by me.
[2018-09-07] MEDS ORDERED: NITROGLYCERIN SL 0.4 MG/TAB TAB SL PRN (20:49)
[2018-09-07] MEDS ORDERED: ACETAMINOPHEN 325 MG TAB PO PRN (20:49)
[2018-09-07] MEDS ORDERED: POLYETHYLENE (MIRALAX) 17 GM PACK PO PRN ×2 (20:49)
[2018-09-07] MEDS ORDERED: ONDANSETRON INJ 2 MG/ML 2 ML VIAL IV PRN (20:49)
[2018-09-07] MEDS ORDERED: Heparin IV Low Dose *NO* Bolus IV SCH (21:00)
[2018-09-07] MEDS ORDERED: TRAZODONE HCL 50 MG TAB PO SCH (21:00)
[2018-09-07] MEDS ORDERED: HEPARIN SODIUM/DEXTROSE 25,000 UNITS/500 ML BAG IV SCH (21:15)
[2018-09-07] MEDS: levETIRAcetam 500 MG TAB PO SCH (21:52)
[2018-09-07] MEDS: GABAPENTIN 100 MG CAP PO SCH (21:52)
--- NOTE | 2018-09-07 23:54 | History and Physical Report ---
DATE OF ADMISSION: 09/07/2018 CHIEF COMPLAINT: Chest pain, not feeling well. HISTORY OF PRESENT ILLNESS: This is an 83-year-old male with past medical history significant for chronic systolic CHF with EF of 20%-25% with diastolic CHF, chronic atrial fibrillation, status post bioprosthetic aortic valve replacement, status post bioprosthetic mitral valve replacement, depression, history of seizures, peripheral sensory neuropathy, Alzheimer disease with mild dementia, chronic ITP, lung nodule, hypothyroidism, hyperlipidemia, status post ICD, history of colon cancer about 15 years back, status post chemotherapy and surgery, lytic lesions noted in the multiple ribs in April 2017. Recent CEA and PSA levels are normal. Follows with hematology/oncology and there is plan for PET scan. He lives with his mother who is 98-year-old, caregiver is coming to the house every day and also his brother lives within 1 mile who also checks on him every day. The patient has a mild dementia. The daughter says they planned on MRI of the head, but could not do because of the pacemaker. The patient is somewhat slow to answer the questions. He is alert, awake and oriented to name and place. Has some difficulty with dates. He says he ambulates with a cane at home. He was complaining of not feeling well since last few days. He says appetite is down. At home, he complained of chest pain, but right now he denies any chest pain. He says that he is worried about the bruises on his hand. The daughter says these bruises are there for last 1 month, and is also surprised that he is concerned about them. As per patient, he did not take Coumadin for last 2 days. His INR is subtherapeutic at 1.3 in the ER. Currently, patient is resting comfortably and hemodynamically stable. Denies any headache. His vision is okay. Somewhat hard of hearing. His appetite is okay. Denies any chest pain or shortness of breath. No nausea, no vomiting, no abdominal pain. He says his bowels are somewhat constipated. He takes stool softeners. He is micturating fine. No swelling in the legs. ALLERGIES: No known drug allergies. PAST MEDICAL HISTORY: As mentioned above. PAST SURGICAL HISTORY: Bilateral knee arthroplasty, colonoscopy, partial removal of colon, appendectomy, cholecystectomy, mitral valve replacement, bioprosthetic aortic valve replacement. MEDICATIONS: The patient is on Proscar 5 mg daily, trazodone 50 mg p.o. at bedtime, levothyroxine 125 mcg p.o. daily, Toprol-XL 6.25 mg p.o. daily, gabapentin 100 mg p.o. t.i.d., spironolactone 12.5 mg p.o. daily, Celexa 20 mg p.o. daily, Keppra 500 mg p.o. b.i.d., Coumadin 3 mg as directed, MiraLax 17 grams p.o. t.i.d. p.r.n., Tylenol 500 mg p.o. q. 4 hours p.r.n., aspirin 81 mg p.o. daily, vitamin D 1000 units p.o. daily, amoxicillin 1 hour before procedure. FAMILY HISTORY: Significant for daughter has pancreatic cancer. Father had CAD, status post CABG. Mother is still alive. SOCIAL HISTORY: , lives with his mom. Smoked 1 pack a day for 30 years, quit smoking in 1979. No alcohol use, no drug use. REVIEW OF SYMPTOMS: As per HPI. Rest of the review of systems negative. PHYSICAL EXAMINATION: GENERAL: The patient is old and frail, not in acute distress. VITAL SIGNS: Temperature 36.5, pulse 62, respiratory rate 16, blood pressure 117/73, oxygen 95% on room air. HEENT: No pallor, no icterus. Pupils equal, round, and reactive to light. NECK: No JVD, no neck masses, no carotid bruits. CARDIOVASCULAR: S1, S2 heard, regular rate and rhythm, no murmur, no gallop. RESPIRATORY SYSTEM: Normal AP diameter. No accessory muscle use. No wheezing, no crackles. ABDOMEN: Soft, bowel sounds present. Nontender. No distention. CENTRAL NERVOUS SYSTEM: Cranial nerves II-XII grossly intact. Nonfocal. EXTREMITIES: No edema, no erythema. LABORATORY DATA: WBC 5.7, hemoglobin 13.1, hematocrit 40.1, platelets 112. PT 13.5, INR 1.3, APTT 25.1. Sodium 139, potassium 4.3, chloride 106, bicarbonate 26, BUN 17, creatinine 0.9, serum glucose 179, calcium 8.6, troponin 0.155. Lipase 84. CTA of the chest, no evidence of acute pulmonary embolism. No evidence of acute parenchymal consolidation. Stable bilateral pulmonary nodules, including a 7 mm solid nodule within the right upper lobe. This 7 mm nodule has been stable for 2 years and it was highly likely benign. Fusiform dilatation of the ascending thoracic aorta, which measures 43 mm, this remains stable. Chest x-ray: Trace left pleural effusion is not excluded, cardiomegaly without evidence of overload. EKG, status post biventricular pacemaker at a rate of 63. ASSESSMENT AND PLAN: This 83-year-old male presents with not feeling well and chest discomfort. 1. Chest pain. The patient complained of chest pain at home, but currently has no complaints. As per daughter was feeling cold at home and not feeling well and poor appetite. Initial workup is negative. We will observe in med/surg tele, serial cardiac enzymes, echocardiogram and pacemaker interrogation. Echocardiogram and consult cardiology for further recommendation. May need PT and OT prior to discharge. 2. History of chronic systolic and diastolic congestive heart failure, ejection fraction of around 20% to 25%. He is not in volume overload. Continue his home medication, Toprol-XL, Aldactone. 3. History of chronic atrial fibrillation, status post prosthetic aortic wall replacement as well as prosthetic mitral valve replacement, on Coumadin. INR is subtherapeutic at 1.3. We will bridge with low dose IV heparin and continue Coumadin. Follow PT/INR. 4. Chronic idiopathic thrombocytopenic purpura . Platelets 112 today. 5. History of colon cancer, status post chemo and surgery 15 years ago. Seems stable. Recent CEA levels are normal. 6. Hypothyroidism. Continue Synthroid. 7. Depression. Continue Celexa. 8. History of seizure. Continue Keppra. 9. History of benign prostatic hypertrophy with urinary retention, on Proscar. Follows with urology. 10. History of lytic lesion on the bone. Recently follow with hematology/oncology, there is a plan for PET scan. Recently PSA and CEA levels are normal. 11. Lung nodule. Stable. 12. Ascending thoracic aorta. $3mm on ct scan. Needs followup. 13. Deep venous thrombosis prophylaxis. Placed on IV heparin. DISPOSITION: Close monitor in the Med/Surg tele. Level 1 full code only if there is a chance of recovery. PT and OT prior to discharge. Social Service to help with discharge planning. MTDD
[2018-09-08 04:19] LABS: INR 1.5 (0.9-1.1); Partial Thromboplastin Ratio 1.8; Prothrombin Time 14.5 Seconds (9.0-12.0)
[2018-09-08 04:20] LABS: BUN Creatinine Ratio 17.5 (10-20); Calcium 8.4 mg/dl (8.5-10.1); Creatinine Clr Calc Pharmacy 60.6 ml/min; Est GFR (African American) 83.9; Est GFR (Non-African American) 72.4; Potassium 3.4 mmol/L (3.5-5.1); Troponin I 0.154 ng/ml (0-0.045)
[2018-09-08 04:24] LABS: Hematocrit (blood only) 39.1 % (42-52); Hemoglobin 12.9 g/dL (14.0-18.0); Mean Corpuscular Volume 88.1 fL (80-100); Mean Platelet Volume 12.7 fL (7.4-10.4); Platelet Count 102 K/uL (130-400); RDW Coefficient of Variation 13.8 % (11.5-14.5); RDW Standard Deviation 44.7 fL (36.4-46.3); Red Blood Count 4.44 M/uL (4.7-6.1); White Blood Count 5.33 K/uL (4.8-10.8)
[2018-09-08 04:25] LABS: Basophils # (auto) 0.03 K/uL (0-0.2); Basophils % (auto) 0.6 %; Eosinophils # (auto) 0.12 K/uL (0-0.5); Eosinophils % (auto) 2.3 %; Immature Granulocytes # (auto) 0.02 K/uL (0.00-0.02); Immature Granulocytes % (auto) 0.4 %; Lymphocytes # (auto) 1.46 K/uL (1.2-3.4); Lymphocytes % (auto) 27.4 %; Monocytes # (auto) 0.52 K/uL (0.11-0.59); Monocytes % (auto) 9.8 %; Neutrophils # (auto) 3.18 K/uL (1.4-6.5); Neutrophils % (auto) 59.5 %; Partial Thromboplastin Time 49.3 Seconds (21.0-31.0); Platelet Estimate Decreased (Normal); RBC Morphology Unremarkable
[2018-09-08] MEDS ORDERED: POTASSIUM CHLORIDE 10 MEQ TABCR PO STA (04:31)
[2018-09-08] MEDS ORDERED: SODIUM CHLORIDE 0.9% 500 ML IV SCH (04:45)
[2018-09-08] MEDS: LEVOTHYROXINE SODIUM 125 MCG TABLET PO SCH (05:18)
[2018-09-08] MEDS: HEPARIN SODIUM/DEXTROSE 25,000 UNITS/500 ML BAG IV SCH (07:04)
[2018-09-08] MEDS: METOPROLOL SUCC 25MG EXT REL TAB PO SCH (08:19)
[2018-09-08] MEDS: GABAPENTIN 100 MG CAP PO SCH ×3 (08:20→21:06)
[2018-09-08] MEDS: CHOLECALCIFEROL 1,000 UNITS TAB PO SCH (08:21)
[2018-09-08] MEDS: levETIRAcetam 500 MG TAB PO SCH ×2 (08:21→21:06)
[2018-09-08] MEDS: FINASTERIDE 5 MG TAB PO SCH (08:21)
[2018-09-08] MEDS: SPIRONOLACTONE 25 MG TAB PO SCH (08:22)
[2018-09-08] MEDS: ASPIRIN 81 MG ECTAB PO SCH (08:22)
--- NOTE | 2018-09-08 12:29 | Consultation Report ---
DATE OF CONSULTATION: 09/08/2018 REFERRING PHYSICIAN: Bobby Domínguez MD PRIMARY CARE PHYSICIAN: Malena Lang DO INDICATIONS: "Not feeling well. Possible chest discomfort." HISTORY OF PRESENT ILLNESS: 1. The patient is an 83-year-old male with complex past history which includes a nonischemic cardiomyopathy with severe LV dysfunction, EF 20% to 25% with prior diagnostic cardiac catheterization in March 2014 with large caliber coronaries and no obstruction. 2. Significant valvular heart disease, status post aortic valve replacement and mitral valve replacement in March 2014, receiving [facility] bioprosthesis 29 mm in the aortic valve position and 33 mm in the mitral valve position with left atrial appendage ligation. 3. Persistent atrial fibrillation. 4. Status post biventricular pacer defibrillator insertion in November 2015, receiving a [employer] XR [employer]-D device. 5. Chronic Alzheimer's type dementia with profound memory loss. 6. Recent evaluation for lytic lesions of the ribs without distinct etiology discerned. The patient presents today having been referred from home where he resides with his 98-year-old mother in home care. Per review of records with patient, unable to offer any information, uncertain as to why he is here other than just "not feeling well." He denies specifically chest pain or shortness of breath. Noted he has been nauseated and potentially complained of chest discomfort at home, but he has no recollection of such. He notes some easy bruising. Notes no fevers, chills. Notes no cough, hoarseness, wheeze, or hemoptysis. Does have some dysuria on description. No swelling or edema. No acute weight gain or loss. Appetite per patient has been fair. Notes no sleep disruption. ALLERGIES: None. MEDICATIONS: Prior to hospitalization were Proscar 5 mg p.o. daily, trazodone 50 mg at bedtime, levothyroxine 125 mcg per day, Toprol-XL 6.25 mg p.o. daily, gabapentin 100 mg t.i.d., spironolactone 12.5 mg p.o. daily, Celexa 20 p.o. daily, Keppra 500 mg b.i.d., Coumadin, MiraLax, Tylenol, vitamin D, and aspirin. PAST SURGICAL HISTORY: As described above. In addition, he has undergone bilateral knee arthroplasties, partial colectomy and treatment for underlying colon carcinoma in the remote past, appendectomy, cholecystectomy. FAMILY HISTORY: Positive for coronary disease in father. SOCIAL HISTORY: The patient lives with his 98-year-old mother. He is a nonsmoker since 1979. Uses no significant alcoholic beverages. PHYSICAL EXAMINATION: GENERAL: The patient is comfortable, in no acute distress. VITAL SIGNS: Heart rate is 57, blood pressure is 112/74. Telemetry reveals no arrhythmias. HEENT: Normocephalic and atraumatic. Nares without discharge. Throat was clear. NECK: Supple without thyromegaly, lymphadenopathy, JVD. There are no carotid bruits. Carotid pulses are 2/4 without delay. LUNGS: Clear to auscultation with good aeration to bases. CARDIOVASCULAR: Regular with a grade 2/6 systolic murmur. No diastolic murmurs audible. Pacer defibrillator site is without tenderness. ABDOMEN: Soft, nontender. There is no palpable hepatosplenomegaly, there is no hepatojugular reflux. EXTREMITIES: Revealed minimal stasis changes without edema. NEUROLOGIC: The patient has chronic short-term memory issues and dementia, but pleasant without acute deficit. LABORATORY STUDIES: White cell count is 5.3, hemoglobin is 12.9, hematocrit is 39.1. Sodium is 139, potassium is 3.4, chloride is 106, bicarbonate is 30, BUN 17, creatinine 0.97. Troponins are elevated but flat in a pattern consistent with chronic troponin elevation and unchanged from prior studies in April as well. Echocardiogram is unchanged demonstrating diffuse cardiomyopathy, EF 20% to 25% with normally functioning bioprosthesis in the aortic and mitral valve positions. CT scan of the chest revealed no evidence of pulmonary embolus, infiltrate, or edema. Aorta is mildly enlarged at 4.3 cm. IMPRESSION AND PLAN: An 83-year-old male with history of known nonischemic cardiomyopathy, prior aortic and mitral valve replacements, AICD in place, biventricular paced rhythm. Presents with atypical symptoms not well defined and no evidence of acute myocardial injury or ischemia by flat troponins and historical history. Echocardiogram is unchanged. Past known normal coronaries by prior cardiac catheterization. Findings do not appear to be acutely cardiac. There is no evidence of congestive heart failure or clinical decline. Would continue current medications.
--- NOTE | 2018-09-08 14:06 | Hospitalist Progress Note ---
Date of Service September 08, 2018 Assessment & Plan (1) Chest pain: He has significant cardiac history as mentioned in H&P He did not complain any chest pain to me His cardiac enzymes and EKG remain unremarkable He was seen by the psychology instructor no medication has been changed (2) Systolic CHF: History of systolic and diastolic heart failure secondary to nonischemic cardiomyopathy Status post AICD placement for EF less than 35% Denies any cardiac symptoms as of today (3) Seizure: No evidence of seizure (4) Biventricular ICD (implantable cardioverter-defibrillator) in place: As above (5) History of partial colectomy: History of colon cancer status post partial colectomy Will have outpatient follow-up with oncologist (6) Depression: Has significant depression on top of her exam is dementia Complaints to have lack of sleep May be benefited from oral trazodone (7) Atrial fibrillation: Heart rate is controlled with current medications Recent echo did not have any significant change INR was low at 1.5 on admission Has been on intravenous heparin and Coumadin continue Likely go home tomorrow Subjective 09/08 Patient was seen and examined in medical telemetry unit He is an 83-year-old male with significant past medical history of chronic systolic CHF with EF of 22 to 5% status post AICD placement, chronic A. fib on anticoagulation, status post bioprosthetic aortic and mitral valve replacement, depression, history of seizure, Alzheimer's disease and peripheral sensory neuropathy was admitted with atypical chest pain/change in mental status/lack of sleep Denies any chest pain this morning With complaint history of some nonspecific pain in the limbs Has not been sleeping well at night Review of Systems Review of Systems: All symptoms reviewed and are unremarkable except as noted below Constitutional: + fatigue, + malaise, + weakness and + insomnia Physical Exam Physical Exam: No apparent distress at rest Constitutional: + ill appearing; no acute distress Eyes: PERRL, conjunctivae normal, anicteric sclerae ENMT: external ear and nose normal, oropharynx normal Neck: trachea midline, no thyromegaly Respiratory: normal respiratory effort Auscultation: + diminished lung sounds Cardiovascular: Rate/Rhythm: regular rate Heart Sounds: + murmur Gastrointestinal (Abdomen): Inspection/Auscultation: abdomen normal to inspection and normal bowel sounds Musculoskeletal: No acute arthritis in any joints Skin: Generalized bruising Neurologic: moves all extremities Motor/Sensory: no tremor Has Alzheimer's dementia Psychiatric: Orientation: alert Affect: + flat affect Mood: + depressed mood Lymphatic: no cervical or axillary lymphadenopathy Results & Data Vital Signs (Past 12 Hours) Vital Signs Temp Pulse Pulse Resp BP Pulse Ox 09/08/18 11:54 36.5 C 61 18 100/67 93 09/08/18 07:35 36.5 C 57 L 18 112/74 92 09/08/18 07:27 61 09/08/18 04:28 36.3 C L 51 L 16 94/61 L 95 Laboratory Results Short CBC 09/07/18 09/08/18 Range/Units 14:42 03:27 WBC 5.79 5.33 (4.8-10.8) K/uL Hgb 13.1 L 12.9 L (14.0-18.0) g/dL Hct 40.1 L 39.1 L (42-52) % Plt Count 112 L 102 L (130-400) K/uL BMP 09/07/18 09/08/18 14:42 03:27 Sodium 139 139 Potassium 4.3 3.4 L D Chloride 106 106 Carbon Dioxide 26 30 BUN 17 17 Creatinine 0.93 0.97 Glucose 79 91 Calcium 8.6 8.4 L Cardiac Enzymes 09/07/18 09/07/18 09/07/18 Range/Units 14:42 17:31 22:37 Troponin I 0.145 H* 0.155 H* 0.153 H* (0-0.045) ng/ml 09/08/18 09/08/18 Range/Units 03:27 10:44 Troponin I 0.154 H* 0.145 H* (0-0.045) ng/ml Medications Administered Current Inpatient Medications Acetaminophen (Tylenol) 650 mg PO Q4H PRN PRN Reason: Pain or Fever Stop: 10/07/18 20:48 Aspirin (Ecotrin Ectab) 81 mg PO DAILY REPLACED BY [facility] Stop: 10/08/18 08:59 Last Admin: 09/08/18 08:22 Dose: 81 mg Documented by: Finasteride (Proscar) 5 mg PO DAILY REPLACED BY [facility] Stop: 10/08/18 08:59 Last Admin: 09/08/18 08:21 Dose: 5 mg Documented by: Gabapentin (Neurontin) 100 mg PO TID REPLACED BY [facility] Stop: 10/07/18 20:59 Last Admin: 09/08/18 08:20 Dose: 100 mg Documented by: Heparin Sodium/Dextrose (Heparin Sodium/Dextrose) 25,000 units in 500 mls @ 18 mls/hr IV .Q24H REPLACED BY [facility]; Protocol Stop: 10/08/18 05:59 Last Admin: 09/08/18 07:04 Dose: 900 units/hr, 18 mls/hr Documented by: Levetiracetam (Keppra) 500 mg PO BID REPLACED BY [facility] Stop: 10/07/18 20:59 Last Admin: 09/08/18 08:21 Dose: 500 mg Documented by: Levothyroxine Sodium (Synthroid) 125 mcg PO DAILYBB REPLACED BY [facility] Stop: 10/08/18 06:29 Last Admin: 09/08/18 05:18 Dose: 125 mcg Documented by: Metoprolol Succinate (Toprol Xl) 6.25 mg PO DAILY REPLACED BY [facility] Stop: 10/08/18 08:59 Last Admin: 09/08/18 08:19 Dose: 6.25 mg Documented by: Nitroglycerin (Nitrostat) 0.4 mg SL UD PRN PRN Reason: Chest Pain Stop: 10/07/18 20:48 Ondansetron HCl (Zofran) 4 mg IV Q6H PRN PRN Reason: Nausea Stop: 10/07/18 20:48 Polyethylene Glycol (Miralax Powder Packet) 17 gm PO TID PRN PRN Reason: Constipation Stop: 10/07/18 20:48 Polyethylene Glycol (Miralax Powder Packet) 17 gm PO DAILY PRN PRN Reason: Constipation Stop: 10/07/18 20:48 Spironolactone (Aldactone) 12.5 mg PO DAILY REPLACED BY [facility] Stop: 10/08/18 08:59 Last Admin: 09/08/18 08:22 Dose: 12.5 mg Documented by: Trazodone HCl (Desyrel) 50 mg PO HS REPLACED BY [facility] Stop: 10/07/18 20:59 Last Admin: 09/07/18 21:52 Dose: 50 mg Documented by: Vitamin D (Vitamin D3) 1,000 units PO DAILY REPLACED BY [facility] Stop: 10/08/18 08:59 Last Admin: 09/08/18 08:21 Dose: 1,000 units Documented by: Warfarin Sodium (Coumadin) 3 mg PO DAILY@1600 REPLACED BY [facility] Stop: 10/08/18 15:59 (1) Chest pain Chest pain type: unspecified Qualified Code(s): R07.9 - Chest pain, unspecified
[2018-09-08] MEDS ORDERED: WARFARIN SOD 3 MG TAB PO SCH (16:00)
[2018-09-08] MEDS: TRAZODONE HCL 100 MG TAB PO SCH (21:31)
[2018-09-09] MEDS: HEPARIN SODIUM/DEXTROSE 25,000 UNITS/500 ML BAG IV SCH (00:21)
[2018-09-09] MEDS ORDERED: SODIUM CHLORIDE 0.9% 1000ML 250 ML IV ONE (04:02)
[2018-09-09] MEDS: LEVOTHYROXINE SODIUM 125 MCG TABLET PO SCH (06:12)
[2018-09-09 06:43] LABS: INR 1.4 (0.9-1.1); Prothrombin Time 14.1 Seconds (9.0-12.0)
[2018-09-09 06:59] LABS: Hematocrit (blood only) 39.7 % (42-52); Hemoglobin 13.6 g/dL (14.0-18.0); Mean Corpuscular Hgb Conc 34.3 g/dL (32-36); Mean Corpuscular Volume 88.2 fL (80-100); Mean Platelet Volume 12.8 fL (7.4-10.4); Platelet Count 94 K/uL (130-400); RDW Coefficient of Variation 13.7 % (11.5-14.5); RDW Standard Deviation 44.4 fL (36.4-46.3); White Blood Count 6.39 K/uL (4.8-10.8)
[2018-09-09 07:06] LABS: BUN Creatinine Ratio 18.6 (10-20); Calcium 8.4 mg/dl (8.5-10.1); Creatinine Clr Calc Pharmacy 60.6 ml/min; Est GFR (African American) 83.9; Est GFR (Non-African American) 72.4; Potassium 3.9 mmol/L (3.5-5.1)
[2018-09-09 07:07] LABS: Basophils # (auto) 0.03 K/uL (0-0.2); Basophils % (auto) 0.5 %; Eosinophils # (auto) 0.07 K/uL (0-0.5); Eosinophils % (auto) 1.1 %; Giant Platelets 1+; Immature Granulocytes # (auto) 0.01 K/uL (0.00-0.02); Immature Granulocytes % (auto) 0.2 %; Lymphocytes # (auto) 1.57 K/uL (1.2-3.4); Lymphocytes % (auto) 24.6 %; Monocytes # (auto) 0.37 K/uL (0.11-0.59); Monocytes % (auto) 5.8 %; Neutrophils # (auto) 4.34 K/uL (1.4-6.5); Neutrophils % (auto) 67.8 %
[2018-09-09] MEDS: levETIRAcetam 500 MG TAB PO SCH ×2 (08:51→20:33)
[2018-09-09] MEDS: METOPROLOL SUCC 25MG EXT REL TAB PO SCH (08:52)
[2018-09-09] MEDS: CHOLECALCIFEROL 1,000 UNITS TAB PO SCH (08:52)
[2018-09-09] MEDS: SPIRONOLACTONE 25 MG TAB PO SCH (08:53)
[2018-09-09] MEDS: FINASTERIDE 5 MG TAB PO SCH (08:53)
[2018-09-09] MEDS: ASPIRIN 81 MG ECTAB PO SCH (08:54)
[2018-09-09] MEDS: GABAPENTIN 100 MG CAP PO SCH ×3 (08:54→20:33)
[2018-09-09 11:24] LABS: Partial Thromboplastin Ratio 2.3
[2018-09-09 11:27] LABS: Partial Thromboplastin Time 63.1 Seconds (21.0-31.0)
--- NOTE | 2018-09-09 13:37 | Hospitalist Progress Note ---
Date of Service September 09, 2018 Assessment & Plan (1) Chest pain: He has significant cardiac history as mentioned in H&P He did not complain any chest pain to me His cardiac enzymes and EKG remain unremarkable He was seen by the compliance and control analyst no medication has been changed No more cardiac symptoms (2) Systolic CHF: History of systolic and diastolic heart failure secondary to nonischemic cardiomyopathy Status post AICD placement for EF less than 35% Denies any cardiac symptoms as of today Remains euvolemic (3) Seizure: No evidence of seizure (4) Biventricular ICD (implantable cardioverter-defibrillator) in place: As above (5) History of partial colectomy: History of colon cancer status post partial colectomy Will have outpatient follow-up with oncologist (6) Depression: Has significant depression on top of her exam is dementia Complaints to have lack of sleep May be benefited from oral trazodone Slept well last night with increasing dose of trazodone (7) Atrial fibrillation: Heart rate is controlled with current medications Recent echo did not have any significant change INR was low at 1.5 on admission Has been on intravenous heparin and Coumadin continue INR is 1.4 today We will double the dose of Coumadin today Likely discharge tomorrow Subjective 09/08 Patient was seen and examined in medical telemetry unit He is an 83-year-old male with significant past medical history of chronic systolic CHF with EF of 22 to 5% status post AICD placement, chronic A. fib on anticoagulation, status post bioprosthetic aortic and mitral valve replacement, depression, history of seizure, Alzheimer's disease and peripheral sensory neuropathy was admitted with atypical chest pain/change in mental status/lack of sleep Denies any chest pain this morning With complaint history of some nonspecific pain in the limbs Has not been sleeping well at night 09/09 Patient is seen and examined in medical telemetry unit He denies any symptoms and his mental status is back to baseline Generally weak but has been out of bed on a chair Wants to go home Review of Systems Constitutional: + fatigue, + malaise, + weakness and + insomnia Physical Exam Physical Exam: No apparent distress at rest Constitutional: + ill appearing; no acute distress Eyes: PERRL, conjunctivae normal, anicteric sclerae ENMT: external ear and nose normal, oropharynx normal Neck: trachea midline, no thyromegaly Respiratory: normal respiratory effort Auscultation: + diminished lung sounds Cardiovascular: Rate/Rhythm: regular rate Heart Sounds: + murmur Gastrointestinal (Abdomen): Inspection/Auscultation: abdomen normal to inspe ction and normal bowel sounds Neurologic: moves all extremities (But generally weak) Motor/Sensory: no tremor Psychiatric: Orientation: alert Affect: + flat affect Mood: + depressed mood Lymphatic: no cervical or axillary lymphadenopathy Results & Data Vital Signs (Past 12 Hours) Vital Signs Temp Pulse Pulse Resp BP Pulse Ox 09/09/18 11:02 36.3 C L 55 L 18 76/53 L 92 09/09/18 07:18 63 09/09/18 06:46 36.6 C 63 16 91/66 L 90 09/09/18 04:06 36.6 C 61 18 88/48 L 95 Laboratory Results Short CBC 09/09/18 Range/Units 06:03 WBC 6.39 (4.8-10.8) K/uL Hgb 13.6 L (14.0-18.0) g/dL Hct 39.7 L (42-52) % Plt Count 94 L (130-400) K/uL BMP 09/09/18 06:03 Sodium 139 Potassium 3.9 Chloride 108 H Carbon Dioxide 26 BUN 18 Creatinine 0.97 Glucose 94 Calcium 8.4 L Medications Administered Current Inpatient Medications Acetaminophen (Tylenol) 650 mg PO Q4H PRN PRN Reason: Pain or Fever Stop: 10/07/18 20:48 Aspirin (Ecotrin Ectab) 81 mg PO DAILY [facility] Stop: 10/08/18 08:59 Last Admin: 09/09/18 08:54 Dose: 81 mg Documented by: Finasteride (Proscar) 5 mg PO DAILY [facility] Stop: 10/08/18 08:59 Last Admin: 09/09/18 08:53 Dose: 5 mg Documented by: Gabapentin (Neurontin) 100 mg PO TID [facility] Stop: 10/07/18 20:59 Last Admin: 09/09/18 08:54 Dose: 100 mg Documented by: Heparin Sodium/Dextrose (Heparin Sodium/Dextrose) 25,000 units in 500 mls @ 18 mls/hr IV .Q24H [facility]; Protocol Stop: 10/08/18 05:59 Last Titration: 09/09/18 11:38 Dose: 900 units/hr, 18 mls/hr Documented by: Levetiracetam (Keppra) 500 mg PO BID [facility] Stop: 10/07/18 20:59 Last Admin: 09/09/18 08:51 Dose: 500 mg Documented by: Levothyroxine Sodium (Synthroid) 125 mcg PO DAILYBB [facility] Stop: 10/08/18 06:29 Last Admin: 09/09/18 06:12 Dose: 125 mcg Documented by: Metoprolol Succinate (Toprol Xl) 6.25 mg PO DAILY [facility] Stop: 10/08/18 08:59 Last Admin: 09/09/18 08:52 Dose: 6.25 mg Documented by: Nitroglycerin (Nitrostat) 0.4 mg SL UD PRN PRN Reason: Chest Pain Stop: 10/07/18 20:48 Ondansetron HCl (Zofran) 4 mg IV Q6H PRN PRN Reason: Nausea Stop: 10/07/18 20:48 Polyethylene Glycol (Miralax Powder Packet) 17 gm PO TID PRN PRN Reason: Constipation Stop: 10/07/18 20:48 Polyethylene Glycol (Miralax Powder Packet) 17 gm PO DAILY PRN PRN Reason: Constipation Stop: 10/07/18 20:48 Spironolactone (Aldactone) 12.5 mg PO DAILY [facility] Stop: 10/08/18 08:59 Last Admin: 09/09/18 08:53 Dose: 12.5 mg Documented by: Trazodone HCl (Desyrel) 100 mg PO HS [facility] Stop: 10/08/18 20:59 Last Admin: 09/08/18 21:31 Dose: 100 mg Documented by: Vitamin D (Vitamin D3) 1,000 units PO DAILY [facility] Stop: 10/08/18 08:59 Last Admin: 09/09/18 08:52 Dose: 1,000 units Documented by: Warfarin Sodium (Coumadin) 6 mg PO DAILY@1600 [facility] Stop: 10/09/18 15:59 (1) Chest pain Chest pain type: unspecified Qualified Code(s): R07.9 - Chest pain, unspecified
[2018-09-09] MEDS: WARFARIN SOD 6 MG TAB PO SCH (16:53)
[2018-09-09] MEDS: TRAZODONE HCL 100 MG TAB PO SCH (20:33)
[2018-09-10] MEDS: HEPARIN SODIUM/DEXTROSE 25,000 UNITS/500 ML BAG IV SCH (05:35)
[2018-09-10] MEDS: LEVOTHYROXINE SODIUM 125 MCG TABLET PO SCH (05:36)
[2018-09-10 06:28] LABS: INR 1.5 (0.9-1.1); Prothrombin Time 15.1 Seconds (9.0-12.0)
[2018-09-10] MEDS: METOPROLOL SUCC 25MG EXT REL TAB PO SCH (07:55)
[2018-09-10] MEDS: CHOLECALCIFEROL 1,000 UNITS TAB PO SCH (07:56)
[2018-09-10] MEDS: ASPIRIN 81 MG ECTAB PO SCH (07:56)
[2018-09-10] MEDS: SPIRONOLACTONE 25 MG TAB PO SCH (07:56)
[2018-09-10] MEDS: GABAPENTIN 100 MG CAP PO SCH ×3 (07:56→20:57)
[2018-09-10] MEDS: FINASTERIDE 5 MG TAB PO SCH (07:57)
[2018-09-10] MEDS: levETIRAcetam 500 MG TAB PO SCH ×2 (07:57→20:57)
[2018-09-10] MEDS ORDERED: BISACODYL 10 MG SUPP PR STA (12:01)
--- NOTE | 2018-09-10 12:16 | Hospitalist Progress Note ---
Date of Service September 10, 2018 Assessment & Plan (1) Chest pain: He has significant cardiac history as mentioned in H&P He did not complain any chest pain to me on the day after admission His cardiac enzymes and EKG remain unremarkable He was seen by the manager port no medication has been changed No more cardiac symptoms Hemodynamically stable and no arrhythmias (2) Systolic CHF: History of systolic and diastolic heart failure secondary to nonischemic cardiomyopathy Status post AICD placement for EF less than 35% Denies any cardiac symptoms as of today Remains euvolemic (3) Seizure: No evidence of seizure (4) Biventricular ICD (implantable cardioverter-defibrillator) in place: As above (5) History of partial colectomy: History of colon cancer status post partial colectomy Will have outpatient follow-up with oncologist (6) Depression: Has significant depression on top of her exam is dementia Complaints to have lack of sleep May be benefited from oral trazodone Slept well last night with increasing dose of trazodone Has had some sleep last night (7) Atrial fibrillation: Heart rate is controlled with current medications Recent echo did not have any significant change INR was low at 1.5 on admission Has been on intravenous heparin and Coumadin continue INR is 1.4 today We will double the dose of Coumadin today INR remains low at 1. 5 Continue Coumadin 6 mg today and check INR tomorrow before discharge Discussed with the daughter Subjective 09/08 Patient was seen and examined in medical telemetry unit He is an 83-year-old male with significant past medical history of chronic systolic CHF with EF of 22 to 5% status post AICD placement, chronic A. fib on anticoagulation, status post bioprosthetic aortic and mitral valve replacement, depression, history of seizure, Alzheimer's disease and peripheral sensory neuropathy was admitted with atypical chest pain/change in mental status/lack of sleep Denies any chest pain this morning With complaint history of some nonspecific pain in the limbs Has not been sleeping well at night 09/09 Patient is seen and examined in medical telemetry unit He denies any symptoms and his mental status is back to baseline Generally weak but has been out of bed on a chair Wants to go home 09/10 The patient was seen and examined in the medical telemetry unit He has been stable with generalized weakness Complaints minimal abdominal discomfort her likely secondary to not having any bowel movement Denies any other symptoms Review of Systems Review of Systems: All systems reviewed and are unremarkable except as noted below Constitutional: + malaise and + weakness (Generalized weakness) Physical Exam Physical Exam: Lying in bed comfortably Constitutional: + ill appearing; no acute distress Eyes: PERRL, conjunctivae normal, anicteric sclerae ENMT: external ear and nose normal, oropharynx normal Neck: trachea midline, no thyromegaly Respiratory: normal respiratory effort Auscultation: + diminished lung sounds Cardiovascular: Rate/Rhythm: regular rate Heart Sounds: + murmur Gastrointestinal (Abdomen): Inspection/Auscultation: abdomen normal to inspection and normal bowel sounds Neurologic: moves all extremities (But generally weak) Motor/Sensory: no tremor Psychiatric: Orientation: alert Affect: + flat affect Mood: + depressed mood Lymphatic: no cervical or axillary lymphadenopathy Results & Data Vital Signs (Past 12 Hours) Vital Signs Temp Pulse Resp BP BP Pulse Ox 09/10/18 11:31 36.7 C 61 18 92/62 L 96 09/10/18 07:09 36.3 C L 65 18 106/71 94 09/10/18 04:11 36.3 C L 62 16 102/65 93 Medications Administered Current Inpatient Medications Acetaminophen (Tylenol) 650 mg PO Q4H PRN PRN Reason: Pain or Fever Stop: 10/07/18 20:48 Aspirin (Ecotrin Ectab) 81 mg PO DAILY [facility] Stop: 10/08/18 08:59 Last Admin: 09/10/18 07:56 Dose: 81 mg Documented by: Finasteride (Proscar) 5 mg PO DAILY [facility] Stop: 10/08/18 08:59 Last Admin: 09/10/18 07:57 Dose: 5 mg Documented by: Gabapentin (Neurontin) 100 mg PO TID [facility] Stop: 10/07/18 20:59 Last Admin: 09/10/18 07:56 Dose: 100 mg Documented by: Heparin Sodium/Dextrose (Heparin Sodium/Dextrose) 25,000 units in 500 mls @ 18 mls/hr IV .Q24H [facility]; Protocol Stop: 10/08/18 05:59 Last Titration: 09/10/18 07:02 Dose: 900 units/hr, 18 mls/hr Documented by: Levetiracetam (Keppra) 500 mg PO BID [facility] Stop: 10/07/18 20:59 Last Admin: 09/10/18 07:57 Dose: 500 mg Documented by: Levothyroxine Sodium (Synthroid) 125 mcg PO DAILYBB [facility] Stop: 10/08/18 06:29 Last Admin: 09/10/18 05:36 Dose: 125 mcg Documented by: Metoprolol Succinate (Toprol Xl) 6.25 mg PO DAILY [facility] Stop: 10/08/18 08:59 Last Admin: 09/10/18 07:55 Dose: 6.25 mg Documented by: Nitroglycerin (Nitrostat) 0.4 mg SL UD PRN PRN Reason: Chest Pain Stop: 10/07/18 20:48 Ondansetron HCl (Zofran) 4 mg IV Q6H PRN PRN Reason: Nausea Stop: 10/07/18 20:48 Polyethylene Glycol (Miralax Powder Packet) 17 gm PO TID PRN PRN Reason: Constipation Stop: 10/07/18 20:48 Polyethylene Glycol (Miralax Powder Packet) 17 gm PO DAILY PRN PRN Reason: Constipation Stop: 10/07/18 20:48 Spironolactone (Aldactone) 12.5 mg PO DAILY [facility] Stop: 10/08/18 08:59 Last Admin: 09/10/18 07:56 Dose: 12.5 mg Documented by: Trazodone HCl (Desyrel) 100 mg PO HS [facility] Stop: 10/08/18 20:59 Last Admin: 09/09/18 20:33 Dose: 100 mg Documented by: Vitamin D (Vitamin D3) 1,000 units PO DAILY [facility] Stop: 10/08/18 08:59 Last Admin: 09/10/18 07:56 Dose: 1,000 units Documented by: Warfarin Sodium (Coumadin) 6 mg PO DAILY@1600 [facility] Stop: 10/09/18 15:59 Last Admin: 09/09/18 16:53 Dose: 6 mg Documented by: (1) Chest pain Chest pain type: unspecified Qualified Code(s): R07.9 - Chest pain, unspecified
[2018-09-10 14:01] LABS: Partial Thromboplastin Ratio 2.3; Partial Thromboplastin Time 62.5 Seconds (21.0-31.0)
[2018-09-10] MEDS: WARFARIN SOD 6 MG TAB PO SCH (15:54)
[2018-09-10] MEDS: TRAZODONE HCL 100 MG TAB PO SCH (20:58)
[2018-09-11] MEDS: LEVOTHYROXINE SODIUM 125 MCG TABLET PO SCH (05:35)
[2018-09-11 07:10] LABS: Hematocrit (blood only) 37.9 % (42-52); Hemoglobin 12.9 g/dL (14.0-18.0); Mean Corpuscular Volume 89.2 fL (80-100); RDW Standard Deviation 45.8 fL (36.4-46.3); Red Blood Count 4.25 M/uL (4.7-6.1); White Blood Count 5.14 K/uL (4.8-10.8)
[2018-09-11 07:18] LABS: Basophils # (auto) 0.01 K/uL (0-0.2); Basophils % (auto) 0.2 %; Eosinophils # (auto) 0.13 K/uL (0-0.5); Eosinophils % (auto) 2.5 %; Immature Granulocytes # (auto) 0.01 K/uL (0.00-0.02); Immature Granulocytes % (auto) 0.2 %; Lymphocytes # (auto) 1.29 K/uL (1.2-3.4); Lymphocytes % (auto) 25.1 %; Mean Platelet Volume 13.2 fL (7.4-10.4); Monocytes # (auto) 0.42 K/uL (0.11-0.59); Monocytes % (auto) 8.2 %; Neutrophils # (auto) 3.28 K/uL (1.4-6.5); Neutrophils % (auto) 63.8 %; Platelet Count 96 K/uL (130-400)
[2018-09-11 07:19] LABS: INR 1.9 (0.9-1.1); Partial Thromboplastin Ratio 2.6; Prothrombin Time 18.2 Seconds (9.0-12.0)
[2018-09-11 07:23] LABS: Partial Thromboplastin Time 69.4 Seconds (21.0-31.0)
[2018-09-11 07:38] LABS: BUN Creatinine Ratio 16.7 (10-20); Calcium 8.6 mg/dl (8.5-10.1); Est GFR (African American) 71.3; Est GFR (Non-African American) 61.5; Potassium 3.4 mmol/L (3.5-5.1)
--- NOTE | 2018-09-11 08:22 | Hospitalist Progress Note ---
Date of Service September 11, 2018 Assessment & Plan (1) Chest pain: He has significant cardiac history as mentioned in H&P He did not complain any chest pain to me on the day after admission His cardiac enzymes and EKG remain unremarkable He was seen by the stationary plant operators no medication has been changed No more cardiac symptoms Hemodynamically stable and no arrhythmias Increased Troponin Due to Demand Ischemia No more chest pain noted (2) Systolic CHF: History of systolic and diastolic heart failure secondary to nonischemic cardiomyopathy Status post AICD placement for EF less than 35% Denies any cardiac symptoms as of today Remains euvolemic (3) Seizure: No evidence of seizure (4) Biventricular ICD (implantable cardioverter-defibrillator) in place: As above (5) History of partial colectomy: History of colon cancer status post partial colectomy Will have outpatient follow-up with oncologist (6) Depression: Has significant depression on top of her exam is dementia Complaints to have lack of sleep May be benefited from oral trazodone Slept well last night with increasing dose of trazodone Has had some sleep last night (7) Atrial fibrillation: Heart rate is controlled with current medications Recent echo did not have any significant change INR was low at 1.5 on admission Has been on intravenous heparin and Coumadin continue INR is 1.4 today We will double the dose of Coumadin today INR remains low at 1. 5 Continue Coumadin 6 mg today and check INR tomorrow before discharge Discussed with the daughter INR is near therapeutic at 1.9 today We will give 6 mg Coumadin this afternoon and recheck in the morning He will be discharged tomorrow and/or when he is accepted to a facility for ongoing rehab Discussed with the daughter in the Subjective 09/08 Patient was seen and examined in medical telemetry unit He is an 83-year-old male with significant past medical history of chronic systolic CHF with EF of 22 to 5% status post AICD placement, chronic A. fib on anticoagulation, status post bioprosthetic aortic and mitral valve replacement, depression, history of seizure, Alzheimer's disease and peripheral sensory neuropathy was admitted with atypical chest pain/change in mental status/lack of sleep Denies any chest pain this morning With complaint history of some nonspecific pain in the limbs Has not been sleeping well at night 09/09 Patient is seen and examined in medical telemetry unit He denies any symptoms and his mental status is back to baseline Generally weak but has been out of bed on a chair Wants to go home 09/10 The patient was seen and examined in the medical telemetry unit He has been stable with generalized weakness Complaints minimal abdominal discomfort her likely secondary to not having any bowel movement Denies any other symptoms 09/11 The patient was seen and examined in presence of the grandson He denies any complaints He was noted to have very unsteady on his feet and was advised to go for short- term rehab as per therapist This is discussed with the patient and the daughter and they were willing to send him to [facility] Review of Systems Review of Systems: No apparent distress at rest Physical Exam Physical Exam: Sitting in a chair out of bed without symptoms Constitutional: + ill appearing; no acute distress Eyes: PERRL, conjunctivae normal, anicteric sclerae ENMT: external ear and nose normal, oropharynx normal Neck: trachea midline, no thyromegaly Respiratory: normal respiratory effort Auscultation: + diminished lung sounds Cardiovascular: Rate/Rhythm: regular rate Heart Sounds: + murmur Gastrointestinal (Abdomen): Inspection/Auscultation: abdomen normal to inspection and normal bowel sounds Neurologic: moves all extremities (But generally weak) Motor/Sensory: no tremor Psychiatric: Orientation: alert Affect: + flat affect Mood: + depressed mood Lymphatic: no cervical or axillary lymphadenopathy Results & Data Vital Signs (Past 12 Hours) Vital Signs Temp Pulse Pulse Resp BP Pulse Ox 09/11/18 07:43 36.6 C 96 H 20 103/73 92 09/11/18 04:16 36.4 C L 60 16 120/81 95 09/11/18 00:59 67 09/11/18 00:20 36.7 C 59 L 16 103/67 96 Laboratory Results Short CBC 09/11/18 Range/Units 06:35 WBC 5.14 (4.8-10.8) K/uL Hgb 12.9 L (14.0-18.0) g/dL Hct 37.9 L (42-52) % Plt Count 96 L (130-400) K/uL BMP 09/11/18 06:35 Sodium 142 Potassium 3.4 L Chloride 109 H Carbon Dioxide 27 BUN 19 H Creatinine 1.11 Glucose 87 Calcium 8.6 Medications Administered Current Inpatient Medications Acetaminophen (Tylenol) 650 mg PO Q4H PRN PRN Reason: Pain or Fever Stop: 10/07/18 20:48 Aspirin (Ecotrin Ectab) 81 mg PO DAILY [facility] Stop: 10/08/18 08:59 Last Admin: 09/11/18 08:48 Dose: 81 mg Documented by: Finasteride (Proscar) 5 mg PO DAILY [facility] Stop: 10/08/18 08:59 Last Admin: 09/11/18 08:49 Dose: 5 mg Documented by: Gabapentin (Neurontin) 100 mg PO TID [facility] Stop: 10/07/18 20:59 Last Admin: 09/11/18 13:13 Dose: 100 mg Documented by: Heparin Sodium/Dextrose (Heparin Sodium/Dextrose) 25,000 units in 500 mls @ 16 mls/hr IV .Q24H [facility]; Protocol Stop: 10/08/18 05:59 Last Admin: 09/11/18 08:30 Dose: 800 units/hr, 16 mls/hr Documented by: Levetiracetam (Keppra) 500 mg PO BID [facility] Stop: 10/07/18 20:59 Last Admin: 09/11/18 08:49 Dose: 500 mg Documented by: Levothyroxine Sodium (Synthroid) 125 mcg PO DAILYBB [facility] Stop: 10/08/18 06:29 Last Admin: 09/11/18 05:35 Dose: 125 mcg Documented by: Metoprolol Succinate (Toprol Xl) 6.25 mg PO DAILY [facility] Stop: 10/08/18 08:59 Last Admin: 09/11/18 08:49 Dose: 6.25 mg Documented by: Nitroglycerin (Nitrostat) 0.4 mg SL UD PRN PRN Reason: Chest Pain Stop: 10/07/18 20:48 Ondansetron HCl (Zofran) 4 mg IV Q6H PRN PRN Reason: Nausea Stop: 10/07/18 20:48 Polyethylene Glycol (Miralax Powder Packet) 17 gm PO TID PRN PRN Reason: Constipation Stop: 10/07/18 20:48 Polyethylene Glycol (Miralax Powder Packet) 17 gm PO DAILY PRN PRN Reason: Constipation Stop: 10/07/18 20:48 Spironolactone (Aldactone) 12.5 mg PO DAILY [facility] Stop: 10/08/18 08:59 Last Admin: 09/11/18 08:47 Dose: 12.5 mg Documented by: Trazodone HCl (Desyrel) 100 mg PO HS [facility] Stop: 10/08/18 20:59 Last Admin: 09/10/18 20:58 Dose: 100 mg Documented by: Vitamin D (Vitamin D3) 1,000 units PO DAILY [facility] Stop: 10/08/18 08:59 Last Admin: 09/11/18 08:49 Dose: 1,000 units Documented by: Warfarin Sodium (Coumadin) 6 mg PO DAILY@1600 [facility] Stop: 10/09/18 15:59 Last Admin: 09/10/18 15:54 Dose: 6 mg Documented by: (1) Chest pain Chest pain type: unspecified Qualified Code(s): R07.9 - Chest pain, unspecified
[2018-09-11] MEDS: HEPARIN SODIUM/DEXTROSE 25,000 UNITS/500 ML BAG IV SCH (08:30)
[2018-09-11] MEDS: SPIRONOLACTONE 25 MG TAB PO SCH (08:47)
[2018-09-11] MEDS: GABAPENTIN 100 MG CAP PO SCH ×3 (08:48→20:48)
[2018-09-11] MEDS: ASPIRIN 81 MG ECTAB PO SCH (08:48)
[2018-09-11] MEDS: FINASTERIDE 5 MG TAB PO SCH (08:49)
[2018-09-11] MEDS: levETIRAcetam 500 MG TAB PO SCH ×2 (08:49→20:48)
[2018-09-11] MEDS: CHOLECALCIFEROL 1,000 UNITS TAB PO SCH (08:49)
[2018-09-11] MEDS: METOPROLOL SUCC 25MG EXT REL TAB PO SCH (08:49)
[2018-09-11 14:37] LABS: Partial Thromboplastin Ratio 2.3
[2018-09-11] MEDS: WARFARIN SOD 6 MG TAB PO SCH (16:27)
[2018-09-11] MEDS: TRAZODONE HCL 100 MG TAB PO SCH (20:48)
[2018-09-12 05:08] LABS: INR 1.9 (0.9-1.1); Prothrombin Time 18.9 Seconds (9.0-12.0)
[2018-09-12 05:09] LABS: Partial Thromboplastin Ratio 2.4
[2018-09-12 05:45] LABS: Partial Thromboplastin Time 64.6 Seconds (21.0-31.0)
[2018-09-12] MEDS: LEVOTHYROXINE SODIUM 125 MCG TABLET PO SCH (06:01)
[2018-09-12] MEDS: HEPARIN SODIUM/DEXTROSE 25,000 UNITS/500 ML BAG IV SCH ×2 (08:00→15:28)
[2018-09-12] MEDS: METOPROLOL SUCC 25MG EXT REL TAB PO SCH (08:07)
[2018-09-12] MEDS: CHOLECALCIFEROL 1,000 UNITS TAB PO SCH (08:07)
[2018-09-12] MEDS: SPIRONOLACTONE 25 MG TAB PO SCH (08:09)
[2018-09-12] MEDS: ASPIRIN 81 MG ECTAB PO SCH (08:09)
[2018-09-12] MEDS: FINASTERIDE 5 MG TAB PO SCH (08:09)
[2018-09-12] MEDS: GABAPENTIN 100 MG CAP PO SCH ×3 (08:10→20:50)
[2018-09-12] MEDS: levETIRAcetam 500 MG TAB PO SCH ×2 (08:10→20:49)
[2018-09-12] MEDS ORDERED: POTASSIUM CHLORIDE 20 MEQ TABCR PO STA (14:19)
--- NOTE | 2018-09-12 14:19 | Hospitalist Progress Note ---
Date of Service September 12, 2018 Assessment & Plan (1) Chest pain: He has significant cardiac history as mentioned in H&P He did not complain any chest pain to me on the day after admission His cardiac enzymes and EKG remain unremarkable He was seen by the business center attendant no medication has been changed No more cardiac symptoms Hemodynamically stable and no arrhythmias Remains stable without any cardiac symptoms Increased Troponin Due to Demand Ischemia No more chest pain noted (2) Systolic CHF: History of systolic and diastolic heart failure secondary to nonischemic cardiomyopathy Status post AICD placement for EF less than 35% Denies any cardiac symptoms as of today Remains euvolemic-denies any shortness of breath (3) Seizure: No evidence of seizure (4) Biventricular ICD (implantable cardioverter-defibrillator) in place: As above (5) History of partial colectomy: History of colon cancer status post partial colectomy Will have outpatient follow-up with oncologist (6) Depression: Has significant depression on top of her exam is dementia Complaints to have lack of sleep May be benefited from oral trazodone Slept well last night with increasing dose of trazodone Has had some sleep last night (7) Atrial fibrillation: Heart rate is controlled with current medications Recent echo did not have any significant change INR was low at 1.5 on admission Has been on intravenous heparin and Coumadin continue INR is 1.4 today We will double the dose of Coumadin today INR remains low at 1. 5 Continue Coumadin 6 mg today and check INR tomorrow before discharge Discussed with the daughter INR is near therapeutic at 1.9 today We will give 6 mg Coumadin this afternoon and recheck in the morning INR is not yet therapeutic which remains at 1.9 as of yesterday We will continue current dose of Coumadin and monitor INR He will be discharged tomorrow and/or when he is accepted to a facility for ongoing rehab Discussed with the daughter in the Awaiting placement Subjective 09/08 Patient was seen and examined in medical telemetry unit He is an 83-year-old male with significant past medical history of chronic systolic CHF with EF of 22 to 5% status post AICD placement, chronic A. fib on anticoagulation, status post bioprosthetic aortic and mitral valve replacement, depression, history of seizure, Alzheimer's disease and peripheral sensory neuropathy was admitted with atypical chest pain/change in mental status/lack of sleep Denies any chest pain this morning With complaint history of some nonspecific pain in the limbs Has not been sleeping well at night 09/09 Patient is seen and examined in medical telemetry unit He denies any symptoms and his mental status is back to baseline Generally weak but has been out of bed on a chair Wants to go home 09/10 The patient was seen and examined in the medical telemetry unit He has been stable with generalized weakness Complaints minimal abdominal discomfort her likely secondary to not having any bowel movement Denies any other symptoms 09/11 The patient was seen and examined in presence of the grandson He denies any complaints He was noted to have very unsteady on his feet and was advised to go for short- term rehab as per therapist This is discussed with the patient and the daughter and they were willing to send him to [facility] 09/12 Patient was seen and examined in medical telemetry unit He has been stable for the last few days Only complains of generalized weakness Physical therapy recommended for rehab Review of Systems Review of Systems: All systems reviewed and are unremarkable except as noted below Constitutional: + malaise and + weakness (Generalized weakness) Neurologic: + gait abnormality, + unsteadiness and + generalized weakness Psychiatric: + depression and + confusion Physical Exam Physical Exam: Lying in bed comfortably Constitutional: + ill appearing; no acute distress Eyes: PERRL, conjunctivae normal, anicteric sclerae ENMT: external ear and nose normal, oropharynx normal Neck: trachea midline, no thyromegaly Respiratory: normal respiratory effort Auscultation: + diminished lung sounds Cardiovascular: Rate/Rhythm: regular rate Heart Sounds: + murmur Extremities: no edema Gastrointestinal (Abdomen): Inspection/Auscultation: abdomen normal to inspection and normal bowel sounds Neurologic: moves all extremities (But generally weak) Motor/Sensory: no tremor Psychiatric: Orientation: alert Affect: + flat affect Mood: + depressed mood Lymphatic: no cervical or axillary lymphadenopathy Results & Data Vital Signs (Past 12 Hours) Vital Signs Temp Pulse Resp BP BP Pulse Ox 09/12/18 11:26 36.5 C 52 L 20 104/71 96 09/12/18 07:00 36.3 C L 73 16 129/74 95 09/12/18 03:29 36.4 C L 69 16 123/76 94 Medications Administered Current Inpatient Medications Acetaminophen (Tylenol) 650 mg PO Q4H PRN PRN Reason: Pain or Fever Stop: 10/07/18 20:48 Aspirin (Ecotrin Ectab) 81 mg PO DAILY [facility] Stop: 10/08/18 08:59 Last Admin: 09/12/18 08:09 Dose: 81 mg Documented by: Finasteride (Proscar) 5 mg PO DAILY [facility] Stop: 10/08/18 08:59 Last Admin: 09/12/18 08:09 Dose: 5 mg Documented by: Gabapentin (Neurontin) 100 mg PO TID [facility] Stop: 10/07/18 20:59 Last Admin: 09/12/18 08:10 Dose: 100 mg Documented by: Heparin Sodium/Dextrose (Heparin Sodium/Dextrose) 25,000 units in 500 mls @ 16 mls/hr IV .Q24H [facility]; Protocol Stop: 10/08/18 05:59 Last Titration: 09/12/18 06:53 Dose: 800 units/hr, 16 mls/hr Documented by: Levetiracetam (Keppra) 500 mg PO BID [facility] Stop: 10/07/18 20:59 Last Admin: 09/12/18 08:10 Dose: 500 mg Documented by: Levothyroxine Sodium (Synthroid) 125 mcg PO DAILYBB [facility] Stop: 10/08/18 06:29 Last Admin: 09/12/18 06:01 Dose: 125 mcg Documented by: Metoprolol Succinate (Toprol Xl) 6.25 mg PO DAILY [facility] Stop: 10/08/18 08:59 Last Admin: 09/12/18 08:07 Dose: 6.25 mg Documented by: Nitroglycerin (Nitrostat) 0.4 mg SL UD PRN PRN Reason: Chest Pain Stop: 10/07/18 20:48 Ondansetron HCl (Zofran) 4 mg IV Q6H PRN PRN Reason: Nausea Stop: 10/07/18 20:48 Polyethylene Glycol (Miralax Powder Packet) 17 gm PO TID PRN PRN Reason: Constipation Stop: 10/07/18 20:48 Polyethylene Glycol (Miralax Powder Packet) 17 gm PO DAILY PRN PRN Reason: Constipation Stop: 10/07/18 20:48 Spironolactone (Aldactone) 12.5 mg PO DAILY [facility] Stop: 10/08/18 08:59 Last Admin: 09/12/18 08:09 Dose: 12.5 mg Documented by: Trazodone HCl (Desyrel) 100 mg PO HS [facility] Stop: 10/08/18 20:59 Last Admin: 09/11/18 20:48 Dose: 100 mg Documented by: Vitamin D (Vitamin D3) 1,000 units PO DAILY [facility] Stop: 10/08/18 08:59 Last Admin: 09/12/18 08:07 Dose: 1,000 units Documented by: Warfarin Sodium (Coumadin) 6 mg PO DAILY@1600 [facility] Stop: 10/09/18 15:59 Last Admin: 09/11/18 16:27 Dose: 6 mg Documented by: (1) Chest pain Chest pain type: unspecified Qualified Code(s): R07.9 - Chest pain, unspecified
[2018-09-12] MEDS: WARFARIN SOD 6 MG TAB PO SCH (15:24)
[2018-09-12] MEDS: TRAZODONE HCL 100 MG TAB PO SCH (20:50)
[2018-09-13] MEDS: LEVOTHYROXINE SODIUM 125 MCG TABLET PO SCH (06:11)
[2018-09-13 06:12] LABS: INR 2.3 (0.9-1.1); Prothrombin Time 21.9 Seconds (9.0-12.0)
[2018-09-13 06:32] LABS: Hematocrit (blood only) 39.4 % (42-52); Hemoglobin 12.6 g/dL (14.0-18.0); Mean Platelet Volume 13.6 fL (7.4-10.4); Platelet Count 95 K/uL (130-400); RDW Coefficient of Variation 14.1 % (11.5-14.5); RDW Standard Deviation 46.5 fL (36.4-46.3); Red Blood Count 4.33 M/uL (4.7-6.1); White Blood Count 4.92 K/uL (4.8-10.8)
[2018-09-13 06:40] LABS: BUN Creatinine Ratio 16.2 (10-20); Basophils # (auto) 0.02 K/uL (0-0.2); Basophils % (auto) 0.4 %; Calcium 8.6 mg/dl (8.5-10.1); Creatinine Clr Calc Pharmacy 61.3 ml/min; Eosinophils # (auto) 0.13 K/uL (0-0.5); Eosinophils % (auto) 2.6 %; Est GFR (Non-African American) 73.3; Immature Granulocytes # (auto) 0.01 K/uL (0.00-0.02); Immature Granulocytes % (auto) 0.2 %; Lymphocytes # (auto) 1.31 K/uL (1.2-3.4); Lymphocytes % (auto) 26.6 %; Monocytes # (auto) 0.39 K/uL (0.11-0.59); Monocytes % (auto) 7.9 %; Neutrophils # (auto) 3.06 K/uL (1.4-6.5); Neutrophils % (auto) 62.3 %; Ovalocytes 1+; Platelet Estimate Decreased (Normal); Potassium 4.2 mmol/L (3.5-5.1)
[2018-09-13 06:41] LABS: Partial Thromboplastin Ratio 2.4
[2018-09-13 06:43] LABS: Partial Thromboplastin Time 64.5 Seconds (21.0-31.0)
[2018-09-13] MEDS: SPIRONOLACTONE 25 MG TAB PO SCH (08:31)
[2018-09-13] MEDS: CHOLECALCIFEROL 1,000 UNITS TAB PO SCH (08:31)
[2018-09-13] MEDS: METOPROLOL SUCC 25MG EXT REL TAB PO SCH (08:31)
[2018-09-13] MEDS: GABAPENTIN 100 MG CAP PO SCH (08:32)
[2018-09-13] MEDS: ASPIRIN 81 MG ECTAB PO SCH (08:32)
[2018-09-13] MEDS: FINASTERIDE 5 MG TAB PO SCH (08:32)
[2018-09-13] MEDS: levETIRAcetam 500 MG TAB PO SCH (08:32)
--- NOTE | 2018-09-13 12:06 | Hospitalist Progress Note ---
Date of Service September 13, 2018 Assessment & Plan (1) Chest pain: Elevated Troponin Possible related to demand ischemia Denies any chest pain since admission Has chronic troponin elevation in the past Troponin elevated on admission, that trending down EKG showed no ischemic changes ECHO showed severe global hypokinesia of LV with EF btw 20-25 % cardiology on board recommended to continue conservative management Continue aspirin, metoprolol Clinically stable (2) Systolic CHF: History of systolic and diastolic heart failure secondary to nonischemic cardiomyopathy Status post AICD placement Most recent ECHO showed EF 20-25 % Remains euvolemic-denies any shortness of breath Cardiology on board and recommended to continue current therapy (3) Seizure: No evidence of seizure (4) Biventricular ICD (implantable cardioverter-defibrillator) in place: Stable (5) History of partial colectomy: History of colon cancer status post partial colectomy Will have outpatient follow-up with oncologist (6) Depression: Has significant depression on top of her exam is dementia Complaints to have lack of sleep Slept well with increasing dose of trazodone Stable (7) Atrial fibrillation: Heart rate is controlled with current medications Recent echo did not have any significant change Rate control with Metoprolol INR was low at 1.5 on admission Has been on intravenous heparin and Coumadin continue INR is 2.3 today received coumadin 6mg Monitor PT/INR [facility] Disposition Discharge to rehab today Follow up with PCP Follow up with Oncology Subjective Pt was seen and examined Lying in bed with no distress resting Pt said he feels ok Denies any chest pain, palpitation, dizziness and SOB Physical Exam Physical Exam: General- No acute distress Head- atraumatic Eyes- PERRL, EOMI, ENT- oropharynx clear Neck- supple, no JVD Lungs- clear to auscultation Heart- regular rhythm; +murmur Abdomen- normal bowel sounds, soft, nontender Extremities- no calf tenderness Neuro- alert, oriented, PERRL, EOMI; no dysarthria, move all 4 extremities Skin- warm & dry Results & Data Vital Signs (Past 12 Hours) Vital Signs Temp Pulse Pulse Resp BP BP Pulse Ox 09/13/18 11:22 36.6 C 102 H 18 93/64 L 98 09/13/18 07:22 36.7 C 68 20 111/74 94 09/13/18 04:20 36.7 C 62 20 118/67 98 09/13/18 00:38 65 (1) Chest pain Chest pain type: unspecified Qualified Code(s): R07.9 - Chest pain, unspecified
--- NOTE | 2018-09-15 01:05 | Discharge Summary ---
Date of Service September 13, 2018 Admission HPI Per Admitting Provider CHIEF COMPLAINT: Chest pain, not feeling well. HISTORY OF PRESENT ILLNESS: This is an 83-year-old male with past medical history significant for chronic systolic CHF with EF of 20%-25% with diastolic CHF, chronic atrial fibrillation, status post bioprosthetic aortic valve replacement, status post bioprosthetic mitral valve replacement, depression, history of seizures, peripheral sensory neuropathy, Alzheimer disease with mild dementia, chronic ITP, lung nodule, hypothyroidism, hyperlipidemia, status post ICD, history of colon cancer about 15 years back, status post chemotherapy and surgery, lytic lesions noted in the multiple ribs in April 2017. Recent CEA and PSA levels are normal. Follows with hematology/oncology and there is plan for PET scan. He lives with his mother who is 98-year-old, caregiver is coming to the house every day and also his brother lives within 1 mile who also checks on him every day. The patient has a mild dementia. The daughter says they planned on MRI of the head, but could not do because of the pacemaker. The patient is somewhat slow to answer the questions. He is alert, awake and oriented to name and place. Has some difficulty with dates. He says he ambulates with a cane at home. He was complaining of not feeling well since last few days. He says appetite is down. At home, he complained of chest pain, but right now he denies any chest pain. He says that he is worried about the bruises on his hand. The daughter says these bruises are there for last 1 month, and is also surprised that he is concerned about them. As per patient, he did not take Coumadin for last 2 days. His INR is subtherapeutic at 1.3 in the ER. Currently, patient is resting comfortably and hemodynamically stable. Denies any headache. His vision is okay. Somewhat hard of hearing. His appetite is okay. Denies any chest pain or shortness of breath. No nausea, no vomiting, no abdominal pain. He says his bowels are somewhat constipated. He takes stool softeners. He is micturating fine. No swelling in the legs. Admission Exam Per Admitting Provider GENERAL: The patient is old and frail, not in acute distress. VITAL SIGNS: Temperature 36.5, pulse 62, respiratory rate 16, blood pressure 117/73, oxygen 95% on room air. HEENT: No pallor, no icterus. Pupils equal, round, and reactive to light. NECK: No JVD, no neck masses, no carotid bruits. CARDIOVASCULAR: S1, S2 heard, regular rate and rhythm, no murmur, no gallop. RESPIRATORY SYSTEM: Normal AP diameter. No accessory muscle use. No wheezing, no crackles. ABDOMEN: Soft, bowel sounds present. Nontender. No distention. CENTRAL NERVOUS SYSTEM: Cranial nerves II-XII grossly intact. Nonfocal. EXTREMITIES: No edema, no erythema. Principal Diagnosis Chest pain Afib Systolic CHF Seizure AICD placement Depression Discharge Exam General- No acute distress Head- atraumatic Eyes- PERRL, EOMI, ENT- oropharynx clear Neck- supple, no JVD Lungs- clear to auscultation Heart- regular rhythm; +murmur Abdomen- normal bowel sounds, soft, nontender Extremities- no calf tenderness Neuro- alert, oriented, PERRL, EOMI; no dysarthria, move all 4 extremities Skin- warm & dry Discharge Data Allergies Allergy/AdvReac Type Severity Reaction Status Date / Time No Known Allergies Allergy Unverified 06/02/16 16:09 Consultations 09/07/18 18:49 ED Decision to Admit Stat 09/07/18 20:49 Consult Case Management - Discharge Planning Routine 09/08/18 08:00 Consult Cardiology Routine Ordered Studies 09/07/18 15:53 CT angio chest PE protocol Stat XR chest 1V portable CLINICAL HISTORY: 83 years-old Male presenting with Chest Pain. TECHNIQUE: Portable upright AP view of the chest was obtained. COMPARISON: 05/29/2017. FINDINGS: Left subclavian implanted cardiac for bladder with leads to the right atrium, coronary sinus, and right ventricular apex. A left atrial appendage occlusion device is noted. Median sternotomy wires intact. Atherosclerosis of the aortic arch. Cardiac silhouette moderately enlarged. Pulmonary vasculature is normal appearing. Minimal left basilar opacity similar to prior. Trace left pleural effusion not excluded. No large pneumothorax Degenerative changes of the thoracic spine. IMPRESSION: 1. Persistent left basilar opacity, possibly atelectasis or scarring. Trace left pleural effusion is not excluded. 2. Cardiomegaly without evidence of volume overload or edema. Electronically signed by: Chidi Sin M.D. 09/07/2018 3:10 PM Dictated: 09/07/18 1508 Transcribed: 09/07/[address] ANGIOGRAM OF THE CHEST CLINICAL HISTORY: Atypical chest pain COMPARISON STUDY: May 23, 2017 TECHNIQUE: Following the IV administration of 119 mL of Optiray-320, CT angiogram of the thorax was performed from the thoracic inlet to the lung bases utilizing the pulmonary embolus protocol. Images are reviewed in the axial, sagittal, and coronal planes. IV contrast was administered without complication. MIP imaging was performed. A dose lowering technique was utilized adhering to the principles of ALARA. CT DOSE: 543.38 mGycm FINDINGS: There is a stable 16 mm hypodensity within the left hepatic lobe, likely representing a cyst. The heart is enlarged with coronary artery calcifications. There is a left subclavian dual-chamber pacemaker/defibrillator present. No pathologically enlarged axillary mediastinal or hilar lymph nodes were visualized. There is fusiform dilatation of the ascending thoracic aorta which measures 43 mm in diameter. There were no pulmonary artery filling defects to indicate acute pulmonary embolism. No pleural effusions are visualized. There are stable bilateral point nodules including a solid 7 mm nodule within the right upper lobe. IMPRESSION: 1. No evidence of acute pulmonary embolism 2. No evidence of acute parenchymal consolidation 3. Stable bilateral pulmonary nodules including a 7 mm solid nodule within the right upper lobe. The 7 mm nodule has remained stable for 2 years, and therefore is highly likely benign. 4. Fusiform dilatation of the ascending thoracic aorta which measures 43 mm. This remain stable Electronically signed by: Javi Wang M.D. 09/07/2018 5:04 PM Dictated: 09/07/18 1655 Transcribed: 09/07/18 1655 Hospital Course (1) Chest pain: Elevated Troponin Possible related to demand ischemia Denies any chest pain since admission Has chronic troponin elevation in the past Troponin elevated on admission, that trending down EKG showed no ischemic changes ECHO showed severe global hypokinesia of LV with EF btw 20-25 % cardiology on board recommended to continue conservative management Continue aspirin, metoprolol Clinically stable (2) Systolic CHF: History of systolic and diastolic heart failure secondary to nonischemic cardiomyopathy Status post AICD placement Most recent ECHO showed EF 20-25 % Remains euvolemic-denies any shortness of breath Cardiology on board and recommended to continue current therapy (3) Seizure: No evidence of seizure (4) Biventricular ICD (implantable cardioverter-defibrillator) in place: Stable (5) History of partial colectomy: History of colon cancer status post partial colectomy Will have outpatient follow-up with oncologist (6) Depression: Has significant depression on top of her exam is dementia Complaints to have lack of sleep Slept well with increasing dose of trazodone Stable (7) Atrial fibrillation: Heart rate is controlled with current medications Recent echo did not have any significant change Rate control with Metoprolol INR was low at 1.5 on admission Has been on intravenous heparin and Coumadin continue INR is 2.3 today received coumadin 6mg Monitor PT/INR Follow up with the [facility] Disposition Discharge to rehab today Follow up with PCP Follow up with Oncology Total Time Total Time Spent Total Time Spent (In Minutes): 35 minutes Total Time Includes: Examination of the Patient, Discharge Planning, Medication Reconciliation, Communication With Other Providers and Other Discharge Plan Discharge Items Patient Disposition: Transfer Intermediate Fac Reason For Visit: CHEST PAIN,NOT FEELING WELL Discharge Diagnosis: Chest pain Afib Systolic CHF Seizure AICD placement Discharge Goals: Decrease discomfort, Improve disease control, Improve function and Increase independence Activity: Resume your previous activity Activity Comment: as tolerated Non-emergency contact: Primary Care Provider and Oncologist Call non-emergency contact if: you have any medication questions Follow-up/Referrals: Malena Lang DO [Primary Care Provider] - Diet: Heart Healthy Addtl Provider Instructions: Follow up with your primary care provider once discharge from rehab Follow up with oncology to monitor for the history of colon cancer Continue physical and occupational therapy Monitor PT/INR closely Fall precaution Seizure precaution Prescriptions: New warfarin [Coumadin] 5 mg tablet 5 mg PO DAILY Qty: 30 RF: 0 Continued amoxicillin 500 mg Capsule 2,000 mg PO UD RF: 0 levetiracetam [Keppra] 500 mg tablet 500 mg PO BID RF: 0 acetaminophen [Tylenol Extra Strength] 500 mg Tablet 500 mg PO Q4 PRN (Reason: Pain) RF: 0 spironolactone [Aldactone] 25 mg tablet 12.5 mg PO DAILY RF: 0 citalopram [Celexa] 20 mg tablet 20 mg PO DAILY RF: 0 levothyroxine 125 mcg tablet 125 mcg PO DAILY RF: 0 gabapentin [Neurontin] 100 mg capsule 100 mg PO TID RF: 0 metoprolol succinate [Toprol XL] 25 mg tablet extended release 24 hr 6.25 mg PO DAILY RF: 0 finasteride [Proscar] 5 mg tablet 5 mg PO DAILY RF: 0 cholecalciferol (vitamin D3) [Vitamin D3] 1,000 unit Tablet 1,000 unit PO DAILY RF: 0 aspirin [Aspir-81] 81 mg Tablet,Delayed Release (Dr/Ec) 81 mg PO DAILY RF: 0 polyethylene glycol 3350 [Miralax] 17 gram/dose Powder 17 g PO TID PRN (Reason: Constipation) RF: 0 Changed trazodone 50 mg tablet 100 mg PO HS Qty: 0 RF: 0 Discontinued warfarin [Coumadin] 3 mg tablet 3 mg PO UD RF: 0 Stand-Alone Forms: [facility] Discharge Orders: Discharge Order (Routine); Ordered 09/13/18 Ordered By: Benoit Al Skilled Items Patient informed of condition?: Yes DNR: No Discharge Level of Care: Skilled Communicable Disease: No Discharge Prognosis: Stable Admission Data Admit Date/Time: 09/08/18 15:19 Attending Provider: Benoit Al Admit Provider: Isma Rodgers Primary Care Provider: Malena Lang Other Providers: Isma Rodgers ; Denver Cam ; Jacky Mckeon ; Iván Barajas ; Andrés Restrepo ; Oneil Sherman ; Alberto Miller ; Criselda Nicholas ; Briseyda Markham ; Bobby Domínguez Service: Telemetry Medical Other Interventions: Discharge Summary Assessment (RN) Last Done: 09/13/18 12:28 DC Date/Time DO NOT enter until pt leaves facility: 09/13/18 14:27
== END 2018-09-13 14:27 | DRG 311 ==
LOC: 2N 14:30 → ED 14:30 → 2N 20:46 → SUATTDRO 09-08 15:19